=== PATIENT | female | born 1965 | race Asian ===

== ENCOUNTER → 2017-08-17 11:47 | Outpatient (CLI) | payer OTHER, SELFPAY ==
--- NOTE | 2017-08-17 | DI.RAD.S_ITS ---
PROCEDURE: XR SHOULDER RT MIN 2V INDICATIONS: SHOULDER PAIN/HAND PAIN TECHNIQUE: 3 views of the shoulder were acquired. COMPARISON: None. FINDINGS: Bones: No fractures or dislocations. No suspicious bony lesions. Visualized ribs appear intact. Soft tissues: No suspicious soft tissue calcifications. Atelectasis right lung base. IMPRESSION: No apparent abnormality. Dictated by: Fab Clements M.D. on 08/17/2017 at 12:54 Approved by: Fab Clements M.D. on 08/17/2017 at 12:56
--- NOTE | 2017-08-17 | DI.RAD.S_ITS ---
PROCEDURE: XR HAND RT MIN 3V INDICATIONS: SHOULDER PAIN/HAND PAIN TECHNIQUE: 3 views of the hand(s) acquired. COMPARISON: [facility] Siren, CR, FINGERS 2VW (RT), 09/02/2013, 9:06. FINDINGS: Bones: No fractures or dislocations. Carpal bones are normally aligned. No suspicious bony lesions. Soft tissues: No suspicious soft tissue calcifications. IMPRESSION: Normal appearing hand and wrist, source of pain not seen. Dictated by: Fab Clements M.D. on 08/17/2017 at 12:53 Approved by: Fab Clements M.D. on 08/17/2017 at 12:54
== END ==
DX: M25.511 Pain in right shoulder (principal); M79.641 Pain in right hand
CPT/HCPCS: 73030; 73130

== ENCOUNTER → 2017-11-15 07:04 | Outpatient (CLI) | payer OTHER, MEDICAID, SELFPAY ==
--- NOTE | 2017-11-15 | DI.US.S_ITS ---
PROCEDURE: US RENAL COMPLETE INDICATIONS: RENAL INSUFFICIENCY TECHNIQUE: Real-time scanning was performed of the kidneys and bladder, with image documentation. COMPARISON: None. FINDINGS: Kidneys: Kidneys are normal in size. Right kidney measures 9.5 cm long; left kidney measures 10.2 cm long. Right renal cortical thickness is 1.8 cm; left renal cortical thickness is 1.2 cm. Renal cortical echotexture is normal. No hydronephrosis or nephrolithiasis. No suspicious solid mass lesions. Bladder: Pre-void bladder volume is 83 mL. Post-void residual is 0 mL. Pre-void images demonstrate no intraluminal masses or stones. On pre-void images, right ureteral jets are noted with color Doppler interrogation. (Of note, ureteral jets may not be detectable in up to 25% of cases due to insufficient differences in specific gravity between ureteral and bladder urine). Miscellaneous: No free pelvic fluid. IMPRESSION: Normal appearance of the kidneys. Dictated by: Tarun BEARDEN Interpreted: Jerardo Hernandez MD on 11/15/2017 at 8:06 Approved by: Jerardo Hernandez M.D. on 11/15/2017 at 10:47
== END ==
PROVIDERS: Visit Provider Nurse Practitioner
DX: N28.9 Disorder of kidney and ureter, unspecified (principal)
CPT/HCPCS: 76770

== ENCOUNTER → 2017-12-22 07:22 | Outpatient (CLI) | payer OTHER, MEDICAID, SELFPAY ==
[2017-12-22 07:33] LABS: Bacteria Urine None Seen
[2017-12-22 08:19] LABS: Appearance Urine UA CLEAR; Bilirubin Urine UA NEGATIVE (NEGATIVE); Color Urine UA YELLOW; Glucose Urine UA NEGATIVE (Normal); Ketones Urine UA NEGATIVE (NEGATIVE); Leukocyte Esterase Urine UA NEGATIVE (NEGATIVE); Nitrite Urine UA NEGATIVE (Negative); Occult Blood Urine UA NEGATIVE (Negative); Protein Urine UA NEGATIVE (Negative); Specific Gravity Urine UA 1.025 (1.000-1.035); Urobilinogen Urine UA 0.2 E.U./dL (0.2)
[2017-12-22 08:25] LABS: Hemoglobin A1C% w Est Avg Glu 6.9 % (4.0-6.0)
[2017-12-22 08:26] LABS: Culture Indicated Urine Cult Not Indicated; RBC Urine 0-1/HPF (0-5/HPF); Squamous Epithelial Cell Urine 1-5 /HPF; WBC Urine 0-1/HPF (0-5/HPF)
[2017-12-22 08:30] LABS: Albumin 4.7 g/dL (3.5-5.0); Albumin Globulin Ratio 1.6 (1.0-2.8); Alkaline Phosphatase 52 U/L (38-126); Aspartate Aminotransferase 26 IU/L (14-36); BUN Creatinine Ratio 18.3 (6-22); Bilirubin Total 0.4 mg/dL (0.2-1.3); Blood Urea Nitrogen 22 mg/dL (7-17); Calcium 9.7 mg/dL (8.4-10.2); Carbon Dioxide 26 mmol/L (22-32); Chloride 107 mmol/L (98-107); Cholesterol 198 mg/dL (140-199); Estimated Glomerular Filt Rate 46.8 mL/min (>60); Globulin 2.9 g/dL (1.7-4.1); Glucose 127 mg/dL (70-100); HDL Cholesterol 53 mg/dL (40-60); HEMOLYSIS < 15 (0-50); LDL Cholesterol Calculated 119 mg/dL (<100); Potassium 4.2 mmol/L (3.4-5.1); Total Protein 7.6 g/dL (6.3-8.2); Triglycerides 132 mg/dL (35-150)
[2017-12-22 08:32] LABS: Alanine Aminotransferase 23 IU/L (9-52); Sodium 144 mmol/L (137-145)
[2017-12-22 08:56] LABS: Creatinine Urine Random 173.9 mg/dL
[2017-12-22 08:59] LABS: Microalbumin Urine Random 5.4 mg/dL (0-1.6)
== END ==
PROVIDERS: PCP Nurse Practitioner; Visit Provider Nurse Practitioner
DX: N28.9 Disorder of kidney and ureter, unspecified (principal); E11.3293 Type 2 diabetes mellitus with mild nonproliferative diabetic retinopathy without macular edema, bilateral
CPT/HCPCS: 36415; 80053; 80061; 81001; 82043; 82570; 83036

== ENCOUNTER → 2018-09-17 11:47 | Outpatient (CLI) | payer OTHER, MEDICAID, SELFPAY ==
--- NOTE | 2018-09-17 | DI.MG.S_ITS ---
BILATERAL DIGITAL SCREENING MAMMOGRAM 3D/2D WITH CAD: 09/17/2018 CLINICAL: Routine screening. Comparison is made to exams dated: 03/13/2017 mammogram - [facility], 11/30/2015 mammogram, and 05/06/2014 mammogram - [facility]. There are scattered fibroglandular elements in both breasts. Current study was also evaluated with a Computer Aided Detection (CAD) system. No significant masses, calcifications, or other findings are seen in either breast. There has been no significant interval change. IMPRESSION: NEGATIVE There is no mammographic evidence of malignancy. A 1 year screening mammogram is recommended. This exam was interpreted at Station ID: [id number]. NOTE: For mammograms, a report in lay terms will be sent to the patient. Approximately 15% of breast malignancies will not be visualized mammographically. In the management of a palpable breast mass, a negative mammogram must not discourage biopsy of a clinically suspicious lesion. Electronically Signed By: Antwon tyson/[email or web address]:09/17/2018 18:25:12 letter sent: Normal Exam ACR BI-RADS Category 1: Negative [id number]
== END ==
PROVIDERS: PCP Nurse Practitioner; Visit Provider Nurse Practitioner
DX: Z12.31 Encounter for screening mammogram for malignant neoplasm of breast (principal)
CPT/HCPCS: 77063; 77067

== ENCOUNTER → 2018-10-15 09:05 | Outpatient (CLI) | payer OTHER, MEDICAID, SELFPAY ==
[2018-10-15 10:16] LABS: Hemoglobin A1C% w Est Avg Glu 7.3 % (4.0-6.0)
== END ==
PROVIDERS: PCP Nurse Practitioner; Visit Provider Family Medicine
DX: E11.3293 Type 2 diabetes mellitus with mild nonproliferative diabetic retinopathy without macular edema, bilateral (principal)
CPT/HCPCS: 36415; 83036

== ENCOUNTER 2018-12-31 10:46 | Day surgery (SDC) | payer OTHER, MEDICAID, SELFPAY ==
[2018-12-31] VITALS (12 sets, daily range): BP systolic 126–197; BP diastolic 74–103; PULSE 55–74; RESP 13–16; TEMP 36.1–36.6; O2SAT 94–98; BMI 23.4
--- NOTE | 2018-12-31 | PATH_ITS ---
[facility] Accession Number: [id number] . 01 Material submitted: . PART A: artery - SEGMENT RIGHT TEMPORAL ARTERY PART B: artery - SEGMENT LEFT TEMPORAL ARTERY . 02 Diagnosis: A. Segment Right Temporal Artery: Negative for histologic features of temporal arteritis. An elastic stain demonstrates an intact internal elastic lamina. . B. Segment Left Temporal Artery: Negative for histologic features of temporal arteritis. An elastic stain demonstrates an intact internal elastic lamina. MRV 01/01/2019 1426 Local . 02 Electronically signed: . Elin Schwartz MD, Pathologist NPI- [id number] . 01 Gross description: . Received two formalin-filled containers, both labeled with the patient's name: . A. In a container labeled segment right temporal artery, the specimen consists of two pink-hodge, rough, partial cylindrical-shaped portions of tissue which range in size from 0.3 x 0.2 x 0.2 cm to 0.4 x 0.3 x 0.2 cm. The specimen is inked blue and entirely submitted in cassette A to be possibly further sectioned at the time of embedding. B. In a container labeled segment left temporal artery, the specimen consists of a pink-hodge, rough, irregular-shaped, slightly friable portion of tissue which measures 0.5 x 0.3 x 0.2 cm. The specimen is inked and entirely submitted in cassette B to be possibly further sectioned at the time of embedding. ([id number]) /FRVictor Hugo 01/01/2019 0218 Local . 02 Pathologist provided ICD-10: Z00.01 . 02 CPT . 567467, 436875, 489702, 477616 Performed at: [address] [place] [address] [address] [facility], [place], [place] [id number] MD Manny Gaona MD Phone: [phone] Performed at: [facility] [place] [address] [place] [id number] MD Camryn Linton MD Phone: [phone]
[2018-12-31] MEDS: LACTATED RINGERS 1,000 ML 100 ML IV ×2 (11:08→15:28)
--- NOTE | 2018-12-31 12:47 | PM.PREOP ---
Pre-operative Note Interval Note History & Physical reviewed/Exam performed by Physician: Yes Changes to H&P: No
[2018-12-31] MEDS: CEFAZOLIN 2 GM/100 ML FROZ.PIGGY IV (12:51)
--- NOTE | 2018-12-31 13:15 | SUR.OPER ---
Supine on padded OR bed, head on pillow, ARMS PADDED AND SECURED AT SIDES, legs uncrossed, safety belt at thigh, tape over blanket over lower legs .
[2018-12-31] MEDS: LIDOCAINE 1% 30 ML INJ (13:24)
--- NOTE | 2018-12-31 14:06 | PM.OP.1 ---
Operative Date/Time/Diagnoses Date of procedure: 12/31/18 Time of procedure: 14:06 Pre-op diagnosis: Possible temporal arteritis Post-op diagnosis: same Procedure & Clinicians Procedure: Bilateral temporal artery biopsies Same procedure as scheduled: Yes Indications: Patient with an elevated sed rate and abnormal ultrasound of her temporal arteries with symptoms suggesting possible arteritis Surgeon: Fernando Vincent Click Yes if Unassisted: Yes Anesthesia Type: General Operative Notes Findings: Normal appearing temporal arteries Closure Type: primary Specimen(s): other (Right left temporal arteries segments) Prosthetic devices, grafts, tissues, transplants, or devices: None Estimated Blood Loss (mL): 10 Blood products transfused: none Procedure in detail: Patient was placed supine on the operating room table and underwent general LMA anesthesia. Her makeup had been removed preop. She was prepped with chlorhexidine alcohol overlying her temporal artery which was palpable. It the incision was made behind the hairline carried down the level the artery. The segment of the artery was removed and the cut ends were ligated with 4 0 Vicryl suture ligatures. Once the segment was removed there was no significant bleeding. The incision was closed with interrupted 4 0 Vicryl subcuticular sutures. Steri-Strips and Mastisol were applied. Attention was turned to the opposite side. A mirror incision and biopsy was performed with identical closure. Patient tolerated the procedure well. Was awakened extubated taken recovery area in good condition. Complications: none Post-operative Condition: stable Disposition: PACU
[2018-12-31] MEDS: fentaNYL 100 MCG/2 ML INJ IV (14:54)
--- NOTE | 2018-12-31 15:06 | SUR.PHASEI ---
notified anesthesia regarding pt's B/P slowly increasing, received verbal orders to give 5mg Labetalol IV
[2018-12-31] MEDS: LABETALOL 20 MG/4 ML SYRINGE IV (15:10)
--- NOTE | 2018-12-31 15:25 | SUR.PHASEI ---
Pt. requesting to use the bathroom, pt. assisted up to EOB with min. assist and into a w/c. Able to void via toilet without issues and min. assist back into w/c. Pt. now progressed into phase II. Report given to Danyel Torres RN
[2018-12-31] MEDS: ONDANSETRON 4 MG/2 ML INJ (15:35)
[2018-12-31] MEDS: METOCLOPRAMIDE 10 MG/2 ML INJ IV (15:41)
--- NOTE | 2018-12-31 15:43 | SUR.PHASEII ---
Pt transported from PACU to OPD, assisted to BR, voided, back to stretcher pt stated she was nauseated and had some dry heaves Dr Almaraz made aware by SHANE Lara and pt medicated with ondansetron and then reglan. radha wray also at bedside.
--- NOTE | 2018-12-31 16:18 | SUR.PHASEII ---
No further nausea, significant other left to get filled meds. Pt resting comfortably at present.
== END 2018-12-31 16:47 | disposition home or self-care (01) ==
PROVIDERS: PCP Nurse Practitioner; Visit Provider Specialist
PROC: (CPT 37609; principal; 2018-12-31 12:30)
DX: R51 Headache (principal); E11.9 Type 2 diabetes mellitus without complications; F32.9 Major depressive disorder, single episode, unspecified; Z79.84 Long term (current) use of oral hypoglycemic drugs
CPT/HCPCS: 37609; J0690; J1100; J2250; J2405; J2704; J2765; J3010

== ENCOUNTER → 2019-01-21 09:52 | Outpatient (CLI) | payer OTHER, MEDICAID, SELFPAY ==
[2019-01-21 10:43] LABS: Hemoglobin A1C% w Est Avg Glu 9.9 % (4.0-6.0)
[2019-01-21 11:16] LABS: Alanine Aminotransferase 27 IU/L (<35); Albumin 4.1 g/dL (3.5-5.0); Albumin Globulin Ratio 1.7 (1.0-2.8); Alkaline Phosphatase 84 U/L (38-126); Aspartate Aminotransferase 24 IU/L (14-36); Bilirubin Total 0.5 mg/dL (0.2-1.3); Blood Urea Nitrogen 38 mg/dL (7-17); Calcium 10.3 mg/dL (8.4-10.2); Carbon Dioxide 25 mmol/L (22-32); Chloride 101 mmol/L (98-107); Cholesterol 243 mg/dL (140-199); Estimated Glomerular Filt Rate 57.6 mL/min (>60); Globulin 2.4 g/dL (1.7-4.1); Glucose 346 mg/dL (70-100); HDL Cholesterol 75 mg/dL (40-60); HEMOLYSIS < 15 (0-50); LDL Cholesterol Calculated 118 mg/dL (<100); Sodium 139 mmol/L (137-145); Total Protein 6.5 g/dL (6.3-8.2); Triglycerides 248 mg/dL (35-150); VLDL Cholesterol Calculated 50 mg/dL (2-30)
[2019-01-21 11:17] LABS: Creatinine Urine Random 35.9 mg/dL
[2019-01-21 11:20] LABS: Microalbumi Creatinin Ratio Ur 153.2 ug/mg CR (<30); Microalbumin Urine Random 5.5 mg/dL (0-1.6)
== END ==
PROVIDERS: PCP Family Medicine; Visit Provider Family Medicine
DX: E11.3293 Type 2 diabetes mellitus with mild nonproliferative diabetic retinopathy without macular edema, bilateral (principal)
CPT/HCPCS: 36415; 80053; 80061; 82043; 82570; 83036

== ENCOUNTER 2019-01-22 17:38 | Observation (INO) | payer OTHER, MEDICAID, SELFPAY ==
[2019-01-22] VITALS (9 sets, daily range): BP systolic 134–185; BP diastolic 67–100; PULSE 86–110; RESP 15–24; TEMP 36.3; O2SAT 90–100; BMI 23.4
--- NOTE | 2019-01-22 17:52 | DI.RAD.S_ITS ---
PROCEDURE: XR CHEST 1V INDICATIONS: chest pain TECHNIQUE: One view of the chest was acquired. COMPARISON: [facility], , CHEST 1 VIEW, 10/31/2007, 11:06. FINDINGS: Surgical changes and devices: None. Lungs and pleura: Lungs are clear. No pleural effusions or pneumothorax. Mediastinum: Mediastinal contours appear normal. Heart size is normal. Bones and chest wall: No suspicious bony lesions. Overlying soft tissues appear unremarkable. IMPRESSION: No acute cardiopulmonary abnormalities or focal airspace disease. Dictated by: Enoch Vogt M.D. on 01/22/2019 at 18:11 Approved by: Enoch Vogt M.D. on 01/22/2019 at 18:11
--- NOTE | 2019-01-22 17:54 | ED.GENADULT ---
HPI - General Adult <Sissy Jaramillo MD - Last Filed: 01/22/19 18:45> General Chief complaint: Recheck/Abnormal Lab/Rx Stated complaint: heart palpitations, difficulty breathing Time Seen by Provider: 01/22/19 17:54 History of Present Illness HPI narrative: 53-year-old woman who had blood work done yesterday with a potassium of 6.0 noted. She was contacted prior her primary care physician with instructions to come to the emergency room for additional evaluation. Related Data Home Medications Medication Instructions Recorded Confirmed citalopram 20 mg tablet 20 mg PO DAILY 12/25/18 01/22/19 gabapentin 100 mg capsule 100 mg PO QAM 12/25/18 01/22/19 glipizide 5 mg tablet 5 mg PO QAM 12/25/18 01/22/19 loratadine 10 mg tablet 10 mg PO DAILY PRN 12/25/18 01/22/19 multivitamin 1 cap PO QAM 12/25/18 01/22/19 pravastatin 20 mg tablet 20 mg PO QAM 12/25/18 01/22/19 prazosin 1 mg capsule 1 mg PO BEDTIME PRN 12/25/18 01/22/19 Previous Rx's Medication Instructions Recorded metformin [Glucophage] 500 mg PO BID #60 06/14/11 Allergies Allergy/AdvReac Type Severity Reaction Status Date / Time aspirin [ASPIRIN] Allergy Unknown Verified 01/22/19 21:17 iodine [IODINE] Allergy Unknown Verified 01/22/19 21:17 lactose [LACTOSE] Allergy Unknown Verified 01/22/19 21:17 latex [LATEX] Allergy Unknown Verified 01/22/19 21:17 <Cora Rider DO - Last Filed: 01/23/19 01:11> General Source: patient and old records reviewed Mode of arrival: Ambulatory Limitations: no limitations History of Present Illness HPI narrative: Patient is a 53-year-old female with history of diabetes presenting with elevated potassium. She had routine blood work done yesterday which did show potassium of 6.0. She says that over the past week she is having increasing shortness of breath and chest discomfort. She denies any orthopnea but does have worsening chest discomfort and shortness of breath with exertion. No fevers chills or productive cough. She generally feels weak. She was just treated for temporal arteritis with prednisone. She had biopsies done which were negative and she was tapered off the prednisone. Her glucose she says has been elevated due to prednisone. She currently has no chest pain or shortness of breath now. She states she did travel in a car to [place] over [facility] which was 3 weeks ago. She has no calf pain or swelling. <Cora Rider DO - Last Filed: 01/23/19 01:11> Review of Systems ROS Unobtainable: All systems reviewed & are unremarkable except as noted in HPI and below Constitutional Constitutional: Denies chills, Denies fever(s), Denies lethargy and Denies weakness Eyes Eyes: Denies change in vision, Denies eye discharge, Denies irritation and Denies loss of vision ENT Ears, Nose, Mouth, and Throat: Denies change in voice, Denies neck pain and Denies sore throat Cardiovascular Cardiovascular: Reports as per HPI, Reports chest pain, Reports rapid heart rate (Palpitations), Denies lightheadedness, Denies palpitations and Reports dyspnea on exertion Respiratory Respiratory: Reports as per HPI and Reports dyspnea on exertion Gastrointestinal Gastrointestinal: Denies abdominal pain, Denies change in bowel habits, Denies diarrhea, Denies nausea and Denies vomiting Genitourinary Genitourinary: Denies hematuria, Denies flank pain, Denies urinary incontinence and Denies urinary urgency Musculoskeletal Musculoskeletal: Denies neck pain Integumentary/Breasts Skin/Breast: Denies pruritus, Denies erythema, Denies rash and Denies wounds Neurologic Neurologic: Denies loss of vision and Denies weakness Endocrine Endocrine: Denies palpitations Patient History <Sissy Jaramillo MD - Last Filed: 01/22/19 18:45> Medical History (Updated 01/23/19 @ 00:14 by JAVIER Joyner) Depression (Acute) Diabetes (Acute) Hearing loss (Acute) Night terrors (Chronic) Seasonal allergies (Acute) Surgical History Hx of carpal tunnel repair (Acute) Hx of hand surgery (Acute) Hx of shoulder surgery (Acute) Family History Father Depression Hypertension Sister Gout Cancer Mother Diabetes mellitus Social History household members: significant other and friend(s) Smoking Status: Never smoker alcohol intake: never substance use type: does not use Smoking Status: Never smoker Substance Use Type: does not use Exam <Sissy Jaramillo MD - Last Filed: 01/22/19 18:45> Initial Vital Signs Initial Vital Signs: Vital Signs Pulse Rate 96 H 01/22/19 18:00 Respiratory Rate 18 01/22/19 18:00 Blood Pressure 150/85 H 01/22/19 18:00 <Cora Rider DO - Last Filed: 01/23/19 01:11> Initial Vital Signs Initial Vital Signs: Vital Signs Pulse Rate 96 H 01/22/19 18:00 Respiratory Rate 18 01/22/19 18:00 Blood Pressure 150/85 H 01/22/19 18:00 GENERAL: Well-appearing, well-nourished and in no acute distress. HEENT: Head atraumatic,EOMI, pupils reactive, face symmetric CARDIOVASCULAR: Regular rate and rhythm without murmurs, rubs or gallops. RESPIRATORY: Breath sounds equal bilaterally, no wheezes rales or rhonchi. ABDOMEN: Soft, nontender. Normoactive bowel sounds all 4 quadrants. No guarding or rebound. EXTREMITIES: Normal range of motion, no clubbing or edema. Neurovascularly intact NEUROLOGICAL: Alert and oriented x4.Normal gait and speech. Cranial nerves II through XII grossly intact. SKIN: Warm, dry, no laceration, no petechiae, no rashes or lesions. <Cora Rider DO - Last Filed: 01/23/19 01:11> HEART Score Heart Score history: Moderately Suspicious Heart Score EKG: Normal Heart Score Age: 45-64 years old Heart Score risk factors: 1-2 risk factors Heart Score troponin: < or = to normal limit Heart Score Total: 3 PERC Score Age greater than or equal to 50 years: Yes Heart rate greater than or equal to 100 bpm: Yes Room Air O2 Sat less than 95%: No Unilateral leg swelling: No Recent trauma or surgery: No Hemoptysis: No Prior PE or DVT: No Hormone Use: No Total PERC Score: 2 Wells' Criteria for PE Clinical signs and symptoms of DVT: No PE is #1 Dx or equally likely: No Heart rate > 100: Yes Immobilization at least 3 days or surg in previous 4 weeks: No History of PE or DVT: No Hemoptysis: No Malignancy w/Treatment within 6 months or palliative: No Wells' PE Score total: 1.5 Course <Sissy Jaramillo MD - Last Filed: 01/22/19 18:45> Orders Ordered: ED Orders 01/22/19 17:47 EKG-12 Lead Stat 01/22/19 17:52 XR chest 1V Stat 01/22/19 18:00 B Type Natriuretic Peptide Stat Complete Blood Count AUTO DIFF Stat Partial Thromboplastin Time Stat Prothrombin Time INR Stat 01/22/19 18:30 Comprehensive Metabolic Panel Stat D Dimer Stat Lipase Stat Magnesium Stat Troponin & CK Cardiac Panel Stat 01/22/19 20:45 CT angio chest PE protocol Stat Acetaminophen (Tylenol) 650 mg PO Q6HR PRN PRN Reason: Fever/Mild Pain (1-3) Clopidogrel Bisulfate (Plavix) 75 mg PO DAILY KIKA Dextrose (D50w) 25 gm IV PRN PRN; Protocol PRN Reason: Hypoglycemia Heparin Sodium (Porcine) (Heparin) 5,000 unit SUBCUT Q8HR [facility] Last Admin: 01/22/19 22:39 Dose: 5,000 unit Documented by: ULI Sodium Chloride (Normal Saline 0.9%) 1,000 mls @ 150 mls/hr IV BOLUS ONE Stop: 01/23/19 03:39 Last Infusion: 01/22/19 21:46 Dose: 0 mls/hr Documented by: Admin: 01/22/19 21:09 Dose: 150 mls/hr Documented by: JOSE Sodium Chloride (Normal Saline 0.9%) 1,000 mls @ 100 mls/hr IV CONT KIKA Stop: 01/23/19 11:14 Insulin Aspart (Novolog Flexpen) 0 unit SUBCUT ACHS [facility]; Protocol Ondansetron HCl (Zofran) 4 mg IV Q8HR PRN PRN Reason: Nausea And Vomiting Discontinued Medications Clopidogrel Bisulfate (Plavix) 75 mg PO NOW ONE Stop: 01/22/19 20:46 Last Admin: 01/22/19 20:53 Dose: 75 mg Documented by: JOSE Diphenhydramine HCl (Benadryl) 25 mg IV NOW ONE Stop: 01/22/19 20:46 Last Admin: 12/17/19 20:53 Dose: 25 mg Documented by: JOSE Sodium Chloride (Normal Saline 0.9%) 1,000 mls @ 1,000 mls/hr IV BOLUS ONE Stop: 01/22/19 19:03 Last Infusion: 01/22/19 19:20 Dose: 0 mls/hr Documented by: Admin: 01/22/19 18:08 Dose: 1,000 mls/hr Documented by: JOSE Sodium Chloride (Normal Saline 0.9%) 1,000 mls @ 1,000 mls/hr IV BOLUS ONE Stop: 01/22/19 21:10 Last Infusion: 01/22/19 21:00 Dose: 0 mls/hr Documented by: Admin: 01/22/19 20:20 Dose: 1,000 mls/hr Documented by: JOSE Magnesium Sulfate (Magnesium Sulfate) 2 gm in 50 mls @ 25 mls/hr IV NOW ONE Stop: 01/22/19 23:48 Last Admin: 01/22/19 22:49 Dose: 25 mls/hr Documented by: ULI Cosigned by: ANNA Influenza Virus Vaccine (Flu Vaccine) 0.5 ml IM .ONCE ONE Stop: 01/22/19 22:05 Methylprednisolone (Solu-Medrol 125 Mg Vial) 125 mg IV NOW ONE Stop: 01/22/19 20:46 Last Admin: 01/22/19 20:53 Dose: 125 mg Documented by: JOSE Morphine Sulfate (Morphine) 2 mg IV NOW ONE Stop: 01/22/19 20:57 Last Admin: 01/22/19 20:58 Dose: 2 mg Documented by: JOSE Potassium Chloride (Potassium Chloride) 20 meq PO NOW ONE Stop: 01/22/19 21:50 Last Admin: 01/22/19 22:38 Dose: 20 meq Documented by: ULI Vital Signs Vital signs: Vital Signs - 8 hr 01/22/19 18:00 01/22/19 18:10 01/22/19 18:30 Temperature 97.4 F L Pulse Rate 96 H 110 H 89 Respiratory Rate 18 24 21 Blood Pressure 184/81 H Blood Pressure [Right Arm] 150/85 H 152/70 H Pulse Oximetry 99 01/22/19 19:04 01/22/19 19:45 01/22/19 20:15 Temperature Pulse Rate 87 89 90 Respiratory Rate 20 19 20 Blood Pressure Blood Pressure [Right Arm] 134/67 140/74 148/71 H Pulse Oximetry 97 100 98 <Cora Rider, DO - Last Filed: 01/23/19 01:11> Orders Ordered: ED Orders 01/22/19 17:47 EKG-12 Lead Stat 01/22/19 17:52 XR chest 1V Stat 01/22/19 18:00 B Type Natriuretic Peptide Stat Complete Blood Count AUTO DIFF Stat Partial Thromboplastin Time Stat Prothrombin Time INR Stat 01/22/19 18:30 Comprehensive Metabolic Panel Stat D Dimer Stat Lipase Stat Magnesium Stat Troponin & CK Cardiac Panel Stat 01/22/19 20:45 CT angio chest PE protocol Stat Acetaminophen (Tylenol) 650 mg PO Q6HR PRN PRN Reason: Fever/Mild Pain (1-3) Clopidogrel Bisulfate (Plavix) 75 mg PO DAILY KIKA Dextrose (D50w) 25 gm IV PRN PRN; Protocol PRN Reason: Hypoglycemia Heparin Sodium (Porcine) (Heparin) 5,000 unit SUBCUT Q8HR [facility] Last Admin: 01/22/19 22:39 Dose: 5,000 unit Documented by: ULI Sodium Chloride (Normal Saline 0.9%) 1,000 mls @ 150 mls/hr IV BOLUS ONE Stop: 01/23/19 03:39 Last Infusion: 01/22/19 21:46 Dose: 0 mls/hr Documented by: Admin: 01/22/19 21:09 Dose: 150 mls/hr Documented by: JOSE Sodium Chloride (Normal Saline 0.9%) 1,000 mls @ 100 mls/hr IV CONT KIKA Stop: 01/23/19 11:14 Insulin Aspart (Novolog Flexpen) 0 unit SUBCUT ACHS [facility]; Protocol Ondansetron HCl (Zofran) 4 mg IV Q8HR PRN PRN Reason: Nausea And Vomiting Discontinued Medications Clopidogrel Bisulfate (Plavix) 75 mg PO NOW ONE Stop: 01/22/19 20:46 Last Admin: 01/22/19 20:53 Dose: 75 mg Documented by: JOSE Diphenhydramine HCl (Benadryl) 25 mg IV NOW ONE Stop: 01/22/19 20:46 Last Admin: 01/22/19 20:53 Dose: 25 mg Documented by: JOSE Sodium Chloride (Normal Saline 0.9%) 1,000 mls @ 1,000 mls/hr IV BOLUS ONE Stop: 01/22/19 19:03 Last Infusion: 01/22/19 19:20 Dose: 0 mls/hr Documented by: Admin: 01/22/19 18:08 Dose: 1,000 mls/hr Documented by: JOSE Sodium Chloride (Normal Saline 0.9%) 1,000 mls @ 1,000 mls/hr IV BOLUS ONE Stop: 01/22/19 21:10 Last Infusion: 01/22/19 21:00 Dose: 0 mls/hr Documented by: Admin: 01/22/19 20:20 Dose: 1,000 mls/hr Documented by: JOSE Magnesium Sulfate (Magnesium Sulfate) 2 gm in 50 mls @ 25 mls/hr IV NOW ONE Stop: 01/22/19 23:48 Last Admin: 01/22/19 22:49 Dose: 25 mls/hr Documented by: ULI Cosigned by: ANNA Influenza Virus Vaccine (Flu Vaccine) 0.5 ml IM .ONCE ONE Stop: 01/22/19 22:05 Methylprednisolone (Solu-Medrol 125 Mg Vial) 125 mg IV NOW ONE Stop: 01/22/19 20:46 Last Admin: 01/22/19 20:53 Dose: 125 mg Documented by: JOSE Morphine Sulfate (Morphine) 2 mg IV NOW ONE Stop: 01/22/19 20:57 Last Admin: 01/22/19 20:58 Dose: 2 mg Documented by: JOSE Potassium Chloride (Potassium Chloride) 20 meq PO NOW ONE Stop: 01/22/19 21:50 Last Admin: 01/22/19 22:38 Dose: 20 meq Documented by: ULI Vital Signs Vital signs: Vital Signs - 8 hr 01/22/19 18:00 01/22/19 18:10 01/22/19 18:30 Temperature 97.4 F L Pulse Rate 96 H 110 H 89 Respiratory Rate 18 24 21 Blood Pressure 184/81 H Blood Pressure [Right Arm] 150/85 H 152/70 H Pulse Oximetry 99 01/22/19 19:04 01/22/19 19:45 01/22/19 20:15 Temperature Pulse Rate 87 89 90 Respiratory Rate 20 19 20 Blood Pressure Blood Pressure [Right Arm] 134/67 140/74 148/71 H Pulse Oximetry 97 100 98 Medical Decision Making <Sissy Jaramillo MD - Last Filed: 01/22/19 18:45> Lab Data Result diagrams: 01/22/19 18:00 01/22/19 18:30 Labs: Lab Results 01/22/19 01/22/19 01/22/19 Range/Units 18:00 18:00 18:00 WBC 9.3 (4.5-11.0) X10^3/uL RBC 4.61 (4.0-5.2) X10^6/uL Hgb 12.8 (12.0-16.0) g/dL Hct 38.7 (36-46) % MCV 84.1 (80-100) fL MCH 27.7 (26-34) PG MCHC 33.0 (30-36) % RDW 15.1 H (11.6-14.8) % Plt Count 265 (150-400) X10^3/uL Neut % (Auto) 63.5 (50-75) % Lymph % (Auto) 26.6 (25-40) % [place] % (Auto) 7.2 (3-14) % Eos % (Auto) 1.3 L (2-4) % Baso % (Auto) 1.4 (0-2) % Neut # (Auto) 5900 (8411-7888) /uL Lymph # (Auto) 2500 (9987-1296) /uL [place] # (Auto) 700 (0-900) /uL Eos # (Auto) 100 (0-450) /uL Baso # (Auto) 100 (0-100) /uL PT 9.2 L (10.1-12.7) SECONDS INR 0.8 L (0.9-1.3) APTT 28 (26.4-36.2) SECONDS D-Dimer (<230) ng/mL Sodium (137-145) mmol/L Potassium (3.4-5.1) mmol/L Chloride (98-107) mmol/L Carbon Dioxide (22-32) mmol/L BUN (7-17) mg/dL Creatinine (0.52-1.04) mg/dL Estimated GFR (>60) mL/min BUN/Creatinine Ratio (6-22) Glucose (70-100) mg/dL Calcium (8.4-10.2) mg/dL Magnesium (1.6-2.3) mg/dL Total Bilirubin (0.2-1.3) mg/dL AST (14-36) IU/L ALT (<35) IU/L Alkaline Phosphatase (38-126) U/L Total Creatine Kinase (30-135) U/L CK-MB (CK-2) CK-MB (CK-2) Rel Index Troponin I (0.01-0.034) ng/mL B-Natriuretic Peptide < 100 (<100) Total Protein (6.3-8.2) g/dL Albumin (3.5-5.0) g/dL Globulin (1.7-4.1) g/dL Albumin/Globulin Ratio (1.0-2.8) Lipase (23-300) U/L TSH (0.47-4.68) uIU/mL 01/22/19 01/22/19 01/22/19 Range/Units 18:30 18:30 18:30 WBC (4.5-11.0) X10^3/uL RBC (4.0-5.2) X10^6/uL Hgb (12.0-16.0) g/dL Hct (36-46) % MCV (80-100) fL MCH (26-34) PG MCHC (30-36) % RDW (11.6-14.8) % Plt Count (150-400) X10^3/uL Neut % (Auto) (50-75) % Lymph % (Auto) (25-40) % [place] % (Auto) (3-14) % Eos % (Auto) (2-4) % Baso % (Auto) (0-2) % Neut # (Auto) (0742-5616) /uL Lymph # (Auto) (6463-7312) /uL [place] # (Auto) (0-900) /uL Eos # (Auto) (0-450) /uL Baso # (Auto) (0-100) /uL PT (10.1-12.7) SECONDS INR (0.9-1.3) APTT (26.4-36.2) SECONDS D-Dimer < 200 (<230) ng/mL Sodium 137 (137-145) mmol/L Potassium 3.4 D (3.4-5.1) mmol/L Chloride 102 (98-107) mmol/L Carbon Dioxide 26 (22-32) mmol/L BUN 28 H (7-17) mg/dL Creatinine 1.10 H (0.52-1.04) mg/dL Estimated GFR 51.6 L (>60) mL/min BUN/Creatinine Ratio 25.5 H (6-22) Glucose 180 H D (70-100) mg/dL Calcium 9.9 (8.4-10.2) mg/dL Magnesium 1.6 (1.6-2.3) mg/dL Total Bilirubin 0.4 (0.2-1.3) mg/dL AST 21 (14-36) IU/L ALT 23 (<35) IU/L Alkaline Phosphatase 64 (38-126) U/L Total Creatine Kinase 21 L (30-135) U/L CK-MB (CK-2) TNP CK-MB (CK-2) Rel Index TNP Troponin I < 0.012 (0.01-0.034) ng/mL B-Natriuretic Peptide (<100) Total Protein 5.8 L (6.3-8.2) g/dL Albumin 3.6 (3.5-5.0) g/dL Globulin 2.2 (1.7-4.1) g/dL Albumin/Globulin Ratio 1.6 (1.0-2.8) Lipase 285 (23-300) U/L TSH (0.47-4.68) uIU/mL // Range/Units 18:30 WBC (4.5-11.0) X10^3/uL RBC (4.0-5.2) X10^6/uL Hgb (12.0-16.0) g/dL Hct (36-46) % MCV (80-100) fL MCH (26-34) PG MCHC (30-36) % RDW (11.6-14.8) % Plt Count (150-400) X10^3/uL Neut % (Auto) (50-75) % Lymph % (Auto) (25-40) % [place] % (Auto) (3-14) % Eos % (Auto) (2-4) % Baso % (Auto) (0-2) % Neut # (Auto) (0029-1719) /uL Lymph # (Auto) (6603-2816) /uL [place] # (Auto) (0-900) /uL Eos # (Auto) (0-450) /uL Baso # (Auto) (0-100) /uL PT (10.1-12.7) SECONDS INR (0.9-1.3) APTT (26.4-36.2) SECONDS D-Dimer (<230) ng/mL Sodium (137-145) mmol/L Potassium (3.4-5.1) mmol/L Chloride (98-107) mmol/L Carbon Dioxide (22-32) mmol/L BUN (7-17) mg/dL Creatinine (0.52-1.04) mg/dL Estimated GFR (>60) mL/min BUN/Creatinine Ratio (6-22) Glucose (70-100) mg/dL Calcium (8.4-10.2) mg/dL Magnesium (1.6-2.3) mg/dL Total Bilirubin (0.2-1.3) mg/dL AST (14-36) IU/L ALT (<35) IU/L Alkaline Phosphatase (38-126) U/L Total Creatine Kinase (30-135) U/L CK-MB (CK-2) CK-MB (CK-2) Rel Index Troponin I (0.01-0.034) ng/mL B-Natriuretic Peptide (<100) Total Protein (6.3-8.2) g/dL Albumin (3.5-5.0) g/dL Globulin (1.7-4.1) g/dL Albumin/Globulin Ratio (1.0-2.8) Lipase (23-300) U/L TSH 2.34 (0.47-4.68) uIU/mL Point of Care Testing Glucose POC 164 Point of care testing: Point of Care Testing Glucose POC 164 ECG Data Attestation: I personally reviewed and interpreted this ECG as follows: Interpretation: Sinus tachycardia at a rate of 111. Nonspecific ST-T wave abnormalities without peaked T-waves and normal intervals without a widening QRS. No acute ischemia <Cora Rider DO - Last Filed: 01/23/19 01:11> Lab Data Lab results reviewed: Yes I reviewed the patient's lab results. Labs: Lab Results 01/22/19 01/22/19 01/22/19 Range/Units 18:00 18:00 18:00 WBC 9.3 (4.5-11.0) X10^3/uL RBC 4.61 (4.0-5.2) X10^6/uL Hgb 12.8 (12.0-16.0) g/dL Hct 38.7 (36-46) % MCV 84.1 (80-100) fL MCH 27.7 (26-34) PG MCHC 33.0 (30-36) % RDW 15.1 H (11.6-14.8) % Plt Count 265 (150-400) X10^3/uL Neut % (Auto) 63.5 (50-75) % Lymph % (Auto) 26.6 (25-40) % [place] % (Auto) 7.2 (3-14) % Eos % (Auto) 1.3 L (2-4) % Baso % (Auto) 1.4 (0-2) % Neut # (Auto) 5900 (5805-5456) /uL Lymph # (Auto) 2500 (9384-0778) /uL [place] # (Auto) 700 (0-900) /uL Eos # (Auto) 100 (0-450) /uL Baso # (Auto) 100 (0-100) /uL PT 9.2 L (10.1-12.7) SECONDS INR 0.8 L (0.9-1.3) APTT 28 (26.4-36.2) SECONDS D-Dimer (<230) ng/mL Sodium (137-145) mmol/L Potassium (3.4-5.1) mmol/L Chloride (98-107) mmol/L Carbon Dioxide (22-32) mmol/L BUN (7-17) mg/dL Creatinine (0.52-1.04) mg/dL Estimated GFR (>60) mL/min BUN/Creatinine Ratio (6-22) Glucose (70-100) mg/dL Calcium (8.4-10.2) mg/dL Magnesium (1.6-2.3) mg/dL Total Bilirubin (0.2-1.3) mg/dL AST (14-36) IU/L ALT (<35) IU/L Alkaline Phosphatase (38-126) U/L Total Creatine Kinase (30-135) U/L CK-MB (CK-2) CK-MB (CK-2) Rel Index Troponin I (0.01-0.034) ng/mL B-Natriuretic Peptide < 100 (<100) Total Protein (6.3-8.2) g/dL Albumin (3.5-5.0) g/dL Globulin (1.7-4.1) g/dL Albumin/Globulin Ratio (1.0-2.8) Lipase (23-300) U/L TSH (0.47-4.68) uIU/mL 01/22/19 01/22/19 01/22/19 Range/Units 18:30 18:30 18:30 WBC (4.5-11.0) X10^3/uL RBC (4.0-5.2) X10^6/uL Hgb (12.0-16.0) g/dL Hct (36-46) % MCV (80-100) fL MCH (26-34) PG MCHC (30-36) % RDW (11.6-14.8) % Plt Count (150-400) X10^3/uL Neut % (Auto) (50-75) % Lymph % (Auto) (25-40) % [place] % (Auto) (3-14) % Eos % (Auto) (2-4) % Baso % (Auto) (0-2) % Neut # (Auto) (5598-1749) /uL Lymph # (Auto) (0024-7239) /uL [place] # (Auto) (0-900) /uL Eos # (Auto) (0-450) /uL Baso # (Auto) (0-100) /uL PT (10.1-12.7) SECONDS INR (0.9-1.3) APTT (26.4-36.2) SECONDS D-Dimer < 200 (<230) ng/mL Sodium 137 (137-145) mmol/L Potassium 3.4 D (3.4-5.1) mmol/L Chloride 102 (98-107) mmol/L Carbon Dioxide 26 (22-32) mmol/L BUN 28 H (7-17) mg/dL Creatinine 1.10 H (0.52-1.04) mg/dL Estimated GFR 51.6 L (>60) mL/min BUN/Creatinine Ratio 25.5 H (6-22) Glucose 180 H D (70-100) mg/dL Calcium 9.9 (8.4-10.2) mg/dL Magnesium 1.6 (1.6-2.3) mg/dL Total Bilirubin 0.4 (0.2-1.3) mg/dL AST 21 (14-36) IU/L ALT 23 (<35) IU/L Alkaline Phosphatase 64 (38-126) U/L Total Creatine Kinase 21 L (30-135) U/L CK-MB (CK-2) TNP CK-MB (CK-2) Rel Index TNP Troponin I < 0.012 (0.01-0.034) ng/mL B-Natriuretic Peptide (<100) Total Protein 5.8 L (6.3-8.2) g/dL Albumin 3.6 (3.5-5.0) g/dL Globulin 2.2 (1.7-4.1) g/dL Albumin/Globulin Ratio 1.6 (1.0-2.8) Lipase 285 (23-300) U/L TSH (0.47-4.68) uIU/mL // Range/Units 18:30 WBC (4.5-11.0) X10^3/uL RBC (4.0-5.2) X10^6/uL Hgb (12.0-16.0) g/dL Hct (36-46) % MCV (80-100) fL MCH (26-34) PG MCHC (30-36) % RDW (11.6-14.8) % Plt Count (150-400) X10^3/uL Neut % (Auto) (50-75) % Lymph % (Auto) (25-40) % [place] % (Auto) (3-14) % Eos % (Auto) (2-4) % Baso % (Auto) (0-2) % Neut # (Auto) (0270-3476) /uL Lymph # (Auto) (5265-7342) /uL [place] # (Auto) (0-900) /uL Eos # (Auto) (0-450) /uL Baso # (Auto) (0-100) /uL PT (10.1-12.7) SECONDS INR (0.9-1.3) APTT (26.4-36.2) SECONDS D-Dimer (<230) ng/mL Sodium (137-145) mmol/L Potassium (3.4-5.1) mmol/L Chloride (98-107) mmol/L Carbon Dioxide (22-32) mmol/L BUN (7-17) mg/dL Creatinine (0.52-1.04) mg/dL Estimated GFR (>60) mL/min BUN/Creatinine Ratio (6-22) Glucose (70-100) mg/dL Calcium (8.4-10.2) mg/dL Magnesium (1.6-2.3) mg/dL Total Bilirubin (0.2-1.3) mg/dL AST (14-36) IU/L ALT (<35) IU/L Alkaline Phosphatase (38-126) U/L Total Creatine Kinase (30-135) U/L CK-MB (CK-2) CK-MB (CK-2) Rel Index Troponin I (0.01-0.034) ng/mL B-Natriuretic Peptide (<100) Total Protein (6.3-8.2) g/dL Albumin (3.5-5.0) g/dL Globulin (1.7-4.1) g/dL Albumin/Globulin Ratio (1.0-2.8) Lipase (23-300) U/L TSH 2.34 (0.47-4.68) uIU/mL Point of Care Testing Glucose POC 164 Point of care testing: Point of Care Testing Glucose POC 164 Imaging Data Chest x-ray: Radiologist's impression: PROCEDURE: XR CHEST 1V INDICATIONS: chest pain TECHNIQUE: One view of the chest was acquired. COMPARISON: [facility], , CHEST 1 VIEW, 10/31/2007, 11:06. FINDINGS: Surgical changes and devices: None. Lungs and pleura: Lungs are clear. No pleural effusions or pneumothorax. Mediastinum: Mediastinal contours appear normal. Heart size is normal. Bones and chest wall: No suspicious bony lesions. Overlying soft tissues appear unremarkable. IMPRESSION: No acute cardiopulmonary abnormalities or focal airspace disease. Dictated by: Enoch Vogt M.D. on 01/22/2019 at 18:11 Approved by: Enoch Vogt M.D. on 01/22/2019 at 18:11 CT scan - chest: Radiologist's impression: PROCEDURE: CT ANGIO CHEST PE PROTOCOL INDICATIONS: SHORTNESS OF BREATH TECHNIQUE: After the administration of intravenous contrast, 2 mm thick sections acquired from the pulmonary apices to the posterior costophrenic angles. 3-dimensional maximum intensity projection (MIP) coronal and sagittal reformats were then acquired through the thorax. For radiation dose reduction, the following was used: automated exposure control, adjustment of mA and/or kV according to patient size. COMPARISON: [facility], CR, XR CHEST 1V, 01/22/2019, 18:01. FINDINGS: Image quality: Excellent. Pulmonary arteries: Pulmonary arteries are normal in size, and demonstrate no intraluminal filling defects to suggest central pulmonary embolism. Lungs and pleura: Mild patchy dependent groundglass opacities likely representing atelectasis. No focal consolidations. No septal thickening or nodularity. No pleural effusions or pneumothorax. Central and peripheral airways are patent. Mediastinum: Heart size is normal, without pericardial effusion. No mediastinal or hilar adenopathy. Thoracic aorta is normal in caliber and enhancement. Esophagus is normal in caliber, without hiatal hernia. Bones and chest wall: No suspicious bony lesions. Ribs and thoracic spine appear intact throughout. Thyroid gland is unremarkable as visualized. No axillary or supraclavicular adenopathy. Abdomen: Visualized upper abdominal solid organs appear normal in the early arterial phase of enhancement. IMPRESSION: 1. CT angiogram of the chest without evidence for acute pulmonary emboli. 2. Minimal, patchy dependent groundglass opacities likely representing atelectasis. Otherwise, no acute cardiopulmonary abnormalities. Dictated by: Enoch Vogt M.D. on 01/22/2019 at 21:29 MDM Narrative Medical decision making narrative: Due to patient's allergy to aspirin she is given Plavix. She initially is noted to be slightly tachycardic but improved with IV fluids, her potassium actually is normal today yesterday did show 6.0 today is 3.4. Creatinine slightly elevated 1.1 today yesterday was 1.0. Possibly patient is dehydrated. She has a +PERC + for age and tachycardia only and tachycardia did improve with IV fluids, negative D-dimer. The patient's signs and symptoms are concerning for cardiac equivalent with worsening chest discomfort she certainly does have risk factors of hyperlipidemia and diabetes. Carolina HERRERA, request CT angio prior to admission. CT angio negative. Discharge Plan Departure Patient Disposition: Admitted as Observation Clinical Impression: Chest pain Qualifiers: Chest pain type: unspecified Qualified Code(s): R07.9 - Chest pain, unspecified Discharge Date/Time: 01/22/19 21:47 Admit Date/Time: 01/22/19 20:55 Admit Provider: Mk Figueroa
[2019-01-22] MEDS: SODIUM CHLORIDE 0.9% 1,000 ML 1000 ML IV ×2 (18:08→20:20)
[2019-01-22 18:12] LABS: Add Manual Diff / Slide Review NO; Basophils Absolute Auto 100 /uL (0-100); Basophils Percent Auto 1.4 % (0-2); Eosinophils Absolute Auto 100 /uL (0-450); Eosinophils Percent Auto 1.3 % (2-4); Hematocrit 38.7 % (36-46); Hemoglobin 12.8 g/dL (12.0-16.0); Lymphocytes Absolute Auto 2500 /uL (1100-4500); Lymphocytes Percent Auto 26.6 % (25-40); Mean Corpuscular Hemoglobin 27.7 PG (26-34); Mean Corpuscular Volume 84.1 fL (80-100); Monocytes Absolute Auto 700 /uL (0-900); Monocytes Percent Auto 7.2 % (3-14); Neutrophils Absolute Auto 5900 /uL (1500-7000); Neutrophils Percent Auto 63.5 % (50-75); Platelet Count 265 X10^3/uL (150-400); Red Blood Cell Count 4.61 X10^6/uL (4.0-5.2); Red Cell Distribution Width 15.1 % (11.6-14.8); White Blood Cell Count 9.3 X10^3/uL (4.5-11.0)
[2019-01-22 18:21] LABS: INR 0.8 (0.9-1.3); Prothrombin Time 9.2 SECONDS (10.1-12.7)
[2019-01-22 18:23] LABS: PTT Partial Thromboplastin Tim 28 SECONDS (26.4-36.2)
[2019-01-22 18:50] LABS: Alanine Aminotransferase 23 IU/L (<35); Albumin 3.6 g/dL (3.5-5.0); Albumin Globulin Ratio 1.6 (1.0-2.8); Alkaline Phosphatase 64 U/L (38-126); Aspartate Aminotransferase 21 IU/L (14-36); BUN Creatinine Ratio 25.5 (6-22); Bilirubin Total 0.4 mg/dL (0.2-1.3); Blood Urea Nitrogen 28 mg/dL (7-17); Calcium 9.9 mg/dL (8.4-10.2); Carbon Dioxide 26 mmol/L (22-32); Chloride 102 mmol/L (98-107); Creatine Kinase 21 U/L (30-135); Estimated Glomerular Filt Rate 51.6 mL/min (>60); Globulin 2.2 g/dL (1.7-4.1); Glucose 180 mg/dL (70-100); HEMOLYSIS < 15 (0-50); Lipase 285 U/L (23-300); Potassium 3.4 mmol/L (3.4-5.1); Sodium 137 mmol/L (137-145); Total Protein 5.8 g/dL (6.3-8.2)
[2019-01-22 18:55] LABS: Magnesium 1.6 mg/dL (1.6-2.3)
[2019-01-22 19:00] LABS: B Type Natriuretic Peptide < 100 (<100)
[2019-01-22 19:02] LABS: Troponin I < 0.012 ng/mL (0.01-0.034)
[2019-01-22 20:05] LABS: D Dimer < 200 ng/mL (<230)
--- NOTE | 2019-01-22 20:45 | DI.CT.S_ITS ---
PROCEDURE: CT ANGIO CHEST PE PROTOCOL INDICATIONS: SHORTNESS OF BREATH TECHNIQUE: After the administration of intravenous contrast, 2 mm thick sections acquired from the pulmonary apices to the posterior costophrenic angles. 3-dimensional maximum intensity projection (MIP) coronal and sagittal reformats were then acquired through the thorax. For radiation dose reduction, the following was used: automated exposure control, adjustment of mA and/or kV according to patient size. COMPARISON: [facility], CR, XR CHEST 1V, 01/22/2019, 18:01. FINDINGS: Image quality: Excellent. Pulmonary arteries: Pulmonary arteries are normal in size, and demonstrate no intraluminal filling defects to suggest central pulmonary embolism. Lungs and pleura: Mild patchy dependent groundglass opacities likely representing atelectasis. No focal consolidations. No septal thickening or nodularity. No pleural effusions or pneumothorax. Central and peripheral airways are patent. Mediastinum: Heart size is normal, without pericardial effusion. No mediastinal or hilar adenopathy. Thoracic aorta is normal in caliber and enhancement. Esophagus is normal in caliber, without hiatal hernia. Bones and chest wall: No suspicious bony lesions. Ribs and thoracic spine appear intact throughout. Thyroid gland is unremarkable as visualized. No axillary or supraclavicular adenopathy. Abdomen: Visualized upper abdominal solid organs appear normal in the early arterial phase of enhancement. IMPRESSION: 1. CT angiogram of the chest without evidence for acute pulmonary emboli. 2. Minimal, patchy dependent groundglass opacities likely representing atelectasis. Otherwise, no acute cardiopulmonary abnormalities. Dictated by: Enoch Vogt M.D. on 01/22/2019 at 21:29 Approved by: Enoch Vogt M.D. on 01/22/2019 at 21:37
[2019-01-22] MEDS: methylPREDNISolone 125 MG/2 ML VIAL IV (20:53)
[2019-01-22] MEDS: diphenhydrAMINE 50 MG/ML VIAL 25 MG IV (20:53)
[2019-01-22] MEDS: CLOPIDOGREL 75 MG TABLET PO (20:53)
[2019-01-22] MEDS: MORPHINE 2 MG/ML INJ IV (20:58)
[2019-01-22] MEDS: SODIUM CHLORIDE 0.9% 1,000 ML 150 ML IV (21:09)
[2019-01-22 22:23] LABS: Bacteria Urine None Seen
[2019-01-22 22:32] LABS: Thyroid Stimulating Hormone 2.34 uIU/mL (0.47-4.68)
[2019-01-22] MEDS: POTASSIUM CHLORIDE 20 MEQ/15 ML UDC PO (22:38)
[2019-01-22] MEDS: HEPARIN 5,000 UNIT/ML VIAL 5000 UNIT SUBCUT (22:39)
[2019-01-22 22:41] LABS: Culture Indicated Urine Cult Not Indicated; RBC Urine 5-10/HPF (0-5/HPF); Squamous Epithelial Cell Urine 0-1 /HPF (0-5/HPF); WBC Urine 0-1/HPF (0-5/HPF)
[2019-01-22 22:47] LABS: Bacteria Urine None Seen; WBC Urine None Seen (0-5/HPF)
[2019-01-22 22:48] LABS: Appearance Urine UA CLEAR; Bilirubin Urine UA NEGATIVE (NEGATIVE); Glucose Urine UA TRACE g/dL (Negative); Ketones Urine UA NEGATIVE (NEGATIVE); Leukocyte Esterase Urine UA NEGATIVE (NEGATIVE); Nitrite Urine UA NEGATIVE (Negative); Occult Blood Urine UA 3+ (Negative); Protein Urine UA NEGATIVE (Negative); Specific Gravity Urine UA <=1.005 (1.000-1.035); Urobilinogen Urine UA 0.2 E.U./dL (0.2)
--- NOTE | 2019-01-22 22:48 | P.HP_ITS ---
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 Patient originally presented to the ED on 01/22/2019 upon recommendation of her PCP out of concern for hyperkalemia (K 6.0). Initial ED lab work-up revealed a potassium of 3.4. Upon further assessment patient reported a 1 week history of exertional dyspnea. Associated symptoms include palpitations followed by generalized pressure-like chest discomfort, frequently with radiation to both shoulders and posterior torso. Patient reports developing palpitations and chest discomfort after ambulating approximately 10 ft. Reports needing 10 minutes to recover to baseline. Reports orthopnea and need to sleep with 2 large and 1 small pillow. Denies peripheral edema. Reports experiencing dizziness in the form of spinning of the room and unsteady gait. Typically occurs with position change. She has not suffered a syncopal event or hemoptysis. Reports feeling more fatigued. Denies abdominal pain, vomiting, and diarrhea. She notes suffering from constipation over the past 2 weeks requiring use of laxative. Patient reports constipation to use of steroids. In the past 2 weeks reports experiencing 3 isolated episodes of bright rectal bleeding, patient is unable to defer rate if it was hematuria or per rectum. Denies prior history of hypertension, ACS/[place], CVA, thrombosis, or thyroid disease. Recently treated with a 2 week course of tapering prednisone for temporal arteritis. Reports surgical biopsy that was negative. Patient states that she has had a stress test 4 years ago, but unable to recall the reason. On 01/21/2019 has finished a 2 week course of prednisone. In the of December dick merlos developed flu-like symptoms, cough, fever, and left-sided headache with stiff neck. Records note her to have persistently elevated inflammatory markers. She has had an abnormal temporal artery scan with suspicion for arteritis. Patient underwent a bilateral temporal artery biopsy on 12/31/2018. Results of the biopsy were negative. Patient History Medical History (Updated 01/23/19 @ 00:14 by JAVIER Joyner) Depression (Acute) Diabetes (Acute) Hearing loss (Acute) Night terrors (Chronic) Seasonal allergies (Acute) Surgical History Hx of carpal tunnel repair (Acute) Hx of hand surgery (Acute) Hx of shoulder surgery (Acute) Family & Social History Family History Father Depression Hypertension Sister Gout Cancer Mother Diabetes mellitus Social History: household members Significant other,friend(s) Prior Living Arrangements House Safety & Behavioral: Feels Safe in Current Yes Environment Been Physically Hurt or No Threatened By a Person Suicidal Ideation Description None Suicide Plan Description No Plan Tobacco & Substance use: Smoking Status Never smoker alcohol intake Never Substance Use Type does not use Meds Home Medications and Allergies Home Medications Medication Instructions Recorded Confirmed Type metformin [Glucophage] 500 mg PO BID #60 06/14/11 01/22/19 Rx citalopram 20 mg tablet 20 mg PO DAILY 12/25/18 01/22/19 History gabapentin 100 mg capsule 100 mg PO QAM 12/25/18 01/22/19 History glipizide 5 mg tablet 5 mg PO QAM 12/25/18 01/22/19 History loratadine 10 mg tablet 10 mg PO DAILY PRN 12/25/18 01/22/19 History multivitamin 1 cap PO QAM 12/25/18 01/22/19 History pravastatin 20 mg tablet 20 mg PO QAM 12/25/18 01/22/19 History prazosin 1 mg capsule 1 mg PO BEDTIME PRN 12/25/18 01/22/19 History Allergies Allergy/AdvReac Type Severity Reaction Status Date / Time aspirin [ASPIRIN] Allergy Severe Gastrointestinal Verified 01/23/19 04:55 Upset iodine [IODINE] Allergy Unknown Verified 01/22/19 21:17 lactose [LACTOSE] Allergy Unknown Verified 01/22/19 21:17 latex [LATEX] Allergy Unknown Verified 01/22/19 21:17 Review of Systems Review of Systems ROS Unobtainable: All systems reviewed & are unremarkable except as noted in HPI and below Exam Vital Signs (past 8 hours): - 01/22/19 18:00 01/22/19 18:10 01/22/19 18:30 Temperature 97.4 F L Pulse Rate 96 H 110 H 89 Pulse Rate [Orthostatic Lying] Pulse Rate [Orthostatic Sitting] Pulse Rate [Orthostatic Standing] Respiratory Rate 18 24 21 Blood Pressure 184/81 H Blood Pressure [Orthostatic Lying] Blood Pressure [Orthostatic Sitting] Blood Pressure [Orthostatic Standing] Blood Pressure [Right Arm] 150/85 H 152/70 H Pulse Oximetry 99 01/22/19 19:04 01/22/19 19:45 01/22/19 20:15 Temperature Pulse Rate 87 89 90 Pulse Rate [Orthostatic Lying] Pulse Rate [Orthostatic Sitting] Pulse Rate [Orthostatic Standing] Respiratory Rate 20 19 20 Blood Pressure Blood Pressure [Orthostatic Lying] Blood Pressure [Orthostatic Sitting] Blood Pressure [Orthostatic Standing] Blood Pressure [Right Arm] 134/67 140/74 148/71 H Pulse Oximetry 97 100 98 01/22/19 21:41 01/22/19 21:55 01/22/19 22:39 Temperature 97.4 F L Pulse Rate 86 90 Pulse Rate [Orthostatic Lying] 89 Pulse Rate [Orthostatic Sitting] 97 H Pulse Rate [Orthostatic Standing] 96 H Respiratory Rate 15 18 Blood Pressure 185/100 H Blood Pressure [Orthostatic Lying] 158/92 H Blood Pressure [Orthostatic Sitting] 165/99 H Blood Pressure [Orthostatic Standing] 154/93 H Blood Pressure [Right Arm] 168/86 H Pulse Oximetry 95 90 L Oxygen Delivery Method Room Air Oxygen Flow Rate 0 Narrative Exam Narrative: Constitutional: NAD Neurologic: AOx3, forgetful, no focal neurological deficits Head: NC, AT Eyes: PERRL, EOMI, no scleral icterus Ears: external ears normal, no otorrhea Nose: external nose normal, no rhinorrhea or epistaxis Throat: MMM, oropharynx w/o exudate Neck: no masses, lymphadenopathy, or JVD Chest / Respiratory: equal chest rise, unlabored respiratory effort, no tachypnea, diminished bases Heart / CV: S1S2, not tachycardic at rest, no murmur Abdomen / GI: round, NT, ND, hypoactive BS, no organomegaly : no suprapubic tenderness, no CVA Peripheral / Vascular: warm to touch, DP and PT pulses palpable, no edema Musc: full ROM of upper and lower extremities, adequate muscle tone and bulk Skin: no ecchymosis or suspicious lesions / ulcers Objective Labs Result Diagrams: 01/23/19 01:15 01/23/19 04:55 Labs: Laboratory Results - last 24 hr 01/22/19 01/22/19 01/22/19 18:00 18:00 18:00 WBC 9.3 RBC 4.61 Hgb 12.8 Hct 38.7 MCV 84.1 MCH 27.7 MCHC 33.0 RDW 15.1 H Plt Count 265 Neut % (Auto) 63.5 Lymph % (Auto) 26.6 [place] % (Auto) 7.2 Eos % (Auto) 1.3 L Baso % (Auto) 1.4 Neut # (Auto) 5900 Lymph # (Auto) 2500 [place] # (Auto) 700 Eos # (Auto) 100 Baso # (Auto) 100 PT 9.2 L INR 0.8 L APTT 28 D-Dimer Sodium Potassium Chloride Carbon Dioxide BUN Creatinine Estimated GFR BUN/Creatinine Ratio Glucose Calcium Magnesium Total Bilirubin AST ALT Alkaline Phosphatase Total Creatine Kinase CK-MB (CK-2) CK-MB (CK-2) Rel Index Troponin I B-Natriuretic Peptide < 100 Total Protein Albumin Globulin Albumin/Globulin Ratio Lipase TSH Urine RBC Urine WBC Ur Squamous Epith Cells Urine Bacteria Ur Culture Indicated? 01/22/19 01/22/19 01/22/19 18:30 18:30 18:30 WBC RBC Hgb Hct MCV MCH MCHC RDW Plt Count Neut % (Auto) Lymph % (Auto) [place] % (Auto) Eos % (Auto) Baso % (Auto) Neut # (Auto) Lymph # (Auto) [place] # (Auto) Eos # (Auto) Baso # (Auto) PT INR APTT D-Dimer < 200 Sodium 137 Potassium 3.4 D Chloride 102 Carbon Dioxide 26 BUN 28 H Creatinine 1.10 H Estimated GFR 51.6 L BUN/Creatinine Ratio 25.5 H Glucose 180 H D Calcium 9.9 Magnesium 1.6 Total Bilirubin 0.4 AST 21 ALT 23 Alkaline Phosphatase 64 Total Creatine Kinase 21 L CK-MB (CK-2) TNP CK-MB (CK-2) Rel Index TNP Troponin I < 0.012 B-Natriuretic Peptide Total Protein 5.8 L Albumin 3.6 Globulin 2.2 Albumin/Globulin Ratio 1.6 Lipase 285 TSH Urine RBC Urine WBC Ur Squamous Epith Cells Urine Bacteria Ur Culture Indicated? 01/22/19 01/22/19 18:30 21:07 WBC RBC Hgb Hct MCV MCH MCHC RDW Plt Count Neut % (Auto) Lymph % (Auto) [place] % (Auto) Eos % (Auto) Baso % (Auto) Neut # (Auto) Lymph # (Auto) [place] # (Auto) Eos # (Auto) Baso # (Auto) PT INR APTT D-Dimer Sodium Potassium Chloride Carbon Dioxide BUN Creatinine Estimated GFR BUN/Creatinine Ratio Glucose Calcium Magnesium Total Bilirubin AST ALT Alkaline Phosphatase Total Creatine Kinase CK-MB (CK-2) CK-MB (CK-2) Rel Index Troponin I B-Natriuretic Peptide Total Protein Albumin Globulin Albumin/Globulin Ratio Lipase TSH 2.34 Urine RBC 5-10/hpf H Urine WBC 0-1/hpf Ur Squamous Epith Cells 0-1 /hpf Urine Bacteria None seen Ur Culture Indicated? Cult not indicated Assessment & Plan Assessment & Plan narrative: Patient is being admitted under observation status for exertional dyspnea. Exertional dyspnea, acute, present on admission, active - CXR negative for acute cardiopulmonary findings - CTA Chest negative for PEM; minimal patchy dependent groundglass opacities likely representing atelectasis. - Trop, BNP, D-Dimer negative - check echo and stress test in am Palpitations, acute, present on admission, active - Telemetry monitoring - Check orthostatic BP - Tachycardic w/ exertion, HR from 80 into 120s - Check TSH (2.34) - Remarkable for electrolyte abnormalities, K 3.4 and Mg 1.6 / Cr - Finished 2 week tapering prednisone course on 01/21/2019 Atypical Chest Pain, acute, present on admission, active - Trop < 0.012, continue trending Q6H - EKG. Sinus tachycardia (v-rate 111), QTc 424. Non-ischemic. - Risk stratify, had lipid panel (chol 243, ldl 118, hdl 75, trig 248) and a1c 9.9% done on 01/21 - Stress Test in am - Allergic to ASA (reports GI associated side effects). Received x1 dose of Plavix in ED, will continue. Elevated BP without prior history of hypertension, present on admission, active - VS Q4H, continue trending - Hydralazine 10 mg IV prn for SBP > 160 and DBP > 100 mmHg - Consider starting on beta-roosevelt, holding tonight due to stress test in a.m. DM 2T (non-insulin dependent), uncontrolled, chronic, present on admission, active - A1C (01/21/19) - 9.9% - Hold REGISTERED HEALTH NURSE metformin and glipizide - POC glucose AC & HS (if diet present) or Q6H (if NPO) - Started on SSI moderate level Chronic kidney disease, present on admission, active - Cr 1.1 (baseline unknown, Cr 1.2 in December of 2018). RAPHAEL vs. CKD ?? RF: DM 2T - Trend renal function - Received 1L IVF bolus in ED Dyslipidemia, chronic condition, present on admission, active - Cholesterol 243 LDL 118 HDL 75 Triglycerides 248 (01/24/2019) - Change pravastatin 20 mg daily to atorvastatin 40 mg daily - add fish oil 1000 mg daily Code status discussed, wishes to be a full code. Designates her dannie Oneill as surrogate decision maker. VTE prophylaxis w/ Heparin Quality VTE Deep Vein Thrombosis/Pulmonary Embolism Present on Admission: No
[2019-01-22] MEDS: MAGNESIUM SULFATE 2 GM/50 ML PIGGYBACK IV (22:49)
[2019-01-22 22:55] LABS: Color Urine UA Straw
[2019-01-22 22:57] LABS: Culture Indicated Urine Cult Not Indicated; RBC Urine 5-10/HPF (0-5/HPF); Squamous Epithelial Cell Urine 0-1 /HPF (0-5/HPF)
[2019-01-23] VITALS (11 sets, daily range): BP systolic 116–158; BP diastolic 74–95; PULSE 75–102; RESP 16–18; TEMP 36.4–36.6; O2SAT 94–97
[2019-01-23 01:08] LABS: Troponin I < 0.012 ng/mL (0.01-0.034)
[2019-01-23 01:26] LABS: C-Reactive Protein Quant 0.7 mg/dL (<1.0)
[2019-01-23 01:32] LABS: Add Manual Diff / Slide Review NO; Basophils Absolute Auto 0 /uL (0-100); Basophils Percent Auto 0.2 % (0-2); Eosinophils Absolute Auto 0 /uL (0-450); Eosinophils Percent Auto 0.4 % (2-4); Hematocrit 36.3 % (36-46); Hemoglobin 12.1 g/dL (12.0-16.0); Lymphocytes Absolute Auto 1000 /uL (1100-4500); Mean Corpuscular HGB Conc 33.3 % (30-36); Mean Corpuscular Hemoglobin 28.1 PG (26-34); Mean Corpuscular Volume 84.3 fL (80-100); Monocytes Absolute Auto 100 /uL (0-900); Monocytes Percent Auto 1.8 % (3-14); Neutrophils Absolute Auto 6400 /uL (1500-7000); Neutrophils Percent Auto 84.6 % (50-75); Platelet Count 228 X10^3/uL (150-400); Red Blood Cell Count 4.31 X10^6/uL (4.0-5.2); Red Cell Distribution Width 15.2 % (11.6-14.8); White Blood Cell Count 7.5 X10^3/uL (4.5-11.0)
[2019-01-23] MEDS: SODIUM CHLORIDE 0.9% 1,000 ML 100 ML IV (01:48)
[2019-01-23 01:49] LABS: Erythrocyte Sedimentation Rate 9 MM/HR (0-20)
[2019-01-23 02:01] LABS: Adenovirus Not Detected (Not Detect); Bordetella pertussis Not Detected (Not Detect); Chlamydophila pneumoniae Not Detected (Not Detect); Coronavirus 229E Not Detected (Not Detect); Coronavirus HKU1 Not Detected (Not Detect); Coronavirus NL 63 Not Detected (Not Detect); Coronavirus OC43 Not Detected (Not Detect); Human Metapneumovirus Not Detected (Not Detect); Human Rhinovirus/Enterovirus Not Detected (Not Detect); Influenza A Not Detected (Not Detect); Influenza B Not Detected (Not Detect); Mycoplasma pneumoniae Not Detected (Not Detect); Parainfluenza Virus 1 Not Detected (Not Detect); Parainfluenza Virus 2 Not Detected (Not Detect); Parainfluenza Virus 3 Not Detected (Not Detect); Parainfluenza Virus 4 Not Detected (Not Detect); Respiratory Syncytial Virus Not Detected (Not Detect)
--- NOTE | 2019-01-23 02:01 | PC.ADMIT ---
[id number] Admission Note: The patient,Carolina Paulson,53 y/o, was given written information regarding hospital policies, unit procedures and contact persons. Patient's smoking status: Never smoker. Vital Signs - 8 hr 01/22/19 18:10 01/22/19 18:30 01/22/19 19:04 Temperature 97.4 F L Pulse Rate 110 H 89 87 Pulse Rate [Orthostatic Lying] Pulse Rate [Orthostatic Sitting] Pulse Rate [Orthostatic Standing] Respiratory Rate 24 21 20 Blood Pressure 184/81 H Blood Pressure [Orthostatic Lying] Blood Pressure [Orthostatic Sitting] Blood Pressure [Orthostatic Standing] Blood Pressure [Right Arm] 152/70 H 134/67 Pulse Oximetry 99 97 01/22/19 19:45 01/22/19 20:15 01/22/19 21:41 Temperature Pulse Rate 89 90 86 Pulse Rate [Orthostatic Lying] Pulse Rate [Orthostatic Sitting] Pulse Rate [Orthostatic Standing] Respiratory Rate 19 20 15 Blood Pressure Blood Pressure [Orthostatic Lying] Blood Pressure [Orthostatic Sitting] Blood Pressure [Orthostatic Standing] Blood Pressure [Right Arm] 140/74 148/71 H 168/86 H Pulse Oximetry 100 98 95 01/22/19 21:55 01/22/19 22:39 01/23/19 00:00 Temperature 97.4 F L 97.6 F Pulse Rate 90 88 Pulse Rate [Orthostatic Lying] 89 Pulse Rate [Orthostatic Sitting] 97 H Pulse Rate [Orthostatic Standing] 96 H Respiratory Rate 18 16 Blood Pressure 185/100 H 158/81 H Blood Pressure [Orthostatic Lying] 158/92 H Blood Pressure [Orthostatic Sitting] 165/99 H Blood Pressure [Orthostatic Standing] 154/93 H Blood Pressure [Right Arm] Pulse Oximetry 90 L 94 01/23/19 01:00 Temperature Pulse Rate 98 H Pulse Rate [Orthostatic Lying] Pulse Rate [Orthostatic Sitting] Pulse Rate [Orthostatic Standing] Respiratory Rate 18 Blood Pressure 157/76 H Blood Pressure [Orthostatic Lying] Blood Pressure [Orthostatic Sitting] Blood Pressure [Orthostatic Standing] Blood Pressure [Right Arm] Pulse Oximetry 96 Patient arrived on evening shift, this RN received from evening shift. Patient is AxOx4, can make needs known. C/o chest pain and associated SOB with exertion, reports nausea but not urge to vomit, states that when she's experiencing the chest pain and SOB feels weak and dizzy. During ambulation with TRAIN ATTENDANT to toilet, became near syncopal per TRAIN ATTENDANT's report to this RN, vital signs showed elevated BP. Notified DIRECTOR DRUG of patients hematuria and syncopal episode, new orders given. Educated patient on use of BSC to prevent falls and NPO status for AM stress test. Patient scores a moderate fall risk, bed alarm on and functioning, call light use demonstrated.
[2019-01-23] MEDS: HEPARIN 5,000 UNIT/ML VIAL 5000 UNIT SUBCUT ×2 (05:20→15:32)
[2019-01-23 05:31] LABS: Alanine Aminotransferase 25 IU/L (<35); Albumin 3.5 g/dL (3.5-5.0); Albumin Globulin Ratio 1.6 (1.0-2.8); Alkaline Phosphatase 75 U/L (38-126); Aspartate Aminotransferase 22 IU/L (14-36); BUN Creatinine Ratio 28.9 (6-22); Bilirubin Total 0.5 mg/dL (0.2-1.3); Blood Urea Nitrogen 26 mg/dL (7-17); Calcium 8.6 mg/dL (8.4-10.2); Carbon Dioxide 23 mmol/L (22-32); Chloride 102 mmol/L (98-107); Estimated Glomerular Filt Rate > 60.0 mL/min (>60); Globulin 2.2 g/dL (1.7-4.1); Glucose 387 mg/dL (70-100); HEMOLYSIS < 15 (0-50); Magnesium 2.3 mg/dL (1.6-2.3); Potassium 4.2 mmol/L (3.4-5.1); Sodium 135 mmol/L (137-145); Total Protein 5.7 g/dL (6.3-8.2)
--- NOTE | 2019-01-23 06:00 | DI.NM.S_ITS ---
PROCEDURE: NM DESTINI PERF SPECT SINGLE STUDY Exercise myocardial perfusion SPECT with gated imaging and ejection fraction RADIOPHARMACEUTICAL: 23.0 mCi Tc-99m sestamibi IV at peak exercise. INDICATIONS: chest pain, exertional dyspnea, palpitations TECHNIQUE: Radiopharmaceutical was injected at peak stress test. SPECT images were obtained, with perfusion images in short axis, horizontal long axis, and vertical long axis views. Gated images were reviewed using [employer] software. COMPARISON: None. CARDIAC STRESS: A pharmaceutical nuclear stress test done with lexiscan 0.4mg IV X1. Aminophylline used to reverse dyspnea and GI upset due to lexiscan. Symptoms: Patient denied anginal chest pain during exercise. EKG: No diagnostic changes of ischemia; occasional PVCs. FINDINGS: Raw data: There is good labeling of myocardium by radiotracer. No significant motion artifacts. Fpba-pv-fnylk ratio is 0.25 (normal is less than 0.38 for sestamibi tracer, and less than 0.50 for thallium tracer). Left ventricular function: Gated images demonstrate normal left ventricle wall thickening. No segmental wall motion abnormalities. Left ventricle end diastolic volume is 57 mL. Left ventricle stress ejection fraction is 79%; normal values are above 45%. Myocardial perfusion: There is normal distribution of activity in the left and right ventricular myocardium, without focal perfusion defects. IMPRESSION: Low risk, normal pharmaceutical nuclear stress test. 1) No perfusion evidence of ischemia or infarction. 2) Normal left ventricular size, wall motion, and systolic function (EF post stress 79%). 3) No ECG evidence of ischemia. 4) No angina during the study. 5) No prior nuclear stress test available for comparison. Dictated by: Juan Sterling MD on 01/23/2019 at 16:16 Approved by: Juan Sterling MD on 01/23/2019 at 16:18
[2019-01-23 06:59] LABS: Troponin I < 0.012 ng/mL (0.01-0.034)
[2019-01-23] MEDS: INSULIN ASPART 100 UNIT/ML INSULN PEN SUBCUT ×3 (09:08→17:04)
[2019-01-23] MEDS: GABAPENTIN 100 MG CAPSULE PO (09:10)
[2019-01-23] MEDS: INFLUENZA VACCINE 0.5 ML SYRINGE IM (09:55)
[2019-01-23] MEDS: CITALOPRAM 20 MG TABLET PO (10:03)
[2019-01-23] MEDS: ACETAMINOPHEN 325 MG TABLET 650 MG PO (10:03)
[2019-01-23] MEDS: INSULIN GLARGINE 100 UNIT/ML 3ML PEN SUBCUT (11:11)
[2019-01-23 12:36] LABS: Glucose 520 mg/dL (70-100)
[2019-01-23] MEDS: INSULIN REGULAR 100 UNIT/ML 3 ML VIAL 10 UNIT IV (12:55)
--- NOTE | 2019-01-23 13:59 | CM.DANOTE ---
DCP Assessment: EMR reviewed: Patient is a 53 yr old female who was admitted to OBs for Hypokalemia. PCP is Dr. Anderson. CM/RN met with patient at the bedside and explained role. Patient was alert and oriented x3 at time of CM/RN meeting. Patient currently lives in a two story house with her fimalvin Oneill and is I at baseline with all ADL's. Prior to admission patient drives independently. I:1st: [place] 2nd: Medicaid Plan: D/C home with dannie Oneill when medically stable. No Identified D/C planning needs noted at this time. CM department will continue to follow patient to handle any new D/C planning needs that may arise. Charisma Glaser RN Discharge Planning/Care Management CM Discharge Assessment Start: 01/23/19 13:57 Freq: Status: Active Protocol: Document 01/23/19 13:58 HS (Rec: 01/23/19 13:59 HS [id number]) Discharge Planning Assessment Assigned Account Resolution Analyst Charisma Glaser RN DPOA/Assigned Designee Name Leodan Oneill Contact Information [phone] Advance Directives? No Advance Directives on File No History Provided By Patient Has Patient been admitted in last 30 No days? Prior Living Arrangements House Household Members significant other Type of transporation used prior to Drives own vehicle admit Independent with ADL's Yes Is patient alert and oriented? Yes Caregiver for Another No Discharge Plan Home Whiteboard Updated in Patient Room with Yes name and ext. # of Account Resolution Analyst Review Status In Process Next Review Type Continued Stay Review
[2019-01-23] MEDS: NITROGLYCERIN 0.4 MG SL TAB SL ×3 (15:28→15:56)
--- NOTE | 2019-01-23 15:49 | PC.NURSE ---
Cardiac: No c/p this shift reported, pt had been instructed this am to call staff if she had c/p. During bedside shift report pt reports she is having c/p to the rt of the mid sternum, doesn't radiated. Pain had started down in nuc med and she said nothing during her test to the staff in diagnostic imaging. She did not say anything when she came back at 1410. It has been slowly getting worse until she said something at report. She rates the c/p at 5/10, BP 155/83, p 80, rr 14, O2 sat ra is 99%. RT called and they came and performed a stat ecg per protocol. MD Huffman made aware and reviewed ecg. She is currently receiving ntg sl by SHANE Weathers. Pt's next issue was blood sugar control. Pt has not been regularly checking her blood sugars at home and is a naive about her diabetes and how the disease progresses. SI can tell when my blood sugar goes to high, I don't have to worry about it and I don't need insulin at home. Blood sugar was checked and it was 486, pt at that time didn't realize it was to high and expressed shock at the reading. SI can't believe that, are you sure? Glucose was checked twice and lab was called for a stat blood draw per protocol. Blood glucose result was 520. Anne Marie RN/CO went to [facility] and administered medication. Pt returned to the floor at 1410 and blood glucose was rechecked and it was 218. MD Huffman made aware to see if she still wanted to give 8units of novolog which she did and was given. Pt ate most of her meal then as well. Pt also refused her plavix and MD Huffman was made aware. Cont w/poc.
[2019-01-23 16:30] LABS: Creatine Kinase < 20 U/L (30-135)
[2019-01-23 16:44] LABS: Troponin I < 0.012 ng/mL (0.01-0.034)
--- NOTE | 2019-01-23 17:12 | P.DS_ITS ---
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 Patient originally presented to the ED on 01/22/2019 upon recommendation of her PCP out of concern for hyperkalemia (K 6.0). Initial ED lab work-up revealed a potassium of 3.4. Upon further assessment patient rep orted a 1 week history of exertional dyspnea. Associated symptoms include palpitations followed by generalized pressure-like chest discomfort, frequently with radiation to both shoulders and posterior torso. Patient reports developing palpitations and chest discomfort after ambulating approximately 10 ft. Reports needing 10 minutes to recover to baseline. Reports orthopnea and need to sleep with 2 large and 1 small pillow. Denies peripheral edema. Reports experiencing dizziness in the form of spinning of the room and unsteady gait. Typically occurs with position change. She has not suffered a syncopal event or hemoptysis. Reports feeling more fatigued. Denies abdominal pain, vomiting, and diarrhea. She notes suffering from constipation over the past 2 weeks requiring use of laxative. Patient reports constipation to use of steroids. In the past 2 weeks reports experiencing 3 isolated episodes of bright rectal bleeding, patient is unable to defer rate if it was hematuria or per rectum. Denies prior history of hypertension, ACS/VA, CVA, thrombosis, or thyroid disease. Recently treated with a 2 week course of tapering prednisone for temporal arteritis. Reports surgical biopsy that was negative. Patient states that she has had a stress test 4 years ago, but unable to recall the reason. On 01/21/2019 has finished a 2 week course of prednisone. In the of December keri saleh developed flu-like symptoms, cough, fever, and left-sided headache with stiff neck. Records note her to have persistently elevated inflammatory markers. She has had an abnormal temporal artery scan with suspicion for arteritis. Patient underwent a bilateral temporal artery biopsy on 12/31/2018. Results of the biopsy were negative. Discharge Providers Provider Date of admission: 01/22/19 20:55 Discharge Date: 01/23/19 Primary care physician: Kacy Anderson MD Consults: 01/22/19 21:49 Consult to Discharge Planning Routine Comment: Discharge provider: Maria C Huffman DO Summary Hospital Course Discharge Diagnosis: 1. Atypical chest pain, present on admission. Active. 2. Elevated blood pressure without prior history of hypertension, present on admission. Active. 3. Diabetes mellitus type 2, non-insulin using, uncontrolled, chronic, present on admission. Active. 4. Possible chronic kidney disease. 5. Dyslipidemia, chronic present on admission. Active. Hospital Course: Carolina Paulson is a 53-year-old [place]ian female with a past medical history significant for diabetes mellitus type 2, non-insulin using, with complication of proteinuria and neuropathy, hyperlipidemia, depression, and nightmares who initially presented to the ED at guidance of her PCP due to concern for hyperkalemia with potassium level 6.0. The patient's potassium level was found to be normal and the patient was admitted for ACS rule out due to chest pressure with associated palpitations, dyspnea on exertion, orthopnea, and fatigue. 1. Atypical chest pain, present on admission. Active. -Patient presented with chest pressure and associated palpitations, dyspnea on exertion requiring 10 minutes to resolve, orthopnea requiring 1-2 pillows at night while sleeping, and generalized fatigue. -cardiac risk factors include: Family history of heart disease in primary relatives, likely untreated hypertension, uncontrolled hyperlipidemia, unco ntrolled diabetes mellitus type 2, and former smoker (recently quit 1 month ago and smokes approximately 1-2 cigarettes a day for 5 years). -Serial troponin x3 < 0.012. -D-dimer negative. CTA chest negative for PE or aortic aneurysm. -Continued to monitor closely on telemetry. Patient has been in normal sinus rhythm and at times mildly tachycardic without significant ectopy. -EKG demonstrated sinus tachycardia (v-rate 111), QTc 424 without pathological Q-waves or acute ischemic changes. -Electrolytes low normal with potassium 3.4 magnesium 1.6. Received potassium chloride 20 mEq PO x 1 and magnesium sulfate 2 g IV x1. Current potassium 4.2 and magnesium 2.3. 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 Continue to monitor electrolytes closely -Risk stratified with hemoglobin A1c 9.9% indicative of very poor glycemic control and may falsely be elevated due to recent glucocorticoid administration for temporal arteritis (status post temporal artery biopsy which was negative and glucocorticoids have been discontinued); fasting lipid panel which demonstrated poor lipid control: Total cholesterol 243, triglyceride 248, LDL 118, and HDL 75. TSH normal at 2.34. -Patient refused aspirin due to GI upset. Received Plavix 75 mg x1 in ED. Continued Plavix 75 mg daily. Discussed use of dual anti-platelet therapy especially patient received stenting for which the patient is agreeable to taking. -Nuclear medicine stress test demonstrated low risk, normal pharmaceutical nuclear stress test with no perfusion evidence of ischemia or infarction, normal left ventricular size, wall motion, and systolic function EF post stress 79%, no ECG evidence of ischemia and no angina during the study. -Patient developed episode of abrupt onset right-sided substernal chest pressure which was rated a +5/10 and radiated to shoulders bilaterally with associated nausea, shortness of breath, and feeling nauseous. Received sublingual nitroglycerin 0.4 mg x3 with resolution. Initial dose of nitroglycerin decreased chest pressure to a +4/5 then increased again to +5/10. The second dose administered decreased chest pressure to +3/5. The third dose administered resolved chest pressure and associated symptoms. Patient remains chest pain/pressure free. Discussed case with on-call [employer] at [facility], Dr. Sterling and ice cream freezer Dr. Del Castillo and due to patient being high risk of cardiovascular disease recommend transfer for left heart catheterization. Patient reports she has had these symptoms in the past but it feels different this time. 2. Elevated blood pressure without prior history of hypertension, present on admission. Active. -Continue to monitor blood pressure closely. Patient's SBP ranged from 140 to 150s. -Ordered labetalol 10 mg IV prn for SBP > 180 and DBP > 100 mmHg. -Consider starting on beta-roosevelt but did not initiate due to stress test. 3. Diabetes mellitus type 2, non-insulin using, uncontrolled, chronic, present on admission. Active. -Hemoglobin A1c 9.9% on 01/21/19 and likely falsely elevated due to recent glucocorticoid administration for presumed temporal arteritis which was biopsy negative and discontinued. -Held home metformin and glipizide. -Continued every 6 hours blood glucose checks and high-dose correctional scale insulin. -Patient's blood glucose was highly uncontrolled during hospitalization due to glucocorticoid administered in ED for unclear reason. Received Lantus 5 units this morning and later regular insulin 10 units IV x1 for BG 387 then increased to 500. Blood glucose decreased to mid 200s. Planned to start Lantus 12 units daily at bedtime. 4. Possible chronic kidney disease. -Initial creatinine 1.1. Unclear baseline creatinine. Most recent previous creatinine 1.2 on 12/2018. Creatinine now 0.9. RAPHAEL vs. CKD ?? Risk factor diabetes mellitus type 2 and untreated hypertension. -Avoided nephrotoxic agents. -Continue to monitor renal function closely. Trend renal function -Received 1LNS bolus in ED. 5. Dyslipidemia, chronic present on admission. Active. -Fasting lipid panel which demonstrated poor lipid control: Total cholesterol 243, triglyceride 248, LDL 118, and HDL 75.Cholesterol 243 LDL 118 HDL 75 Tr iglycerides 248 (01/24/2019) -Changed home pravastatin 20 mg daily to atorvastatin 40 mg daily at bedtime. Exam Vital Signs (past 8 hours): - 01/23/19 13:00 01/23/19 15:00 01/23/19 15:28 Temperature 97.9 F Pulse Rate 75 88 Pulse Rate [Orthostatic Lying] 75 Pulse Rate [Orthostatic Sitting] 102 H Pulse Rate [Orthostatic Standing] 87 Respiratory Rate 16 Blood Pressure 154/76 H 155/83 H Blood Pressure [Orthostatic Lying] 154/76 H Blood Pressure [Orthostatic Sitting] 141/85 H Blood Pressure [Orthostatic Standing] 142/81 H Pulse Oximetry 97 01/23/19 15:46 01/23/19 15:56 01/23/19 16:09 Temperature 97.9 F Pulse Rate 77 78 88 Pulse Rate [Orthostatic Lying] Pulse Rate [Orthostatic Sitting] Pulse Rate [Orthostatic Standing] Respiratory Rate 18 Blood Pressure 140/79 120/74 135/95 H Blood Pressure [Orthostatic Lying] Blood Pressure [Orthostatic Sitting] Blood Pressure [Orthostatic Standing] Pulse Oximetry 95 01/23/19 16:38 Temperature Pulse Rate Pulse Rate [Orthostatic Lying] 79 Pulse Rate [Orthostatic Sitting] 80 Pulse Rate [Orthostatic Standing] 89 Respiratory Rate Blood Pressure Blood Pressure [Orthostatic Lying] 141/80 H Blood Pressure [Orthostatic Sitting] 133/77 Blood Pressure [Orthostatic Standing] 140/85 Pulse Oximetry Oxygen Delivery Method Room Air Oxygen Flow Rate 0 Narrative Exam Narrative: General: Middle-aged female lying in bed and in no acute distress, well- developed, well-nourished, mildly anxious but appropriately interactive. HEENT: Normocephalic, atraumatic. External ears without defect. Pupils equal, round, and reactive to light and accommodation. Anicteric sclerae, moist conjunctivae, and no lid lag. Neck: Supple with full range of motion. No jugular venous distension. No bruits. No lymphadenopathy or thyromegaly. Cardiovascular: Regular rhythm, rate varies between normal and mildly tachycardic without murmurs, rubs, or gallops appreciated. No reproducible chest pain upon palpation. Pulmonary: Clear to auscultation bilaterally without crackles, wheezes, or rhonchi. Normal respiratory effort without use of accessory muscles. Abdomen: Soft, non-tender, non-distended. No hepatosplenomegaly or masses appreciated. Extremities: No clubbing, cyanosis, or edema. Skin: Normal temperature, turgor, and texture; no rash, ulcers, or subcutaneous nodules appreciated. Neurological: Cranial nerves grossly intact. Normal muscle strength, tone, and bulk. Reflexes, coordination, and sensory function within normal limits. No known gait impairment. Psychiatric: Mildly anxious mood and normal affect. Alert and oriented to person, place, and time. Objective Labs Result Diagrams: 01/23/19 01:15 01/23/19 12:05 Labs: Laboratory Results - last 24 hr 01/22/19 01/22/19 01/22/19 18:00 18:00 18:00 WBC 9.3 RBC 4.61 Hgb 12.8 Hct 38.7 MCV 84.1 MCH 27.7 MCHC 33.0 RDW 15.1 H Plt Count 265 Neut % (Auto) 63.5 Lymph % (Auto) 26.6 [place] % (Auto) 7.2 Eos % (Auto) 1.3 L Baso % (Auto) 1.4 Neut # (Auto) 5900 Lymph # (Auto) 2500 [place] # (Auto) 700 Eos # (Auto) 100 Baso # (Auto) 100 ESR PT 9.2 L INR 0.8 L APTT 28 D-Dimer Sodium Potassium Chloride Carbon Dioxide BUN Creatinine Estimated GFR BUN/Creatinine Ratio Glucose Calcium Magnesium Total Bilirubin AST ALT Alkaline Phosphatase Total Creatine Kinase CK-MB (CK-2) CK-MB (CK-2) Rel Index Troponin I C-Reactive Protein B-Natriuretic Peptide < 100 Total Protein Albumin Globulin Albumin/Globulin Ratio Triglycerides Cholesterol LDL Cholesterol, Calc HDL Cholesterol Lipase TSH Urine Color Urine Appearance Urine pH Ur Specific [place] Urine Protein Urine Glucose (UA) Urine Ketones Urine Occult Blood Urine Nitrate Urine Bilirubin Urine Urobilinogen Ur Leukocyte Esterase Urine RBC Urine WBC Ur Squamous Epith Cells Urine Bacteria Ur Culture Indicated? Chlamy pneumoniae PCR Adenovirus (PCR) B.parapertussis DNA PCR Coronavirus OC43 (PCR) Coronavirus HKU1 (PCR) Coronavirus 229E (PCR) Coronavirus NL63 (PCR) Human Metapneumovir PCR Influenza Type A (PCR) Influenza Type B (PCR) M. pneumoniae (PCR) Parainfluenza 1 (PCR) Parainfluenza 2 (PCR) Parainfluenza 3 (PCR) Parainfluenza 4 (PCR) RSV (PCR) Entero/Rhino (PCR) 01/22/19 01/22/19 01/22/19 18:30 18:30 18:30 WBC RBC Hgb Hct MCV MCH MCHC RDW Plt Count Neut % (Auto) Lymph % (Auto) [place] % (Auto) Eos % (Auto) Baso % (Auto) Neut # (Auto) Lymph # (Auto) [place] # (Auto) Eos # (Auto) Baso # (Auto) ESR PT INR APTT D-Dimer < 200 Sodium 137 Potassium 3.4 D Chloride 102 Carbon Dioxide 26 BUN 28 H Creatinine 1.10 H Estimated GFR 51.6 L BUN/Creatinine Ratio 25.5 H Glucose 180 H D Calcium 9.9 Magnesium 1.6 Total Bilirubin 0.4 AST 21 ALT 23 Alkaline Phosphatase 64 Total Creatine Kinase 21 L CK-MB (CK-2) TNP CK-MB (CK-2) Rel Index TNP Troponin I < 0.012 C-Reactive Protein B-Natriuretic Peptide Total Protein 5.8 L Albumin 3.6 Globulin 2.2 Albumin/Globulin Ratio 1.6 Triglycerides Cholesterol LDL Cholesterol, Calc HDL Cholesterol Lipase 285 TSH Urine Color Urine Appearance Urine pH Ur Specific [place] Urine Protein Urine Glucose (UA) Urine Ketones Urine Occult Blood Urine Nitrate Urine Bilirubin Urine Urobilinogen Ur Leukocyte Esterase Urine RBC Urine WBC Ur Squamous Epith Cells Urine Bacteria Ur Culture Indicated? Chlamy pneumoniae PCR Adenovirus (PCR) B.parapertussis DNA PCR Coronavirus OC43 (PCR) Coronavirus HKU1 (PCR) Coronavirus 229E (PCR) Coronavirus NL63 (PCR) Human Metapneumovir PCR Influenza Type A (PCR) Influenza Type B (PCR) M. pneumoniae (PCR) Parainfluenza 1 (PCR) Parainfluenza 2 (PCR) Parainfluenza 3 (PCR) Parainfluenza 4 (PCR) RSV (PCR) Entero/Rhino (PCR) 01/22/19 01/22/19 01/22/19 18:30 21:07 22:32 WBC RBC Hgb Hct MCV MCH MCHC RDW Plt Count Neut % (Auto) Lymph % (Auto) [place] % (Auto) Eos % (Auto) Baso % (Auto) Neut # (Auto) Lymph # (Auto) [place] # (Auto) Eos # (Auto) Baso # (Auto) ESR PT INR APTT D-Dimer Sodium Potassium Chloride Carbon Dioxide BUN Creatinine Estimated GFR BUN/Creatinine Ratio Glucose Calcium Magnesium Total Bilirubin AST ALT Alkaline Phosphatase Total Creatine Kinase CK-MB (CK-2) CK-MB (CK-2) Rel Index Troponin I C-Reactive Protein B-Natriuretic Peptide Total Protein Albumin Globulin Albumin/Globulin Ratio Triglycerides Cholesterol LDL Cholesterol, Calc HDL Cholesterol Lipase TSH 2.34 Urine Color Straw Urine Appearance Clear Urine pH 7.0 Ur Specific [place] <=1.005 Urine Protein Negative Urine Glucose (UA) Trace H Urine Ketones Negative Urine Occult Blood 3+ H Urine Nitrate Negative Urine Bilirubin Negative Urine Urobilinogen 0.2 Ur Leukocyte Esterase Negative Urine RBC 5-10/hpf H 5-10/hpf H Urine WBC 0-1/hpf None seen Ur Squamous Epith Cells 0-1 /hpf 0-1 /hpf Urine Bacteria None seen None seen Ur Culture Indicated? Cult not indicated Cult not indicated Chlamy pneumoniae PCR Adenovirus (PCR) B.parapertussis DNA PCR Coronavirus OC43 (PCR) Coronavirus HKU1 (PCR) Coronavirus 229E (PCR) Coronavirus NL63 (PCR) Human Metapneumovir PCR Influenza Type A (PCR) Influenza Type B (PCR) M. pneumoniae (PCR) Parainfluenza 1 (PCR) Parainfluenza 2 (PCR) Parainfluenza 3 (PCR) Parainfluenza 4 (PCR) RSV (PCR) Entero/Rhino (PCR) 01/23/19 01/23/19 01/23/19 00:35 00:35 00:35 WBC RBC Hgb Hct MCV MCH MCHC RDW Plt Count Neut % (Auto) Lymph % (Auto) [place] % (Auto) Eos % (Auto) Baso % (Auto) Neut # (Auto) Lymph # (Auto) [place] # (Auto) Eos # (Auto) Baso # (Auto) ESR PT INR APTT D-Dimer Sodium Potassium Chloride Carbon Dioxide BUN Creatinine Estimated GFR BUN/Creatinine Ratio Glucose Calcium Magnesium Total Bilirubin AST ALT Alkaline Phosphatase Total Creatine Kinase CK-MB (CK-2) CK-MB (CK-2) Rel Index Troponin I < 0.012 C-Reactive Protein 0.7 B-Natriuretic Peptide Total Protein Albumin Globulin Albumin/Globulin Ratio Triglycerides Cholesterol LDL Cholesterol, Calc HDL Cholesterol Lipase TSH Urine Color Urine Appearance Urine pH Ur Specific [place] Urine Protein Urine Glucose (UA) Urine Ketones Urine Occult Blood Urine Nitrate Urine Bilirubin Urine Urobilinogen Ur Leukocyte Esterase Urine RBC Urine WBC Ur Squamous Epith Cells Urine Bacteria Ur Culture Indicated? Chlamy pneumoniae PCR Not detected Adenovirus (PCR) Not detected B.parapertussis DNA PCR Not detected Coronavirus OC43 (PCR) Not detected Coronavirus HKU1 (PCR) Not detected Coronavirus 229E (PCR) Not detected Coronavirus NL63 (PCR) Not detected Human Metapneumovir PCR Not detected Influenza Type A (PCR) Not detected Influenza Type B (PCR) Not detected M. pneumoniae (PCR) Not detected Parainfluenza 1 (PCR) Not detected Parainfluenza 2 (PCR) Not detected Parainfluenza 3 (PCR) Not detected Parainfluenza 4 (PCR) Not detected RSV (PCR) Not detected Entero/Rhino (PCR) Not detected 01/23/19 01/23/19 01/23/19 01:15 01:15 04:55 WBC 7.5 RBC 4.31 Hgb 12.1 Hct 36.3 MCV 84.3 MCH 28.1 MCHC 33.3 RDW 15.2 H Plt Count 228 Neut % (Auto) 84.6 H D Lymph % (Auto) 13.0 L [place] % (Auto) 1.8 L Eos % (Auto) 0.4 L Baso % (Auto) 0.2 Neut # (Auto) 6400 Lymph # (Auto) 1000 L [place] # (Auto) 100 Eos # (Auto) 0 Baso # (Auto) 0 ESR 9 PT INR APTT D-Dimer Sodium 135 L Potassium 4.2 Chloride 102 Carbon Dioxide 23 BUN 26 H Creatinine 0.90 Estimated GFR > 60.0 BUN/Creatinine Ratio 28.9 H Glucose 387 H D Calcium 8.6 Magnesium 2.3 Total Bilirubin 0.5 AST 22 ALT 25 Alkaline Phosphatase 75 Total Creatine Kinase CK-MB (CK-2) CK-MB (CK-2) Rel Index Troponin I C-Reactive Protein B-Natriuretic Peptide Total Protein 5.7 L Albumin 3.5 Globulin 2.2 Albumin/Globulin Ratio 1.6 Triglycerides Cancelled Cholesterol Cancelled LDL Cholesterol, Calc Cancelled HDL Cholesterol Cancelled Lipase TSH Urine Color Urine Appearance Urine pH Ur Specific [place] Urine Protein Urine Glucose (UA) Urine Ketones Urine Occult Blood Urine Nitrate Urine Bilirubin Urine Urobilinogen Ur Leukocyte Esterase Urine RBC Urine WBC Ur Squamous Epith Cells Urine Bacteria Ur Culture Indicated? Chlamy pneumoniae PCR Adenovirus (PCR) B.parapertussis DNA PCR Coronavirus OC43 (PCR) Coronavirus HKU1 (PCR) Coronavirus 229E (PCR) Coronavirus NL63 (PCR) Human Metapneumovir PCR Influenza Type A (PCR) Influenza Type B (PCR) M. pneumoniae (PCR) Parainfluenza 1 (PCR) Parainfluenza 2 (PCR) Parainfluenza 3 (PCR) Parainfluenza 4 (PCR) RSV (PCR) Entero/Rhino (PCR) 01/23/19 01/23/19 01/23/19 04:55 12:05 16:04 WBC RBC Hgb Hct MCV MCH MCHC RDW Plt Count Neut % (Auto) Lymph % (Auto) [place] % (Auto) Eos % (Auto) Baso % (Auto) Neut # (Auto) Lymph # (Auto) [place] # (Auto) Eos # (Auto) Baso # (Auto) ESR PT INR APTT D-Dimer Sodium Potassium Chloride Carbon Dioxide BUN Creatinine Estimated GFR BUN/Creatinine Ratio Glucose 520 H* Calcium Magnesium Total Bilirubin AST ALT Alkaline Phosphatase Total Creatine Kinase CK-MB (CK-2) CK-MB (CK-2) Rel Index Troponin I < 0.012 Cancelled C-Reactive Protein B-Natriuretic Peptide Total Protein Albumin Globulin Albumin/Globulin Ratio Triglycerides Cholesterol LDL Cholesterol, Calc HDL Cholesterol Lipase TSH Urine Color Urine Appearance Urine pH Ur Specific [place] Urine Protein Urine Glucose (UA) Urine Ketones Urine Occult Blood Urine Nitrate Urine Bilirubin Urine Urobilinogen Ur Leukocyte Esterase Urine RBC Urine WBC Ur Squamous Epith Cells Urine Bacteria Ur Culture Indicated? Chlamy pneumoniae PCR Adenovirus (PCR) B.parapertussis DNA PCR Coronavirus OC43 (PCR) Coronavirus HKU1 (PCR) Coronavirus 229E (PCR) Coronavirus NL63 (PCR) Human Metapneumovir PCR Influenza Type A (PCR) Influenza Type B (PCR) M. pneumoniae (PCR) Parainfluenza 1 (PCR) Parainfluenza 2 (PCR) Parainfluenza 3 (PCR) Parainfluenza 4 (PCR) RSV (PCR) Entero/Rhino (PCR) 01/23/19 16:04 WBC RBC Hgb Hct MCV MCH MCHC RDW Plt Count Neut % (Auto) Lymph % (Auto) [place] % (Auto) Eos % (Auto) Baso % (Auto) Neut # (Auto) Lymph # (Auto) [place] # (Auto) Eos # (Auto) Baso # (Auto) ESR PT INR APTT D-Dimer Sodium Potassium Chloride Carbon Dioxide BUN Creatinine Estimated GFR BUN/Creatinine Ratio Glucose Calcium Magnesium Total Bilirubin AST ALT Alkaline Phosphatase Total Creatine Kinase < 20 L CK-MB (CK-2) TNP CK-MB (CK-2) Rel Index TNP Troponin I < 0.012 C-Reactive Protein B-Natriuretic Peptide Total Protein Albumin Globulin Albumin/Globulin Ratio Triglycerides Cholesterol LDL Cholesterol, Calc HDL Cholesterol Lipase TSH Urine Color Urine Appearance Urine pH Ur Specific [place] Urine Protein Urine Glucose (UA) Urine Ketones Urine Occult Blood Urine Nitrate Urine Bilirubin Urine Urobilinogen Ur Leukocyte Esterase Urine RBC Urine WBC Ur Squamous Epith Cells Urine Bacteria Ur Culture Indicated? Chlamy pneumoniae PCR Adenovirus (PCR) B.parapertussis DNA PCR Coronavirus OC43 (PCR) Coronavirus HKU1 (PCR) Coronavirus 229E (PCR) Coronavirus NL63 (PCR) Human Metapneumovir PCR Influenza Type A (PCR) Influenza Type B (PCR) M. pneumoniae (PCR) Parainfluenza 1 (PCR) Parainfluenza 2 (PCR) Parainfluenza 3 (PCR) Parainfluenza 4 (PCR) RSV (PCR) Entero/Rhino (PCR) Discharge Plan Discharge Plan Patient Disposition: [facility] Other facility: Under care of provider: Dr. Zendejas, hospitalist and Dr. Del Castillo, cardiology Diet/Activity/Treatments Diet: Nothing by Mouth Discharge Data Primary Care Provider: Kacy Anderson Attending Provider: Mk Figueroa Admit Date/Time: 01/22/19 20:55 Quality VTE Deep Vein Thrombosis/Pulmonary Embolism Present on Admission: No
[2019-01-23] MEDS: CLOPIDOGREL 75 MG TABLET PO (17:15)
--- NOTE | 2019-01-23 18:21 | PC.NURSE ---
Assumed care of pt at 1500. During bedside hand-off at approx 1515 pt report 5/10 chest pain. MD notified by Day shift RN. Stat EKG, Nitro ordered. Nitro x3 given. Chest pain trended down and resolved. Pt declined further chest pain. Trans to [facility] order. Report given to Aj LYNN. Metformin retrieved from pharmacy and bottle returned to pt to give to staff at [facility] or sent home with family. Pt left via ALS transport team at with all personal belongings in stable condition.
== END 2019-01-23 18:30 | disposition short-term general hospital (02) ==
LOC: ED 18:06 → AC 20:56
PROVIDERS: Internal Medicine; Admitting Provider Nurse Practitioner Gerontology; Emergency Provider Emergency Medicine; PCP Family Medicine; Visit Provider Nurse Practitioner Gerontology
DX: R00.2 Palpitations (principal); R06.02 Shortness of breath; E11.42 Type 2 diabetes mellitus with diabetic polyneuropathy; E78.5 Hyperlipidemia, unspecified; F32.9 Major depressive disorder, single episode, unspecified; F51.5 Nightmare disorder; R03.0 Elevated blood-pressure reading, without diagnosis of hypertension; Z79.84 Long term (current) use of oral hypoglycemic drugs; Z23 Encounter for immunization
CPT/HCPCS: 36415; 71045; 71275; 78451; 80053; 81001; 81003; 81015; 82550; 82947; 82962; 83690; 83735; 83880; 84443; 84484; 85025; 85379; 85610; 85651; 85730; 86140; 87633; 90471; 90656; 93005; 93010; 93016; 93017; 93018; 96361; 96372; 96374; 96375; 99285; G0378; A9502; J1200; J1644; J2270; J2785; J2930; Q2038

== ENCOUNTER 2020-03-23 09:45 | Outpatient (RCR) | payer OTHER, MEDICAID, SELFPAY ==
[2019-01-22 21:55] VITALS: BMI 23.4
--- NOTE | 2020-02-27 15:35 | PT.OIE ---
Current Diagnoses Pain in left shoulder (02/27/20) Past Medical History (Last Updated 01/23/19 @ 00:14 by JAVIER Joyner) Depression Diabetes Hearing loss Night terrors Seasonal allergies Past Surgical History (Last Reviewed 01/23/19 @ 00:16 by JAVIER Joyner) Hx of carpal tunnel repair Hx of hand surgery Hx of shoulder surgery Visit Care Team Role Provider Type Kacy Anderson MD Attending Provider Non-Staff Primary Care Provider Referring Provider Specialty: [facility] Address: [address] [place] [address], [id number] Email: Physical Therapy Initial Evaluation PT-OP-A Visit Information Start: 02/26/20 15:06 Freq: Status: Active Protocol: Document 02/27/20 10:32 MB (Rec: 02/27/20 10:48 MB [id number]) Out-Patient Physical Therapy Visit Information Visit Information Visit Type Initial Evaluation Visit Note Browne Visit Start Time 10:32 Visit Stop Time 11:10 Total Visit Minutes 38 Visit Number 03/01 Number of COMFORT ADVISOR Visits 0 Evaluation Information Evaluation Date 02/27/20 Precautions Precautions DMII, proteinuria, neuropathy, dyslipidemia, depression, nightmares, possible migraines on the right temporal area and negative temporal arteritis biopsy, history of right arm surgeries and vertigo PT-OP-B Current Condition Start: 02/26/20 15:06 Freq: Status: Active Protocol: Document 02/27/20 10:32 MB (Rec: 02/27/20 10:48 MB [id number]) Current Condition History of Current Condition Onset Date January 2020 Current Complaints Left shoulder pain and inability to use the arm well History of Current Condition Pt reports that she did not have an injury and she woke up with left shoulder pain. Pt has a history of right shoulder, elbow and wrist surgery years ago. Doctor impression is frozen shoulder in setting of pt's age, gender and DM. Pt has trouble dressing, sleeping and taking a shower. She lives alone. 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 She is having trouble driving. Her friend drove her today. Pt is right handed. Pt denies tingling and numbness. She describes throbbing. She has trouble sleeping. She is trying ice and hot pack. Pt rates pain as 7-8/10 in her whole left shoulder. Pt is on diability d/t her right arm. Prior Treatments and Tests No diagnostics, PT for her right arm a long time ago. Treatment Goals Patient/Caregiver Goals To decrease pain and move her arm better. PT-OP-C Subjective Start: 02/26/20 15:06 Freq: Status: Active Protocol: Document 02/27/20 10:32 MB (Rec: 02/27/20 10:48 MB [id number]) OP-PT Subjective Patient Comments Patient Comments See history of current condition. Patient Questionnaires Quick Dash- Upper Extremity Quick Dash UE Score 45 Quick Dash UE Impairment 40 to 59% Impaired (Score 40- 59) PT-OP-J Posture/Palpation/Skin Start: 02/26/20 15:06 Freq: Status: Active Protocol: Document 02/27/20 10:32 MB (Rec: 02/27/20 15:34 MB [id number]) Posture Evaluation Comments Posture Comments Standing posture: forward head , rounded shoulders, tragus 1 in front of AC joint (left0, increased thoracic kyphosis and increased lumbar lordosis. PT-OP-K Range of Motion Start: 02/26/20 15:06 Freq: Status: Active Protocol: Document 02/27/20 10:32 MB (Rec: 02/27/20 15:34 MB [id number]) Cervical Spine Range of Motion Cervical Spine Active Testing Position Standing Flexion 25 Extension 15 Rotation Left 40 Rotation Right 50 Lateral Flexion Left 25 Lateral Flexion Right 17 Shoulder Goniometric Range of Motion Shoulder Left Active Shoulder ROM WFL No Testing Position Standing Flexion 40 Abduction 24 Internal Rotation Behind Back (text) Unable Comments PROM left shoulder ER and IR in supine with shoulder in 45 deg abduction: no tolerance of PROM ER and IR Right Active Shoulder ROM WFL No Testing Position Standing Flexion 140 Abduction 150 Internal Rotation Behind Back (text) To T10 and no pain Comments PROM right shoulder ER and IR in supine with shoulder in 90/ 90: normal PT-OP-M Strength Start: 02/26/20 15:06 Freq: Status: Active Protocol: Document 02/27/20 10:32 MB (Rec: 02/27/20 15:34 MB [id number]) Shoulder Strength Shoulder Manual Muscle Testing Left Comments Deferred all MMT d/t pain Right Flexion 5 Normal Abduction (C5) 3- Fair- External Rotation 5 Normal Internal Rotation 5 Normal Comments Pt reports left shoulder pain with right shoulder abduction MMT Elbow/Forearm Strength Elbow and Forearm Manual Muscle Testing Left Comments Deferred left elbow MMT d/t left shoulder pain Right Flexion (C6) 5 Normal Extension (C7) 5 Normal Pronation 4 Good Supination 5 Normal Wrist Strength Wrist Manual Muscle Testing Left Flexion (C7) 5 Normal Extension (C6) 5 Normal Right Flexion (C7) 3 Fair Extension (C6) 5 Normal Comments Pt reports pain with MMT wrist flexion after old injury and surgery PT-OP-Q Treatments Start: 02/26/20 15:06 Freq: Status: Active Protocol: Document 02/27/20 10:32 MB (Rec: 02/27/20 13:14 MB [id number]) Self-Care/Home Management Treatment Education Other Education Ed pt on proper sleeping position with towel roll support at neck for supine and side lying sleeping and proper use of pillow support for left arm with supine and side lying sleeping. Ed pt in proper sitting position with left UE supported and relaxing neck, keeping it loose with cervical flexion/extension and rotation right and left, ed pt on benefits of frozen peas for shoulder PT-OP-T Assessment and Plan Start: 02/26/20 15:06 Freq: Status: Active Protocol: Document 02/27/20 10:32 MB (Rec: 02/27/20 13:25 MB [id number]) Physical Therapy Assessment Rehab Potential Rehabilitation Potential Fair Evaluation Complexity Number of Personal Factors/Comorbidities 1-2 Number of Body Systems Impaired 1-2 Clinical Presentation at Evaluation Evolving Impairments Impairments Activity Tolerance,Functional Activities,Functional Mobility ,Pain,Posture,ROM,Soft Tissue Mobility,Strength Other Impairments Pt reports history of vertigo and so will add this to POC to check and assess if needed as this will inhibit positioning for shoulder rehab Goals 5 Retirement Goal (LTG) Pt will be able to don bra behind her back using both arms to allow return to previous PLOF by 05/06/20. LTG Duration 8 weeks 4 Retirement Goal (LTG) Pt will report an overall 75% improvement in sleeping to promote faster recovery by . LTG Duration 8 weeks 3 Retirement Goal (LTG) Pt will present with improved left shoulder flexion and abduction AROM to at least 140 deg to improve functional use of arm by 05/06/20. LTG Duration 8 weeks 2 Retirement Goal (LTG) Pt will perform progressive HEP with I including cervical and thoracic flexibility, postural exercises, shoulder ROM, strengthening and core exercises to improve pain and left arm functional use by . LTG Duration 8 weeks 1 Cork Floor Installer Goal (LTG) Pt will present with improved QuickDASH score to reflect no more than 15% impairment to allow functional use of her left arm by 05/06/20. LTG Duration 8 weeks Assessment Summary Assessment Pt is a 54 y/o female, post- menopausal and with history of DM, presenting with severe left shoulder pain and limited ROM, strength and arm use. Referring provider's clinical opinion is adhesive capsulitis given pt's PMH and insidious onset of symptoms and PT is in agreement. Pt has pain at rest, with gentle passive and attempted minimal active movement of her left arm and shoulder. She has postural changes and history of right arm surgery. PT has trouble finding a comfortable position for pt and pt is reasonably comfortable with head, neck and left arm supported in supine and with back and left arm supported in sitting. Will initiate pendulums and work on cervical and thoracic spine in next few treatments to help reduce pain and encourage gentle left arm movement. Pt reports a history of vertigo with lying down and this might be a limiting factor for positioning for left shoulder rehabilitation. Will assess and treat BPPV if needed in future treatments. Barriers to PT include high pain, pt lives alone and is having trouble driving d/t her left shoulder pain. Physical Therapy Plan Frequency and Duration Frequency of Treatment 2x/Week Duration of Treatment 8 weeks Plan of Care Start Date 02/27/20 Plan of Care End Date 04/27/20 Therapeutic Interventions Therapeutic Interventions Canalithic Repositioning,Home Exercise Program,Joint Mobilizations,Manual Therapy, Neuromuscular Re-education, Patient/Caregiver Education, Self-Care/Home Management,Soft Tissue Mobilization,Taping, Therapeutic Activities, Therapeutic Exercises Modalities Cold Pack/Ice Massage,Electric Stimulation,Hot Packs, Ultrasound Next Visit Focus/Plan Next Note Type Treatment Note Next Visit Plan Ed pt on racquet ball massage, pendulums. Progress thoracic, scapular and cervical manual PT to assist with left shoulder pain, progress gentle shoulder exercises
--- NOTE | 2020-02-27 15:35 | PT.OPPOC ---
Physical, Occupational & Speech Therapy At [facility] Current Diagnoses Pain in left shoulder (02/27/20) Visit Care Team Role Provider Type Kacy Anderson MD Attending Provider Non-Staff Primary Care Provider Referring Provider Specialty: Family Practice Address: [address] [place] [address], [id number] Email: Plan Of Care PT-OP-T Assessment and Plan Start: 02/26/20 15:06 Freq: Status: Active Protocol: Document 02/27/20 10:32 MB (Rec: 02/27/20 13:25 MB [id number]) Physical Therapy Assessment Rehab Potential Rehabilitation Potential Fair Evaluation Complexity Number of Personal Factors/Comorbidities 1-2 Number of Body Systems Impaired 1-2 Clinical Presentation at Evaluation Evolving Impairments Impairments Activity Tolerance,Functional Activities,Functional Mobility ,Pain,Posture,ROM,Soft Tissue Mobility,Strength Other Impairments Pt reports history of vertigo and so will add this to POC to check and assess if needed as this will inhibit positioning for shoulder rehab Goals 5 Director Of Maternity Services Goal (LTG) Pt will be able to don bra behind her back using both arms to allow return to previous PLOF by 05/06/20. LTG Duration 8 weeks 4 Director Of Maternity Services Goal (LTG) Pt will report an overall 75% improvement in sleeping to promote faster recovery by . LTG Duration 8 weeks 3 Director Of Maternity Services Goal (LTG) Pt will present with improved left shoulder flexion and abduction AROM to at least 140 deg to improve functional use of arm by 05/06/20. LTG Duration 8 weeks 2 Director Of Maternity Services Goal (LTG) Pt will perform progressive HEP with I including cervical and thoracic flexibility, postural exercises, shoulder ROM, strengthening and core exercises to improve pain and left arm functional use by . LTG Duration 8 weeks 1 Assisted Goal (LTG) Pt will present with improved QuickDASH score to reflect no more than 15% impairment to allow functional use of her left arm by 05/06/20. LTG Duration 8 weeks Assessment Summary Assessment Pt is a 54 y/o female, post- menopausal and with history of DM, presenting with severe left shoulder pain and limited ROM, strength and arm use. Referring provider's clinical opinion is adhesive capsulitis given pt's PMH and insidious onset of symptoms and PT is in agreement. Pt has pain at rest, with gentle passive and attempted minimal active movement of her left arm and shoulder. She has postural changes and history of right arm surgery. PT has trouble finding a comfortable position for pt and pt is reasonably comfortable with head, neck and left arm supported in supine and with back and left arm supported in sitting. Will initiate pendulums and work on cervical and thoracic spine in next few treatments to help reduce pain and encourage gentle left arm movement. Pt reports a history of vertigo with lying down and this might be a limiting factor for positioning for left shoulder rehabilitation. Will assess and treat BPPV if needed in future treatments. Barriers to PT include high pain, pt lives alone and is having trouble driving d/t her left shoulder pain. Physical Therapy Plan Frequency and Duration Frequency of Treatment 2x/Week Duration of Treatment 8 weeks Plan of Care Start Date 02/27/20 Plan of Care End Date 04/27/20 Therapeutic Interventions Therapeutic Interventions Canalithic Repositioning,Home Exercise Program,Joint Mobilizations,Manual Therapy, Neuromuscular Re-education, Patient/Caregiver Education, Self-Care/Home Management,Soft Tissue Mobilization,Taping, Therapeutic Activities, Therapeutic Exercises Modalities Cold Pack/Ice Massage,Electric Stimulation,Hot Packs, Ultrasound Next Visit Focus/Plan Next Note Type Treatment Note Next Visit Plan Ed pt on racquet ball massage, pendulums. Progress thoracic, scapular and cervical manual PT to assist with left shoulder pain, progress gentle shoulder exercises Plan of Care Dates Plan of Care Start Date 02/27/20 Plan of Care End Date 04/27/20 Electronically Signed by: Yvrose Marquez PT 02/27/20 [id number] Please Sign and Return: I have reviewed this Plan of Care and certify that the skilled therapy services above are required to meet the patient?s needs. Physician Signature Date Printed Name and Credentials Clinical Instructor Signature Printed Name and Credentials
--- NOTE | 2020-02-28 10:30 | PT.OTN ---
Current Diagnoses Pain in left shoulder (02/28/20) Physical Therapy Treatment Note PT-OP-A Visit Information Start: 02/26/20 15:06 Freq: Status: Active Protocol: Document 02/28/20 09:47 MB (Rec: 02/28/20 10:25 MB [id number]) Out-Patient Physical Therapy Visit Information Visit Information Visit Type Treatment Note Visit Start Time 09:47 Visit Stop Time 10:26 Total Visit Minutes 39 Visit Number 04/01 Precautions Precautions DMII, proteinuria, neuropathy, dyslipidemia, depression, nightmares, possible migraines on the right temporal area and negative temporal arteritis biopsy, history of right arm surgeries and vertigo PT-OP-B Current Condition Start: 02/26/20 15:06 Freq: Status: Active Protocol: Document 02/27/20 10:32 MB (Rec: 02/27/20 10:48 MB [id number]) Current Condition History of Current Condition Onset Date January 2020 Current Complaints Left shoulder pain and inability to use the arm well History of Current Condition Pt reports that she did not have an injury and she woke up with left shoulder pain. Pt has a history of right shoulder, elbow and wrist surgery years ago. Doctor impression is frozen shoulder in setting of pt's age, gender and DM. Pt has trouble dressing, sleeping and taking a shower. She lives alone. 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 She is having trouble driving. Her friend drove her today. Pt is right handed. Pt denies tingling and numbness. She describes throbbing. She has trouble sleeping. She is trying ice and hot pack. Pt rates pain as 7-8/10 in her whole left shoulder. Pt is on diability d/t her right arm. Prior Treatments and Tests No diagnostics, PT for her right arm a long time ago. Treatment Goals Patient/Caregiver Goals To decrease pain and move her arm better. PT-OP-C Subjective Start: 02/26/20 15:06 Freq: Status: Active Protocol: Document 02/28/20 09:47 MB (Rec: 02/28/20 10:25 MB [id number]) OP-PT Subjective Patient Comments Patient Comments Pt reports that her left shoulder feels numb. She tried sleeping with the towel roll for her neck. Her left shoulder throbbed and then she rolled on her left side. She cannot sleep on her right side . PT-OP-J Posture/Palpation/Skin Start: 02/26/20 15:06 Freq: Status: Active Protocol: Document 02/27/20 10:32 MB (Rec: 02/27/20 15:34 MB [id number]) Posture Evaluation Comments Posture Comments Standing posture: forward head , rounded shoulders, tragus 1 in front of AC joint (left0, increased thoracic kyphosis and increased lumbar lordosis. PT-OP-K Range of Motion Start: 02/26/20 15:06 Freq: Status: Active Protocol: Document 02/27/20 10:32 MB (Rec: 02/27/20 15:34 MB [id number]) Cervical Spine Range of Motion Cervical Spine Active Testing Position Standing Flexion 25 Extension 15 Rotation Left 40 Rotation Right 50 Lateral Flexion Left 25 Lateral Flexion Right 17 Shoulder Goniometric Range of Motion Shoulder Left Active Shoulder ROM WFL No Testing Position Standing Flexion 40 Abduction 24 Internal Rotation Behind Back (text) Unable Comments PROM left shoulder ER and IR in supine with shoulder in 45 deg abduction: no tolerance of PROM ER and IR Right Active Shoulder ROM WFL No Testing Position Standing Flexion 140 Abduction 150 Internal Rotation Behind Back (text) To T10 and no pain Comments PROM right shoulder ER and IR in supine with shoulder in 90/ 90: normal PT-OP-M Strength Start: 02/26/20 15:06 Freq: Status: Active Protocol: Document 02/27/20 10:32 MB (Rec: 02/27/20 15:34 MB [id number]) Shoulder Strength Shoulder Manual Muscle Testing Left Comments Deferred all MMT d/t pain Right Flexion 5 Normal Abduction (C5) 3- Fair- External Rotation 5 Normal Internal Rotation 5 Normal Comments Pt reports left shoulder pain with right shoulder abduction MMT Elbow/Forearm Strength Elbow and Forearm Manual Muscle Testing Left Comments Deferred left elbow MMT d/t left shoulder pain Right Flexion (C6) 5 Normal Extension (C7) 5 Normal Pronation 4 Good Supination 5 Normal Wrist Strength Wrist Manual Muscle Testing Left Flexion (C7) 5 Normal Extension (C6) 5 Normal Right Flexion (C7) 3 Fair Extension (C6) 5 Normal Comments Pt reports pain with MMT wrist flexion after old injury and surgery PT-OP-Q Treatments Start: 02/26/20 15:06 Freq: Status: Active Protocol: Document 02/28/20 09:47 MB (Rec: 02/28/20 10:25 MB [id number]) Therapeutic Exercises Standing Exercises Pendulums left arm Comments 10 reps clockwise and counterclockwise, assist with hips Deltoid STM with racquet ball Comments Ball at TrP and massage over it Shoulder rotator STM with racquet ball Comments Ball at TrP at infraspinatus and massage over Intrascapular STM with racquet ball Comments Use of racquet ball at TrP for pressure, massage, rotate head and pulsate Manual Therapy Treatment Other Other Manual Treatments Pt prone, arms straight by sides, small towell wedge under left shoulder for support: very gentle thoracic mobs grade II-IV, very gentle B scapular mobs and STM intrascapular muscles, left infraspinatus and B levator and upper traps, grade II PA mobs at the capsule PT-OP-T Assessment and Plan Start: 02/26/20 15:06 Freq: Status: Active Protocol: Document 02/28/20 09:47 MB (Rec: 02/28/20 10:25 MB [id number]) Physical Therapy Assessment Rehab Potential Rehabilitation Potential Fair Evaluation Complexity Number of Personal Factors/Comorbidities 1-2 Number of Body Systems Impaired 1-2 Clinical Presentation at Evaluation Evolving Impairments Impairments Activity Tolerance,Functional Activities,Functional Mobility ,Pain,Posture,ROM,Soft Tissue Mobility,Strength Other Impairments Pt reports history of vertigo and so will add this to POC to check and assess if needed as this will inhibit positioning for shoulder rehab Goals 5 Steam Shovel Operating Engineer Goal (LTG) Pt will be able to don bra behind her back using both arms to allow return to previous PLOF by 05/06/20. LTG Duration 8 weeks 4 Steam Shovel Operating Engineer Goal (LTG) Pt will report an overall 75% improvement in sleeping to promote faster recovery by . LTG Duration 8 weeks 3 Penitentiary Goal (LTG) Pt will present with improved left shoulder flexion and abduction AROM to at least 140 deg to improve functional use of arm by 05/06/20. LTG Duration 8 weeks 2 Steam Shovel Operating Engineer Goal (LTG) Pt will perform progressive HEP with I including cervical and thoracic flexibility, postural exercises, shoulder ROM, strengthening and core exercises to improve pain and left arm functional use by . LTG Duration 8 weeks 1 Steam Shovel Operating Engineer Goal (LTG) Pt will present with improved QuickDASH score to reflect no more than 15% impairment to allow functional use of her left arm by 05/06/20. LTG Duration 8 weeks Assessment Summary Assessment Initiated self-myofascial work with [employer] ball today. She presents with tension and pain in many intrascapular and shoulder muscles. Initiated pendulums today as well. Con't gentle progression of ther-ex , education and manual work. Physical Therapy Plan Frequency and Duration Frequency of Treatment 2x/Week Duration of Treatment 8 weeks Plan of Care Start Date 02/27/20 Plan of Care End Date 04/27/20 Therapeutic Interventions Therapeutic Interventions Canalithic Repositioning,Home Exercise Program,Joint Mobilizations,Manual Therapy, Neuromuscular Re-education, Patient/Caregiver Education, Self-Care/Home Management,Soft Tissue Mobilization,Taping, Therapeutic Activities, Therapeutic Exercises Modalities Cold Pack/Ice Massage,Electric Stimulation,Hot Packs, Ultrasound Next Visit Focus/Plan Next Note Type Treatment Note Next Visit Plan Progress thoracic, scapular and cervical manual PT to assist with left shoulder pain , progress gentle shoulder exercises--may start with AAROM over the table for flexion and abduction or cane in supine, scapular retraction and thoracic extension in supine.
--- NOTE | 2020-03-03 11:25 | PT.OTN ---
Current Diagnoses Pain in left shoulder (03/03/20) Physical Therapy Treatment Note PT-OP-A Visit Information Start: 02/26/20 15:06 Freq: Status: Active Protocol: Document 03/03/20 10:33 MB (Rec: 03/03/20 11:17 MB [id number]) Out-Patient Physical Therapy Visit Information Visit Information Visit Type Treatment Note Visit Note Pavan, 24 visits after eval Visit Start Time 10:33 Visit Stop Time 11:15 Total Visit Minutes 42 Visit Number 04/30 Precautions Precautions DMII, proteinuria, neuropathy, dyslipidemia, depression, nightmares, possible migraines on the right temporal area and negative temporal arteritis biopsy, history of right arm surgeries and vertigo PT-OP-B Current Condition Start: 02/26/20 15:06 Freq: Status: Active Protocol: Document 02/27/20 10:32 MB (Rec: 02/27/20 10:48 MB [id number]) Current Condition History of Current Condition Onset Date January 2020 Current Complaints Left shoulder pain and inability to use the arm well History of Current Condition Pt reports that she did not have an injury and she woke up with left shoulder pain. Pt has a history of right shoulder, elbow and wrist surgery years ago. Doctor impression is frozen shoulder in setting of pt's age, gender and DM. Pt has trouble dressing, sleeping and taking a shower. She lives alone. 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 She is having trouble driving. Her friend drove her today. Pt is right handed. Pt denies tingling and numbness. She describes throbbing. She has trouble sleeping. She is trying ice and hot pack. Pt rates pain as 7-8/10 in her whole left shoulder. Pt is on diability d/t her right arm. Prior Treatments and Tests No diagnostics, PT for her right arm a long time ago. Treatment Goals Patient/Caregiver Goals To decrease pain and move her arm better. PT-OP-C Subjective Start: 02/26/20 15:06 Freq: Status: Active Protocol: Document 03/03/20 10:33 MB (Rec: 03/03/20 11:17 MB [id number]) OP-PT Subjective Patient Comments Patient Comments It's hurting. Pt reports that she likes the racquet ball massage. She reports that her left shoulder is moving a little more behind (IR) PT-OP-J Posture/Palpation/Skin Start: 02/26/20 15:06 Freq: Status: Active Protocol: Document 02/27/20 10:32 MB (Rec: 02/27/20 15:34 MB [id number]) Posture Evaluation Comments Posture Comments Standing posture: forward head , rounded shoulders, tragus 1 in front of AC joint (left0, increased thoracic kyphosis and increased lumbar lordosis. PT-OP-K Range of Motion Start: 02/26/20 15:06 Freq: Status: Active Protocol: Document 02/27/20 10:32 MB (Rec: 02/27/20 15:34 MB [id number]) Cervical Spine Range of Motion Cervical Spine Active Testing Position Standing Flexion 25 Extension 15 Rotation Left 40 Rotation Right 50 Lateral Flexion Left 25 Lateral Flexion Right 17 Shoulder Goniometric Range of Motion Shoulder Left Active Shoulder ROM WFL No Testing Position Standing Flexion 40 Abduction 24 Internal Rotation Behind Back (text) Unable Comments PROM left shoulder ER and IR in supine with shoulder in 45 deg abduction: no tolerance of PROM ER and IR Right Active Shoulder ROM WFL No Testing Position Standing Flexion 140 Abduction 150 Internal Rotation Behind Back (text) To T10 and no pain Comments PROM right shoulder ER and IR in supine with shoulder in 90/ 90: normal PT-OP-M Strength Start: 02/26/20 15:06 Freq: Status: Active Protocol: Document 02/27/20 10:32 MB (Rec: 02/27/20 15:34 MB [id number]) Shoulder Strength Shoulder Manual Muscle Testing Left Comments Deferred all MMT d/t pain Right Flexion 5 Normal Abduction (C5) 3- Fair- External Rotation 5 Normal Internal Rotation 5 Normal Comments Pt reports left shoulder pain with right shoulder abduction MMT Elbow/Forearm Strength Elbow and Forearm Manual Muscle Testing Left Comments Deferred left elbow MMT d/t left shoulder pain Right Flexion (C6) 5 Normal Extension (C7) 5 Normal Pronation 4 Good Supination 5 Normal Wrist Strength Wrist Manual Muscle Testing Left Flexion (C7) 5 Normal Extension (C6) 5 Normal Right Flexion (C7) 3 Fair Extension (C6) 5 Normal Comments Pt reports pain with MMT wrist flexion after old injury and surgery PT-OP-Q Treatments Start: 02/26/20 15:06 Freq: Status: Active Protocol: Document 03/03/20 10:33 MB (Rec: 03/03/20 11:21 MB [id number]) Therapeutic Exercises Standing Exercises Scapular retraction Side bilateral Comments 5 reps in sitting and standing Upper traps MWM in corner Side left Comments Racquet ball at TrP and pt performing active cervical rotation away Manual Therapy Treatment Other Other Manual Treatments After [place] Protocol: I strip black KT to inhibit left upper trap Gentle [place] Protocol left shoulder today: pt with reports of 7-9/10 pain with some mobilizations and range does improve with treatment ( see flexion and abduction notes below). PT takes time and lots of supported left arm in scaption plane with mobs. Most trouble with ER and IR positioning and mobilization at the capsule PT-OP-T Assessment and Plan Start: 02/26/20 15:06 Freq: Status: Active Protocol: Document 03/03/20 10:33 MB (Rec: 03/03/20 11:17 MB [id number]) Physical Therapy Assessment Rehab Potential Rehabilitation Potential Fair Evaluation Complexity Number of Personal Factors/Comorbidities 1-2 Number of Body Systems Impaired 1-2 Clinical Presentation at Evaluation Evolving Impairments Impairments Activity Tolerance,Functional Activities,Functional Mobility ,Pain,Posture,ROM,Soft Tissue Mobility,Strength Other Impairments Pt reports history of vertigo and so will add this to POC to check and assess if needed as this will inhibit positioning for shoulder rehab Goals 5 Television Installer Helper Goal (LTG) Pt will be able to don bra behind her back using both arms to allow return to previous PLOF by 05/06/20. LTG Duration 8 weeks 4 Television Installer Helper Goal (LTG) Pt will report an overall 75% improvement in sleeping to promote faster recovery by . LTG Duration 8 weeks 3 Television Installer Helper Goal (LTG) Pt will present with improved left shoulder flexion and abduction AROM to at least 140 deg to improve functional use of arm by 05/06/20. LTG Duration 8 weeks 2 Television Installer Helper Goal (LTG) Pt will perform progressive HEP with I including cervical and thoracic flexibility, postural exercises, shoulder ROM, strengthening and core exercises to improve pain and left arm functional use by . LTG Duration 8 weeks 1 Halfway Goal (LTG) Pt will present with improved QuickDASH score to reflect no more than 15% impairment to allow functional use of her left arm by 05/06/20. LTG Duration 8 weeks Assessment Summary Assessment Ed pt to hold off on pendulums for right now given c/o back discomfort. AROM left shoulder standing before [place] protocol is 50 deg flexion and 45 deg abduction. After treatment: 80 deg flexion and 50 deg abduction. Ed pt in MWM for left upper traps after treatment. Pt states that she likes the treatment. She is sensitive with all gentle passive ROM and mobilization and range is improving. Anticipate that [place] Protocol is going to be the most beneficial thing at the start of therapy course as she has little tolerance to exercise. Physical Therapy Plan Frequency and Duration Frequency of Treatment 2x/Week Duration of Treatment 8 weeks Plan of Care Start Date 02/27/20 Plan of Care End Date 04/27/20 Therapeutic Interventions Therapeutic Interventions Canalithic Repositioning,Home Exercise Program,Joint Mobilizations,Manual Therapy, Neuromuscular Re-education, Patient/Caregiver Education, Self-Care/Home Management,Soft Tissue Mobilization,Taping, Therapeutic Activities, Therapeutic Exercises Modalities Cold Pack/Ice Massage,Electric Stimulation,Hot Packs, Ultrasound Next Visit Focus/Plan Next Note Type Treatment Note Next Visit Plan Assess skin from left upper traps KT. Ongoing gentle progression of [place] Protocol for left shoulder
--- NOTE | 2020-03-05 11:20 | PT.OTN ---
Addendum entered and electronically signed by Analia Farooq PTA 03/05/20 11:44: JOSE LUIS Hammond attended tx and provided equipment needed during tx, assisted with Ktaping for GH inferior support on L. Original Note: Current Diagnoses Pain in left shoulder (03/05/20) Physical Therapy Treatment Note PT-OP-A Visit Information Start: 02/26/20 15:06 Freq: Status: Active Protocol: Document 03/05/20 10:33 SP (Rec: 03/05/20 11:34 SP [id number]) Out-Patient Physical Therapy Visit Information Visit Information Visit Type Treatment Note Visit Note Pavan, 23 visits after eval Visit Start Time 10:33 Visit Stop Time 11:20 Total Visit Minutes 47 Visit Number 05/31 Number of WAFER SLICER Visits 1 PT-OP-B Current Condition Start: 02/26/20 15:06 Freq: Status: Active Protocol: Document 02/27/20 10:32 MB (Rec: 02/27/20 10:48 MB [id number]) Current Condition History of Current Condition Onset Date January 2020 Current Complaints Left shoulder pain and inability to use the arm well History of Current Condition Pt reports that she did not have an injury and she woke up with left shoulder pain. Pt has a history of right shoulder, elbow and wrist surgery years ago. Doctor impression is frozen shoulder in setting of pt's age, gender and DM. Pt has trouble dressing, sleeping and taking a shower. She lives alone. 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 Her friend drove her today. Pt is right handed. Pt denies tingling and numbness. She describes throbbing. She has trouble sleeping. She is trying ice and hot pack. Pt rates pain as 7-8/10 in her whole left shoulder. Pt is on diability d/t her right arm. Prior Treatments and Tests No diagnostics, PT for her right arm a long time ago. Treatment Goals Patient/Caregiver Goals To decrease pain and move her arm better. PT-OP-C Subjective Start: 02/26/20 15:06 Freq: Status: Active Protocol: Document 03/05/20 10:33 SP (Rec: 03/05/20 11:34 SP [id number]) OP-PT Subjective Patient Comments Patient Comments Pt reported was painful after last tx, 7-8/10 and coming in today 07/16, but not as much as before, every time come is painful but can tolerate the pain. Patient Reported Progress Same PT-OP-J Posture/Palpation/Skin Start: 02/26/20 15:06 Freq: Status: Active Protocol: Document 02/27/20 10:32 MB (Rec: 02/27/20 15:34 MB [id number]) Posture Evaluation Comments Posture Comments Standing posture: forward head , rounded shoulders, tragus 1 in front of AC joint (left0, increased thoracic kyphosis and increased lumbar lordosis. PT-OP-K Range of Motion Start: 02/26/20 15:06 Freq: Status: Active Protocol: Document 02/27/20 10:32 MB (Rec: 02/27/20 15:34 MB [id number]) Cervical Spine Range of Motion Cervical Spine Active Testing Position Standing Flexion 25 Extension 15 Rotation Left 40 Rotation Right 50 Lateral Flexion Left 25 Lateral Flexion Right 17 Shoulder Goniometric Range of Motion Shoulder Left Active Shoulder ROM WFL No Testing Position Standing Flexion 40 Abduction 24 Internal Rotation Behind Back (text) Unable Comments PROM left shoulder ER and IR in supine with shoulder in 45 deg abduction: no tolerance of PROM ER and IR Right Active Shoulder ROM WFL No Testing Position Standing Flexion 140 Abduction 150 Internal Rotation Behind Back (text) To T10 and no pain Comments PROM right shoulder ER and IR in supine with shoulder in 90/ 90: normal PT-OP-M Strength Start: 02/26/20 15:06 Freq: Status: Active Protocol: Document 02/27/20 10:32 MB (Rec: 02/27/20 15:34 MB [id number]) Shoulder Strength Shoulder Manual Muscle Testing Left Comments Deferred all MMT d/t pain Right Flexion 5 Normal Abduction (C5) 3- Fair- External Rotation 5 Normal Internal Rotation 5 Normal Comments Pt reports left shoulder pain with right shoulder abduction MMT Elbow/Forearm Strength Elbow and Forearm Manual Muscle Testing Left Comments Deferred left elbow MMT d/t left shoulder pain Right Flexion (C6) 5 Normal Extension (C7) 5 Normal Pronation 4 Good Supination 5 Normal Wrist Strength Wrist Manual Muscle Testing Left Flexion (C7) 5 Normal Extension (C6) 5 Normal Right Flexion (C7) 3 Fair Extension (C6) 5 Normal Comments Pt reports pain with MMT wrist flexion after old injury and surgery PT-OP-Q Treatments Start: 02/26/20 15:06 Freq: Status: Active Protocol: Document 03/05/20 10:33 SP (Rec: 03/05/20 11:34 SP [id number]) Therapeutic Exercises Standing Exercises AAROM wall walk Standing Exercise Name supported but RUE Side left Resistance AAROM tolerant range FF only today Reps/Minutes x2 Comments cued pause at bry range, breath and allow GH & scap relax into depression Scapular retraction Side bilateral Comments 5 reps in sitting and standing Deltoid STM with racquet ball Standing Exercise Name discussed but not performed Comments Ball at TrP and massage over it Shoulder rotator STM with racquet ball Standing Exercise Name discussed but not performed Comments Ball at TrP at infraspinatus and massage over Intrascapular STM with racquet ball Standing Exercise Name discussed but not performed Comments Use of racquet ball at TrP for pressure, massage, rotate head and pulsate Manual Therapy Treatment Soft Tissue Mobilization infrasp, UT, Teres, lev scap at TPs Body Location L Mobilization Type Rolling,Strumming Intensity/Depth Moderate Body Position Hooklying Comments mod pressure to pt tolerance, good feedback Taping L UT Treatment Focus L Type of Tape Kinesio Tape Skin Inspection intact, normal Comments Protocol: I strip black KT to inhibit left upper trap Other Other Manual Treatments After [place] Protocol: Gentle [place] Protocol left shoulder today: pt with reports of 7-9/10 pain with some mobilizations and range improved with treatment (see flexion and abduction notes below). Most trouble with ER and IR positioning and mobilization at the capsule. Pt was able to assist clasp the velcro on hat at end of tx , gained L shld flexion. PT-OP-R Modalities Start: 02/26/20 15:06 Freq: Status: Active Protocol: Document 03/05/20 10:33 SP (Rec: 03/05/20 11:34 SP [id number]) Hot Pack/Cold Pack Treatment MHP Location L shld Patient Position Hooklying Treatment Duration (minutes) 10 Patient Tolerance Good Comments feels better PT-OP-T Assessment and Plan Start: 02/26/20 15:06 Freq: Status: Active Protocol: Document 03/05/20 10:33 SP (Rec: 03/05/20 11:34 SP [id number]) Physical Therapy Assessment Goals 5 Senior Tax Analyst Goal (LTG) Pt will be able to don bra behind her back using both arms to allow return to previous PLOF by 05/06/20. LTG Duration 8 weeks 4 Jail Goal (LTG) Pt will report an overall 75% improvement in sleeping to promote faster recovery by . LTG Duration 8 weeks 3 Senior Tax Analyst Goal (LTG) Pt will present with improved left shoulder flexion and abduction AROM to at least 140 deg to improve functional use of arm by 05/06/20. 03/05/20: L Shld FF:63 post 87 L shld ABD: 46, post 51 R shld FF: 146 R shld ABD: 141 LTG Duration 8 weeks 2 Senior Tax Analyst Goal (LTG) Pt will perform progressive HEP with I including cervical and thoracic flexibility, postural exercises, shoulder ROM, strengthening and core exercises to improve pain and left arm functional use by . LTG Duration 8 weeks 1 Jail Goal (LTG) Pt will present with improved QuickDASH score to reflect no more than 15% impairment to allow functional use of her left arm by 05/06/20. LTG Duration 8 weeks Assessment Summary Assessment See measurements in goal section taken today. Tx focused on decreased pain, improved ROM within tolerance. Provided tactile and verbal cuing for GH depression and scap retraction awareness during PROM and AAROM with pause at tolerated range/end feel with breathing to decrease guarding with improvement in overall AROM, see measurements taken pre/ post. Pt reported is painful but notices is helpful and is getting more motion each visit. Pt compliant with HEP: self ball STMs and Physical Therapy Plan Frequency and Duration Frequency of Treatment 2x/Week Duration of Treatment 8 weeks Plan of Care Start Date 02/27/20 Plan of Care End Date 04/27/20 Therapeutic Interventions Therapeutic Interventions Canalithic Repositioning,Home Exercise Program,Joint Mobilizations,Manual Therapy, Neuromuscular Re-education, Patient/Caregiver Education, Self-Care/Home Management,Soft Tissue Mobilization,Taping, Therapeutic Activities, Therapeutic Exercises Modalities Cold Pack/Ice Massage,Electric Stimulation,Hot Packs, Ultrasound Next Visit Focus/Plan Next Note Type Treatment Note Next Visit Plan Assess skin from left upper traps KT. Ongoing gentle progression of [place] Protocol for left shoulder
--- NOTE | 2020-03-09 10:41 | PT.OTN ---
Current Diagnoses Pain in left shoulder (03/09/20) Physical Therapy Treatment Note PT-OP-A Visit Information Start: 02/26/20 15:06 Freq: Status: Active Protocol: Document 03/09/20 09:52 SP (Rec: 03/09/20 12:13 SP [id number]) Out-Patient Physical Therapy Visit Information Visit Information Visit Type Treatment Note Visit Note Pavan, 22 visits after eval Visit Start Time 09:52 Visit Stop Time 10:41 Total Visit Minutes 49 Visit Number 06/30 Number of QA SOFTWARE TEST ENGINEER Visits 2 PT-OP-B Current Condition Start: 02/26/20 15:06 Freq: Status: Active Protocol: Document 02/27/20 10:32 MB (Rec: 02/27/20 10:48 MB [id number]) Current Condition History of Current Condition Onset Date January 2020 Current Complaints Left shoulder pain and inability to use the arm well History of Current Condition Pt reports that she did not have an injury and she woke up with left shoulder pain. Pt has a history of right shoulder, elbow and wrist surgery years ago. Doctor impression is frozen shoulder in setting of pt's age, gender and DM. Pt has trouble dressing, sleeping and taking a shower. She lives alone. 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 Her friend drove her today. Pt is right handed. Pt denies tingling and numbness. She describes throbbing. She has trouble sleeping. She is trying ice and hot pack. Pt rates pain as 7-8/10 in her whole left shoulder. Pt is on diability d/t her right arm. Prior Treatments and Tests No diagnostics, PT for her right arm a long time ago. Treatment Goals Patient/Caregiver Goals To decrease pain and move her arm better. PT-OP-C Subjective Start: 02/26/20 15:06 Freq: Status: Active Protocol: Document 03/09/20 09:52 SP (Rec: 03/09/20 12:13 SP [id number]) OP-PT Subjective Patient Comments Patient Comments Pt reported felt sore after last tx and still continues to be painful but feels gaining ROM. Patient Reported Progress Same PT-OP-J Posture/Palpation/Skin Start: 02/26/20 15:06 Freq: Status: Active Protocol: Document 02/27/20 10:32 MB (Rec: 02/27/20 15:34 MB [id number]) Posture Evaluation Comments Posture Comments Standing posture: forward head , rounded shoulders, tragus 1 in front of AC joint (left0, increased thoracic kyphosis and increased lumbar lordosis. PT-OP-K Range of Motion Start: 02/26/20 15:06 Freq: Status: Active Protocol: Document 02/27/20 10:32 MB (Rec: 02/27/20 15:34 MB [id number]) Cervical Spine Range of Motion Cervical Spine Active Testing Position Standing Flexion 25 Extension 15 Rotation Left 40 Rotation Right 50 Lateral Flexion Left 25 Lateral Flexion Right 17 Shoulder Goniometric Range of Motion Shoulder Left Active Shoulder ROM WFL No Testing Position Standing Flexion 40 Abduction 24 Internal Rotation Behind Back (text) Unable Comments PROM left shoulder ER and IR in supine with shoulder in 45 deg abduction: no tolerance of PROM ER and IR Right Active Shoulder ROM WFL No Testing Position Standing Flexion 140 Abduction 150 Internal Rotation Behind Back (text) To T10 and no pain Comments PROM right shoulder ER and IR in supine with shoulder in 90/ 90: normal PT-OP-M Strength Start: 02/26/20 15:06 Freq: Status: Active Protocol: Document 02/27/20 10:32 MB (Rec: 02/27/20 15:34 MB [id number]) Shoulder Strength Shoulder Manual Muscle Testing Left Comments Deferred all MMT d/t pain Right Flexion 5 Normal Abduction (C5) 3- Fair- External Rotation 5 Normal Internal Rotation 5 Normal Comments Pt reports left shoulder pain with right shoulder abduction MMT Elbow/Forearm Strength Elbow and Forearm Manual Muscle Testing Left Comments Deferred left elbow MMT d/t left shoulder pain Right Flexion (C6) 5 Normal Extension (C7) 5 Normal Pronation 4 Good Supination 5 Normal Wrist Strength Wrist Manual Muscle Testing Left Flexion (C7) 5 Normal Extension (C6) 5 Normal Right Flexion (C7) 3 Fair Extension (C6) 5 Normal Comments Pt reports pain with MMT wrist flexion after old injury and surgery PT-OP-Q Treatments Start: 02/26/20 15:06 Freq: Status: Active Protocol: Document 03/09/20 09:52 SP (Rec: 03/09/20 12:13 SP [id number]) Manual Therapy Treatment Soft Tissue Mobilization infrasp, UT, Teres, lev scap at TPs Body Location L Mobilization Type Rolling,Strumming Intensity/Depth Moderate Body Position Hooklying Comments min-mod pressure to pt tolerance, good feedback UT, lev scap, pec, bicep today .. Other Other Manual Treatments After [place] Protocol: Gentle [place] Protocol left shoulder today: pt with reports of 8/10 pre PT to 6/10 pain end of tx, 4/10 pain with some mobilizations and range improved with treatment (see flexion and abduction notes below). Most trouble with ER and IR positioning and mobilization at the capsule. PT-OP-R Modalities Start: 02/26/20 15:06 Freq: Status: Active Protocol: Document 03/09/20 09:52 SP (Rec: 03/09/20 12:15 SP [id number]) Hot Pack/Cold Pack Treatment MHP Location L shld Patient Position Hooklying Treatment Duration (minutes) 10 Patient Tolerance Good Comments feels better PT-OP-T Assessment and Plan Start: 02/26/20 15:06 Freq: Status: Active Protocol: Document 03/09/20 09:52 SP (Rec: 03/09/20 12:13 SP [id number]) Physical Therapy Assessment Goals 5 Watch Inspector Final Movement Goal (LTG) Pt will be able to don bra behind her back using both arms to allow return to previous PLOF by 05/06/20. LTG Duration 8 weeks 4 Longterm Goal (LTG) Pt will report an overall 75% improvement in sleeping to promote faster recovery by . LTG Duration 8 weeks 3 Watch Inspector Final Movement Goal (LTG) Pt will present with improved left shoulder flexion and abduction AROM to at least 140 deg to improve functional use of arm by 05/06/20. 03/09/20 AROM L shld standing: L FF:72 deg pre, post 85 L ABD: 38 deg pre, post 60 LTG Duration 8 weeks 2 Longterm Goal (LTG) Pt will perform progressive HEP with I including cervical and thoracic flexibility, postural exercises, shoulder ROM, strengthening and core exercises to improve pain and left arm functional use by . : AAROM wall walking FF , scap retraction. LTG Duration 8 weeks 1 Watch Inspector Final Movement Goal (LTG) Pt will present with improved QuickDASH score to reflect no more than 15% impairment to allow functional use of her left arm by 05/06/20. LTG Duration 8 weeks Assessment Summary Assessment Pt improved in decreased pain during manual and pre to post tx today, see manual for scale given. Tx focused on manual today due to tighness when arrived and extra times spent education on giving therapist feedback on pressure and allowable ROM with less guarding with good results. Pt stated is making gains in ROM reaching LUE to her head. Didn't K tape today, forgot, assess next tx. Physical Therapy Plan Frequency and Duration Frequency of Treatment 2x/Week Duration of Treatment 8 weeks Plan of Care Start Date 02/27/20 Plan of Care End Date 04/27/20 Therapeutic Interventions Therapeutic Interventions Canalithic Repositioning,Home Exercise Program,Joint Mobilizations,Manual Therapy, Neuromuscular Re-education, Patient/Caregiver Education, Self-Care/Home Management,Soft Tissue Mobilization,Taping, Therapeutic Activities, Therapeutic Exercises Modalities Cold Pack/Ice Massage,Electric Stimulation,Hot Packs, Ultrasound Next Visit Focus/Plan Next Note Type Treatment Note Next Visit Plan Assess response to manual last tx, check k taping and review HEP next tx. Continue per PT POC: Ongoing gentle progression of [place] Protocol for left shoulder
--- NOTE | 2020-03-13 11:45 | PT.OTN ---
Current Diagnoses Pain in left shoulder (03/13/20) Physical Therapy Treatment Note PT-OP-A Visit Information Start: 02/26/20 15:06 Freq: Status: Active Protocol: Document 03/13/20 10:33 SP (Rec: 03/13/20 15:32 SP [id number]) Out-Patient Physical Therapy Visit Information Visit Information Visit Type Treatment Note Visit Note [place], 21 visits after eval SPTA assisted with STMs on R shld/ L lateral neck during tx . Visit Start Time 10:33 Visit Stop Time 11:45 Total Visit Minutes 72 Visit Number 07/31 Number of BILINGUAL INSTRUCTOR Visits 3 PT-OP-B Current Condition Start: 02/26/20 15:06 Freq: Status: Active Protocol: Document 02/27/20 10:32 MB (Rec: 02/27/20 10:48 MB [id number]) Current Condition History of Current Condition Onset Date January 2020 Current Complaints Left shoulder pain and inability to use the arm well History of Current Condition Pt reports that she did not have an injury and she woke up with left shoulder pain. Pt has a history of right shoulder, elbow and wrist surgery years ago. Doctor impression is frozen shoulder in setting of pt's age, gender and DM. Pt has trouble dressing, sleeping and taking a shower. She lives alone. 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 She is having trouble driving. Her friend drove her today. Pt is right handed. Pt denies tingling and numbness. She describes throbbing. She has trouble sleeping. She is trying ice and hot pack. Pt rates pain as 7-8/10 in her whole left shoulder. Pt is on diability d/t her right arm. Prior Treatments and Tests No diagnostics, PT for her right arm a long time ago. Treatment Goals Patient/Caregiver Goals To decrease pain and move her arm better. PT-OP-C Subjective Start: 02/26/20 15:06 Freq: Status: Active Protocol: Document 03/13/20 10:33 SP (Rec: 03/13/20 15:32 SP [id number]) OP-PT Subjective Patient Comments Patient Comments Pt reported L shld in alot of pain today, 6-7/10 over anterior, lateral, posterior L shld and lateral neck upon arrival today, guarding L UE with RUE at times. She states although is having continued pain and still having to take 1/2 of a vicadin after PT take the other 1/2 before go to bed to help to rest and sleep. She only has to take ibuprofen 400 mg on days with no PT take 1 tab in am and 1 pm. Doesn't want to take the med unless has to. Pt states is pleased with her ROM is getting but wished the pain would go away too. Pt stated K taping helps alot and forgot to have applied last tx, does get little irritated after 24 hours so takes off and pinkish color goes away pretty quickly, pt states no allergies to taping in her past. Patient Reported Progress Same PT-OP-J Posture/Palpation/Skin Start: 02/26/20 15:06 Freq: Status: Active Protocol: Document 02/27/20 10:32 MB (Rec: 02/27/20 15:34 MB [id number]) Posture Evaluation Comments Posture Comments Standing posture: forward head , rounded shoulders, tragus 1 in front of AC joint (left0, increased thoracic kyphosis and increased lumbar lordosis. PT-OP-K Range of Motion Start: 02/26/20 15:06 Freq: Status: Active Protocol: Document 03/13/20 10:33 SP (Rec: 03/13/20 15:32 SP [id number]) Shoulder Goniometric Range of Motion Shoulder Left Active Shoulder ROM WFL No Testing Position Standing Flexion 77 Abduction 40 External Rotation at 0 degrees Abduction 30 Internal Rotation Behind Back (text) behind L buttocks Comments AAROM ER w/ dowel assist, IR AROM behind butocks be post tx. PT-OP-M Strength Start: 02/26/20 15:06 Freq: Status: Active Protocol: Document 02/27/20 10:32 MB (Rec: 02/27/20 15:34 MB [id number]) Shoulder Strength Shoulder Manual Muscle Testing Left Comments Deferred all MMT d/t pain Right Flexion 5 Normal Abduction (C5) 3- Fair- External Rotation 5 Normal Internal Rotation 5 Normal Comments Pt reports left shoulder pain with right shoulder abduction MMT Elbow/Forearm Strength Elbow and Forearm Manual Muscle Testing Left Comments Deferred left elbow MMT d/t left shoulder pain Right Flexion (C6) 5 Normal Extension (C7) 5 Normal Pronation 4 Good Supination 5 Normal Wrist Strength Wrist Manual Muscle Testing Left Flexion (C7) 5 Normal Extension (C6) 5 Normal Right Flexion (C7) 3 Fair Extension (C6) 5 Normal Comments Pt reports pain with MMT wrist flexion after old injury and surgery PT-OP-Q Treatments Start: 02/26/20 15:06 Freq: Status: Active Protocol: Document 03/13/20 10:33 SP (Rec: 03/13/20 15:32 SP [id number]) Therapeutic Exercises Supine Exercises shld flexion Supine Exercise Name Add HEP Side bilateral Resistance AAROM Equipment Used dowel Reps/Minutes x3 reps tolerated Comments pain free range approx 53*, cued scap depression awareness , slow pace Standing Exercises ER w/ dowel Standing Exercise Name Add HEP (supine better than standing) Side left Resistance AAROM Equipment Used dowel Reps/Minutes x3 reps Comments cued pain free range IR behind buttock Standing Exercise Name add HEP (is doing on own already) Side left Resistance AROM Equipment Used (better AROM than use towel) Reps/Minutes x2 Comments cued painfree range- improved- noted pain if goes to far anterior shld Scapular retraction Side bilateral Reps/Minutes 5 sec x5 Comments 5 reps in sitting and standing Manual Therapy Treatment Soft Tissue Mobilization infrasp, UT, Teres, lev scap at TPs Body Location L Mobilization Type Rolling,Strumming Intensity/Depth Moderate Body Position Hooklying Comments min-mod pressure to pt tolerance, good feedback UT, lev scap, supraspinatus, infraspinatus, Teres minor, mid-distal pec, bicep today. ( 10 min) Taping L AC jt Treatment Focus L Type of Tape Kinesio Tape Skin Inspection intact, normal color L UT Treatment Focus L Type of Tape Kinesio Tape Skin Inspection intact, normal Comments Protocol: I strip black KT to inhibit left upper trap Other Other Manual Treatments After [place] Protocol: Gentle [place] Protocol left shoulder today: pt with reports of 6-7/10 pre PT to 5/ 10 pain end of tx, 4/10 pain with some AAROM & mobilizations ABD, IR>ER. Range improved with treatment . PT-OP-R Modalities Start: 02/26/20 15:06 Freq: Status: Active Protocol: Document 03/13/20 10:33 SP (Rec: 03/13/20 15:32 SP [id number]) Hot Pack/Cold Pack Treatment MHP Location L shld Patient Position Hooklying Treatment Duration (minutes) 10 Patient Tolerance Good Comments feels better 6-7/10 pre tx>5/ 10 pain post tx scale rating. PT-OP-T Assessment and Plan Start: 02/26/20 15:06 Freq: Status: Active Protocol: Document 03/13/20 10:33 SP (Rec: 03/13/20 15:32 SP [id number]) Physical Therapy Assessment Goals 5 Digital Asset Manager Goal (LTG) Pt will be able to don bra behind her back using both arms to allow return to previous PLOF by 05/06/20. 03/13/20: progressing- able to reach L hands behind L buttocks. LTG Duration 8 weeks 4 Digital Asset Manager Goal (LTG) Pt will report an overall 75% improvement in sleeping to promote faster recovery by . LTG Duration 8 weeks 3 Care Home Goal (LTG) Pt will present with improved left shoulder flexion and abduction AROM to at least 140 deg to improve functional use of arm by 05/06/20. 03/13/20 AROM L shld standing: L FF:77 deg pre, post 95 L ABD: 40 deg pre, post 53 LTG Duration 8 weeks 2 Digital Asset Manager Goal (LTG) Pt will perform progressive HEP with I including cervical and thoracic flexibility, postural exercises, shoulder ROM, strengthening and core exercises to improve pain and left arm functional use by . 03/13/20: AAROM wall walking FF, scap retraction, supine FF & ER using dowel better than standing back wall, IR reach behind buttocks (pain free range) LTG Duration 8 weeks 1 Care Home Goal (LTG) Pt will present with improved QuickDASH score to reflect no more than 15% impairment to allow functional use of her left arm by 05/06/20. LTG Duration 8 weeks Assessment Summary Assessment Tx focused on decreased R shld pain w/ manual decreased during tx and HEP review. Pt requested MHP end of tx to also help with pain control. Pt is making gains in AROM of L shld each treatment, although reports still is experiencing pain more after PT even though pain pre to post tx scale level decreases. She takes medication to assist only what needed for the moment. Initiated FF and ER dowel supine better than standing cued painfree range- tolerated when in painfree to low discomfort range, reach behind L buttocks pt states is getting better and can reach behind head but not hold long enough to tie rubberband in hair. Physical Therapy Plan Frequency and Duration Frequency of Treatment 2x/Week Duration of Treatment 8 weeks Plan of Care Start Date 02/27/20 Plan of Care End Date 04/27/20 Therapeutic Interventions Therapeutic Interventions Canalithic Repositioning,Home Exercise Program,Joint Mobilizations,Manual Therapy, Neuromuscular Re-education, Patient/Caregiver Education, Self-Care/Home Management,Soft Tissue Mobilization,Taping, Therapeutic Activities, Therapeutic Exercises Modalities Cold Pack/Ice Massage,Electric Stimulation,Hot Packs, Ultrasound Next Visit Focus/Plan Next Note Type Treatment Note Next Visit Plan Assess response to last tx: manual, reveiw HEP and added IR, FF, ER. Recheck k taping and review HEP next tx. Continue per PT POC: Ongoing gentle progression of [place] Protocol for left shoulder
--- NOTE | 2020-03-18 13:46 | PT.OTN ---
Current Diagnoses Pain in left shoulder (03/18/20) Physical Therapy Treatment Note PT-OP-A Visit Information Start: 02/26/20 15:06 Freq: Status: Active Protocol: Document 03/18/20 13:04 MB (Rec: 03/18/20 13:45 MB [id number]) Out-Patient Physical Therapy Visit Information Visit Information Visit Type Treatment Note Visit Note [place] Visit Start Time 13:04 Visit Stop Time 13:45 Total Visit Minutes 41 Visit Number 08/30 Number of VIBRATION ENGINEER Visits 0 PT-OP-B Current Condition Start: 02/26/20 15:06 Freq: Status: Active Protocol: Document 02/27/20 10:32 MB (Rec: 02/27/20 10:48 MB [id number]) Current Condition History of Current Condition Onset Date January 2020 Current Complaints Left shoulder pain and inability to use the arm well History of Current Condition Pt reports that she did not have an injury and she woke up with left shoulder pain. Pt has a history of right shoulder, elbow and wrist surgery years ago. Doctor impression is frozen shoulder in setting of pt's age, gender and DM. Pt has trouble dressing, sleeping and taking a shower. She lives alone. 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 She is having trouble driving. Her friend drove her today. Pt is right handed. Pt denies tingling and numbness. She describes throbbing. She has trouble sleeping. She is trying ice and hot pack. Pt rates pain as 7-8/10 in her whole left shoulder. Pt is on diability d/t her right arm. Prior Treatments and Tests No diagnostics, PT for her right arm a long time ago. Treatment Goals Patient/Caregiver Goals To decrease pain and move her arm better. PT-OP-C Subjective Start: 02/26/20 15:06 Freq: Status: Active Protocol: Document 03/18/20 13:04 MB (Rec: 03/18/20 13:45 MB [id number]) OP-PT Subjective Patient Comments Patient Comments My range of motion is getting better. Pt reports ongoing pain and that cane exercise is helpful. PT-OP-J Posture/Palpation/Skin Start: 02/26/20 15:06 Freq: Status: Active Protocol: Document 02/27/20 10:32 MB (Rec: 02/27/20 15:34 MB [id number]) Posture Evaluation Comments Posture Comments Standing posture: forward head , rounded shoulders, tragus 1 in front of AC joint (left0, increased thoracic kyphosis and increased lumbar lordosis. PT-OP-K Range of Motion Start: 02/26/20 15:06 Freq: Status: Active Protocol: Document 03/13/20 10:33 SP (Rec: 03/13/20 15:32 SP [id number]) Shoulder Goniometric Range of Motion Shoulder Left Active Shoulder ROM WFL No Testing Position Standing Flexion 77 Abduction 40 External Rotation at 0 degrees Abduction 30 Internal Rotation Behind Back (text) behind L buttocks Comments AAROM ER w/ dowel assist, IR AROM behind butocks be post tx. PT-OP-M Strength Start: 02/26/20 15:06 Freq: Status: Active Protocol: Document 02/27/20 10:32 MB (Rec: 02/27/20 15:34 MB [id number]) Shoulder Strength Shoulder Manual Muscle Testing Left Comments Deferred all MMT d/t pain Right Flexion 5 Normal Abduction (C5) 3- Fair- External Rotation 5 Normal Internal Rotation 5 Normal Comments Pt reports left shoulder pain with right shoulder abduction MMT Elbow/Forearm Strength Elbow and Forearm Manual Muscle Testing Left Comments Deferred left elbow MMT d/t left shoulder pain Right Flexion (C6) 5 Normal Extension (C7) 5 Normal Pronation 4 Good Supination 5 Normal Wrist Strength Wrist Manual Muscle Testing Left Flexion (C7) 5 Normal Extension (C6) 5 Normal Right Flexion (C7) 3 Fair Extension (C6) 5 Normal Comments Pt reports pain with MMT wrist flexion after old injury and surgery PT-OP-Q Treatments Start: 02/26/20 15:06 Freq: Status: Active Protocol: Document 03/18/20 13:04 MB (Rec: 03/18/20 13:45 MB [id number]) Manual Therapy Treatment Other Other Manual Treatments Left shoulder [place] Protocol. See range and pain reports before and after treatment under assessment. Positional release and STM left upper traps and levator. PT-OP-R Modalities Start: 02/26/20 15:06 Freq: Status: Active Protocol: Document 03/13/20 10:33 SP (Rec: 03/13/20 15:32 SP [id number]) Hot Pack/Cold Pack Treatment MHP Location L shld Patient Position Hooklying Treatment Duration (minutes) 10 Patient Tolerance Good Comments feels better 6-7/10 pre tx>5/ 10 pain post tx scale rating. PT-OP-T Assessment and Plan Start: 02/26/20 15:06 Freq: Status: Active Protocol: Document 03/18/20 13:04 MB (Rec: 03/18/20 13:45 MB [id number]) Physical Therapy Assessment Goals 5 Senior Living Goal (LTG) Pt will be able to don bra behind her back using both arms to allow return to previous PLOF by 05/06/20. 03/13/20: progressing- able to reach L hands behind L buttocks. LTG Duration 8 weeks 4 Senior Living Goal (LTG) Pt will report an overall 75% improvement in sleeping to promote faster recovery by . LTG Duration 8 weeks 3 Senior Living Goal (LTG) Pt will present with improved left shoulder flexion and abduction AROM to at least 140 deg to improve functional use of arm by 05/06/20. 03/13/20 AROM L shld standing: L FF:77 deg pre, post 95 L ABD: 40 deg pre, post 53 LTG Duration 8 weeks 2 Senior Living Goal (LTG) Pt will perform progressive HEP with I including cervical and thoracic flexibility, postural exercises, shoulder ROM, strengthening and core exercises to improve pain and left arm functional use by . 03/13/20: AAROM wall walking FF, scap retraction, supine FF & ER using dowel better than standing back wall, IR reach behind buttocks (pain free range) LTG Duration 8 weeks 1 Senior Living Goal (LTG) Pt will present with improved QuickDASH score to reflect no more than 15% impairment to allow functional use of her left arm by 05/06/20. LTG Duration 8 weeks Assessment Summary Assessment AROM left shoulder in standing before treatment: flexion 89 deg and pain 4/10; 41 deg and pain 6/10; IR behind back 1/2 below pant waist line. After treatment: left shoulder flexion 90 deg and abduction 55 deg. Pt reports 6/10 pain with shoulder flexion and 8/10 pain with abduction. Her range is better after protocol but her pain con't to be high and she has decreased tolerance to [place] Protocol today. PT recommends follow back up with Dr. Anderson and possible diagnostic. PT will send this note over to doctor. Physical Therapy Plan Frequency and Duration Frequency of Treatment 2x/Week Duration of Treatment 8 weeks Plan of Care Start Date 02/27/20 Plan of Care End Date 04/27/20 Therapeutic Interventions Therapeutic Interventions Canalithic Repositioning,Home Exercise Program,Joint Mobilizations,Manual Therapy, Neuromuscular Re-education, Patient/Caregiver Education, Self-Care/Home Management,Soft Tissue Mobilization,Taping, Therapeutic Activities, Therapeutic Exercises Modalities Cold Pack/Ice Massage,Electric Stimulation,Hot Packs, Ultrasound Other Referrals/Consults Referrals/Consults Recommended Follow-up with Dr. Anderson and possible left shoulder diagnostic Next Visit Focus/Plan Next Note Type Treatment Note Next Visit Plan Review HEP as pt tolerates. No more KT at this time d/t pt has skin changes today. Con't manual and review HEP, progress as pt tolerates
--- NOTE | 2020-03-23 13:44 | PT.OTN ---
Current Diagnoses Pain in left shoulder (03/23/20) Physical Therapy Treatment Note PT-OP-A Visit Information Start: 02/26/20 15:06 Freq: Status: Active Protocol: Document 03/23/20 09:46 MB (Rec: 03/23/20 10:31 MB [id number]) Out-Patient Physical Therapy Visit Information Visit Information Visit Type Progress Note Visit Note Browne Visit Start Time 09:46 Visit Stop Time 10:30 Total Visit Minutes 44 Visit Number 09/30 PT-OP-B Current Condition Start: 02/26/20 15:06 Freq: Status: Active Protocol: Document 02/27/20 10:32 MB (Rec: 02/27/20 10:48 MB [id number]) Current Condition History of Current Condition Onset Date January 2020 Current Complaints Left shoulder pain and inability to use the arm well History of Current Condition Pt reports that she did not have an injury and she woke up with left shoulder pain. Pt has a history of right shoulder, elbow and wrist surgery years ago. Doctor impression is frozen shoulder in setting of pt's age, gender and DM. Pt has trouble dressing, sleeping and taking a shower. She lives alone. 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 She is having trouble driving. Her friend drove her today. Pt is right handed. Pt denies tingling and numbness. She describes throbbing. She has trouble sleeping. She is trying ice and hot pack. Pt rates pain as 7-8/10 in her whole left shoulder. Pt is on diability d/t her right arm. Prior Treatments and Tests No diagnostics, PT for her right arm a long time ago. Treatment Goals Patient/Caregiver Goals To decrease pain and move her arm better. PT-OP-C Subjective Start: 02/26/20 15:06 Freq: Status: Active Protocol: Document 03/23/20 09:46 MB (Rec: 03/23/20 10:31 MB [id number]) OP-PT Subjective Patient Comments Patient Comments Pt states that she got a x-ray on Monday and is waiting to hear back from the doctor. She still has similar pain and range deficits. PT-OP-J Posture/Palpation/Skin Start: 02/26/20 15:06 Freq: Status: Active Protocol: Document 02/27/20 10:32 MB (Rec: 02/27/20 15:34 MB [id number]) Posture Evaluation Comments Posture Comments Standing posture: forward head , rounded shoulders, tragus 1 in front of AC joint (left0, increased thoracic kyphosis and increased lumbar lordosis. PT-OP-K Range of Motion Start: 02/26/20 15:06 Freq: Status: Active Protocol: Document 03/13/20 10:33 SP (Rec: 03/13/20 15:32 SP [id number]) Shoulder Goniometric Range of Motion Shoulder Left Active Shoulder ROM WFL No Testing Position Standing Flexion 77 Abduction 40 External Rotation at 0 degrees Abduction 30 Internal Rotation Behind Back (text) behind L buttocks Comments AAROM ER w/ dowel assist, IR AROM behind butocks be post tx. PT-OP-M Strength Start: 02/26/20 15:06 Freq: Status: Active Protocol: Document 02/27/20 10:32 MB (Rec: 02/27/20 15:34 MB [id number]) Shoulder Strength Shoulder Manual Muscle Testing Left Comments Deferred all MMT d/t pain Right Flexion 5 Normal Abduction (C5) 3- Fair- External Rotation 5 Normal Internal Rotation 5 Normal Comments Pt reports left shoulder pain with right shoulder abduction MMT Elbow/Forearm Strength Elbow and Forearm Manual Muscle Testing Left Comments Deferred left elbow MMT d/t left shoulder pain Right Flexion (C6) 5 Normal Extension (C7) 5 Normal Pronation 4 Good Supination 5 Normal Wrist Strength Wrist Manual Muscle Testing Left Flexion (C7) 5 Normal Extension (C6) 5 Normal Right Flexion (C7) 3 Fair Extension (C6) 5 Normal Comments Pt reports pain with MMT wrist flexion after old injury and surgery PT-OP-Q Treatments Start: 02/26/20 15:06 Freq: Status: Active Protocol: Document 03/23/20 09:46 MB (Rec: 03/23/20 13:44 MB [id number]) Therapeutic Exercises Standing Exercises Pendulums left arm Comments Verbally reviewed today Deltoid STM with racquet ball Comments Pt performs today with I Shoulder rotator STM with racquet ball Comments Pt performs today with I Intrascapular STM with racquet ball Comments Pt performs today with cues Manual Therapy Treatment Other Other Manual Treatments Left shoulder STM and positional release left middle deltoid, middle scalene and upper traps with pt performing active cervical rotation away , left levator STM Self-Care/Home Management Treatment Education Other Education D/c ROM exercises with dowel and PT updates handouts that pt has and PT has for pt's chart to reflect this. Ed pt in benefits of podiatrist orthopedic consult and plan for PT to reduce frequency in case she does have positive diagnostics and need intervention from specialist, pt in agreement. Ed in benefits of heating after gentle manual work and pt in agreement to receive after treatment and responds well. PT-OP-R Modalities Start: 02/26/20 15:06 Freq: Status: Active Protocol: Document 03/13/20 10:33 SP (Rec: 03/13/20 15:32 SP [id number]) Hot Pack/Cold Pack Treatment MHP Location L shld Patient Position Hooklying Treatment Duration (minutes) 10 Patient Tolerance Good Comments feels better 6-7/10 pre tx>5/ 10 pain post tx scale rating. PT-OP-T Assessment and Plan Start: 02/26/20 15:06 Freq: Status: Active Protocol: Document 03/23/20 09:46 MB (Rec: 03/23/20 10:31 MB [id number]) Physical Therapy Assessment Goals 5 Snf Goal (LTG) Pt will be able to don bra behind her back using both arms to allow return to previous PLOF by 05/21/20. 03/23/20: Pt is unable to don bra behind her back LTG Duration 8 weeks 4 Snf Goal (LTG) Pt will report an overall 75% improvement in sleeping to promote faster recovery by . 03/23/20: Pt has not had an improvement in sleeping since starting PT LTG Duration 8 weeks 3 Heavy Duty Diesel Mechanic Goal (LTG) Pt will present with improved left shoulder flexion and abduction AROM to at least 140 deg to improve functional use of arm by 05/21/20. 03/23/20: AROM left shoulder in standing: flexion 90 deg, pain 4/10; abduction 45 deg, pain 6/10; IR behind back to sacral base, pain 6/10. LTG Duration 8 weeks 2 Snf Goal (LTG) Pt will perform progressive HEP with I including cervical and thoracic flexibility, postural exercises, shoulder ROM, strengthening and core exercises to improve pain and left arm functional use by . 03/23/20: Pt has low tolerance to gentle HEP exercises. She is performing pendulum, racquet ball massage LTG Duration 8 weeks 1 Snf Goal (LTG) Pt will present with improved QuickDASH score to reflect no more than 15% impairment to allow functional use of her left arm by 05/21/20. 03/23/20: QuickDASH score is 40 and reflects 65.9% impairment LTG Duration 8 weeks Assessment Summary Assessment Pt will see Dr. Anderson on Monday (in two days). She will ask about her left shoulder x-ray results. Pt has made minimal progress with PT and PT has been unable to advance simple ROM exercises d /t ongoing severe pain. Her active left shoulder flexion has improved 50 deg and abduction has improved almost 20 deg but she has a lot of pain with it and her functional use of her left arm is not much better. Initially , she responded well to [place] Protocol mobilization but she had more pain with it last treatment date. She has not improved in pain and sleeping since starting PT. Recommend orthopedist consult and decrease PT frequency to 1x/wk and monitor progress and will further reduce frequency and consider d/c if not further improved in order not to use up PT appointments for the year in case she needs more. Physical Therapy Plan Frequency and Duration Frequency of Treatment 1x/Week Duration of Treatment 8 weeks Plan of Care Start Date 03/23/20 Plan of Care End Date 05/21/20 Therapeutic Interventions Therapeutic Interventions Canalithic Repositioning,Home Exercise Program,Joint Mobilizations,Manual Therapy, Neuromuscular Re-education, Patient/Caregiver Education, Self-Care/Home Management,Soft Tissue Mobilization,Taping, Therapeutic Activities, Therapeutic Exercises Modalities Cold Pack/Ice Massage,Electric Stimulation,Hot Packs, Ultrasound Other Referrals/Consults Referrals/Consults Recommended Orthopedist consult and work- up Next Visit Focus/Plan Next Note Type Treatment Note Next Visit Plan No more KT at this time d/t pt has skin changes today. Con't manual and progress HEP as pt tolerates
--- NOTE | 2020-03-23 13:44 | PT.OPPOC ---
Physical, Occupational & Speech Therapy At [facility] Current Diagnoses Pain in left shoulder (03/23/20) Visit Care Team Role Provider Type Kacy Anderson MD Attending Provider Non-Staff Primary Care Provider Referring Provider Specialty: Family Practice Address: [address] [place] [address], [id number] Email: Plan Of Care PT-OP-T Assessment and Plan Start: 02/26/20 15:06 Freq: Status: Active Protocol: Document 03/23/20 09:46 MB (Rec: 03/23/20 10:31 MB [id number]) Physical Therapy Assessment Goals 5 Mcfp Goal (LTG) Pt will be able to don bra behind her back using both arms to allow return to previous PLOF by 05/21/20. 03/23/20: Pt is unable to don bra behind her back LTG Duration 8 weeks 4 Files Supervisor Goal (LTG) Pt will report an overall 75% improvement in sleeping to promote faster recovery by . 03/23/20: Pt has not had an improvement in sleeping since starting PT LTG Duration 8 weeks 3 Mcfp Goal (LTG) Pt will present with improved left shoulder flexion and abduction AROM to at least 140 deg to improve functional use of arm by 05/21/20. 03/23/20: AROM left shoulder in standing: flexion 90 deg, pain 4/10; abduction 45 deg, pain 6/10; IR behind back to sacral base, pain 6/10. LTG Duration 8 weeks 2 Files Supervisor Goal (LTG) Pt will perform progressive HEP with I including cervical and thoracic flexibility, postural exercises, shoulder ROM, strengthening and core exercises to improve pain and left arm functional use by . 03/23/20: Pt has low tolerance to gentle HEP exercises. She is performing pendulum, racquet ball massage LTG Duration 8 weeks 1 Mcfp Goal (LTG) Pt will present with improved QuickDASH score to reflect no more than 15% impairment to allow functional use of her left arm by 05/21/20. 03/23/20: QuickDASH score is 40 and reflects 65.9% impairment LTG Duration 8 weeks Assessment Summary Assessment Pt will see Dr. Anderson on Monday (in two days). She will ask about her left shoulder x-ray results. Pt has made minimal progress with PT and PT has been unable to advance simple ROM exercises d /t ongoing severe pain. Her active left shoulder flexion has improved 50 deg and abduction has improved almost 20 deg but she has a lot of pain with it and her functional use of her left arm is not much better. Initially , she responded well to [place] Protocol mobilization but she had more pain with it last treatment date. She has not improved in pain and sleeping since starting PT. Recommend orthopedist consult and decrease PT frequency to 1x/wk and monitor progress and will further reduce frequency and consider d/c if not further improved in order not to use up PT appointments for the year in case she needs more. Physical Therapy Plan Frequency and Duration Frequency of Treatment 1x/Week Duration of Treatment 8 weeks Plan of Care Start Date 03/23/20 Plan of Care End Date 05/21/20 Therapeutic Interventions Therapeutic Interventions Canalithic Repositioning,Home Exercise Program,Joint Mobilizations,Manual Therapy, Neuromuscular Re-education, Patient/Caregiver Education, Self-Care/Home Management,Soft Tissue Mobilization,Taping, Therapeutic Activities, Therapeutic Exercises Modalities Cold Pack/Ice Massage,Electric Stimulation,Hot Packs, Ultrasound Other Referrals/Consults Referrals/Consults Recommended Orthopedist consult and work- up Next Visit Focus/Plan Next Note Type Treatment Note Next Visit Plan No more KT at this time d/t pt has skin changes today. Con't manual and progress HEP as pt tolerates Plan of Care Dates Plan of Care Start Date 03/23/20 Plan of Care End Date 05/21/20 Electronically Signed by: Yvrose Marquez, PT 03/23/20 [id number] Please Sign and Return: I have reviewed this Plan of Care and certify that the skilled therapy services above are required to meet the patient?s needs. Physician Signature Date Printed Name and Credentials Clinical Instructor Signature Printed Name and Credentials
--- NOTE | 2020-03-26 07:16 | PT.OPDS ---
Current Diagnoses Pain in left shoulder (03/23/20) Visit Care Team Role Provider Type Kacy Anderson MD Attending Provider Non-Staff Primary Care Provider Referring Provider Specialty: Family Practice Address: [address] [place] [address], [phone] Email: Visit Number Visit Number 09/30 Discharge Summary PT-OP-B Current Condition Start: 02/26/20 15:06 Freq: Status: Active Protocol: Document 02/27/20 10:32 MB (Rec: 02/27/20 10:48 MB [id number]) Current Condition History of Current Condition Onset Date January 2020 Current Complaints Left shoulder pain and inability to use the arm well History of Current Condition Pt reports that she did not have an injury and she woke up with left shoulder pain. Pt has a history of right shoulder, elbow and wrist surgery years ago. Doctor impression is frozen shoulder in setting of pt's age, gender and DM. Pt has trouble dressing, sleeping and taking a shower. She lives alone. 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 She is having trouble driving. Her friend drove her today. Pt is right handed. Pt denies tingling and numbness. She describes throbbing. She has trouble sleeping. She is trying ice and hot pack. Pt rates pain as 7-8/10 in her whole left shoulder. Pt is on diability d/t her right arm. Prior Treatments and Tests No diagnostics, PT for her right arm a long time ago. Treatment Goals Patient/Caregiver Goals To decrease pain and move her arm better. PT-OP-C Subjective Start: 02/26/20 15:06 Freq: Status: Active Protocol: Document 03/23/20 09:46 MB (Rec: 03/23/20 10:31 MB [id number]) OP-PT Subjective Patient Comments Patient Comments Pt states that she got a x-ray on Monday and is waiting to hear back from the doctor. She still has similar pain and range deficits. PT-OP-J Posture/Palpation/Skin Start: 02/26/20 15:06 Freq: Status: Active Protocol: Document 02/27/20 10:32 MB (Rec: 02/27/20 15:34 MB [id number]) Posture Evaluation Comments Posture Comments Standing posture: forward head , rounded shoulders, tragus 1 in front of AC joint (left0, increased thoracic kyphosis and increased lumbar lordosis. PT-OP-K Range of Motion Start: 02/26/20 15:06 Freq: Status: Active Protocol: Document 03/13/20 10:33 SP (Rec: 03/13/20 15:32 SP [id number]) Shoulder Goniometric Range of Motion Shoulder Left Active Shoulder ROM WFL No Testing Position Standing Flexion 77 Abduction 40 External Rotation at 0 degrees Abduction 30 Internal Rotation Behind Back (text) behind L buttocks Comments AAROM ER w/ dowel assist, IR AROM behind butocks be post tx. PT-OP-M Strength Start: 02/26/20 15:06 Freq: Status: Active Protocol: Document 02/27/20 10:32 MB (Rec: 02/27/20 15:34 MB [id number]) Shoulder Strength Shoulder Manual Muscle Testing Left Comments Deferred all MMT d/t pain Right Flexion 5 Normal Abduction (C5) 3- Fair- External Rotation 5 Normal Internal Rotation 5 Normal Comments Pt reports left shoulder pain with right shoulder abduction MMT Elbow/Forearm Strength Elbow and Forearm Manual Muscle Testing Left Comments Deferred left elbow MMT d/t left shoulder pain Right Flexion (C6) 5 Normal Extension (C7) 5 Normal Pronation 4 Good Supination 5 Normal Wrist Strength Wrist Manual Muscle Testing Left Flexion (C7) 5 Normal Extension (C6) 5 Normal Right Flexion (C7) 3 Fair Extension (C6) 5 Normal Comments Pt reports pain with MMT wrist flexion after old injury and surgery PT-OP-T Assessment and Plan Start: 02/26/20 15:06 Freq: Status: Active Protocol: Document 03/26/20 07:16 MB (Rec: 03/26/20 07:16 MB [id number]) Physical Therapy Plan Discharge Physical Therapy Discharge Reasons Change in Medical Status Discharge Comments Pt to have shoulder surgery and pt calls to state that doctor would like for her to d /c PT. Will d/c PT.
== END 2020-03-26 08:42 ==
LOC: PHYS 09:45
PROVIDERS: PCP Family Medicine; Referring Provider Family Medicine; Visit Provider Family Medicine
DX: M25.512 Pain in left shoulder (principal)
CPT/HCPCS: 97010; 97110; 97140; 97161; 97535

== ENCOUNTER 2020-10-14 10:30 | Outpatient (RCR) | payer OTHER, MEDICAID, SELFPAY ==
[2019-01-22 21:55] VITALS: BMI 23.4
--- NOTE | 2020-07-17 15:48 | PT.OTN ---
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) Adhesive capsulitis of left shoulder (07/17/20) Physical Therapy Treatment Note PT-OP-A Visit Information Start: 07/13/20 09:23 Freq: Status: Active Protocol: Document 07/17/20 10:27 MB (Rec: 07/17/20 11:07 MB [id number]) Out-Patient Physical Therapy Visit Information Visit Information Visit Type Initial Evaluation Visit Note Browne Visit Start Time 10:27 Visit Stop Time 11:07 Total Visit Minutes 34 Visit Number 10/30 Evaluation Information Evaluation Date 07/17/20 Precautions Precautions Diabetes PT-OP-B Current Condition Start: 07/13/20 09:23 Freq: Status: Active Protocol: Document 07/17/20 10:27 MB (Rec: 07/17/20 11:07 MB [id number]) Current Condition History of Current Condition Onset Date >6 months Current Complaints Left shoulder pain and decreased ROM History of Current Condition Pt returns to PT after seeing Dr. Nils DO, at [facility]. She is also receiving care at [facility] in [facility]. She is getting dry needling by Dr. Fry and was given some exercises. She had a MRI of left shoulder that revealed supraspinatus, infraspinatus, and supraspinatus tendinopathy with superimposed low-grade partial-thickness tears and no full thickness rotator cuff tear, AC joint OA, subacromial bursitis. Pt con't to have very high pain 8-9/10 in her left shoulder, even with OMT, dry needling and exercise interventions with the DO. She states that the doctor told her that the plan is to see if these interventions help and if they don't, revisit surgical option. Pt reports her A1C is 6 and she has high BP readings during DO visits. She can't lift her arm up and is doing some exercises at home. She is maybe 5% better since starting the multiple therapies. From evaluation earlier this spring by this PT: Pt reports that she did not have an injury and she woke up with left shoulder pain. Pt has a history of right shoulder, elbow and wrist surgery years ago. Doctor impression is frozen shoulder in setting of pt's age, gender and DM. Pt has trouble dressing, sleeping and taking a shower. She lives alone. 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 She is having trouble driving. Her friend drove her today. Pt is right handed. Pt denies tingling and numbness. She describes throbbing. She has trouble sleeping. She is trying ice and hot pack. Pt rates pain as 7-8/10 in her whole left shoulder. Pt is on diability d/t her right arm. Treatment Goals Patient/Caregiver Goals To decrease pain and improve ROM PT-OP-C Subjective Start: 07/13/20 09:23 Freq: Status: Active Protocol: Document 07/17/20 10:27 MB (Rec: 07/17/20 11:07 MB [id number]) OP-PT Subjective Patient Comments Patient Comments See history of current condition Patient Reported Progress A little PT-OP-K Range of Motion Start: 07/13/20 09:23 Freq: Status: Active Protocol: Document 07/17/20 10:27 MB (Rec: 07/17/20 11:19 MB [id number]) Shoulder Goniometric Range of Motion Shoulder Left Active Shoulder ROM WFL No Testing Position Standing Flexion 70 Abduction 60 Internal Rotation Behind Back (text) Below left PSIS Comments Pt is able to reach across and touch her right shoulder with her left hand Right Active Shoulder ROM WFL Yes Testing Position Standing PT-OP-Q Treatments Start: 07/13/20 09:23 Freq: Status: Active Protocol: Document 07/17/20 10:27 MB (Rec: 07/17/20 15:48 MB [id number]) Self-Care/Home Management Treatment Education Other Education See extensive education provided to patient in assessment portion. Will hold PT. PT-OP-T Assessment and Plan Start: 07/13/20 09:23 Freq: Status: Active Protocol: Document 07/17/20 10:27 MB (Rec: 07/17/20 11:19 MB [id number]) Physical Therapy Assessment Rehab Potential Rehabilitation Potential Poor Evaluation Complexity Number of Personal Factors/Comorbidities 1-2 Number of Body Systems Impaired 3 Clinical Presentation at Evaluation Unstable Impairments Impairments Activity Tolerance,Functional Activities,Functional Mobility ,Integument,Pain,Posture,ROM, Soft Tissue Mobility,Strength Other Impairments Personal factors include uncontrolled DM. Body systems affected include musculoskeletal, neuromuscular and metabolic. Her clinical presentation is unstable: reports of A1C 6, minimal improvements in pain, range and strength after more than 6 months of interventions Assessment Summary Assessment Pt is a 54 y/o female presenting with left shoulder pain and limited ROM and functional strength for over 6 months. She is known to this PT as PT attempted several PT treatments and pt only got minimally better with PT and so PT was stopped for orthopedic surgical consult. Since stopping PT, pt reports that she has been getting treatments with DO and per notes, pt has been receiving OMT, dry needling and exercises from DO. PT calls [facility] and front office confirms this as pt is unsure if she was getting PT there or not. Pt states that her A1C continues to be 6. She reports she is 5% better since starting all the interventions and her movement and pain are pretty similar to d/c from PT many weeks ago. PT and pt discuss that pt only has a limited amount of PT visits allowed per year and if she ends up having surgery , she will need PT afterwards. Given that PT did not get her much better, do not feel that restarting PT will assist her current minimal improvement with other manual therapies. She con't to report low tolerance to progressing exercises. Of note, this PT is a dry needling specialist ( though cannot current practice this in [place] state) and a Counterstrain therapist and PT feels that dry needling for tendinopathy may be somewhat helpful but pt appears pretty similar to the way she did when PT referred her back to doctor for surgical consult. She also has other positive findings on the left shoulder MRI report. Counterstrain would be a good option to try for another type of gentle manual intervention that treats all fascial systems but given she is getting many other interventions by other providers, it is not best practice to start another one right now. Also, PT continues to be concerned about her DM and high A1C and PT favors metabolic contribution to her left shoulder presentation. If her metabolic condition does not improve, adhesive capsulitis may con't to be an issue. Recommend a nutrition consult. Recommend pt finish out her DO course, return to orthopedic surgeon, determine if surgery or no surgery and then con't with PT at that time. Will keep her case open in case she returns to PT in a few months. Ed pt to follow up with her providers. PT left a message for Dr. Wray and is sending over this note today. Physical Therapy Plan Frequency and Duration Frequency of Treatment Hold until Nov 2020 Other Referrals/Consults Referrals/Consults Recommended Complete therapeutic interventions with DO, return to solar sales specialist, make a determination about surgery . If no surgery, return to PT for Counterstrain and therapeutic exercise. If surgery, return to PT post-op. Next Visit Focus/Plan Next Note Type Re-Evaluation
--- NOTE | 2020-07-17 15:48 | PT.OPPOC ---
Physical, Occupational & Speech Therapy At [facility] 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) Adhesive capsulitis of left shoulder (07/17/20) Visit Care Team Role Provider Type Kacy Anderson MD Family Provider Non-Staff Primary Care Provider Specialty: Family Practice Address: [address] [place], [address] Email: Josemanuel Wray DO Attending Provider Non-Staff Referring Provider Specialty: Orthopedic Surgery Address: [address] [facility], [place], [address] Email: Plan Of Care PT-OP-T Assessment and Plan Start: 07/13/20 09:23 Freq: Status: Active Protocol: Document 07/17/20 10:27 MB (Rec: 07/17/20 11:19 MB [id number]) Physical Therapy Assessment Rehab Potential Rehabilitation Potential Poor Evaluation Complexity Number of Personal Factors/Comorbidities 1-2 Number of Body Systems Impaired 3 Clinical Presentation at Evaluation Unstable Impairments Impairments Activity Tolerance,Functional Activities,Functional Mobility ,Integument,Pain,Posture,ROM, Soft Tissue Mobility,Strength Other Impairments Personal factors include uncontrolled DM. Body systems affected include musculoskeletal, neuromuscular and metabolic. Her clinical presentation is unstable: reports of A1C 6, minimal improvements in pain, range and strength after more than 6 months of interventions Assessment Summary Assessment Pt is a 54 y/o female presenting with left shoulder pain and limited ROM and functional strength for over 6 months. She is known to this PT as PT attempted several PT treatments and pt only got minimally better with PT and so PT was stopped for orthopedic surgical consult. Since stopping PT, pt reports that she has been getting treatments with DO and per notes, pt has been receiving OMT, dry needling and exercises from DO. PT calls [facility] and front office confirms this as pt is unsure if she was getting PT there or not. Pt states that her A1C continues to be 6. She reports she is 5% better since starting all the interventions and her movement and pain are pretty similar to d/c from PT many weeks ago. PT and pt discuss that pt only has a limited amount of PT visits allowed per year and if she ends up having surgery , she will need PT afterwards. Given that PT did not get her much better, do not feel that restarting PT will assist her current minimal improvement with other manual therapies. She con't to report low tolerance to progressing exercises. Of note, this PT is a dry needling specialist ( though cannot current practice this in [place] state) and a Counterstrain therapist and PT feels that dry needling for tendinopathy may be somewhat helpful but pt appears pretty similar to the way she did when PT referred her back to doctor for surgical consult. She also has other positive findings on the left shoulder MRI report. Counterstrain would be a good option to try for another type of gentle manual intervention that treats all fascial systems but given she is getting many other interventions by other providers, it is not best practice to start another one right now. Also, PT continues to be concerned about her DM and high A1C and PT favors metabolic contribution to her left shoulder presentation. If her metabolic condition does not improve, adhesive capsulitis may con't to be an issue. Recommend a nutrition consult. Recommend pt finish out her DO course, return to orthopedic surgeon, determine if surgery or no surgery and then con't with PT at that time. Will keep her case open in case she returns to PT in a few months. Ed pt to follow up with her providers. PT left a message for Dr. Wray and is sending over this note today. Physical Therapy Plan Frequency and Duration Frequency of Treatment Hold until Nov 2020 Other Referrals/Consults Referrals/Consults Recommended Complete therapeutic interventions with DO, return to video conference specialist, make a determination about surgery . If no surgery, return to PT for Counterstrain and therapeutic exercise. If surgery, return to PT post-op. Next Visit Focus/Plan Next Note Type Re-Evaluation Electronically Signed by: Yvrose Marquez, PT 07/17/20 8512 Please Sign and Return: I have reviewed this Plan of Care and certify that the skilled therapy services above are required to meet the patient?s needs. Physician Signature Date Printed Name and Credentials Clinical Instructor Signature Printed Name and Credentials
--- NOTE | 2020-08-24 10:15 | PT-OP ANOTE ---
PT calls pt to check in. PT has received two VMs from orthopedic surgeon who communicated that he might be doing a manipulation. Pt states that she has had chiropractic-like treatment from doctor at [facility] today. She may have a closed manipulation if one more month of treatment at [facility] is not helpful. PT and pt agree to con't to hold PT because she will need her visits if she has a manipulation. Pt states she will call back if manipulation gets scheduled.
--- NOTE | 2020-08-28 14:25 | PT-OP ANOTE ---
Pt calls and tells PT that she is going to have a closed manipulation by on September 08 and she got an order from him to con't PT 3x/wk afterwards. PT ed pt that she has about 11 or so visits left for the year. She will bring by the order when she can. Her BP and A1C con't to be very hard.
--- NOTE | 2020-09-03 12:12 | PT-OP ANOTE ---
Pt stops by clinic. She is very upset. Her mother yesterday. She will cancel September appointments, her closed manipulation and keep appointments in Oct. PT encourages pt not to worry and this clinic will support her to con't PT when she is ready.
--- NOTE | 2020-09-30 16:02 | PT.OTN ---
Current Diagnoses Type 2 diabetes mellitus with other diabetic arthropathy (09/30/20) Adhesive capsulitis of left shoulder (09/30/20) Physical Therapy Treatment Note PT-OP-A Visit Information Start: 07/13/20 09:23 Freq: Status: Active Protocol: Document 09/30/20 13:02 MB (Rec: 09/30/20 13:49 MB [id number]) Out-Patient Physical Therapy Visit Information Visit Information Visit Type Progress Note Visit Note Browne Visit Start Time 13:02 Visit Stop Time 13:45 Total Visit Minutes 43 Visit Number 11/29 Precautions Precautions DM, CKD, per Dr. Wray note from closed manipulation left shoulder 09/29/20: pendulum, stretching exercises, 3x/wk two weeks and then 2x/wk, WBAT PT-OP-B Current Condition Start: 07/13/20 09:23 Freq: Status: Active Protocol: Document 07/17/20 10:27 MB (Rec: 07/17/20 11:07 MB [id number]) Current Condition History of Current Condition Onset Date >6 months Current Complaints Left shoulder pain and decreased ROM History of Current Condition Pt returns to PT after seeing Dr. Nils DO, at [facility]. She is also receiving care at [facility] in [facility]. She is getting dry needling by Dr. Fry and was given some exercises. She had a MRI of left shoulder that revealed supraspinatus, infraspinatus, and supraspinatus tendinopathy with superimposed low-grade partial-thickness tears and no full thickness rotator cuff tear, AC joint OA, subacromial bursitis. Pt con't to have very high pain 8-9/10 in her left shoulder, even with OMT, dry needling and exercise interventions with the DO. She states that the doctor told her that the plan is to see if these interventions help and if they don't, revisit surgical option. Pt reports her A1C is 6 and she has high BP readings during DO visits. She can't lift her arm up and is doing some exercises at home. She is maybe 5% better since starting the multiple therapies. From evaluation earlier this spring by this PT: Pt reports that she did not have an injury and she woke up with left shoulder pain. Pt has a history of right shoulder, elbow and wrist surgery years ago. Doctor impression is frozen shoulder in setting of pt's age, gender and DM. Pt has trouble dressing, sleeping and taking a shower. She lives alone. 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 She is having trouble driving. Her friend drove her today. Pt is right handed. Pt denies tingling and numbness. She describes throbbing. She has trouble sleeping. She is trying ice and hot pack. Pt rates pain as 7-8/10 in her whole left shoulder. Pt is on diability d/t her right arm. Treatment Goals Patient/Caregiver Goals To decrease pain and improve ROM PT-OP-C Subjective Start: 07/13/20 09:23 Freq: Status: Active Protocol: Document 09/30/20 13:02 MB (Rec: 09/30/20 13:49 MB [id number]) OP-PT Subjective Patient Comments Patient Comments Pt reports left shoulder pain. She has had a lot going on since last seen by PT 07/17/20. She has received dry needling from DO, stretching and then closed manipulation with Dr. Wray last date. Her mom and she had to travel to the [place] for that . She lives by herself and has a dog. Patient Questionnaires Quick Dash- Upper Extremity Quick Dash UE Score 48 Quick Dash UE Impairment 80 to 99% Impaired (Score 80- 99) PT-OP-K Range of Motion Start: 07/13/20 09:23 Freq: Status: Active Protocol: Document 07/17/20 10:27 MB (Rec: 07/17/20 11:19 MB [id number]) Shoulder Goniometric Range of Motion Shoulder Left Active Shoulder ROM WFL No Testing Position Standing Flexion 70 Abduction 60 Internal Rotation Behind Back (text) Below left PSIS Comments Pt is able to reach across and touch her right shoulder with her left hand Right Active Shoulder ROM WFL Yes Testing Position Standing PT-OP-Q Treatments Start: 07/13/20 09:23 Freq: Status: Active Protocol: Document 09/30/20 13:02 MB (Rec: 09/30/20 15:59 MB [id number]) Therapeutic Exercises Supine Exercises Cane shoulder flexion Side bilateral Comments 15 reps using cane and right hand assisting with left arm Standing Exercises Pendulums left arm Comments PT demo and re-ed pt in this today Manual Therapy Treatment Other Other Manual Treatments Manual palpation of left shoulder and pt with tenderness over anterior proximal arm over biceps, AC joint, lateral shoulder and deltoid and over the top and back of shoulder and scapula. Pt has redness and edema left cubital fossa and states that the cuff bothered her arm Self-Care/Home Management Treatment Education Patient Education Home Exercise Program,Joint Protection,Pain Management, Safety Other Education Ongoing ed about positioning with head and neck support with towel roll, icing, PT progression and exercises, discussed pt's concerns PT-OP-T Assessment and Plan Start: 07/13/20 09:23 Freq: Status: Active Protocol: Document 09/30/20 13:02 MB (Rec: 09/30/20 13:49 MB [id number]) Physical Therapy Assessment Rehab Potential Rehabilitation Potential Fair Evaluation Complexity Number of Personal Factors/Comorbidities 1-2 Number of Body Systems Impaired 3 Clinical Presentation at Evaluation Evolving Impairments Impairments Activity Tolerance,Functional Activities,Functional Mobility ,Integument,Pain,Posture,ROM, Soft Tissue Mobility,Strength Other Impairments Personal factors include uncontrolled DM. Body systems affected include musculoskeletal, neuromuscular and metabolic. Her clinical presentation is unstable: reports of A1C 6, minimal improvements in pain, range and strength after many months of interventions Goals 3 Medical I D Sales Goal (LTG) Pt will perform progressive HEP with I including ROM, flexibility, postural and strengthening exercises to improve left shoulder function by 11/05/20. LTG Duration 7 weeks 2 Shelter Goal (LTG) Pt will present with active left shoulder flexion and abduction to 150 deg to improve functional use of arm by 11/05/20 LTG Duration 7 weeks 1 Medical I D Sales Goal (LTG) Pt will present with QuickDASH score reflecting no more than 20% impairment to reflect better functional use of left arm by 11/05/20 LTG Duration 7 weeks Progress Towards Goals Progress Towards Goals Slow Progress due to Medical Issues Assessment Summary Assessment Closed manipulation for left shoulder was yesterday. Pt is right handed. QuickDASH score today reflects 84.09% impairment and pt tends to walk with left arm dangling and limp. She has little left arm movement. AROM right shoulder flexion 150 deg and abduction 165 deg. MMT right shoulder flexion, abduction, ER and IR is normal. Right elbow and wrist MMT are normal . AROM left shoulder in standing: flexion 75 deg, extension 27 deg, abduction 62 deg. PROM right shoulder in supine with shoulder in 90/90: normal. PROM left shoulder in supine with shoulder in 45 deg abduction: 30 deg ER and 30 deg IR. Extensive education and added to exercises today. Will progress exercises next treatment date. Overall, pt's clinical presentation is complicated given post- menopausal female presenting with frozen shoulder in setting of DM and s/p many interventions. Physical Therapy Plan Frequency and Duration Frequency of Treatment 2x/Week Duration of Treatment 7 weeks Plan of Care Start Date 09/30/20 Plan of Care End Date 11/05/20 Therapeutic Interventions Therapeutic Interventions Aquatic Therapy,Canalithic Repositioning,Home Exercise Program,Joint Mobilizations, Manual Therapy,Neuromuscular Re-education,Patient/Caregiver Education,Self-Care/Home Management,Soft Tissue Mobilization,Taping, Therapeutic Activities, Therapeutic Exercises Modalities Cold Pack/Ice Massage,Electric Stimulation,Hot Packs, Ultrasound Next Visit Focus/Plan Next Note Type Treatment Note Next Visit Plan Progress exercises for shoulder
--- NOTE | 2020-09-30 16:02 | PT.OPPOC ---
Physical, Occupational & Speech Therapy At [facility] Current Diagnoses Type 2 diabetes mellitus with other diabetic arthropathy (09/30/20) Adhesive capsulitis of left shoulder (09/30/20) Visit Care Team Role Provider Type Kacy Anderson MD Family Provider Non-Staff Primary Care Provider Specialty: Family Practice Address: [address] [place], [address] Email: Mauro Wray DO Attending Provider Non-Staff Referring Provider Specialty: Orthopedic Surgery Address: [address] [facility], [place], [address] Email: Plan Of Care PT-OP-T Assessment and Plan Start: 07/13/20 09:23 Freq: Status: Active Protocol: Document 09/30/20 13:02 MB (Rec: 09/30/20 13:49 MB [id number]) Physical Therapy Assessment Rehab Potential Rehabilitation Potential Fair Evaluation Complexity Number of Personal Factors/Comorbidities 1-2 Number of Body Systems Impaired 3 Clinical Presentation at Evaluation Evolving Impairments Impairments Activity Tolerance,Functional Activities,Functional Mobility ,Integument,Pain,Posture,ROM, Soft Tissue Mobility,Strength Other Impairments Personal factors include uncontrolled DM. Body systems affected include musculoskeletal, neuromuscular and metabolic. Her clinical presentation is unstable: reports of A1C 6, minimal improvements in pain, range and strength after many months of interventions Goals 3 Cellular Equipment Installer Goal (LTG) Pt will perform progressive HEP with I including ROM, flexibility, postural and strengthening exercises to improve left shoulder function by 11/05/20. LTG Duration 7 weeks 2 Cellular Equipment Installer Goal (LTG) Pt will present with active left shoulder flexion and abduction to 150 deg to improve functional use of arm by 11/05/20 LTG Duration 7 weeks 1 [facility] Goal (LTG) Pt will present with QuickDASH score reflecting no more than 20% impairment to reflect better functional use of left arm by 11/05/20 LTG Duration 7 weeks Progress Towards Goals Progress Towards Goals Slow Progress due to Medical Issues Assessment Summary Assessment Closed manipulation for left shoulder was yesterday. Pt is right handed. QuickDASH score today reflects 84.09% impairment and pt tends to walk with left arm dangling and limp. She has little left arm movement. AROM right shoulder flexion 150 deg and abduction 165 deg. MMT right shoulder flexion, abduction, ER and IR is normal. Right elbow and wrist MMT are normal . AROM left shoulder in standing: flexion 75 deg, extension 27 deg, abduction 62 deg. PROM right shoulder in supine with shoulder in 90/90: normal. PROM left shoulder in supine with shoulder in 45 deg abduction: 30 deg ER and 30 deg IR. Extensive education and added to exercises today. Will progress exercises next treatment date. Overall, pt's clinical presentation is complicated given post- menopausal female presenting with frozen shoulder in setting of DM and s/p many interventions. Physical Therapy Plan Frequency and Duration Frequency of Treatment 2x/Week Duration of Treatment 7 weeks Plan of Care Start Date 09/30/20 Plan of Care End Date 11/05/20 Therapeutic Interventions Therapeutic Interventions Aquatic Therapy,Canalithic Repositioning,Home Exercise Program,Joint Mobilizations, Manual Therapy,Neuromuscular Re-education,Patient/Caregiver Education,Self-Care/Home Management,Soft Tissue Mobilization,Taping, Therapeutic Activities, Therapeutic Exercises Modalities Cold Pack/Ice Massage,Electric Stimulation,Hot Packs, Ultrasound Next Visit Focus/Plan Next Note Type Treatment Note Next Visit Plan Progress exercises for shoulder Plan of Care Dates Plan of Care Start Date 09/30/20 Plan of Care End Date 11/05/20 Electronically Signed by: Yvrose Marquez PT 09/30/20 [id number] Please Sign and Return: I have reviewed this Plan of Care and certify that the skilled therapy services above are required to meet the patient?s needs. Physician Signature Date Printed Name and Credentials Clinical Instructor Signature Printed Name and Credentials
--- NOTE | 2020-10-01 08:18 | PT.OTN ---
Current Diagnoses Type 2 diabetes mellitus with other diabetic arthropathy (10/01/20) Adhesive capsulitis of left shoulder (10/01/20) Physical Therapy Treatment Note PT-OP-A Visit Information Start: 07/13/20 09:23 Freq: Status: Active Protocol: Document 10/01/20 07:31 SP (Rec: 10/01/20 08:24 SP [id number]) Out-Patient Physical Therapy Visit Information Visit Information Visit Type Treatment Note Visit Note Browne Visit Start Time 07:31 Visit Stop Time 08:18 Total Visit Minutes 47 Visit Number 12/30 Number of CLOTH WASHER OPERATOR Visits 1 Evaluation Information Evaluation Date 07/17/20 Precautions Precautions DM, CKD, per Dr. Wray note from closed manipulation left shoulder 09/29/20: pendulum, stretching exercises, 3x/wk two weeks and then 2x/wk, WBAT PT-OP-B Current Condition Start: 07/13/20 09:23 Freq: Status: Active Protocol: Document 07/17/20 10:27 MB (Rec: 07/17/20 11:07 MB [id number]) Current Condition History of Current Condition Onset Date >6 months Current Complaints Left shoulder pain and decreased ROM History of Current Condition Pt returns to PT after seeing Dr. Nils DO, at [facility]. She is also receiving care at [facility] in [facility]. She is getting dry needling by Dr. Fry and was given some exercises. She had a MRI of left shoulder that revealed supraspinatus, infraspinatus, and supraspinatus tendinopathy with superimposed low-grade partial-thickness tears and no full thickness rotator cuff tear, AC joint OA, subacromial bursitis. Pt con't to have very high pain 8-9/10 in her left shoulder, even with OMT, dry needling and exercise interventions with the DO. She states that the doctor told her that the plan is to see if these interventions help and if they don't, revisit surgical option. Pt reports her A1C is 6 and she has high BP readings during DO visits. She can't lift her arm up and is doing some exercises at home. She is maybe 5% better since starting the multiple therapies. From evaluation earlier this spring by this PT: Pt reports that she did not have an injury and she woke up with left shoulder pain. Pt has a history of right shoulder, elbow and wrist surgery years ago. Doctor impression is frozen shoulder in setting of pt's age, gender and DM. Pt has trouble dressing, sleeping and taking a shower. She lives alone. 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 She is having trouble driving. Her friend drove her today. Pt is right handed. Pt denies tingling and numbness. She describes throbbing. She has trouble sleeping. She is trying ice and hot pack. Pt rates pain as 7-8/10 in her whole left shoulder. Pt is on diability d/t her right arm. Treatment Goals Patient/Caregiver Goals To decrease pain and improve ROM PT-OP-C Subjective Start: 07/13/20 09:23 Freq: Status: Active Protocol: Document 10/01/20 07:31 SP (Rec: 10/01/20 08:24 SP [id number]) OP-PT Subjective Patient Comments Patient Comments Pt states L shld still hurst almost feels worse but know will after the manipulation. Pain scale rating 6/10 and didn't take any meds to assist with pain this am. PT-OP-K Range of Motion Start: 07/13/20 09:23 Freq: Status: Active Protocol: Document 07/17/20 10:27 MB (Rec: 07/17/20 11:19 MB [id number]) Shoulder Goniometric Range of Motion Shoulder Left Active Shoulder ROM WFL No Testing Position Standing Flexion 70 Abduction 60 Internal Rotation Behind Back (text) Below left PSIS Comments Pt is able to reach across and touch her right shoulder with her left hand Right Active Shoulder ROM WFL Yes Testing Position Standing PT-OP-Q Treatments Start: 07/13/20 09:23 Freq: Status: Active Protocol: Document 10/01/20 07:31 SP (Rec: 10/01/20 08:24 SP [id number]) Therapeutic Exercises Supine Exercises Cane shoulder flexion Supine Exercise Name FF 115deg, ABD 88 deg, ER 35- 48 deg Side left Comments 2x5-8 reps using cane and right hand assisting with left arm Sitting Exercises table slides Sitting Exercise Name FF, ABD, ER Side left Resistance AAROM (FF, ABD), AROM (ER) Reps/Minutes x8 reps each direction Comments tolerant range, reports 7/10 Manual Therapy Treatment Joint Mobilizations GH Jt Joint L shld Direction inf, post Grade I Body Position Supine Comments good tolerance that feels good Manual Techniques PROM L shld Type L shld FF, ABD, ER Comments tolerant range PT-OP-R Modalities Start: 10/01/20 11:27 Freq: Status: Active Protocol: Document 10/01/20 07:31 SP (Rec: 10/01/20 11:29 SP [id number]) Hot Pack/Cold Pack Treatment MHP Location L shld Patient Position Supine Treatment Duration (minutes) 15 Patient Tolerance Good Comments Pt responded well, it feels little better, I like heat and do at home when I need. PT-OP-T Assessment and Plan Start: 07/13/20 09:23 Freq: Status: Active Protocol: Document 10/01/20 07:31 SP (Rec: 10/01/20 08:24 SP [id number]) Physical Therapy Assessment Goals 3 Spray Foam Installer Goal (LTG) Pt will perform progressive HEP with I including ROM, flexibility, postural and strengthening exercises to improve left shoulder function by 11/05/20. LTG Duration 7 weeks 2 Spray Foam Installer Goal (LTG) Pt will present with active left shoulder flexion and abduction to 150 deg to improve functional use of arm by 11/05/20 LTG Duration 7 weeks 1 Usp Goal (LTG) Pt will present with QuickDASH score reflecting no more than 20% impairment to reflect better functional use of left arm by 11/05/20 LTG Duration 7 weeks Assessment Summary Assessment Tx focused on gentle manual shld GH Jt glides grade I-II, PROM and Initiating HEP AAROM using dowel and table slides to progress range post L shld manipulation. Pt reports increased pain 08/15 to 10/16 but ok because want to get my ROM back, I know it's important. She states doesn't eat in the am so can't take her pain meds until almost 10 -11am. She responded well to MHP modality end tx and does at home. No swelling noted pre / post tx. Suggested use of modalities and med mgt for assist with pain control if needed. Physical Therapy Plan Frequency and Duration Frequency of Treatment 2x/Week Duration of Treatment 7 weeks Plan of Care Start Date 09/30/20 Plan of Care End Date 11/05/20 Therapeutic Interventions Therapeutic Interventions Aquatic Therapy,Canalithic Repositioning,Home Exercise Program,Joint Mobilizations, Manual Therapy,Neuromuscular Re-education,Patient/Caregiver Education,Self-Care/Home Management,Soft Tissue Mobilization,Taping, Therapeutic Activities, Therapeutic Exercises Modalities Cold Pack/Ice Massage,Electric Stimulation,Hot Packs, Ultrasound Next Visit Focus/Plan Next Note Type Treatment Note Next Visit Plan Assess response to manual, initiated HEP last tx. POC: Progress exercises for shoulder
--- NOTE | 2020-10-05 10:30 | PT-OP ANOTE ---
Pt called same day, has a family emergency and unable to make today's appt.
--- NOTE | 2020-10-07 10:46 | PT.OTN ---
Current Diagnoses Type 2 diabetes mellitus with other diabetic arthropathy (10/07/20) Adhesive capsulitis of left shoulder (10/07/20) Physical Therapy Treatment Note PT-OP-A Visit Information Start: 07/13/20 09:23 Freq: Status: Active Protocol: Document 10/07/20 09:45 MB (Rec: 10/07/20 10:31 MB [id number]) Out-Patient Physical Therapy Visit Information Visit Information Visit Type Treatment Note Visit Note Browne Visit Start Time 09:45 Visit Stop Time 10:30 Total Visit Minutes 45 Visit Number 01/29 Number of CHUCK WAGON COOK Visits 2 Precautions Precautions DM, CKD, per Dr. Wray note from closed manipulation left shoulder 09/29/20: pendulum, stretching exercises, 3x/wk two weeks and then 2x/wk, WBAT PT-OP-B Current Condition Start: 07/13/20 09:23 Freq: Status: Active Protocol: Document 07/17/20 10:27 MB (Rec: 07/17/20 11:07 MB [id number]) Current Condition History of Current Condition Onset Date >6 months Current Complaints Left shoulder pain and decreased ROM History of Current Condition Pt returns to PT after seeing Dr. Nils DO, at [facility]. She is also receiving care at [facility] in [facility]. She is getting dry needling by Dr. Fry and was given some exercises. She had a MRI of left shoulder that revealed supraspinatus, infraspinatus, and supraspinatus tendinopathy with superimposed low-grade partial-thickness tears and no full thickness rotator cuff tear, AC joint OA, subacromial bursitis. Pt con't to have very high pain 8-9/10 in her left shoulder, even with OMT, dry needling and exercise interventions with the DO. She states that the doctor told her that the plan is to see if these interventions help and if they don't, revisit surgical option. Pt reports her A1C is 6 and she has high BP readings during DO visits. She can't lift her arm up and is doing some exercises at home. She is maybe 5% better since starting the multiple therapies. From evaluation earlier this spring by this PT: Pt reports that she did not have an injury and she woke up with left shoulder pain. Pt has a history of right shoulder, elbow and wrist surgery years ago. Doctor impression is frozen shoulder in setting of pt's age, gender and DM. Pt has trouble dressing, sleeping and taking a shower. She lives alone. 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 She is having trouble driving. Her friend drove her today. Pt is right handed. Pt denies tingling and numbness. She describes throbbing. She has trouble sleeping. She is trying ice and hot pack. Pt rates pain as 7-8/10 in her whole left shoulder. Pt is on diability d/t her right arm. Treatment Goals Patient/Caregiver Goals To decrease pain and improve ROM PT-OP-C Subjective Start: 07/13/20 09:23 Freq: Status: Active Protocol: Document 10/07/20 09:45 MB (Rec: 10/07/20 10:31 MB [id number]) OP-PT Subjective Patient Comments Patient Comments Pt reports that dizziness started on at midnight. She woke up to go to the bathroom and got dizzy and fell back down. This inhibited her from coming to PT. Pt denies vision changes, numbness and tingling and weakness. She denies hearing change. She has had a headache . She last vomited on Monday. She has this dizziness every year. PT-OP-K Range of Motion Start: 07/13/20 09:23 Freq: Status: Active Protocol: Document 07/17/20 10:27 MB (Rec: 07/17/20 11:19 MB [id number]) Shoulder Goniometric Range of Motion Shoulder Left Active Shoulder ROM WFL No Testing Position Standing Flexion 70 Abduction 60 Internal Rotation Behind Back (text) Below left PSIS Comments Pt is able to reach across and touch her right shoulder with her left hand Right Active Shoulder ROM WFL Yes Testing Position Standing PT-OP-Q Treatments Start: 07/13/20 09:23 Freq: Status: Active Protocol: Document 10/07/20 09:45 MB (Rec: 10/07/20 10:46 MB [id number]) Therapeutic Exercises Supine Exercises Self SCM and scalene MWM Side left Comments Head and neck supported, legs supported, pt in supine Manual Therapy Treatment Other Other Manual Treatments Pt supine with head and neck supported: MWM left scalenes, SCM and upper traps with pt performing active cervical rotation to the right and PT performing TrP pressure, suboccipital release, B first rib isometric, manually assisted ER and IR left shoulder with PT supporting at elbow and providing manual cues with hand on pt's hand for ER and IR, grade II AP mobs with left shoulder in 80 deg abduction and minimal ER Black KT I strip to inhibit left traps Self-Care/Home Management Treatment Education Patient Education Fall Risk,Pain Management, Posture,Safety Other Education Difference between positional vertigo from the ear, neck dizziness and stroke. Postural education for log roll, head and neck support with towel roll, keeping neck loose and shoulders loose, scapular retraction, signs and symptoms of stroke and risk factors for it including DM and HTN and when to go to ED. Also ed pt in benefits of following up with PCP about dizziness. She already has an appointment on 10/26/20. Ed on benefits of using KT and when to remove. PT-OP-R Modalities Start: 10/01/20 11:27 Freq: Status: Active Protocol: Document 10/01/20 07:31 SP (Rec: 10/01/20 11:29 SP [id number]) Hot Pack/Cold Pack Treatment MHP Location L shld Patient Position Supine Treatment Duration (minutes) 15 Patient Tolerance Good Comments Pt responded well, it feels little better, I like heat and do at home when I need. PT-OP-T Assessment and Plan Start: 07/13/20 09:23 Freq: Status: Active Protocol: Document 10/07/20 09:45 MB (Rec: 10/07/20 10:31 MB [id number]) Physical Therapy Assessment Rehab Potential Rehabilitation Potential Fair Evaluation Complexity Number of Personal Factors/Comorbidities 1-2 Number of Body Systems Impaired 3 Clinical Presentation at Evaluation Evolving Impairments Impairments Activity Tolerance,Functional Activities,Functional Mobility ,Integument,Pain,Posture,ROM, Soft Tissue Mobility,Strength Other Impairments Personal factors include uncontrolled DM. Body systems affected include musculoskeletal, neuromuscular and metabolic. Her clinical presentation is unstable: reports of A1C 6, minimal improvements in pain, range and strength after many months of interventions Goals 3 Chcf Goal (LTG) Pt will perform progressive HEP with I including ROM, flexibility, postural and strengthening exercises to improve left shoulder function by 11/05/20. LTG Duration 7 weeks 2 Chcf Goal (LTG) Pt will present with active left shoulder flexion and abduction to 150 deg to improve functional use of arm by 11/05/20 LTG Duration 7 weeks 1 Chcf Goal (LTG) Pt will present with QuickDASH score reflecting no more than 20% impairment to reflect better functional use of left arm by 11/05/20 LTG Duration 7 weeks Assessment Summary Assessment PT screens pt's dizziness to r /o red flags given history of uncontrolled DM and high BP. Dizziness also prevented PT for left shoulder last Monday and could limit supine for exercises. BP in right UE in supine: 138/82, 80. B [place]- Hallpike and Roll Test negative for nystagmus. Pt does report dizziness and headache and neck discomfort when maintained left Ema- Hallpike. Palpation reveals very tight left SCM, scalenes and suboccipitals and so treated this today and pt's dizziness and pain is better. PT feels that left shoulder changes, recent manip and posturing contributed to left neck tension and dizziness. PT does feel that current symptoms were cervicogenic dizziness in nature. Ed pt in proper resting and sleeping position, neck care and keeping neck and posture loose . PT does ed pt to go to ED if she has signs and symptoms of stroke, worsening symptoms and to consider checking BP at home more often. Will con't PT efforts next treatment date . Physical Therapy Plan Frequency and Duration Frequency of Treatment 2x/Week Duration of Treatment 7 weeks Plan of Care Start Date 09/30/20 Plan of Care End Date 11/05/20 Therapeutic Interventions Therapeutic Interventions Aquatic Therapy,Canalithic Repositioning,Home Exercise Program,Joint Mobilizations, Manual Therapy,Neuromuscular Re-education,Patient/Caregiver Education,Self-Care/Home Management,Soft Tissue Mobilization,Taping, Therapeutic Activities, Therapeutic Exercises Modalities Cold Pack/Ice Massage,Electric Stimulation,Hot Packs, Ultrasound Next Visit Focus/Plan Next Note Type Treatment Note Next Visit Plan [place] Protocol, try arm bike, progress exercises
--- NOTE | 2020-10-08 08:13 | PT.OTN ---
Current Diagnoses Type 2 diabetes mellitus with other diabetic arthropathy (10/08/20) Adhesive capsulitis of left shoulder (10/08/20) Physical Therapy Treatment Note PT-OP-A Visit Information Start: 07/13/20 09:23 Freq: Status: Active Protocol: Document 10/08/20 07:29 MB (Rec: 10/08/20 08:08 MB [id number]) Out-Patient Physical Therapy Visit Information Visit Information Visit Type Treatment Note Visit Note Browne Visit Start Time 07:29 Visit Stop Time 08:09 Total Visit Minutes 40 Visit Number Number of MANAGER OF FINANCIAL Visits 0 Precautions Precautions DM, CKD, per Dr. Wray note from closed manipulation left shoulder 09/29/20: pendulum, stretching exercises, 3x/wk two weeks and then 2x/wk, WBAT PT-OP-B Current Condition Start: 07/13/20 09:23 Freq: Status: Active Protocol: Document 07/17/20 10:27 MB (Rec: 07/17/20 11:07 MB [id number]) Current Condition History of Current Condition Onset Date >6 months Current Complaints Left shoulder pain and decreased ROM History of Current Condition Pt returns to PT after seeing Dr. Nils DO, at [facility]. She is also receiving care at [facility] in [facility]. She is getting dry needling by Dr. Fry and was given some exercises. She had a MRI of left shoulder that revealed supraspinatus, infraspinatus, and supraspinatus tendinopathy with superimposed low-grade partial-thickness tears and no full thickness rotator cuff tear, AC joint OA, subacromial bursitis. Pt con't to have very high pain 8-9/10 in her left shoulder, even with OMT, dry needling and exercise interventions with the DO. She states that the doctor told her that the plan is to see if these interventions help and if they don't, revisit surgical option. Pt reports her A1C is 6 and she has high BP readings during DO visits. She can't lift her arm up and is doing some exercises at home. She is maybe 5% better since starting the multiple therapies. From evaluation earlier this spring by this PT: Pt reports that she did not have an injury and she woke up with left shoulder pain. Pt has a history of right shoulder, elbow and wrist surgery years ago. Doctor impression is frozen shoulder in setting of pt's age, gender and DM. Pt has trouble dressing, sleeping and taking a shower. She lives alone. 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 She is having trouble driving. Her friend drove her today. Pt is right handed. Pt denies tingling and numbness. She describes throbbing. She has trouble sleeping. She is trying ice and hot pack. Pt rates pain as 7-8/10 in her whole left shoulder. Pt is on diability d/t her right arm. Treatment Goals Patient/Caregiver Goals To decrease pain and improve ROM PT-OP-C Subjective Start: 07/13/20 09:23 Freq: Status: Active Protocol: Document 10/08/20 07:29 MB (Rec: 10/08/20 08:08 MB [id number]) OP-PT Subjective Patient Comments Patient Comments Pt states that the dizziness is a little bit better. PT-OP-K Range of Motion Start: 07/13/20 09:23 Freq: Status: Active Protocol: Document 07/17/20 10:27 MB (Rec: 07/17/20 11:19 MB [id number]) Shoulder Goniometric Range of Motion Shoulder Left Active Shoulder ROM WFL No Testing Position Standing Flexion 70 Abduction 60 Internal Rotation Behind Back (text) Below left PSIS Comments Pt is able to reach across and touch her right shoulder with her left hand Right Active Shoulder ROM WFL Yes Testing Position Standing PT-OP-Q Treatments Start: 07/13/20 09:23 Freq: Status: Active Protocol: Document 10/08/20 07:29 MB (Rec: 10/08/20 08:08 MB [id number]) Cardio Equipment Upper Body Ergometer (UBE) Duration (Minutes) 11 Other 1' forward and 1' backward Therapeutic Exercises Sitting Exercises table slides Sitting Exercise Name Abd and flexion with thumb up Side left Comments 10 reps slowly; both arms up for flexion Standing Exercises Scapular retraction Comments 10 reps slowly Upper traps MWM in corner Comments On left side makes pt dizzy today and so stopped Pendulums left arm Comments Pt performs well Shoulder rotator STM with racquet ball Side left Comments MWM with racquet ball on infraspinatus and pt performing active ER/IR Intrascapular STM with racquet ball Comments Left side today and pt performs well Manual Therapy Treatment Other Other Manual Treatments Pt sitting: MWM left greater than right upper traps and scalenes PT-OP-R Modalities Start: 10/01/20 11:27 Freq: Status: Active Protocol: Document 10/01/20 07:31 SP (Rec: 10/01/20 11:29 SP [id number]) Hot Pack/Cold Pack Treatment MHP Location L shld Patient Position Supine Treatment Duration (minutes) 15 Patient Tolerance Good Comments Pt responded well, it feels little better, I like heat and do at home when I need. PT-OP-T Assessment and Plan Start: 07/13/20 09:23 Freq: Status: Active Protocol: Document 10/08/20 07:29 MB (Rec: 10/08/20 08:08 MB [id number]) Physical Therapy Assessment Rehab Potential Rehabilitation Potential Fair Evaluation Complexity Number of Personal Factors/Comorbidities 1-2 Number of Body Systems Impaired 3 Clinical Presentation at Evaluation Evolving Impairments Impairments Activity Tolerance,Functional Activities,Functional Mobility ,Integument,Pain,Posture,ROM, Soft Tissue Mobility,Strength Other Impairments Personal factors include uncontrolled DM. Body systems affected include musculoskeletal, neuromuscular and metabolic. Her clinical presentation is unstable: reports of A1C 6, minimal improvements in pain, range and strength after many months of interventions Goals 3 Buyer Planner Goal (LTG) Pt will perform progressive HEP with I including ROM, flexibility, postural and strengthening exercises to improve left shoulder function by 11/05/20. LTG Duration 7 weeks 2 Usp Goal (LTG) Pt will present with active left shoulder flexion and abduction to 150 deg to improve functional use of arm by 11/05/20 LTG Duration 7 weeks 1 Buyer Planner Goal (LTG) Pt will present with QuickDASH score reflecting no more than 20% impairment to reflect better functional use of left arm by 11/05/20 LTG Duration 7 weeks Assessment Summary Assessment Pt con't with dizziness and PT ed pt to call doctor's office to make an apppointment as this is a barrier to PT. Reviewed all exercises today and pt performs well. Con't progression. Physical Therapy Plan Frequency and Duration Frequency of Treatment 2x/Week Duration of Treatment 7 weeks Plan of Care Start Date 09/30/20 Plan of Care End Date 11/05/20 Therapeutic Interventions Therapeutic Interventions Aquatic Therapy,Canalithic Repositioning,Home Exercise Program,Joint Mobilizations, Manual Therapy,Neuromuscular Re-education,Patient/Caregiver Education,Self-Care/Home Management,Soft Tissue Mobilization,Taping, Therapeutic Activities, Therapeutic Exercises Modalities Cold Pack/Ice Massage,Electric Stimulation,Hot Packs, Ultrasound Other Referrals/Consults Referrals/Consults Recommended Follow-up with doctor about dizziness Next Visit Focus/Plan Next Note Type Treatment Note Next Visit Plan Arm bike, [place] Protocol, progress exercises--consider doorway pect stretch, other exercises in supine if pt can tolerate with dizziness
--- NOTE | 2020-10-13 08:58 | PT.OTN ---
Current Diagnoses Type 2 diabetes mellitus with other diabetic arthropathy (10/13/20) Adhesive capsulitis of left shoulder (10/13/20) Physical Therapy Treatment Note PT-OP-A Visit Information Start: 07/13/20 09:23 Freq: Status: Active Protocol: Document 10/13/20 08:15 MB (Rec: 10/13/20 08:55 MB [id number]) Out-Patient Physical Therapy Visit Information Visit Information Visit Type Treatment Note Visit Note Browne Visit Start Time 08:15 Visit Stop Time 08:58 Total Visit Minutes 43 Visit Number Number of MOVIE EXTRA Visits 0 Precautions Precautions DM, CKD, per Dr. Wray note from closed manipulation left shoulder 09/29/20: pendulum, stretching exercises, 3x/wk two weeks and then 2x/wk, WBAT PT-OP-B Current Condition Start: 07/13/20 09:23 Freq: Status: Active Protocol: Document 07/17/20 10:27 MB (Rec: 07/17/20 11:07 MB [id number]) Current Condition History of Current Condition Onset Date >6 months Current Complaints Left shoulder pain and decreased ROM History of Current Condition Pt returns to PT after seeing Dr. Nils DO, at [facility]. She is also receiving care at [facility] in [facility]. She is getting dry needling by Dr. Fry and was given some exercises. She had a MRI of left shoulder that revealed supraspinatus, infraspinatus, and supraspinatus tendinopathy with superimposed low-grade partial-thickness tears and no full thickness rotator cuff tear, AC joint OA, subacromial bursitis. Pt con't to have very high pain 8-9/10 in her left shoulder, even with OMT, dry needling and exercise interventions with the DO. She states that the doctor told her that the plan is to see if these interventions help and if they don't, revisit surgical option. Pt reports her A1C is 6 and she has high BP readings during DO visits. She can't lift her arm up and is doing some exercises at home. She is maybe 5% better since starting the multiple therapies. From evaluation earlier this spring by this PT: Pt reports that she did not have an injury and she woke up with left shoulder pain. Pt has a history of right shoulder, elbow and wrist surgery years ago. Doctor impression is frozen shoulder in setting of pt's age, gender and DM. Pt has trouble dressing, sleeping and taking a shower. She lives alone. 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 She is having trouble driving. Her friend drove her today. Pt is right handed. Pt denies tingling and numbness. She describes throbbing. She has trouble sleeping. She is trying ice and hot pack. Pt rates pain as 7-8/10 in her whole left shoulder. Pt is on diability d/t her right arm. Treatment Goals Patient/Caregiver Goals To decrease pain and improve ROM PT-OP-C Subjective Start: 07/13/20 09:23 Freq: Status: Active Protocol: Document 10/13/20 08:15 MB (Rec: 10/13/20 08:55 MB [id number]) OP-PT Subjective Patient Comments Patient Comments Pt states that the dizziness is still there a little bit. She agrees to go to the doctor if it gets worse. PT-OP-K Range of Motion Start: 07/13/20 09:23 Freq: Status: Active Protocol: Document 07/17/20 10:27 MB (Rec: 07/17/20 11:19 MB [id number]) Shoulder Goniometric Range of Motion Shoulder Left Active Shoulder ROM WFL No Testing Position Standing Flexion 70 Abduction 60 Internal Rotation Behind Back (text) Below left PSIS Comments Pt is able to reach across and touch her right shoulder with her left hand Right Active Shoulder ROM WFL Yes Testing Position Standing PT-OP-Q Treatments Start: 07/13/20 09:23 Freq: Status: Active Protocol: Document 10/13/20 08:15 MB (Rec: 10/13/20 08:55 MB [id number]) Cardio Equipment Upper Body Ergometer (UBE) Duration (Minutes) 10 Other 1' forward and 1' backward Manual Therapy Treatment Other Other Manual Treatments Left shoulder [place] Protocol and pt presents with limitations and pain with passive ER in supine and prone and with PA and AP mobs with shoulder in this position, passive abduction and active abduction also limited and painful and pt tolerates treatment and states she feels better with range afterwards and active left flexion is 100 deg after and abduction to 90 deg, rib and paraspinal mobilization as well by PT PT-OP-R Modalities Start: 10/01/20 11:27 Freq: Status: Active Protocol: Document 10/01/20 07:31 SP (Rec: 10/01/20 11:29 SP [id number]) Hot Pack/Cold Pack Treatment MHP Location L shld Patient Position Supine Treatment Duration (minutes) 15 Patient Tolerance Good Comments Pt responded well, it feels little better, I like heat and do at home when I need. PT-OP-T Assessment and Plan Start: 07/13/20 09:23 Freq: Status: Active Protocol: Document 10/13/20 08:15 MB (Rec: 10/13/20 08:55 MB [id number]) Physical Therapy Assessment Rehab Potential Rehabilitation Potential Fair Evaluation Complexity Number of Personal Factors/Comorbidities 1-2 Number of Body Systems Impaired 3 Clinical Presentation at Evaluation Evolving Impairments Impairments Activity Tolerance,Functional Activities,Functional Mobility ,Integument,Pain,Posture,ROM, Soft Tissue Mobility,Strength Other Impairments Personal factors include uncontrolled DM. Body systems affected include musculoskeletal, neuromuscular and metabolic. Her clinical presentation is unstable: reports of A1C 6, minimal improvements in pain, range and strength after many months of interventions Goals 3 Nursing Home Goal (LTG) Pt will perform progressive HEP with I including ROM, flexibility, postural and strengthening exercises to improve left shoulder function by 11/05/20. LTG Duration 7 weeks 2 Nursing Home Goal (LTG) Pt will present with active left shoulder flexion and abduction to 150 deg to improve functional use of arm by 11/05/20 LTG Duration 7 weeks 1 Clinical Data Management Director Goal (LTG) Pt will present with QuickDASH score reflecting no more than 20% impairment to reflect better functional use of left arm by 11/05/20 LTG Duration 7 weeks Assessment Summary Assessment Initiated gentle [place] Protocol mobilizations after UBE today. Mobilization is painful and pt tolerates well. She has most limitations in ER and abduction. Heat to left shoulder afterwards. Physical Therapy Plan Frequency and Duration Frequency of Treatment 2x/Week Duration of Treatment 7 weeks Plan of Care Start Date 09/30/20 Plan of Care End Date 11/05/20 Therapeutic Interventions Therapeutic Interventions Aquatic Therapy,Canalithic Repositioning,Home Exercise Program,Joint Mobilizations, Manual Therapy,Neuromuscular Re-education,Patient/Caregiver Education,Self-Care/Home Management,Soft Tissue Mobilization,Taping, Therapeutic Activities, Therapeutic Exercises Modalities Cold Pack/Ice Massage,Electric Stimulation,Hot Packs, Ultrasound Other Referrals/Consults Referrals/Consults Recommended Follow-up with doctor about dizziness Next Visit Focus/Plan Next Note Type Treatment Note Next Visit Plan Similar: Arm bike, [place] Protocol, progress exercises-- consider doorway pect stretch, other exercises in supine if pt can tolerate with dizziness
--- NOTE | 2020-10-14 11:21 | PT.OTN ---
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 Wray note from closed manipulation left shoulder 09/29/20: pendulum, stretching exercises, 3x/wk two weeks and then 2x/wk, WBAT PT-OP-B Current Condition Start: 07/13/20 09:23 Freq: Status: Active Protocol: Document 07/17/20 10:27 MB (Rec: 07/17/20 11:07 MB [id number]) Current Condition History of Current Condition Onset Date >6 months Current Complaints Left shoulder pain and decreased ROM History of Current Condition Pt returns to PT after seeing Dr. Nils DO, at [facility]. She is also receiving care at [facility] in [facility]. She is getting dry needling by Dr. Fry and was given some exercises. She had a MRI of left shoulder that revealed supraspinatus, infraspinatus, and supraspinatus tendinopathy with superimposed low-grade partial-thickness tears and no full thickness rotator cuff tear, AC joint OA, subacromial bursitis. Pt con't to have very high pain 8-9/10 in her left shoulder, even with OMT, dry needling and exercise interventions with the DO. She states that the doctor told her that the plan is to see if these interventions help and if they don't, revisit surgical option. Pt reports her A1C is 6 and she has high BP readings during DO visits. She can't lift her arm up and is doing some exercises at home. She is maybe 5% better since starting the multiple therapies. From evaluation earlier this spring by this PT: Pt reports that she did not have an injury and she woke up with left shoulder pain. Pt has a history of right shoulder, elbow and wrist surgery years ago. Doctor impression is frozen shoulder in setting of pt's age, gender and DM. Pt has trouble dressing, sleeping and taking a shower. She lives alone. 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 She is having trouble driving. Her friend drove her today. Pt is right handed. Pt denies tingling and numbness. She describes throbbing. She has trouble sleeping. She is trying ice and hot pack. Pt rates pain as 7-8/10 in her whole left shoulder. Pt is on diability d/t her right arm. Treatment Goals Patient/Caregiver Goals To decrease pain and improve ROM PT-OP-C Subjective Start: 07/13/20 09:23 Freq: Status: Active Protocol: Document 10/14/20 10:31 MB (Rec: 10/14/20 11:21 MB [id number]) OP-PT Subjective Patient Comments Patient Comments Pt went to the doctor and brought in script for vestibular PT. She got a script for Meclizine and she took it at night. The dizziness is still there. PT-OP-K Range of Motion Start: 07/13/20 09:23 Freq: Status: Active Protocol: Document 07/17/20 10:27 MB (Rec: 07/17/20 11:19 MB [id number]) Shoulder Goniometric Range of Motion Shoulder Left Active Shoulder ROM WFL No Testing Position Standing Flexion 70 Abduction 60 Internal Rotation Behind Back (text) Below left PSIS Comments Pt is able to reach across and touch her right shoulder with her left hand Right Active Shoulder ROM WFL Yes Testing Position Standing PT-OP-Q Treatments Start: 07/13/20 09:23 Freq: Status: Active Protocol: Document 10/14/20 10:31 MB (Rec: 10/14/20 11:21 MB [id number]) Cardio Equipment Upper Body Ergometer (UBE) Duration (Minutes) 10 Other 1' forward and 1' backward Manual Therapy Treatment Other Other Manual Treatments Left shoulder [place] Protocol today and pt tolerates better and has better abduction and flexion after treatment Neuro Re-Education Treatment Vestibular Rehabilitation PT demo VOR exercises today Comments PT demos the following exercises with letter a: eyes still with letter moving up and down and side to side, letter still and letter up and down and side to side, both head and letter opposite up and down and side and side, convergence. Pt is feeling off today and so she does not perform PT-OP-R Modalities Start: 10/01/20 11:27 Freq: Status: Active Protocol: Document 10/01/20 07:31 SP (Rec: 10/01/20 11:29 SP [id number]) Hot Pack/Cold Pack Treatment MHP Location L shld Patient Position Supine Treatment Duration (minutes) 15 Patient Tolerance Good Comments Pt responded well, it feels little better, I like heat and do at home when I need. PT-OP-T Assessment and Plan Start: 07/13/20 09:23 Freq: Status: Active Protocol: Document 10/14/20 10:31 MB (Rec: 10/14/20 11:21 MB [id number]) Physical Therapy Assessment Rehab Potential Rehabilitation Potential Fair Evaluation Complexity Number of Personal Factors/Comorbidities 1-2 Number of Body Systems Impaired 3 Clinical Presentation at Evaluation Evolving Impairments Impairments Activity Tolerance,Functional Activities,Functional Mobility ,Integument,Pain,Posture,ROM, Soft Tissue Mobility,Strength Other Impairments Personal factors include uncontrolled DM. Body systems affected include musculoskeletal, neuromuscular and metabolic. Her clinical presentation is unstable: reports of A1C 6, minimal improvements in pain, range and strength after many months of interventions Goals 3 Senior Living Goal (LTG) Pt will perform progressive HEP with I including ROM, flexibility, postural and strengthening exercises to improve left shoulder function by 11/05/20. LTG Duration 7 weeks 2 Senior Living Goal (LTG) Pt will present with active left shoulder flexion and abduction to 150 deg to improve functional use of arm by 11/05/20 LTG Duration 7 weeks 1 Airline Captain Goal (LTG) Pt will present with QuickDASH score reflecting no more than 20% impairment to reflect better functional use of left arm by 11/05/20 LTG Duration 7 weeks Assessment Summary Assessment Initiated vestibular exercises today by jordyn d/t pt is very symptomatic after being checked by provider before PT. Ongiong arm bike and manual work today on left shoulder. Progress exercises next treatment date. Physical Therapy Plan Frequency and Duration Frequency of Treatment 2x/Week Duration of Treatment 7 weeks Plan of Care Start Date 09/30/20 Plan of Care End Date 11/05/20 Therapeutic Interventions Therapeutic Interventions Aquatic Therapy,Canalithic Repositioning,Home Exercise Program,Joint Mobilizations, Manual Therapy,Neuromuscular Re-education,Patient/Caregiver Education,Self-Care/Home Management,Soft Tissue Mobilization,Taping, Therapeutic Activities, Therapeutic Exercises Modalities Cold Pack/Ice Massage,Electric Stimulation,Hot Packs, Ultrasound Next Visit Focus/Plan Next Note Type Treatment Note Next Visit Plan Band exercises, Arm bike, [place] Protocol, progress exercises--consider doorway pect stretch, other exercises in supine if pt can tolerate with dizziness
--- NOTE | 2020-10-23 12:17 | PT-OP ANOTE ---
Pt with same day cancel. Per front office, she called in and did not report covid but a cold and had a x-ray to r/o PNA. Will con't PT next week as pt well.
--- NOTE | 2020-11-04 10:09 | PT-OP ANOTE ---
Pt no showed appointment. PT did call pt yesterday to ask about her cold symptoms and how she is feeling and left a message about appointment time today.
--- NOTE | 2020-11-09 09:54 | PT.OPDS ---
Current Diagnoses Type 2 diabetes mellitus with other diabetic arthropathy (10/14/20) Adhesive capsulitis of left shoulder (10/14/20) Dizziness and giddiness (10/14/20) Visit Care Team Role Provider Type Kacy Anderson MD Family Provider Non-Staff Primary Care Provider Specialty: Family Practice Address: [address] [place], [address] Email: Mauro Wray DO Attending Provider Non-Staff Referring Provider Specialty: Orthopedic Surgery Address: [address] [place], [address] Email: Visit Number Visit Number Discharge Summary PT-OP-B Current Condition Start: 07/13/20 09:23 Freq: Status: Active Protocol: Document 07/17/20 10:27 MB (Rec: 07/17/20 11:07 MB [id number]) Current Condition History of Current Condition Onset Date >6 months Current Complaints Left shoulder pain and decreased ROM History of Current Condition Pt returns to PT after seeing Dr. Nils DO, at [facility]. She is also receiving care at [facility] in [facility]. She is getting dry needling by Dr. Fry and was given some exercises. She had a MRI of left shoulder that revealed supraspinatus, infraspinatus, and supraspinatus tendinopathy with superimposed low-grade partial-thickness tears and no full thickness rotator cuff tear, AC joint OA, subacromial bursitis. Pt con't to have very high pain 8-9/10 in her left shoulder, even with OMT, dry needling and exercise interventions with the DO. She states that the doctor told her that the plan is to see if these interventions help and if they don't, revisit surgical option. Pt reports her A1C is 6 and she has high BP readings during DO visits. She can't lift her arm up and is doing some exercises at home. She is maybe 5% better since starting the multiple therapies. From evaluation earlier this spring by this PT: Pt reports that she did not have an injury and she woke up with left shoulder pain. Pt has a history of right shoulder, elbow and wrist surgery years ago. Doctor impression is frozen shoulder in setting of pt's age, gender and DM. Pt has trouble dressing, sleeping and taking a shower. She lives alone. 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 She is having trouble driving. Her friend drove her today. Pt is right handed. Pt denies tingling and numbness. She describes throbbing. She has trouble sleeping. She is trying ice and hot pack. Pt rates pain as 7-8/10 in her whole left shoulder. Pt is on diability d/t her right arm. Treatment Goals Patient/Caregiver Goals To decrease pain and improve ROM PT-OP-C Subjective Start: 07/13/20 09:23 Freq: Status: Active Protocol: Document 10/14/20 10:31 MB (Rec: 10/14/20 11:21 MB [id number]) OP-PT Subjective Patient Comments Patient Comments Pt went to the doctor and brought in script for vestibular PT. She got a script for Meclizine and she took it at night. The dizziness is still there. PT-OP-K Range of Motion Start: 07/13/20 09:23 Freq: Status: Active Protocol: Document 07/17/20 10:27 MB (Rec: 07/17/20 11:19 MB [id number]) Shoulder Goniometric Range of Motion Shoulder Left Active Shoulder ROM WFL No Testing Position Standing Flexion 70 Abduction 60 Internal Rotation Behind Back (text) Below left PSIS Comments Pt is able to reach across and touch her right shoulder with her left hand Right Active Shoulder ROM WFL Yes Testing Position Standing PT-OP-T Assessment and Plan Start: 07/13/20 09:23 Freq: Status: Active Protocol: Document 11/09/20 09:54 MB (Rec: 11/09/20 09:54 MB [id number]) Physical Therapy Plan Discharge Physical Therapy Discharge Comments Pt no shows a second visit. Will d/c PT. PT calls. Dr. Wray's and PCP's office d/t PT concern d/t pt called in sick a couple of weeks ago and has not returned PT calls after two no shows.
--- NOTE | 2020-11-09 10:01 | PT-OP ANOTE ---
PT gets through to patient. She was hospitalized d/t COVID. Her kidneys failed and she was recently released and told not to leave her house for 20 days. Will d/c PT.
== END 2020-11-24 09:03 ==
LOC: PHYS 10:30
PROVIDERS: Family Provider Family Medicine; PCP Family Medicine; Referring Provider Orthopaedic Surgery; Visit Provider Orthopaedic Surgery
DX: M75.02 Adhesive capsulitis of left shoulder (principal); E11.618 Type 2 diabetes mellitus with other diabetic arthropathy; R42 Dizziness and giddiness
CPT/HCPCS: 97010; 97110; 97112; 97140; 97161; 97535

== ENCOUNTER → 2020-12-28 07:33 | Outpatient (CLI) | payer OTHER, MEDICAID, SELFPAY ==
[2019-01-22 21:55] VITALS: BMI 23.4
--- NOTE | 2020-12-28 | DI.MG.S_ITS ---
BILATERAL DIGITAL SCREENING MAMMOGRAM 3D/2D WITH CAD: 12/28/2020 CLINICAL: Routine screening. Comparison is made to exams dated: 09/17/2018 mammogram, 03/13/2017 mammogram - [facility], and 11/30/2015 mammogram - [facility]. There are scattered fibroglandular elements in both breasts. Current study was also evaluated with a Computer Aided Detection (CAD) system. No significant masses, calcifications, or other findings are seen in either breast. There has been no significant interval change. IMPRESSION: NEGATIVE There is no mammographic evidence of malignancy. A 1 year screening mammogram is recommended. This exam was interpreted at Station ID: [id number]. NOTE: For mammograms, a report in lay terms will be sent to the patient. Approximately 15% of breast malignancies will not be visualized mammographically. In the management of a palpable breast mass, a negative mammogram must not discourage biopsy of a clinically suspicious lesion. Electronically Signed By: Jj Ramirez M.D., jr/ezekiel:12/28/2020 11:48:16 letter sent: Normal Exam ACR BI-RADS Category 1: Negative [id number]
== END ==
PROVIDERS: Family Provider Family Medicine; PCP Family Medicine; Referring Provider Family Medicine; Visit Provider Family Medicine
DX: Z12.31 Encounter for screening mammogram for malignant neoplasm of breast (principal)
CPT/HCPCS: 77063; 77067

== ENCOUNTER 2021-03-29 18:30 | Inpatient (IN) | payer OTHER, MEDICAID, SELFPAY ==
[2019-01-22 21:55] VITALS: BMI 23.4
[2021-03-29] VITALS (13 sets, daily range): BP systolic 134–184; BP diastolic 64–94; PULSE 97–137; RESP 18–27; TEMP 36.5–38.5; O2SAT 92–100; BMI 25.9; BMI 23.8
--- NOTE | 2021-03-29 18:37 | DI.RAD.S_ITS ---
PROCEDURE: XR CHEST 1V INDICATIONS: sepsis TECHNIQUE: One view of the chest was acquired. COMPARISON: [facility], CR, XR CHEST 1V, 01/22/2019, 18:01. FINDINGS: Surgical changes and devices: None. Lungs and pleura: Lungs are clear. No pleural effusions or pneumothorax. Mediastinum: Mediastinal contours appear normal. Heart size is normal. Bones and chest wall: No suspicious bony lesions. Overlying soft tissues appear unremarkable. IMPRESSION: No acute cardiopulmonary abnormality. Dictated by: Roman Amaro M.D. on 03/29/2021 at 19:08 Approved by: Roman Amaro M.D. on 03/29/2021 at 19:08
[2021-03-29 18:48] LABS: Add Manual Diff / Slide Review NO; Basophils Absolute Auto 0 /uL (0-100); Basophils Percent Auto 0.2 % (0-2); Eosinophils Absolute Auto 300 /uL (0-450); Eosinophils Percent Auto 3.7 % (2-4); Hematocrit 40.4 % (36-46); Hemoglobin 13.3 g/dL (12.0-16.0); Lymphocytes Absolute Auto 900 /uL (1100-4500); Lymphocytes Percent Auto 9.9 % (25-40); Mean Corpuscular Hemoglobin 26.5 PG (26-34); Mean Corpuscular Volume 80.2 fL (80-100); Monocytes Absolute Auto 100 /uL (0-900); Monocytes Percent Auto 0.9 % (3-14); Neutrophils Absolute Auto 8000 /uL (1500-7000); Neutrophils Percent Auto 85.3 % (50-75); Platelet Count 283 X10^3/uL (150-400); Red Blood Cell Count 5.03 X10^6/uL (4.0-5.2); Red Cell Distribution Width 14.1 % (11.6-14.8); White Blood Cell Count 9.3 X10^3/uL (4.5-11.0)
[2021-03-29] MEDS: LACTATED RINGERS 602.82 ML IV (18:55)
--- NOTE | 2021-03-29 18:57 | ED.SEPSIS ---
HPI - Sepsis General Chief Complaint: Fever Mode of arrival: Ambulatory Evaluation Sepsis Screen: No Definite Risk Narrative: 55-year-old female nonsmoker with a history of diabetes presents by EMS for urinary complaints including dysuria, frequency urgency, fevers high as 100.9 and chills over the course of the day. She feels poorly and has had rising blood sugars. EMS reports an elevated heart rate in the 130s. She denies chest pain or shortness of breath. She is nauseous but denies any vomiting. Patient History Medical History (Updated 03/30/21 @ 00:54 by IMELDA Sood) Depression Depression with anxiety Diabetes Hearing loss Hyperlipidemia associated with type 2 diabetes mellitus Insomnia Night terrors Non-insulin dependent type 2 diabetes mellitus Seasonal allergies Surgical History Hx of carpal tunnel repair Hx of hand surgery Hx of shoulder surgery Family History Father Depression Hypertension Sister Gout Cancer Mother Diabetes mellitus Social History household members: significant other Smoking Status: Never smoker alcohol intake: never substance use type: does not use Smoking Status: Never smoker Substance Use Type: does not use Exam Narrative Exam Narrative: GENERAL: [55] year old patient appears stated age. Well-developed patient, in moderate distress, ill-appearing HEAD: Atraumatic. Normocephalic. EYES: Pupils equal round and reactive. Extraocular motions intact. No scleral icterus. No injection or drainage. ENT: Nose without bleeding, purulent drainage. Throat without erythema, tonsillar hypertrophy or exudate. Airway patent. NECK: Trachea midline. Non tender CARDIOVASCULAR: Tachycardic but regular rhythm without murmurs, gallops, or rubs. RESPIRATORY: Clear to auscultation. Breath sounds equal bilaterally. No wheezes, rales, or rhonchi. Though she does demonstrate some increased work of breathing GASTROINTESTINAL: Abdomen soft, non-tender, nondistended. EXTREMITIES: No edema or joint tenderness. BACK: Nontender without deformity or crepitance. No flank tenderness. NEURO: AOx3. SKIN: No rash or erythema of visible areas Initial Vital Signs Initial Vital Signs: Vital Signs Temperature 100.4 F H 03/29/21 18:47 Pulse Rate 135 H 03/29/21 18:47 Blood Pressure 182/94 H 03/29/21 18:47 Pulse Oximetry 96 03/29/21 18:47 Course Orders Ordered: ED Orders 03/29/21 19:29 Blood Culture Stat Lactate (Lactic Acid) Stat 03/29/21 20:18 Urinalysis and Microscopic Stat Urine Culture Stat 03/29/21 20:58 COVID19 -Nasal swab/Pre-Proc Stat Acetaminophen (Acetaminophen 325 Mg Tablet) 650 mg PO Q6HR PRN PRN Reason: Fever/Mild Pain (1-3) Al Hydrox/Mg Hydrox/Simethicone (Mag Hydrox/Alum/Simeth 30 Ml Udc) 30 ml PO Q6HR PRN PRN Reason: Dyspepsia Albuterol (Albuterol 2.5 Mg/3 Ml Neb (Adult)) 2.5 mg INH Q4H PRN PRN Reason: Shortness Of Breath Alprazolam (Alprazolam 0.25 Mg Tablet) 0.25 mg PO Q8H PRN PRN Reason: Anxiety Atorvastatin Calcium (Atorvastatin 20 Mg Tablet) 40 mg PO BEDTIME KIKA Dextrose (Dextrose 50 % In Water 25 Gm/50 Ml Syringe) 25 gm IV PRN PRN PRN Reason: Hypoglycemia Enoxaparin Sodium (Enoxaparin 30 Mg/0.3 Ml Syringe) 30 mg SUBCUT DAILY KIKA Fluoxetine HCl (Fluoxetine 20 Mg Capsule) 40 mg PO DAILY KIKA Fluoxetine HCl (Fluoxetine 20 Mg Capsule) 20 mg PO DAILY KIKA Gabapentin (Gabapentin 100 Mg Capsule) 300 mg PO BEDTIME KIKA Lactated Ringer's (Lactated Ringers) 1,000 mls @ 100 mls/hr IV CONT KIKA Last Admin: 03/30/21 00:20 Dose: 100 mls/hr Documented by: CHEY Ceftriaxone Sodium 1,000 mg/ (Sodium Chloride) 100 mls @ 200 mls/hr IV Q24H [facility] Insulin Human Lispro (Insulin Lispro 100 Unit/Ml 3ml Vial) 0 unit SUBCUT ACHS KIKA; Protocol Ketorolac Tromethamine (Ketorolac 30 Mg/Ml Vial) 30 mg IV Q6HR PRN PRN Reason: Pain, Severe (7-10) Stop: 04/03/21 21:05 Losartan Potassium (Losartan 25 Mg Tablet) 25 mg PO DAILY KIKA Naloxone HCl (Naloxone 0.4 Mg/Ml Vial) 0.2 mg IV Q2MIN PRN PRN Reason: Opiate Reversal Ondansetron HCl (Ondansetron 4 Mg/2 Ml Inj) 4 mg IV Q8HR PRN PRN Reason: Nausea And Vomiting Pravastatin Sodium (Pravastatin 20 Mg Tablet) 20 mg PO BEDTIME KIKA Trazodone HCl (Trazodone 50 Mg Tablet) 50 mg PO BEDTIME PRN PRN Reason: Sleep Discontinued Medications Lactated Ringer's (Lactated Ringers) 1,808.46 mls @ 602.82 mls/hr 30 ml/kg infuse over 3 hr (1808.46 ml) IV NOW ONE Stop: 03/29/21 21:36 Last Infusion: 03/29/21 22:11 Dose: 602.82 mls/hr Documented by: Admin: 03/29/21 18:55 Dose: 602.82 mls/hr Documented by: JOSE Ceftriaxone Sodium 2,000 mg/ (Sodium Chloride) 100 mls @ 200 mls/hr IV NOW ONE Stop: 03/29/21 19:44 Last Infusion: 03/29/21 20:38 Dose: 0 mls/hr Documented by: Admin: 03/29/21 20:03 Dose: 200 mls/hr Documented by: ALPHONSO Ketorolac Tromethamine (Ketorolac 30 Mg/Ml Vial) 15 mg IV NOW ONE Stop: 03/29/21 19:44 Last Admin: 03/29/21 20:04 Dose: 15 mg Documented by: ALPHONSO Vital Signs Vital signs: Vital Signs - 8 hr 03/29/21 20:30 Pulse Rate 122 H Respiratory Rate 26 H Blood Pressure 142/65 H Pulse Oximetry 93 Sepsis Guideline Criteria Level 2 - SIRS Sepsis SIRS Criteria Present: Respiratory Rate > 20 bpm or PaCO2 < 32 mmHg and Pulse > 90 bpm Level 3 - Organ Dysfunction Sepsis Organ Dysfunction Criteria Present: Lactic Acid > 2 mmol/L Possible Source Possible source sepsis: genitourinary Treatment Initiated Fluids: 30mL/kg of IV crystalloid fluid within 1st hour.: ABW used Antibiotics:: IV antimicrobials will be initiated as soon as possible after recognition of sepsis state and within one hour for both sepsis and septic shock. MDM - Sepsis Differential Diagnosis Possible source sepsis: genitourinary Lab Data Result diagrams: 03/29/21 18:25 03/29/21 18:25 Labs: Lab Results 03/29/21 03/29/21 03/29/21 Range/Units 18:25 18:25 18:25 WBC 9.3 (4.5-11.0) X10^3/uL RBC 5.03 (4.0-5.2) X10^6/uL Hgb 13.3 (12.0-16.0) g/dL Hct 40.4 (36-46) % MCV 80.2 (80-100) fL MCH 26.5 (26-34) PG MCHC 33.0 (30-36) % RDW 14.1 (11.6-14.8) % Plt Count 283 (150-400) X10^3/uL Neut % (Auto) 85.3 H (50-75) % Lymph % (Auto) 9.9 L (25-40) % [place] % (Auto) 0.9 L (3-14) % Eos % (Auto) 3.7 (2-4) % Baso % (Auto) 0.2 (0-2) % Neut # (Auto) 8000 H (4791-9634) /uL Lymph # (Auto) 900 L (6361-4944) /uL [place] # (Auto) 100 (0-900) /uL Eos # (Auto) 300 (0-450) /uL Baso # (Auto) 0 (0-100) /uL D-Dimer 269 H (<230) ng/mL Sodium 136 L (137-145) mmol/L Potassium 4.1 (3.4-5.1) mmol/L Chloride 102 (98-107) mmol/L Carbon Dioxide 24 (22-32) mmol/L BUN 30 H (7-17) mg/dL Creatinine 1.46 H (0.52-1.04) mg/dL Estimated GFR 36.9 L (>60) mL/min BUN/Creatinine Ratio 20.5 (6-22) Glucose 357 H (70-100) mg/dL Hemoglobin A1c (4.0-6.0) % Lactate (0.7-2.1) mmol/L Calcium 10.2 (8.4-10.2) mg/dL Magnesium (1.6-2.3) mg/dL Total Bilirubin 0.6 (0.2-1.3) mg/dL AST 25 (14-36) IU/L ALT 18 (<35) IU/L Alkaline Phosphatase 96 (38-126) U/L Total Creatine Kinase 65 (30-135) U/L CK-MB (CK-2) TNP CK-MB (CK-2) Rel Index TNP Troponin I < 0.012 (0.01-0.034) ng/mL Total Protein 9.2 H (6.3-8.2) g/dL Albumin 4.9 (3.5-5.0) g/dL Globulin 4.3 H (1.7-4.1) g/dL Albumin/Globulin Ratio 1.1 (1.0-2.8) Procalcitonin 0.15 (<0.5) ng/mL Urine Color Urine Appearance Urine pH (4.5-8.0) Ur Specific [place] (1.000-1.035) Urine Protein (Negative) Urine Glucose (UA) (Negative) g/dL Urine Ketones (NEGATIVE) Urine Occult Blood (Negative) Urine Nitrate (Negative) Urine Bilirubin (NEGATIVE) Urine Urobilinogen (0.2) E.U./dL Ur Leukocyte Esterase (NEGATIVE) Urine RBC (0-5/HPF) Urine WBC (0-5/HPF) Urine Bacteria (None) Ur Culture Indicated? SARS-CoV-2 (PCR) (Negative) 03/29/21 03/29/21 03/29/21 Range/Units 19:14 19:14 19:29 WBC (4.5-11.0) X10^3/uL RBC (4.0-5.2) X10^6/uL Hgb (12.0-16.0) g/dL Hct (36-46) % MCV (80-100) fL MCH (26-34) PG MCHC (30-36) % RDW (11.6-14.8) % Plt Count (150-400) X10^3/uL Neut % (Auto) (50-75) % Lymph % (Auto) (25-40) % [place] % (Auto) (3-14) % Eos % (Auto) (2-4) % Baso % (Auto) (0-2) % Neut # (Auto) (8860-8164) /uL Lymph # (Auto) (9026-6524) /uL [place] # (Auto) (0-900) /uL Eos # (Auto) (0-450) /uL Baso # (Auto) (0-100) /uL D-Dimer (<230) ng/mL Sodium (137-145) mmol/L Potassium (3.4-5.1) mmol/L Chloride (98-107) mmol/L Carbon Dioxide (22-32) mmol/L BUN (7-17) mg/dL Creatinine (0.52-1.04) mg/dL Estimated GFR (>60) mL/min BUN/Creatinine Ratio (6-22) Glucose (70-100) mg/dL Hemoglobin A1c 10.0 H (4.0-6.0) % Lactate 3.4 H (0.7-2.1) mmol/L Calcium (8.4-10.2) mg/dL Magnesium 1.8 (1.6-2.3) mg/dL Total Bilirubin (0.2-1.3) mg/dL AST (14-36) IU/L ALT (<35) IU/L Alkaline Phosphatase (38-126) U/L Total Creatine Kinase (30-135) U/L CK-MB (CK-2) CK-MB (CK-2) Rel Index Troponin I (0.01-0.034) ng/mL Total Protein (6.3-8.2) g/dL Albumin (3.5-5.0) g/dL Globulin (1.7-4.1) g/dL Albumin/Globulin Ratio (1.0-2.8) Procalcitonin (<0.5) ng/mL Urine Color Urine Appearance Urine pH (4.5-8.0) Ur Specific [place] (1.000-1.035) Urine Protein (Negative) Urine Glucose (UA) (Negative) g/dL Urine Ketones (NEGATIVE) Urine Occult Blood (Negative) Urine Nitrate (Negative) Urine Bilirubin (NEGATIVE) Urine Urobilinogen (0.2) E.U./dL Ur Leukocyte Esterase (NEGATIVE) Urine RBC (0-5/HPF) Urine WBC (0-5/HPF) Urine Bacteria (None) Ur Culture Indicated? SARS-CoV-2 (PCR) (Negative) 02/21/22 02/21/22 Range/Units 20:18 20:58 WBC (4.5-11.0) X10^3/uL RBC (4.0-5.2) X10^6/uL Hgb (12.0-16.0) g/dL Hct (36-46) % MCV (80-100) fL MCH (26-34) PG MCHC (30-36) % RDW (11.6-14.8) % Plt Count (150-400) X10^3/uL Neut % (Auto) (50-75) % Lymph % (Auto) (25-40) % [place] % (Auto) (3-14) % Eos % (Auto) (2-4) % Baso % (Auto) (0-2) % Neut # (Auto) (8235-6456) /uL Lymph # (Auto) (2592-5327) /uL [place] # (Auto) (0-900) /uL Eos # (Auto) (0-450) /uL Baso # (Auto) (0-100) /uL D-Dimer (<230) ng/mL Sodium (137-145) mmol/L Potassium (3.4-5.1) mmol/L Chloride (98-107) mmol/L Carbon Dioxide (22-32) mmol/L BUN (7-17) mg/dL Creatinine (0.52-1.04) mg/dL Estimated GFR (>60) mL/min BUN/Creatinine Ratio (6-22) Glucose (70-100) mg/dL Hemoglobin A1c (4.0-6.0) % Lactate (0.7-2.1) mmol/L Calcium (8.4-10.2) mg/dL Magnesium (1.6-2.3) mg/dL Total Bilirubin (0.2-1.3) mg/dL AST (14-36) IU/L ALT (<35) IU/L Alkaline Phosphatase (38-126) U/L Total Creatine Kinase (30-135) U/L CK-MB (CK-2) CK-MB (CK-2) Rel Index Troponin I (0.01-0.034) ng/mL Total Protein (6.3-8.2) g/dL Albumin (3.5-5.0) g/dL Globulin (1.7-4.1) g/dL Albumin/Globulin Ratio (1.0-2.8) Procalcitonin (<0.5) ng/mL Urine Color Yellow Urine Appearance Cloudy Urine pH 5.5 (4.5-8.0) Ur Specific [place] 1.015 (1.000-1.035) Urine Protein 2+ H (Negative) Urine Glucose (UA) 2+ H (Negative) g/dL Urine Ketones Negative (NEGATIVE) Urine Occult Blood 3+ H (Negative) Urine Nitrate Positive H (Negative) Urine Bilirubin Negative (NEGATIVE) Urine Urobilinogen 0.2 (0.2) E.U./dL Ur Leukocyte Esterase 1+ H (NEGATIVE) Urine RBC None seen (0-5/HPF) Urine WBC >100/hpf H (0-5/HPF) Urine Bacteria Many (>30) H (None) Ur Culture Indicated? Specimen cultured SARS-CoV-2 (PCR) Negative (Negative) Discharge Plan Departure Patient Disposition: Admitted As Inpatient Clinical Impression: Sepsis, UTI (urinary tract infection) Admit Date/Time: 03/29/21 20:59 Admit Provider: Susana Reyna
[2021-03-29 19:15] LABS: Alanine Aminotransferase 18 IU/L (<35); Albumin 4.9 g/dL (3.5-5.0); Albumin Globulin Ratio 1.1 (1.0-2.8); Alkaline Phosphatase 96 U/L (38-126); Aspartate Aminotransferase 25 IU/L (14-36); BUN Creatinine Ratio 20.5 (6-22); Bilirubin Total 0.6 mg/dL (0.2-1.3); Blood Urea Nitrogen 30 mg/dL (7-17); Calcium 10.2 mg/dL (8.4-10.2); Carbon Dioxide 24 mmol/L (22-32); Chloride 102 mmol/L (98-107); Creatine Kinase 65 U/L (30-135); Estimated Glomerular Filt Rate 36.9 mL/min (>60); Globulin 4.3 g/dL (1.7-4.1); Glucose 357 mg/dL (70-100); HEMOLYSIS < 15 (0-50); Potassium 4.1 mmol/L (3.4-5.1); Sodium 136 mmol/L (137-145); Total Protein 9.2 g/dL (6.3-8.2)
[2021-03-29 19:26] LABS: Troponin I < 0.012 ng/mL (0.01-0.034)
[2021-03-29 19:31] LABS: Procalcitonin 0.15 ng/mL (<0.5)
[2021-03-29 19:50] LABS: Lactate (Lactic Acid) 3.4 mmol/L (0.7-2.1)
[2021-03-29] MEDS: cefTRIAXone 2,000 MG in SODIUM CHLORIDE 0.9% 100 ML 200 ML IV (20:03)
[2021-03-29] MEDS: KETOROLAC 30 MG/ML VIAL 15 MG IV (20:04)
[2021-03-29 20:32] LABS: Bilirubin Urine UA NEGATIVE (NEGATIVE); Color Urine UA YELLOW; Glucose Urine UA 2+ g/dL (Negative); Ketones Urine UA NEGATIVE (NEGATIVE); Leukocyte Esterase Urine UA 1+ (NEGATIVE); Nitrite Urine UA POSITIVE (Negative); Occult Blood Urine UA 3+ (Negative); Protein Urine UA 2+ (Negative); Specific Gravity Urine UA 1.015 (1.000-1.035); Urobilinogen Urine UA 0.2 E.U./dL (0.2)
[2021-03-29 20:34] LABS: Appearance Urine UA Cloudy; pH Urine UA 5.5 (4.5-8.0)
[2021-03-29 20:36] LABS: Bacteria Urine Many (>30); Culture Indicated Urine Specimen Cultured; RBC Urine None Seen (0-5/HPF); WBC Urine >100/HPF (0-5/HPF)
[2021-03-29 20:48] LABS: D Dimer 269 ng/mL (<230)
[2021-03-29 21:18] LABS: COVID19 -Nasal RAPID Negative (Negative)
[2021-03-29 21:24] LABS: Magnesium 1.8 mg/dL (1.6-2.3)
[2021-03-29 21:34] LABS: Reflexed Lactate in 2 Hours Y
[2021-03-29 22:25] LABS: Lactate 2HR (Lactic Acid Rflx) 1.8 mmol/L (0.7-2.1)
[2021-03-30] VITALS (15 sets, daily range): BP systolic 119–197; BP diastolic 60–103; PULSE 69–84; RESP 14–16; TEMP 36.1–37.1; O2SAT 95–100; BMI 23.8
[2021-03-30] MEDS: LACTATED RINGERS 1,000 ML 100 ML IV ×2 (00:20→09:53)
--- NOTE | 2021-03-30 00:40 | PM.HP.1 ---
History of Present Illness History of Present Illness Date Patient Seen: 03/29/21 Time Patient Seen: 21:11 Chief complaint: UTI Narrative: Carolina Paulson is a 55-year-old female nonsmoker with a history of an IDDM 2 with neuropathy, essential hypertension, depression with anxiety, asthma,insomnia, COVID-19 infection October 2020, previous RAPHAEL, and hyperlipidemia who presented to the ED with complaints of dysuria, frequency urgency, fevers high as 100.9, chills over the course of the day, body aches, shortness of breath, dizziness upon standing, nausea, and increasing blood sugars, and feels quite poorly. Patient was found to be tachycardic with heart rates in the 130s.? Upon admit patient is resting comfortably in bed she states she continues to be short of breath but states is improved, denies chest pain, abdominal pain, nausea, vomiting, back pain, fever, chills, body aches, headache, changes in vision, numbness, tingling, weakness, no recent illness injury or trauma. Patient is unvaccinated and had COVID-25 October 2020 and was hospitalized at [facility] with additional RAPHAEL, and continues to be resistant to vaccination. Upon admit patient met SIRS criteria, SOFA:2. Patient is febrile, tachycardic, and tachypneic. vitals upon admit temp 101.3?, BP 144/67, HR 125, O2 saturation 95% on room air. Patient has no elevated WBC but does have a left shift neutrophils 8000. Patient's last documented renal panel 01/23/2019 BUN 26, creatinine 0.90, GFR> 60, today patient's BUN is 30, creatinine 1.46, glucose 357, GFR 36.9. Patient does not demonstrate DKA, gap 10. Patient's D-dimer 269, H adjusted cut off 570-recommended DVT/PE is unlikely. Lactate is 3.4, total protein 9.2, procalcitonin is WNL, globin is 4.3. Patient's urine demonstrates positive protein, glucose, blood, nitrates, WBC, and bacteria-culture pending. Patient's chest x-ray demonstrates no acute cardiopulmonary processes. Patient is admitted for urosepsis with RAPHAEL. Patient History Medical History (Updated 03/30/21 @ 00:54 by VITALIY Sood-HODAN) Depression Depression with anxiety Diabetes Hearing loss Hyperlipidemia associated with type 2 diabetes mellitus Insomnia Night terrors Non-insulin dependent type 2 diabetes mellitus Seasonal allergies Surgical History Hx of carpal tunnel repair Hx of hand surgery Hx of shoulder surgery Family & Social History Family History Father Depression Hypertension Sister Gout Cancer Mother Diabetes mellitus Social History: household members significant other Prior Living Arrangements House Safety & Behavioral: Feels Safe in Current Yes Environment Been Physically Hurt or No Threatened By a Person Suicidal Ideation Description None Suicide Plan Description No Plan Tobacco & Substance use: Smoking Status Never smoker alcohol intake never Substance Use Type does not use Meds Home Medications and Allergies Home Medications Medication Instructions Recorded Confirmed Type gabapentin 100 mg capsule 300 mg PO BEDTIME 12/25/18 03/30/21 History glipizide 5 mg tablet 5 mg PO QAM 12/25/18 03/30/21 History loratadine 10 mg tablet (Allergy 10 mg PO DAILY PRN 12/25/18 03/30/21 History Relief (loratadine)) multivitamin 1 cap PO QAM 12/25/18 03/30/21 History pravastatin 20 mg tablet 20 mg PO BEDTIME 12/25/18 03/30/21 History fluoxetine 20 mg capsule 20 mg PO DAILY 03/29/21 03/29/21 History fluoxetine 40 mg capsule 40 mg PO DAILY 03/29/21 03/29/21 History losartan 25 mg tablet 25 mg PO DAILY 03/29/21 03/29/21 History metformin 500 mg tablet 1,000 mg PO BID 03/29/21 03/29/21 History naproxen 500 mg tablet 500 mg PO PRN 03/29/21 History albuterol sulfate 90 mcg/actuation 2 puff INHALATION Q4-6H PRN 03/30/21 03/30/21 History aerosol inhaler alprazolam 0.25 mg tablet 0.25 mg PO Q8H PRN 03/30/21 03/30/21 History atorvastatin 40 mg tablet 40 mg PO BEDTIME 03/30/21 03/30/21 History trazodone 50 mg tablet 50 mg PO BEDTIME PRN 03/30/21 03/30/21 History Allergies Allergy/AdvReac Type Severity Reaction Status Date / Time aspirin [ASPIRIN] Allergy Severe Gastrointestinal Verified 01/23/19 04:55 Upset iodine [IODINE] Allergy Unknown Verified 01/22/19 21:17 lactose [LACTOSE] Allergy Unknown Verified 01/22/19 21:17 latex [LATEX] Allergy Unknown Verified 01/22/19 21:17 Review of Systems Review of Systems Narrative: All 12 point systems reviewed with the patient and are negative except otherwise documented. Exam Vital Signs (past 8 hours): - 03/29/21 18:47 03/29/21 18:52 03/29/21 19:00 Temperature 100.4 F H Pulse Rate 135 H 129 H 137 H Respiratory Rate Blood Pressure 182/94 H 184/88 H 174/87 H Pulse Oximetry 96 97 95 03/29/21 19:30 03/29/21 19:36 03/29/21 20:00 Temperature 101.3 F H Pulse Rate 127 H 125 H Respiratory Rate 25 H Blood Pressure 139/65 144/67 H Pulse Oximetry 95 95 03/29/21 20:30 03/29/21 21:00 03/29/21 21:30 Temperature Pulse Rate 122 H 115 H 111 H Respiratory Rate 26 H 25 H 27 H Blood Pressure 142/65 H 146/64 H 144/72 H Pulse Oximetry 93 94 92 03/29/21 22:00 03/29/21 22:15 03/29/21 23:24 Temperature 99.7 F H 97.7 F Pulse Rate 97 H 104 H Respiratory Rate 18 Blood Pressure 134/71 Pulse Oximetry 100 100 Oxygen Delivery Method Room Air Oxygen Flow Rate 0 Narrative Exam Narrative: General: Patient is a moderatly ill-appearing female, in no distress at this time. HEENT: Normocephalic, atraumatic, extraocular muscles intact, oral pharynx is clear and mucous membranes are dry. Neck is supple and symmetric, trachea is midline, no adenopathy, no thyroid enlargement, nontender, no masses palpated. Negative for JVD Chest: Normal AP diameter and contour without kyphoscoliosis, no nasal flaring, retractions, or tachypneic labored breathing. Lungs: Auscultation of all lung glover are clear without adventitious sounds, wheezes, rhonchi, or rales. Cardio: S1 & S2 with regular rate and rhythm without murmur, rubs, or gallops, no carotid bruit, no cardiac pulsations present. Abdomen: Soft nontender, negative for organomegaly, or masses. Bowel sounds are present in all 4 quadrants without guarding or rebound, positive right CVA tenderness. Musculoskeletal: Muscle strength and tone are equal within normal limits, no deformity, crepitus, effusions, cyanosis, clubbing or edema present. Full range of motion intact radial and pedal pulses are normal. Skin: Pale, Warm to touch,dry and intact without rashes, ulcerations or petechiae. Neuro: Alert and orientated x3, sensation to touch intact, no gross deficits noted of cranial nerves. Psych: Patient has a well-kept appearance, appropriate affect, mental status attitude thought context and judgment are appropriate for age. Objective Labs Result Diagrams: 03/29/21 18:25 03/29/21 18:25 Labs: Laboratory Results - last 24 hr 03/29/21 03/29/21 03/29/21 18:25 18:25 18:25 WBC 9.3 RBC 5.03 Hgb 13.3 Hct 40.4 MCV 80.2 MCH 26.5 MCHC 33.0 RDW 14.1 Plt Count 283 Neut % (Auto) 85.3 H Lymph % (Auto) 9.9 L [place] % (Auto) 0.9 L Eos % (Auto) 3.7 Baso % (Auto) 0.2 Neut # (Auto) 8000 H Lymph # (Auto) 900 L [place] # (Auto) 100 Eos # (Auto) 300 Baso # (Auto) 0 D-Dimer 269 H Sodium 136 L Potassium 4.1 Chloride 102 Carbon Dioxide 24 BUN 30 H Creatinine 1.46 H Estimated GFR 36.9 L BUN/Creatinine Ratio 20.5 Glucose 357 H Hemoglobin A1c Lactate Calcium 10.2 Magnesium Total Bilirubin 0.6 AST 25 ALT 18 Alkaline Phosphatase 96 Total Creatine Kinase 65 CK-MB (CK-2) TNP CK-MB (CK-2) Rel Index TNP Troponin I < 0.012 Total Protein 9.2 H Albumin 4.9 Globulin 4.3 H Albumin/Globulin Ratio 1.1 Procalcitonin 0.15 Urine Color Urine Appearance Urine pH Ur Specific [place] Urine Protein Urine Glucose (UA) Urine Ketones Urine Occult Blood Urine Nitrate Urine Bilirubin Urine Urobilinogen Ur Leukocyte Esterase Urine RBC Urine WBC Urine Bacteria Ur Culture Indicated? SARS-CoV-2 (PCR) 03/29/21 03/29/21 03/29/21 19:14 19:14 19:29 WBC RBC Hgb Hct MCV MCH MCHC RDW Plt Count Neut % (Auto) Lymph % (Auto) [place] % (Auto) Eos % (Auto) Baso % (Auto) Neut # (Auto) Lymph # (Auto) [place] # (Auto) Eos # (Auto) Baso # (Auto) D-Dimer Sodium Potassium Chloride Carbon Dioxide BUN Creatinine Estimated GFR BUN/Creatinine Ratio Glucose Hemoglobin A1c 10.0 H Lactate 3.4 H Calcium Magnesium 1.8 Total Bilirubin AST ALT Alkaline Phosphatase Total Creatine Kinase CK-MB (CK-2) CK-MB (CK-2) Rel Index Troponin I Total Protein Albumin Globulin Albumin/Globulin Ratio Procalcitonin Urine Color Urine Appearance Urine pH Ur Specific [place] Urine Protein Urine Glucose (UA) Urine Ketones Urine Occult Blood Urine Nitrate Urine Bilirubin Urine Urobilinogen Ur Leukocyte Esterase Urine RBC Urine WBC Urine Bacteria Ur Culture Indicated? SARS-CoV-2 (PCR) 03/29/21 03/29/21 03/29/21 20:18 20:58 21:56 WBC RBC Hgb Hct MCV MCH MCHC RDW Plt Count Neut % (Auto) Lymph % (Auto) [place] % (Auto) Eos % (Auto) Baso % (Auto) Neut # (Auto) Lymph # (Auto) [place] # (Auto) Eos # (Auto) Baso # (Auto) D-Dimer Sodium Potassium Chloride Carbon Dioxide BUN Creatinine Estimated GFR BUN/Creatinine Ratio Glucose Hemoglobin A1c Lactate 1.8 Calcium Magnesium Total Bilirubin AST ALT Alkaline Phosphatase Total Creatine Kinase CK-MB (CK-2) CK-MB (CK-2) Rel Index Troponin I Total Protein Albumin Globulin Albumin/Globulin Ratio Procalcitonin Urine Color Yellow Urine Appearance Cloudy Urine pH 5.5 Ur Specific [place] 1.015 Urine Protein 2+ H Urine Glucose (UA) 2+ H Urine Ketones Negative Urine Occult Blood 3+ H Urine Nitrate Positive H Urine Bilirubin Negative Urine Urobilinogen 0.2 Ur Leukocyte Esterase 1+ H Urine RBC None seen Urine WBC >100/hpf H Urine Bacteria Many (>30) H Ur Culture Indicated? Specimen cultured SARS-CoV-2 (PCR) Negative Assessment & Plan Assessment & Plan narrative: Carolina Paulson is a 55-year-old female nonsmoker with a history of an IDDM 2 with neuropathy, essential hypertension, depression with anxiety, asthma,insomnia, COVID-19 infection October 2020, previous RAPHAEL, and hyperlipidemia who presented to the ED with complaints of dysuria, frequency urgency, fevers high as 100.9, chills, body aches, shortness of breath, dizziness upon standing, nausea, increasing blood sugars, feels quite poorly, found to be afebrile, tachycardic, and tachypneic. Patient is admitted for urosepsis with RAPHAEL for IV hydration and antibiotics, closely monitoring for septic shock and or DKA. 1. Urosepsis due to UTI, resulting in RAPHAEL, acute, present on admission -patient met SIRS criteria in ED, sofa score of 2, upon admit-as evidence by temp of 101.3?, HR 125, R 25, BUN 30, creatinine 1.46, GFR 36.9, lactate 3.4, and positive urine. -01/23/2019 BUN 26, creatinine 0.90, GFR> 60. -patient was hydrated in ED according to sepsis protocol 30 cc/kilogram of LR -continue LR 100 cc/HR -patient received 2 g Rocephin in ED, will continue Rocephin 1 g Q 24 hours IV -monitor for septic shock -blood and urine cultures pending 2. Hyperlipidemia, related to [id number] type 2 diabetes with neuropathy, acute on chronic, presenting with hyperglycemia, acute, present on admission -admitting glucose 357, A1c ordered -patient admitted under diabetic protocol, monitor for DKA, hypo hyperglycemia -holding patient's glipizide and metformin due to RAPHAEL -glucose chest a.c. and HS will cover with low-dose sliding scale -continue pravastatin, gabapentin -discussion and patient education regarding COVID-19 vaccinations as patients medical conditions put her in a high-risk category for significant poor health out-comes. -please provide patient education handout on COVID-19 vaccination. 3. Depression with anxiety, chronic, present on admission -continue Xanax, citalopram 4. Insomnia with night terrors, chronic, present on admission -continue patient's trazodone 5. Essential hypertension, chronic, present on admission -admitting BP 144/67 -continue prazosin Code status: Full Surrogate decision maker: Fiancee Yoandy Oneill COVID PCR: Negative-(positive infection October 2019) COVID vaccination: Unvaccinated DVT/VTE prophylaxis: Lovenox and SCDs Disposition: Patient was admitted for observation expected length of stay less than 2 midnights. I have utilized all available immediate resources to obtain, update, or review the patient's current medications. I confirmed that the patient's advanced care plan is present, Code status is documented and/or surrogate decision maker is listed in the patient's medical record. Time Spent With Patient Critical Care time: I spent a total of [] minutes of critical care time on this patient's care today; this time is exclusive of procedural time. Scores SOFA PaO2/FIO2: >=400 mmHg Platelets: >= 150 Bilirubin: < 1.2 mg/dL Hypotension: MAP >= 70 mmHg [place] Coma Scale: 15 Renal: Creatinine 1.2-1.9 mg/dL SOFA Score: 1
--- NOTE | 2021-03-30 03:00 | PC.NURSE ---
Admit/NOC Shift Note- Patient arrived to room via stretcher from er at 2213. SBA require to ambulate from stretcher to bed.. unsteady gait noted. Admit questions done, physical assessment done, home medications reviewed, and skin check competed. Patient oriented to bed and bed controls, room, lights, phone, menu,bathroom, and call paul/tvm remote. Safety measures in place. Patient agrees to call for assistance. Bed alarm activated. Call paul and phone within reach. Will continue to monitor.
[2021-03-30 05:33] LABS: Alanine Aminotransferase 15 IU/L (<35); Albumin 3.3 g/dL (3.5-5.0); Albumin Globulin Ratio 1.1 (1.0-2.8); Alkaline Phosphatase 77 U/L (38-126); Aspartate Aminotransferase 28 IU/L (14-36); BUN Creatinine Ratio 19.9 (6-22); Bilirubin Total 0.5 mg/dL (0.2-1.3); Blood Urea Nitrogen 29 mg/dL (7-17); Calcium 8.7 mg/dL (8.4-10.2); Carbon Dioxide 24 mmol/L (22-32); Chloride 108 mmol/L (98-107); Estimated Glomerular Filt Rate 36.9 mL/min (>60); Globulin 3.1 g/dL (1.7-4.1); Glucose 226 mg/dL (70-100); HEMOLYSIS < 15 (0-50); Sodium 137 mmol/L (137-145); Total Protein 6.4 g/dL (6.3-8.2)
--- NOTE | 2021-03-30 08:06 | DI.US.S_ITS ---
PROCEDURE: US RENAL COMPLETE INDICATIONS: RAPHAEL, UTI TECHNIQUE: Real-time scanning was performed of the kidneys and bladder, with image documentation. COMPARISON: [facility], , RENAL COMPLETE, 11/15/2017, 7:18. FINDINGS: Kidneys: Kidneys are normal in size. Right kidney measures 10.3 cm long; left kidney measures 10.1 cm long. Right renal cortical thickness is 1.5 cm; left renal cortical thickness is 2 cm. Renal cortical echotexture is normal. No hydronephrosis or nephrolithiasis. No suspicious solid mass lesions. Bladder: At the time of this study, the bladder is not distended and poorly evaluated. Miscellaneous: No free pelvic fluid. IMPRESSION: Normal appearing kidneys, without hydronephrosis. Bladder not distended and not well evaluated. Dictated by: Golden Rodriguez M.D. on 03/30/2021 at 9:04 Approved by: Golden Rodriguez M.D. on 03/30/2021 at 9:05
[2021-03-30] MEDS: FLUoxetine 20 MG CAPSULE 60 MG PO (09:53)
[2021-03-30] MEDS: LOSARTAN 25 MG TABLET PO (09:54)
[2021-03-30] MEDS: ENOXAPARIN 30 MG/0.3 ML SYRINGE SUBCUT (09:54)
[2021-03-30] MEDS: cefTRIAXone 1,000 MG in SODIUM CHLORIDE 0.9% 100 ML 200 ML IV (09:54)
[2021-03-30] MEDS: INSULIN LISPRO 100 UNIT/ML 3ML VIAL SUBCUT ×4 (09:55→21:01)
--- NOTE | 2021-03-30 10:52 | P.PN_ITS ---
Subjective Subjective Date Patient Seen: 03/30/21 Time Patient Seen: 10:52 Interval history: Overall feels better, still with dysuria but denies abdominal pain. Febrile yesterday at 7pm. Denies nausea but did not eat breakfast. Creatinine stable at 1.46. Renal ultrasound this AM without obstruction. Exam Vital Signs (past 8 hours): - 03/30/21 05:00 03/30/21 05:04 03/30/21 08:00 Temperature 97.0 F L 97 F L Pulse Rate 69 75 Respiratory Rate 14 16 Blood Pressure 119/60 143/78 H Pulse Oximetry 98 98 96 03/30/21 08:14 03/30/21 09:54 Temperature Pulse Rate Respiratory Rate Blood Pressure 143/78 H Pulse Oximetry 96 Oxygen Delivery Method Room Air Oxygen Flow Rate 0 Narrative Exam Narrative: General:? Patient is a mildly ill-appearing female, in no distress at this time. HEENT:? Normocephalic, atraumatic, extraocular muscles intact, oral pharynx is clear and mucous membranes are moist. Neck: supple and symmetric, trachea is midline, no adenopathy. Negative for JVD Chest:? Normal AP diameter and contour without kyphoscoliosis, no tachypnea, equal chest rise bilaterally. Lungs:? CTA b/l no wheezing rhonchi or rales. Cardio:?RRR no m/r/g. Abdomen: S NT ND. No CVA tenderness. Musculoskeletal:? Muscle strength and tone are equal within normal limits, no deformity. Extremities: No edema or joint effusions. No cyanosis or clubbing. Skin:? Pale,? Warm to touch,dry and intact without rashes, ulcerations or petechiae.? Neuro:? Alert and orientated x3,? sensation to touch intact in all extremities, no gross deficits noted of cranial nerves. Psych:? Patient has a well-kept appearance, appropriate affect, mental status attitude thought context and judgment are appropriate for age. Objective Labs Result Diagrams: 03/29/21 18:25 03/30/21 04:40 Labs: Laboratory Results - last 24 hr 03/29/21 03/29/21 03/29/21 18:25 18:25 18:25 WBC 9.3 RBC 5.03 Hgb 13.3 Hct 40.4 MCV 80.2 MCH 26.5 MCHC 33.0 RDW 14.1 Plt Count 283 Neut % (Auto) 85.3 H Lymph % (Auto) 9.9 L [place] % (Auto) 0.9 L Eos % (Auto) 3.7 Baso % (Auto) 0.2 Neut # (Auto) 8000 H Lymph # (Auto) 900 L [place] # (Auto) 100 Eos # (Auto) 300 Baso # (Auto) 0 D-Dimer 269 H Sodium 136 L Potassium 4.1 Chloride 102 Carbon Dioxide 24 BUN 30 H Creatinine 1.46 H Estimated GFR 36.9 L BUN/Creatinine Ratio 20.5 Glucose 357 H Hemoglobin A1c Lactate Calcium 10.2 Magnesium Total Bilirubin 0.6 AST 25 ALT 18 Alkaline Phosphatase 96 Total Creatine Kinase 65 CK-MB (CK-2) TNP CK-MB (CK-2) Rel Index TNP Troponin I < 0.012 Total Protein 9.2 H Albumin 4.9 Globulin 4.3 H Albumin/Globulin Ratio 1.1 Procalcitonin 0.15 Urine Color Urine Appearance Urine pH Ur Specific [place] Urine Protein Urine Glucose (UA) Urine Ketones Urine Occult Blood Urine Nitrate Urine Bilirubin Urine Urobilinogen Ur Leukocyte Esterase Urine RBC Urine WBC Urine Bacteria Ur Culture Indicated? SARS-CoV-2 (PCR) 03/29/21 03/29/21 03/29/21 19:14 19:14 19:29 WBC RBC Hgb Hct MCV MCH MCHC RDW Plt Count Neut % (Auto) Lymph % (Auto) [place] % (Auto) Eos % (Auto) Baso % (Auto) Neut # (Auto) Lymph # (Auto) [place] # (Auto) Eos # (Auto) Baso # (Auto) D-Dimer Sodium Potassium Chloride Carbon Dioxide BUN Creatinine Estimated GFR BUN/Creatinine Ratio Glucose Hemoglobin A1c 10.0 H Lactate 3.4 H Calcium Magnesium 1.8 Total Bilirubin AST ALT Alkaline Phosphatase Total Creatine Kinase CK-MB (CK-2) CK-MB (CK-2) Rel Index Troponin I Total Protein Albumin Globulin Albumin/Globulin Ratio Procalcitonin Urine Color Urine Appearance Urine pH Ur Specific [place] Urine Protein Urine Glucose (UA) Urine Ketones Urine Occult Blood Urine Nitrate Urine Bilirubin Urine Urobilinogen Ur Leukocyte Esterase Urine RBC Urine WBC Urine Bacteria Ur Culture Indicated? SARS-CoV-2 (PCR) 03/29/21 03/29/21 03/29/21 20:18 20:58 21:56 WBC RBC Hgb Hct MCV MCH MCHC RDW Plt Count Neut % (Auto) Lymph % (Auto) [place] % (Auto) Eos % (Auto) Baso % (Auto) Neut # (Auto) Lymph # (Auto) [place] # (Auto) Eos # (Auto) Baso # (Auto) D-Dimer Sodium Potassium Chloride Carbon Dioxide BUN Creatinine Estimated GFR BUN/Creatinine Ratio Glucose Hemoglobin A1c Lactate 1.8 Calcium Magnesium Total Bilirubin AST ALT Alkaline Phosphatase Total Creatine Kinase CK-MB (CK-2) CK-MB (CK-2) Rel Index Troponin I Total Protein Albumin Globulin Albumin/Globulin Ratio Procalcitonin Urine Color Yellow Urine Appearance Cloudy Urine pH 5.5 Ur Specific [place] 1.015 Urine Protein 2+ H Urine Glucose (UA) 2+ H Urine Ketones Negative Urine Occult Blood 3+ H Urine Nitrate Positive H Urine Bilirubin Negative Urine Urobilinogen 0.2 Ur Leukocyte Esterase 1+ H Urine RBC None seen Urine WBC >100/hpf H Urine Bacteria Many (>30) H Ur Culture Indicated? Specimen cultured SARS-CoV-2 (PCR) Negative 03/30/21 04:40 WBC RBC Hgb Hct MCV MCH MCHC RDW Plt Count Neut % (Auto) Lymph % (Auto) [place] % (Auto) Eos % (Auto) Baso % (Auto) Neut # (Auto) Lymph # (Auto) [place] # (Auto) Eos # (Auto) Baso # (Auto) D-Dimer Sodium 137 Potassium 4.0 Chloride 108 H Carbon Dioxide 24 BUN 29 H Creatinine 1.46 H Estimated GFR 36.9 L BUN/Creatinine Ratio 19.9 Glucose 226 H D Hemoglobin A1c Lactate Calcium 8.7 Magnesium Total Bilirubin 0.5 AST 28 ALT 15 Alkaline Phosphatase 77 Total Creatine Kinase CK-MB (CK-2) CK-MB (CK-2) Rel Index Troponin I Total Protein 6.4 Albumin 3.3 L Globulin 3.1 Albumin/Globulin Ratio 1.1 Procalcitonin Urine Color Urine Appearance Urine pH Ur Specific [place] Urine Protein Urine Glucose (UA) Urine Ketones Urine Occult Blood Urine Nitrate Urine Bilirubin Urine Urobilinogen Ur Leukocyte Esterase Urine RBC Urine WBC Urine Bacteria Ur Culture Indicated? SARS-CoV-2 (PCR) [facility] Medical History (Updated 03/30/21 @ 00:54 by IMELDA Sood) Depression Depression with anxiety Diabetes Hearing loss Hyperlipidemia associated with type 2 diabetes mellitus Insomnia Night terrors Non-insulin dependent type 2 diabetes mellitus Seasonal allergies Surgical History Hx of carpal tunnel repair Hx of hand surgery Hx of shoulder surgery Family History Father Depression Hypertension Sister Gout Cancer Mother Diabetes mellitus Social History household members: significant other Smoking Status: Never smoker alcohol intake: never substance use type: does not use Assessment & Plan Assessment & Plan narrative: Carolina Paulson is a 55-year-old female nonsmoker with a history of an IDDM 2 with neuropathy, essential hypertension, depression with anxiety, asthma,insomnia, COVID-19 infection October 2020, previous RAPHAEL, and hyperlipidemia admitted with acute cystitis, now with positive blood cultures / bacteremia slightly improving on antibiotic therapy. 1. acute cystitis with corresponding E. Coli baceteremia, with RAPHAEL, acute, present on admission -patient met SIRS criteria in ED, sofa score of 1 upon admit due to creatinine elevation. -01/23/2019 BUN 26, creatinine 0.90, GFR> 60. -patient was hydrated in ED according to sepsis protocol 30 cc/kilogram of LR -continue LR 100 cc/HR given only stable creatinine today. -patient received 2 g Rocephin in ED, will continue Rocephin 1 g Q 24 hours IV -blood and urine cultures pending, currently blood cultures positive for E. Coli. -renal ultrasound without hydronephrosis. -will need 7 days of antibiotic therapy total upon discharge. 2. Hyperlipidemia, related to [id number] type 2 diabetes with neuropathy, acute on chronic, presenting with hyperglycemia, acute, present on admission -admitting glucose 357, A1c 10% -patient admitted under diabetic protocol, monitor for DKA, hypo hyperglycemia -holding patient's glipizide and metformin due to RAPHAEL -glucose chest a.c. and HS will cover with low-dose sliding scale -continue pravastatin, gabapentin -Will add dose of Lantus tonight. 3. Depression with anxiety, chronic, present on admission -continue Xanax, citalopram 4. Insomnia with night terrors, chronic, present on admission -continue patient's trazodone 5. Essential hypertension, chronic, present on admission - continue home medications Code: Full Dispo: probable discharge home in the next 1-2 days once creatinine improves and patient is symptomatically improved. Can likely discharge home on oral antibiotics pending cultures. Time Spent With Patient Critical Care time: I spent a total of [] minutes of critical care time on this patient's care today; this time is exclusive of procedural time. Scores SOFA PaO2/FIO2: >=400 mmHg Platelets: >= 150 Bilirubin: < 1.2 mg/dL Hypotension: MAP >= 70 mmHg [place] Coma Scale: 15 Renal: Creatinine 1.2-1.9 mg/dL SOFA Score: 1
--- NOTE | 2021-03-30 10:52 | CM.DANOTE ---
Discharge Assessment Note: Patient is 55yo Female admitted to hospitalist with RAPHAEL, Urosepsis due to UTI, and hyperglycemia. Hospitalist ordered renal ultrasound; depending on results patient may be ready for discharge 03/31. Patient resides at home with caleb Pitt who is DPOA. Patient is fully independent at home with minor mobility limitations in left shoulder for which she is pending outpatient PT. Patient reported no SNF, HH history, no dialysis or IV therapies, and no home O2 use. Patient does not have assistive devices available for personal use and reported no need for them at this time. INS: [place] [employer]/Medicaid PCP: Kacy Anderson Plan: patient is anticipated to discharge home on 03/31. No identified discharge needs at this time. Patient will be transported home via POV with caleb. Care management will follow for discharge planning needs. Daniel HANDSW Discharge Planning/Care Management Advanced directive, confirm from FAMILY Start: 03/29/21 23:51 Freq: Q24H Status: Active Protocol: Document 03/29/21 23:51 AGW (Rec: 03/30/21 01:46 AGW [id number]) Advance Directive, confirm on record Time 23:00 Person contacted spouse Copy received No CM Discharge Assessment Start: 03/30/21 10:49 Freq: Status: Active Protocol: Document 03/30/21 10:49 JENNIFER (Rec: 03/30/21 10:52 JENNIFER [id number]) Discharge Planning Assessment Assigned Director Of Enrollment Daniel HANDSW DPOA/Assigned Designee Name Caleb Oneill Contact Information [phone] Advance Directives? No Advance Directives on File No History Provided By Patient,Significant Other, Medical Record Has Patient been admitted in last 30 No days? Prior Living Arrangements House Household Members significant other Type of transporation used prior to Drives own vehicle admit Independent with ADL's Yes Is patient alert and oriented? Yes Comment has a frozen left shoulder pending PT, limits some housekeeping abilities temporarily Caregiver for Another No Community Services used prior to Physical Therapy admission: Barriers to Discharge No Discharge Plan Home Transportation Arrangement caleb POV Referrals Initiated None needed Whiteboard Updated in Patient Room with Yes name and ext. # of Director Of Enrollment Review Status In Process Next Review Type Continued Stay Review
[2021-03-30 10:55] LABS: Acinetobacter baumannii Not Detected (Not Detect); Enterococcus species Not Detected (Not Detect); Listeria monocytogenes Not Detected (Not Detect); Staphylococcus species Not Detected (Not Detect); Streptococcus agalactiae (Gr B Not Detected (Not Detect); Streptococcus pneumonia Not Detected (Not Detect); Streptococcus pyogenes (Gr A) Not Detected (Not Detect); Streptococcus species Not Detected (Not Detect)
[2021-03-30 10:56] LABS: KPC (carbapenem-resist gene) Not Detected (Not Detect)
[2021-03-30 10:57] LABS: Candida albicans Not Detected (Not Detect); Candida glabrata Not Detected (Not Detect); Candida krusei Not Detected (Not Detect); Candida parapsilosis Not Detected (Not Detect); Candida tropicalis Not Detected (Not Detect); Enterobacter cloacae complex Not Detected (Not Detect); Haemophilus influenzae Not Detected (Not Detect); Neisseria meningitidis Not Detected (Not Detect); Proteus species Not Detected (Not Detect); Pseudomonas aeruginosa Not Detected (Not Detect); Serratia marcescens Not Detected (Not Detect)
[2021-03-30 10:59] LABS: E. coli Detected (Not Detect); Enterobacteriaceae species Detected (Not Detect)
[2021-03-30] MEDS: MAG HYDROX/ALUM/SIMETH 30 ML UDC PO (18:13)
[2021-03-30] MEDS: ATORVASTATIN 20 MG TABLET 40 MG PO (20:54)
[2021-03-30] MEDS: GABAPENTIN 100 MG CAPSULE 300 MG PO (20:54)
[2021-03-30] MEDS: INSULIN GLARGINE 100 UNIT/ML 3ML PEN 10 UNIT SUBCUT (21:00)
[2021-03-31] VITALS (9 sets, daily range): BP systolic 137–145; BP diastolic 63–75; PULSE 80–90; RESP 18; TEMP 36.3–37.1; O2SAT 92–97
[2021-03-31] MEDS: ENOXAPARIN 30 MG/0.3 ML SYRINGE SUBCUT (09:18)
[2021-03-31] MEDS: LOSARTAN 25 MG TABLET PO (09:18)
[2021-03-31] MEDS: FLUoxetine 20 MG CAPSULE 60 MG PO (09:19)
[2021-03-31] MEDS: cefTRIAXone 1,000 MG in SODIUM CHLORIDE 0.9% 100 ML 200 ML IV (09:19)
[2021-03-31] MEDS: INSULIN LISPRO 100 UNIT/ML 3ML VIAL SUBCUT (09:20)
--- NOTE | 2021-03-31 10:28 | P.DS_ITS ---
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 hyperlipidemia who presented to the ED with complaints of? dysuria, frequency urgency, fevers high as 100.9,? chills over the course of the day, body aches, shortness of breath, dizziness upon standing, nausea, and increasing blood sugars, and feels quite poorly. Patient was found to be tachycardic with heart rates in the 130s.? Upon admit patient is resting comfortably in bed she states she continues to be short of breath but states is improved, denies chest pain, abdominal pain, nausea, vomiting, back pain, fever, chills, body aches, headache , changes in vision, numbness, tingling, weakness, no recent illness injury or trauma.? Patient is unvaccinated and had COVID-25 October 2020 and was hospitalized at [facility] with additional RAPHAEL, and continues to be resistant to vaccination. Upon admit patient met SIRS criteria, SOFA:2.? Patient is febrile, tachycardic, and tachypneic.? vitals upon admit temp 101.3?, BP 144/67, HR 125, O2 saturation 95% on room air.? Patient has no elevated WBC but does have a left shift neutrop hils 8000.? Patient's last documented renal panel 01/23/2019 BUN 26, creatinine 0.90, GFR> 60, today patient's BUN is 30, creatinine 1.46, glucose 357, GFR 36.9.? Patient does not demonstrate DKA, gap 10.? Patient's D-dimer 269, H adjusted cut off 570-recommended DVT/PE is unlikely.? Lactate is 3.4, total protein 9.2, procalcitonin is WNL, globin is 4.3.? Patient's urine demonstrates positive protein, glucose, blood, nitrates, WBC, and bacteria-culture pending.? Patient's chest x-ray demonstrates no acute cardiopulmonary processes.? Patient is admitted for urosepsis with RAPHAEL. Discharge Providers Provider Date of admission: 03/29/21 20:59 Discharge Date: 03/31/21 Primary care physician: Kacy Anderson MD Discharge provider: Oniel Carey DO Summary Hospital Course Discharge Diagnosis: 1. acute cystitis with corresponding E. Coli baceteremia, with likely RAPHAEL, ac pilot station, present on admission. Sepsis ruled out. 2. Hyperlipidemia, related to [id number]-[id number] type 2 diabetes with neuropathy, acute on chronic, presenting with hyperglycemia, acute, present on admission 3. Depression with anxiety, chronic, present on admission 4. Insomnia with night terrors, chronic, present on admission 5. Essential hypertension, chronic, present on admission Hospital Course: Carolina Paulson is a 55-year-old female nonsmoker with a history of an IDDM 2 with neuropathy, essential hypertension, depression with anxiety, asthma,insomnia, COVID-19 infection October 2020, previous RAPHAEL, and hyperlipidemia admitted with acute cystitis found to have E. coli bacteremia. Her sofa score was 1 upon admission due to a slight elevation in her creatinine to 1.46. This value stayed stable during the course of her admission. Her A1c was noted to be elevated as well, which the patient relates to dietary changes recently. I suggested that she follow-up with her primary care for further diabetes management and the patient was agreeable to dietary restrictions at this time. On the day of discharge, the patient was tolerating a diet and felt much improved. For management of her bacteremia she was discharged on an oral antibiotic to complete a total 7 day course. No other medication changes are recommended at this time. Time Spent with Patient Time spent: Greater than 30 minutes Exam Vital Signs (past 8 hours): - 03/31/21 04:00 03/31/21 05:30 03/31/21 07:22 Temperature 97.6 F Pulse Rate 80 Respiratory Rate 18 Blood Pressure 138/69 Pulse Oximetry 96 96 92 03/31/21 07:45 03/31/21 09:00 03/31/21 09:18 Temperature 97.4 F L Pulse Rate 81 Respiratory Rate 18 Blood Pressure 137/75 137/75 Pulse Oximetry 95 95 Oxygen Delivery Method Room Air Oxygen Flow Rate 0 Narrative Exam Narrative: General:? Patient is a mildly ill-appearing female, in no distress at this time. HEENT:? Normocephalic, atraumatic, extraocular muscles intact, oral pharynx is clear and mucous membranes are moist. Neck: supple and symmetric, trachea is midline, no adenopathy. Negative for JVD Chest:? Normal AP diameter and contour without kyphoscoliosis, no tachypnea, equal chest rise bilaterally. Lungs:? CTA b/l no wheezing rhonchi or rales. Cardio:?RRR no m/r/g. Abdomen: S NT ND. No CVA tenderness. Musculoskeletal:? Muscle strength and tone are equal within normal limits, no deformity. Extremities: No edema or joint effusions. No cyanosis or clubbing. Skin:? Pale,? Warm to touch,dry and intact without rashes, ulcerations or petechiae.? Neuro:? Alert and orientated x3,? sensation to touch intact in all extremities, no gross deficits noted of cranial nerves. Psych:? Patient has a well-kept appearance, appropriate affect, mental status attitude thought context and judgment are appropriate for age. Objective Labs Result Diagrams: 03/29/21 18:25 03/30/21 04:40 Labs: Laboratory Results - last 24 hr 03/29/21 19:14 A. baumannii (PCR) Not detected Megan albicans (PCR) Not detected C. glabrata (PCR) Not detected C. krusei (PCR) Not detected C. parapsilosis (PCR) Not detected C. tropicalis (PCR) Not detected Enterobacteriac sp PCR Detected H E. cloacae complex PCR Not detected Enterococcus sp PCR Not detected E. coli (PCR) Detected H H. influenzae (PCR) Not detected Klebsiella oxytoca PCR Not detected Klebsiella pneumoniae Not detected List. monocytogenes PCR Not detected N. meningitidis (PCR) Not detected Proteus species (PCR) Not detected Serratia marcescens PCR Not detected Staphylococcus sp PCR Not detected Staph aureus (PCR) Not detected mecA-Methicil Res Gene Not Reportable Streptococcus sp PCR Not detected Group A Strep (PCR) Not detected Strep agalactiae (PCR) Not detected Strep pneumoniae (PCR) Not detected P. aeruginosa (PCR) Not detected Radha/B-Vanco Res Genes Not Reportable KPC-Carbap Res Gene PCR Not detected PFSH Medical History (Updated 03/30/21 @ 00:54 by VITALIY Sood-) Depression Depression with anxiety Diabetes Hearing loss Hyperlipidemia associated with type 2 diabetes mellitus Insomnia Night terrors Non-insulin dependent type 2 diabetes mellitus Seasonal allergies Surgical History Hx of carpal tunnel repair Hx of hand surgery Hx of shoulder surgery Family History Father Depression Hypertension Sister Gout Cancer Mother Diabetes mellitus Social History household members: significant other Smoking Status: Never smoker alcohol intake: never substance use type: does not use Discharge Plan Discharge Plan Patient Disposition: Home Provider Discharge Comment: You were admitted to the hospital with a blood stream infection. This is easily treated with antibiotics. Please complete antibiotic therapy at home. Please follow up with your PCP for further work on your diabetes as well. Nursing Discharge Comment: Print out via [employer] for Cefdinir antibiotic provided and added into d/c packet, please see handout. Discharge orders & Medications Prescriptions: New cefdinir 300 mg capsule 300 mg PO BID 5 Days Qty: 10 0RF Continued pravastatin 20 mg tablet 20 mg PO BEDTIME 0RF Label Comments: Patient states it tastes bad so I dont take it every night. glipizide 5 mg tablet 5 mg PO QAM 0RF gabapentin 100 mg capsule 300 mg PO BEDTIME 0RF loratadine [Allergy Relief (loratadine)] 10 mg tablet 10 mg PO DAILY PRN (Reason: Allergic Symptoms) 0RF multivitamin Capsule 1 cap PO QAM 0RF fluoxetine 20 mg capsule 20 mg PO DAILY 0RF Rx Instructions: new RX, was to start tomorrow fluoxetine 40 mg capsule 40 mg PO DAILY 0RF losartan 25 mg tablet 25 mg PO DAILY 0RF Label Comments: take 1 tablet by mouth once daily metformin 500 mg tablet 1,000 mg PO BID 0RF Label Comments: take 2 tablets by mouth twice a day naproxen 500 mg tablet 500 mg PO PRN PRN (Reason: Pain (Scale Score 1-3)) 0RF Label Comments: take 1 tablet by mouth twice a day with meals alprazolam 0.25 mg Tablet 0.25 mg PO Q8H PRN (Reason: Anxiety) 0RF albuterol sulfate 90 mcg/actuation Hfa Aerosol Inhaler 2 puff INHALATION Q4-6H PRN (Reason: Shortness Of Breath) 0RF trazodone 50 mg Tablet 50 mg PO BEDTIME PRN (Reason: Sleep) 0RF atorvastatin 40 mg Tablet 40 mg PO BEDTIME 0RF Follow up/Referrals: Kacy Anderson MD [Primary Care Provider] - 2 Weeks Diet/Activity/Treatments Diet: Diet as Tolerated and Carb-consistent/Diabetic Activity: As tolerated Visit Report/Discharge Packet Instructions: DI for Urinary Tract Infection (UTI), The Importance of Counting Carbs If You Have Diabetes, What to Eat if You Have Diabetes Discharge Data Primary Care Provider: Kacy Anderson
--- NOTE | 2021-03-31 11:58 | PC.NURSE ---
Pt is dressed and ready for discharge home with Spouse. Went over d/c instructions with both-discussed discharge meds, reminded Pt to take her antibiotics as ordered and to not stop taking them early. Encouraged Pt to drink plenty of fluids to prevent constipation or dehydration and to consider a probiotic if she starts having loose stools. IV has been removed. Pt and Spouse deny further questions and Pt will be taken out via w/c to pov with Spouse and all belongings.
== END 2021-03-31 12:34 | disposition home or self-care (01) | DRG 690 ==
LOC: ED 19:06 → AC 20:59
PROVIDERS: Admitting Provider Nurse Practitioner Family; Emergency Provider Emergency Medicine; Family Provider Family Medicine; PCP Family Medicine; Referring Provider Emergency Medicine; Visit Provider Nurse Practitioner Family
DX: N30.01 Acute cystitis with hematuria (principal); N17.9 Acute kidney failure, unspecified; R78.81 Bacteremia; E11.65 Type 2 diabetes mellitus with hyperglycemia; E11.40 Type 2 diabetes mellitus with diabetic neuropathy, unspecified; B96.20 Unspecified Escherichia coli [E. coli] as the cause of diseases classified elsewhere; E78.5 Hyperlipidemia, unspecified; F32.A Depression, unspecified; F41.9 Anxiety disorder, unspecified; G47.00 Insomnia, unspecified; I10 Essential (primary) hypertension; J45.909 Unspecified asthma, uncomplicated; F51.4 Sleep terrors [night terrors]; Z20.822 Contact with and (suspected) exposure to COVID-19; Z79.84 Long term (current) use of oral hypoglycemic drugs
CPT/HCPCS: 36415; 71045; 76770; 80053; 81001; 82550; 82962; 83036; 83605; 83735; 84145; 84484; 85025; 85379; 87040; 87077; 87086; 87150; 87186; 87205; 87635; 93005; 94760; 96361; 96365; 96375; 99284; 99285; C9803; J0696; J1650; J1815; J1885

== ENCOUNTER 2021-04-19 18:49 | Emergency (ER) | payer OTHER, MEDICAID, SELFPAY ==
[2021-03-30 01:51] VITALS: BMI 23.8
[2021-04-19] VITALS (11 sets, daily range): BP systolic 153–212; BP diastolic 71–96; PULSE 77–92; RESP 17–38; TEMP 36.6; O2SAT 92–98; BMI 23.4
[2021-04-19 19:51] LABS: Add Manual Diff / Slide Review NO; Basophils Absolute Auto 100 /uL (0-100); Basophils Percent Auto 0.7 % (0-2); Eosinophils Absolute Auto 800 /uL (0-450); Eosinophils Percent Auto 10.7 % (2-4); Hematocrit 36.8 % (36-46); Hemoglobin 12.1 g/dL (12.0-16.0); Lymphocytes Absolute Auto 2000 /uL (1100-4500); Mean Corpuscular HGB Conc 32.9 % (30-36); Mean Corpuscular Hemoglobin 26.3 PG (26-34); Mean Corpuscular Volume 79.8 fL (80-100); Monocytes Absolute Auto 400 /uL (0-900); Monocytes Percent Auto 5.6 % (3-14); Neutrophils Absolute Auto 4600 /uL (1500-7000); Platelet Count 318 X10^3/uL (150-400); Red Cell Distribution Width 14.4 % (11.6-14.8)
[2021-04-19 19:58] LABS: Alanine Aminotransferase 15 IU/L (<35); Albumin 4.2 g/dL (3.5-5.0); Albumin Globulin Ratio 1.1 (1.0-2.8); Alkaline Phosphatase 60 U/L (38-126); Aspartate Aminotransferase 22 IU/L (14-36); BUN Creatinine Ratio 16.3 (6-22); Bilirubin Total 0.5 mg/dL (0.2-1.3); Blood Urea Nitrogen 22 mg/dL (7-17); Carbon Dioxide 24 mmol/L (22-32); Chloride 107 mmol/L (98-107); Creatine Kinase 75 U/L (30-135); Estimated Glomerular Filt Rate 40.4 mL/min (>60); Globulin 3.7 g/dL (1.7-4.1); Glucose 136 mg/dL (70-100); HEMOLYSIS < 15 (0-50); Lipase 161 U/L (23-300); Magnesium 1.7 mg/dL (1.6-2.3); Sodium 140 mmol/L (137-145); Total Protein 7.9 g/dL (6.3-8.2)
[2021-04-19 20:03] LABS: D Dimer 460 ng/mL (<230)
[2021-04-19 20:10] LABS: NT-proBNP (BNP-Adult 18+) 178 pg/mL (<125); Troponin I < 0.012 ng/mL (0.01-0.034)
--- NOTE | 2021-04-19 23:13 | ED_ITS ---
HPI - SOB/Dyspnea General Chief Complaint: Shortness of Breath/Dyspnea Stated Complaint: Needs CT Scan, D Dimer High Time Seen by Provider: 04/19/21 23:13 Source: patient Mode of arrival: Ambulatory History of Present Illness HPI Narrative: This is a pleasant 55-year-old female comes emergency department with complaint of 2 weeks of chest that is been intermittent substernal radiates her shoulder back and neck. She occasionally gets sweaty she will try drinking water. She sometimes feels a little bit short miss of breath but states this is been persistent. She denies any fevers or chills, no cold cough or congestion. She does not appreciate clear worsening with exertion. She does take medication for diabetes including metformin, gabapentin, losartan medication for dyslipidemia. She denies any aspirin or blood thinners. She states she has been completed antibiotics for a blood infection. No prior surgeries. No cardiac stents. No tobacco, alcohol or illicit. Patient states she is allergic to IV contrast and states that she had a delayed reaction after receiving contrast what is described as premedication likely with Benadryl and Solu-Medrol about 6 hours afterward she developed dizziness, vomiting and itchiness all over. She denies any swelling of the lips, airway or oropharynx. Related Data Home Medications Medication Instructions Recorded Confirmed gabapentin 100 mg capsule 300 mg PO BEDTIME 12/25/18 03/30/21 glipizide 5 mg tablet 5 mg PO QAM 12/25/18 03/30/21 loratadine 10 mg tablet (Allergy 10 mg PO DAILY PRN 12/25/18 03/30/21 Relief (loratadine)) multivitamin 1 cap PO QAM 12/25/18 03/30/21 pravastatin 20 mg tablet 20 mg PO BEDTIME 12/25/18 03/30/21 fluoxetine 20 mg capsule 20 mg PO DAILY 03/29/21 03/29/21 fluoxetine 40 mg capsule 40 mg PO DAILY 03/29/21 03/29/21 losartan 25 mg tablet 25 mg PO DAILY 03/29/21 03/29/21 metformin 500 mg tablet 1,000 mg PO BID 03/29/21 03/29/21 naproxen 500 mg tablet 500 mg PO PRN PRN 03/29/21 03/30/21 albuterol sulfate 90 mcg/actuation 2 puff INHALATION Q4-6H PRN 03/30/21 03/30/21 aerosol inhaler alprazolam 0.25 mg tablet 0.25 mg PO Q8H PRN 03/30/21 03/30/21 atorvastatin 40 mg tablet 40 mg PO BEDTIME 03/30/21 03/30/21 trazodone 50 mg tablet 50 mg PO BEDTIME PRN 03/30/21 03/30/21 Previous Rx's Medication Instructions Recorded prednisone 20 mg tablet 40 mg PO DAILY #6 tab 04/20/21 Allergies Allergy/AdvReac Type Severity Reaction Status Date / Time aspirin [ASPIRIN] Allergy Severe Gastrointestinal Verified 04/19/21 19:04 Upset iodine [IODINE] Allergy Unknown Verified 04/19/21 19:04 lactose [LACTOSE] Allergy Unknown Verified 04/19/21 19:04 latex [LATEX] Allergy Unknown Verified 04/19/21 19:04 Review of Systems Review of Systems ROS Unobtainable: All systems reviewed & are unremarkable except as noted in HPI and below Patient History Medical History Depression Depression with anxiety Diabetes Hearing loss Hyperlipidemia associated with type 2 diabetes mellitus Insomnia Night terrors Non-insulin dependent type 2 diabetes mellitus Seasonal allergies Surgical History Hx of carpal tunnel repair Hx of hand surgery Hx of shoulder surgery Family History Father Depression Hypertension Sister Gout Cancer Mother Diabetes mellitus Social History household members: significant other Smoking Status: Never smoker alcohol intake: never substance use type: does not use Smoking Status: Never smoker alcohol intake frequency: other Substance Use Type: does not use Exam Narrative Exam Narrative: GENERAL: Alert and oriented x three, female in mild distress. HEENT: Head normocephalic, atraumatic, EOMI, pupils reactive, face symmetric, moist mucous membranes NECK: Supple, full range of motion CARDIOVASCULAR: Regular rate and rhythm without murmurs, rubs or gallops. No JVD. No swelling bilateral lower extremities. Able to reproduce chest pain with palpation. RESPIRATORY: Breath sounds equal bilaterally, no wheezes rales or rhonchi. No tachypnea accessory muscle use. ABDOMEN: Soft, nontender. Normoactive bowel sounds all 4 quadrants. No guarding or rebound, rigidity, no mass : No CVA tenderness EXTREMITIES: Normal range of motion, no clubbing or edema. Neurovascularly intact NEUROLOGICAL: Cranial nerves II through XII grossly intact. Moving all extremities SKIN: Warm, dry, no petechiae, no rashes or lesions. Initial Vital Signs Initial Vital Signs: Vital Signs Temperature 98 F 04/19/21 18:58 Pulse Rate 77 04/19/21 18:58 Respiratory Rate 17 04/19/21 18:58 Blood Pressure 212/96 H 04/19/21 18:58 Pulse Oximetry 98 04/19/21 18:58 Course Orders Ordered: ED Orders 04/19/21 23:14 CT angio chest PE protocol Stat Discontinued Medications Diphenhydramine HCl (Diphenhydramine 50 Mg/Ml Vial) 50 mg IV NOW ONE Stop: 04/19/21 23:28 Last Admin: 04/19/21 23:40 Dose: 50 mg Documented by: ALLEN Methylprednisolone (Methylprednisolone 125 Mg/2 Ml Vial) 125 mg IV NOW ONE Stop: 04/19/21 23:28 Last Admin: 04/19/21 23:40 Dose: 125 mg Documented by: ALLEN Reevaluation(s) Reevaluation #1: Patient has not developed any symptoms consistent with allergic reaction. We did review her CT imaging which is negative. Discussed patient has risk factors and I am concerned about cardiac causes. She does not wish to stay for observa tion and stress testing although it is offered. She has seen Cardiology before and there has even been discussion about possible cardiac catheterization in the past but patient has not pursued this. We discussed at length my concerns. Patient understands and states that she will return if worsening symptoms. Time: 01:10 Vital Signs Vital signs: Vital Signs - 8 hr 04/19/21 22:00 04/19/21 22:30 04/19/21 23:00 Pulse Rate 84 81 80 Respiratory Rate 26 H 26 H 28 H Blood Pressure 154/71 H 153/78 H 154/72 H Pulse Oximetry 95 92 93 04/19/21 23:30 04/19/21 23:31 04/19/21 23:38 Pulse Rate 84 81 92 H Respiratory Rate 38 H 29 H 22 Blood Pressure 206/92 H 208/95 H Pulse Oximetry 92 93 96 04/20/21 00:04 04/20/21 00:05 04/20/21 00:30 Pulse Rate 92 H 89 83 Respiratory Rate 29 H 26 H 26 H Blood Pressure 207/90 H 168/79 H Pulse Oximetry 97 97 92 04/20/21 01:00 04/20/21 01:33 04/20/21 01:34 Pulse Rate 81 94 H 82 Respiratory Rate 25 H 16 20 Blood Pressure 169/85 H 190/80 H Pulse Oximetry 91 92 95 04/20/21 02:00 Pulse Rate 82 Respiratory Rate 20 Blood Pressure 167/78 H Pulse Oximetry 91 MDM - SOB/Dyspnea Lab Data Result diagrams: 04/19/21 19:30 04/19/21 19:30 Labs: Lab Results 04/19/21 04/19/21 04/19/21 Range/Units 19:30 19:30 19:30 WBC 8.0 (4.5-11.0) X10^3/uL RBC 4.60 (4.0-5.2) X10^6/uL Hgb 12.1 (12.0-16.0) g/dL Hct 36.8 (36-46) % MCV 79.8 L (80-100) fL MCH 26.3 (26-34) PG MCHC 32.9 (30-36) % RDW 14.4 (11.6-14.8) % Plt Count 318 (150-400) X10^3/uL Neut % (Auto) 58.0 (50-75) % Lymph % (Auto) 25.0 (25-40) % Crawford % (Auto) 5.6 (3-14) % Eos % (Auto) 10.7 H (2-4) % Baso % (Auto) 0.7 (0-2) % Neut # (Auto) 4600 (7303-2601) /uL Lymph # (Auto) 2000 (1341-0605) /uL Crawford # (Auto) 400 (0-900) /uL Eos # (Auto) 800 H (0-450) /uL Baso # (Auto) 100 (0-100) /uL D-Dimer 460 H (<230) ng/mL Sodium 140 (137-145) mmol/L Potassium 4.0 (3.4-5.1) mmol/L Chloride 107 (98-107) mmol/L Carbon Dioxide 24 (22-32) mmol/L BUN 22 H (7-17) mg/dL Creatinine 1.35 H (0.52-1.04) mg/dL Estimated GFR 40.4 L (>60) mL/min BUN/Creatinine Ratio 16.3 (6-22) Glucose 136 H (70-100) mg/dL Calcium 10.0 (8.4-10.2) mg/dL Magnesium 1.7 (1.6-2.3) mg/dL Total Bilirubin 0.5 (0.2-1.3) mg/dL AST 22 (14-36) IU/L ALT 15 (<35) IU/L Alkaline Phosphatase 60 (38-126) U/L Total Creatine Kinase 75 (30-135) U/L CK-MB (CK-2) TNP CK-MB (CK-2) Rel Index TNP Troponin I < 0.012 (0.01-0.034) ng/mL NT-Pro-B Natriuret Pep 178 H (<125) pg/mL Total Protein 7.9 (6.3-8.2) g/dL Albumin 4.2 (3.5-5.0) g/dL Globulin 3.7 (1.7-4.1) g/dL Albumin/Globulin Ratio 1.1 (1.0-2.8) Lipase 161 (23-300) U/L Imaging Data CT scan - chest: Radiologist's Impression: Carolina Paulson?(Zonia)??55??F??1965 ? Allergy/Adv: aspirin, iodine, lactose, latex (More??) Close Chest CTA (Signed) Che Burdick - 04/19/21 Renal Ultrasound (Signed) Golden Rodriguez - 03/30/21 Chest X-Ray (Signed) Roman Amaro - 03/29/21 Mammogram Screening (Signed) Jj Ramirez - 12/28/20 Myocardial Perfusion Scan Nuc Med (Signed) Juan Sterling - 01/23/19 Myocardial Perfusion Scan Nuc Med (Cancelled) 01/23/19 Telemetry Strips 01/22/19 Chest CTA (Signed) Enoch Vogt - 01/22/19 Chest X-Ray (Signed) Enoch Vogt - 01/22/19 Mammogram Screening (Signed) Antwon Kaiser - 09/17/18 Renal Ultrasound (Signed) Jerardo Hernandez - 11/15/17 Shoulder X-Ray (Signed) Fab Clements - 08/17/17 Hand X-Ray (Signed) Fab Clements - 08/17/17 Launch?Image [address] [address] [address] Scan Report Signed Patient: Carolina Paulson MR#: [id number] : 1965 Acct:[id number] Age/Sex: 55 / F Date of Service: 04/19/21 Loc: ED Accession Number: [id number] ?? Procedure: CT angio chest PE protocol Ordering Provider: Kathleen Frost D.O. PROCEDURE:? CT ANGIO CHEST PE PROTOCOL ? INDICATIONS:? sob, chest pain ? TECHNIQUE:? After the administration of intravenous contrast, 2 mm thick sections acquired from the pulmonary apices to the posterior costophrenic angles.? 3-dimensional maximum intensity projection (MIP) coronal and sagittal reformats were then acquired through the thorax.? For radiation dose reduction, the following was used:? automated exposure control, adjustment of mA and/or kV according to patient size.? ? COMPARISON:? [facility], CR, XR CHEST 1V, 03/29/2021, 18:43. ? FINDINGS:? Image quality:? Excellent.? ? Pulmonary arteries:? Pulmonary arteries are normal in size, and demonstrate no intraluminal filling defects to suggest central pulmonary embolism.? ? Lungs and pleura:? Atelectasis noted in the dependent portion of the lungs.? No pleural effusions or pneumothorax.? Central and peripheral airways are patent.? ? Mediastinum:? Heart size is normal, without pericardial effusion.? No mediastinal or hilar adenopathy.? Thoracic aorta is normal in caliber and enhancement.? Esophagus is normal in caliber, without hiatal hernia.? ? Bones and chest wall:? No suspicious bony lesions.? Ribs and thoracic spine appear intact throughout.? No axillary or supraclavicular adenopathy.? ? Abdomen:? Visualized upper abdominal solid organs appear normal in the early arterial phase of enhancement.? ? ? IMPRESSION:? ? 1. No pulmonary embolus.? ? 2. No lung consolidation or pleural effusions.? Dictated by: Che Burdick MD, PhD on 04/20/2021 at 0:22 ? ? Approved by: Che Burdick MD, PhD on 04/20/2021 at 0:26 ECG Data Attestation: I personally reviewed and interpreted this ECG as follows: Prior ECG tracings: available for review Interpretation: Sinus rhythm rate 89 SD 132 QRS is 70 QTC [address] no acute ST changes appreciated. Patient has prior EKGs from 03/29/2021 and before which appears similar. MDM Narrative Medical decision making narrative: This is a 55-year-old female with history of diabetes, dyslipidemia and hypertension who comes in with complaint of chest pain with radiation. Patient's EKG and troponin show no acute changes. She had outpatient D-dimer which was elevated in is elevated here as well. CT angiography was obtained which is negative. Patient's creatinine appears to be at baseline in comparison to last month with no acute electrolyte changes and glucose is 136. Patient is currently asymptomatic. She does not relate any factors to causing or worsening her discomfort and we discussed that I would like to keep her for chest pain meds. Patient is reluctant to stay we discussed at length and she elects to return home. She has actually been offered cardiac catheterization in the past and refused. We discussed the risks and benefits of not pursuing cardiac workup in a 55-year-old female with multiple comorbidities. She was given a short-term oral steroid prescription is she has had what is described as a delayed reaction IV contrast in the past and if she is symptomatic discussed she can start and continue with Benadryl. Discharge Plan Departure Patient Disposition: Home Clinical Impression: Chest pain Instructions: DI for Chest Pain Activity Restrictions/Additional Instructions: I do recommend that you have stress testing and further evaluation of your heart I suspect this may be the cause of your chest pain. It is recommended that you stay for observation and stress testing here at [facility]. Your CT scan did not show any signs of blood clots or other major changes. Because you have had prior delayed allergic reactions to IV contrast you can take steroids daily times 2 days. You may also take Benadryl 1-2 tablets every 6 hours for any symptoms. Prescription sent to [facility] in [place]. Please return for new or worsening chest pain, shortness of breath, lightheadedness or passing out, worsening swelling of your extremities, persistent vomiting, swelling of her lips mouth or neck, hives or other new or concerning symptoms. Prescriptions: New prednisone 20 mg tablet 40 mg PO DAILY Qty: 6 0RF No Action pravastatin 20 mg tablet 20 mg PO BEDTIME 0RF Label Comments: Patient states it tastes bad so I dont take it every night. glipizide 5 mg tablet 5 mg PO QAM 0RF gabapentin 100 mg capsule 300 mg PO BEDTIME 0RF loratadine [Allergy Relief (loratadine)] 10 mg tablet 10 mg PO DAILY PRN (Reason: Allergic Symptoms) 0RF multivitamin Capsule 1 cap PO QAM 0RF fluoxetine 20 mg capsule 20 mg PO DAILY 0RF Rx Instructions: new RX, was to start tomorrow fluoxetine 40 mg capsule 40 mg PO DAILY 0RF losartan 25 mg tablet 25 mg PO DAILY 0RF Label Comments: take 1 tablet by mouth once daily metformin 500 mg tablet 1,000 mg PO BID 0RF Label Comments: take 2 tablets by mouth twice a day naproxen 500 mg tablet 500 mg PO PRN PRN (Reason: Pain (Scale Score 1-3)) 0RF Label Comments: take 1 tablet by mouth twice a day with meals alprazolam 0.25 mg Tablet 0.25 mg PO Q8H PRN (Reason: Anxiety) 0RF albuterol sulfate 90 mcg/actuation Hfa Aerosol Inhaler 2 puff INHALATION Q4-6H PRN (Reason: Shortness Of Breath) 0RF trazodone 50 mg Tablet 50 mg PO BEDTIME PRN (Reason: Sleep) 0RF atorvastatin 40 mg Tablet 40 mg PO BEDTIME 0RF Referrals: Kacy Anderson MD [Primary Care Provider] -
--- NOTE | 2021-04-19 23:14 | DI.CT.S_ITS ---
PROCEDURE: CT ANGIO CHEST PE PROTOCOL INDICATIONS: sob, chest pain TECHNIQUE: After the administration of intravenous contrast, 2 mm thick sections acquired from the pulmonary apices to the posterior costophrenic angles. 3-dimensional maximum intensity projection (MIP) coronal and sagittal reformats were then acquired through the thorax. For radiation dose reduction, the following was used: automated exposure control, adjustment of mA and/or kV according to patient size. COMPARISON: [facility], CR, XR CHEST 1V, 03/29/2021, 18:43. FINDINGS: Image quality: Excellent. Pulmonary arteries: Pulmonary arteries are normal in size, and demonstrate no intraluminal filling defects to suggest central pulmonary embolism. Lungs and pleura: Atelectasis noted in the dependent portion of the lungs. No pleural effusions or pneumothorax. Central and peripheral airways are patent. Mediastinum: Heart size is normal, without pericardial effusion. No mediastinal or hilar adenopathy. Thoracic aorta is normal in caliber and enhancement. Esophagus is normal in caliber, without hiatal hernia. Bones and chest wall: No suspicious bony lesions. Ribs and thoracic spine appear intact throughout. No axillary or supraclavicular adenopathy. Abdomen: Visualized upper abdominal solid organs appear normal in the early arterial phase of enhancement. IMPRESSION: 1. No pulmonary embolus. 2. No lung consolidation or pleural effusions. Dictated by: Che Burdick MD, PhD on 04/20/2021 at 0:22 Approved by: Che Burdick MD, PhD on 04/20/2021 at 0:26
[2021-04-19] MEDS: methylPREDNISolone 125 MG/2 ML VIAL IV (23:40)
[2021-04-19] MEDS: diphenhydrAMINE 50 MG/ML VIAL IV (23:40)
[2021-04-20] VITALS (7 sets, daily range): BP systolic 167–207; BP diastolic 78–90; PULSE 81–94; RESP 16–29; O2SAT 91–97
== END 2021-04-20 02:45 | disposition home or self-care (01) ==
PROVIDERS: Emergency Medicine; Emergency Provider Emergency Medicine; Family Provider Family Medicine; PCP Family Medicine
DX: R07.9 Chest pain, unspecified (principal)
CPT/HCPCS: 36415; 71275; 80053; 82550; 83690; 83735; 83880; 84484; 85025; 85379; 93005; 93010; 96374; 96375; 99284; J1200; J2930; Q9967

== ENCOUNTER → 2021-05-25 10:36 | Outpatient (CLI) | payer OTHER, MEDICAID, SELFPAY ==
[2021-03-30 01:51] VITALS: BMI 23.8
[2021-05-25 12:14] LABS: Cholesterol 247 mg/dL (140-199); HDL Cholesterol 58 mg/dL (40-60); LDL Cholesterol Calculated 152 mg/dL (<100); Triglycerides 185 mg/dL (35-150)
[2021-05-25 12:31] LABS: Free T4, Direct Thyroxine 1.49 ng/dL (0.78-2.19)
== END ==
PROVIDERS: Family Provider Family Medicine; PCP Family Medicine; Referring Provider Internal Medicine Cardiovascular Disease; Visit Provider Internal Medicine Cardiovascular Disease
DX: R00.2 Palpitations (principal); E78.5 Hyperlipidemia, unspecified
CPT/HCPCS: 36415; 80061; 84439; 84443

== ENCOUNTER 2021-08-23 08:54 | Inpatient (IN) | payer OTHER, MEDICAID, SELFPAY ==
[2021-03-30 01:51] VITALS: BMI 23.8
[2021-08-23] VITALS (13 sets, daily range): BP systolic 139–205; BP diastolic 72–104; PULSE 75–91; RESP 15–23; TEMP 36.2–37.1; O2SAT 95–98; BMI 21.4
--- NOTE | 2021-08-23 09:15 | ED.NEUROSD ---
HPI - Neuro Symptoms/Deficit General Chief Complaint: Neuro Symptoms/Deficit Stated Complaint: Poss stroke last night- PCP referred Time Seen by Provider: 08/23/21 09:07 History of Present Illness HPI Narrative: Patient is a 48-year-old female history of diabetes hypertension hyperlipidemia presenting today with left-sided weakness. She said she was normal last night between 9 and 10:00 p.m.. She was up at around midnight trying to eat she had difficulty holding a fork with her left hand although she is right-hand dominant. She says she felt ?left side of her body ?numb and weak. Is a first-time lasted for about 5-10 minutes it then went away and then happened again it lasted a little bit longer and then it happened a 3rd time. She called her doctor this morning her encouraged her to come to the emergency department for evaluation for stroke. She is noted to be quite hypertensive. She continues to feel weak on the left side but feels little bit better. She is slightly dizzy. No nausea vomiting. She has no chest pain or palpitations. She has no prior history of stroke or coronary artery disease Related Data Home Medications Medication Instructions Recorded Confirmed glipizide 5 mg tablet 2.5 mg PO BEDTIME 12/25/18 08/23/21 loratadine 10 mg tablet (Allergy 10 mg PO DAILY PRN Allergic 12/25/18 08/23/21 Relief (loratadine)) Symptoms multivitamin 1 cap PO QAM 12/25/18 08/23/21 fluoxetine 20 mg capsule 60 mg PO DAILY depression 03/29/21 08/23/21 losartan 25 mg tablet 50 mg PO DAILY hypertension 03/29/21 08/23/21 metformin 500 mg tablet 1,000 mg PO BID 03/29/21 08/23/21 naproxen 500 mg tablet 500 mg PO PRN PRN Pain (Scale 03/29/21 08/23/21 Score 1-3) atorvastatin 40 mg tablet 40 mg PO BEDTIME 03/30/21 08/23/21 Allergies Allergy/AdvReac Type Severity Reaction Status Date / Time aspirin [ASPIRIN] Allergy Severe Gastrointestinal Verified 04/19/21 19:04 Upset iodine [IODINE] Allergy Unknown Verified 04/19/21 19:04 lactose [LACTOSE] Allergy Unknown Verified 04/19/21 19:04 latex [LATEX] Allergy Unknown Verified 04/19/21 19:04 Review of Systems Review of Systems Narrative: GENERAL: Denies chills, fatigue, malaise, fever, sweats, travel HEENT: Denies sinus pain, ear pain, sore throat, difficulty swallowing, neck pain RESPIRATORY: Denies dyspnea, cough, wheezing, hemoptysis, sputum. CARDIOVASCULAR: Denies chest pain, palpitations, orthopnea, edema GASTROINTESTINAL: Denies nausea, vomiting, abdominal pain, diarrhea, constipation, melena. : Denies dysuria, frequency, incontinence, hematuria, urinary retention, flank pain. MUSCULOSKELETAL: Denies weakness, joint pain, or bony pain SKIN: No rash, no erythema, no pruritus NEUROLOGIC: See HPI PSYCHIATRIC: No concerning psychosocial issues. 12 point review of systems is negative except for those stated above and HPI Patient History Medical History Depression Depression with anxiety Diabetes Hearing loss Hyperlipidemia associated with type 2 diabetes mellitus Insomnia Night terrors Non-insulin dependent type 2 diabetes mellitus Seasonal allergies Surgical History Hx of carpal tunnel repair Hx of hand surgery Hx of shoulder surgery Family History Father Depression Hypertension Sister Gout Cancer Mother Diabetes mellitus Social History household members: significant other Smoking Status: Former smoker alcohol intake: never substance use type: does not use Smoking Status: Never smoker alcohol intake frequency: other Substance Use Type: does not use Exam Initial Vital Signs Initial Vital Signs: Vital Signs Pulse Oximetry 98 08/23/21 09:02 GENERAL: Alert 56-year-old female and in [no acute] distress. HEENT: Head atraumatic,EOMI, pupils reactive, left-sided facial droop CARDIOVASCULAR: Regular rate and rhythm without murmurs, rubs or gallops. RESPIRATORY: Breath sounds equal bilaterally, no wheezes rales or rhonchi. ABDOMEN: Soft, nontender. Normoactive bowel sounds all 4 quadrants. No guarding or rebound. EXTREMITIES: Normal range of motion, no clubbing or edema. Neurovascularly intact NEUROLOGICAL: Alert and oriented x4.Normal gait and speech. Cranial nerves II through XII grossly intact. Both left arm and left leg drift but do not hit the gurney. Mild ataxia with left hand. Mild facial droop no aphasia or dysarthria. SKIN: Warm, dry, no laceration, no petechiae, no rashes or lesions. Scores NIH Stroke Scale Level of Conciousness: Alert, keenly responsive Ask month/age: Answers both questions correctly. Open/close eyes, close hand: Performs both tasks correctly Best gaze horizontal: Normal Visual glover: No visual loss Facial palsy: Minor paralysis, flattened nasolabial fold, asymmetry on smiling Left arm drift: Drifts down, not to bed Right arm drift: No drift for full 10 sec Left leg drift: Drifts down, not to bed Right leg drift: No drift for full 5 sec Limb ataxia: Present in one limb Sensory on face/arms/legs: Mild to moderate sensory loss, can tell touch Best language: No aphasia, normal Dysarthria: Normal Extinction or inattention: No abnormality Total NIH Stroke scale score: 5 Course Orders Ordered: Acetaminophen (Acetaminophen 325 Mg Tablet) 650 mg PO Q6HR PRN PRN Reason: Fever/Mild Pain (1-3) Atorvastatin Calcium (Atorvastatin 20 Mg Tablet) 80 mg PO BEDTIME KIKA Clopidogrel Bisulfate (Clopidogrel 75 Mg Tablet) 75 mg PO DAILY KIKA Dextrose (D10w) 250 mls @ 999 mls/hr IV PRN PRN PRN Reason: Hypoglycemia Insulin Human Lispro (Insulin Lispro 100 Unit/Ml 3ml Vial) 0 unit SUBCUT ACHS KIKA; Protocol Last Admin: 08/23/21 17:29 Dose: Not Given Documented By: TLS Labetalol HCl (Labetalol 20 Mg/4 Ml Syringe) 5 mg IV Q4HR PRN PRN Reason: SBP>220 or DBO>120 Discontinued Medications Clopidogrel Bisulfate (Clopidogrel 75 Mg Tablet) 300 mg PO NOW ONE Stop: 08/23/21 10:34 Last Admin: 08/23/21 11:33 Dose: 300 mg Documented By: AT Diphenhydramine HCl (Diphenhydramine 50 Mg/Ml Vial) 25 mg IV NOW ONE Stop: 08/23/21 09:22 Last Admin: 08/23/21 10:46 Dose: Not Given Documented By: RLS Methylprednisolone (Methylprednisolone 125 Mg/2 Ml Vial) 125 mg IV NOW ONE Stop: 08/23/21 09:22 Last Admin: 08/23/21 10:46 Dose: Not Given Documented By: ROSALIO Vital Signs Vital signs: Vital Signs - 8 hr 08/23/21 09:08 Temperature 97.7 F Pulse Rate 91 H Respiratory Rate 16 Blood Pressure 205/104 H Pulse Oximetry 97 Oxygen Delivery Method Room Air MDM - Neuro Symptoms/Deficit Lab Data Result diagrams: 08/23/21 09:29 08/23/21 09:29 Labs: Lab Results 08/23/21 08/23/21 08/23/21 Range/Units 09:29 09:29 09:46 WBC 8.2 (4.5-11.0) X10^3/uL RBC 4.43 (4.0-5.2) X10^6/uL Hgb 12.0 (12.0-16.0) g/dL Hct 36.2 (36-46) % MCV 81.7 (80-100) fL MCH 27.1 (26-34) PG MCHC 33.1 (30-36) % RDW 14.4 (11.6-14.8) % Plt Count 249 (150-400) X10^3/uL Neut % (Auto) 57.9 (50-75) % Lymph % (Auto) 25.1 (25-40) % [place] % (Auto) 7.3 (3-14) % Eos % (Auto) 8.7 H (2-4) % Baso % (Auto) 1.0 (0-2) % Neut # (Auto) 4700 (2285-6523) /uL Lymph # (Auto) 2000 (6700-3723) /uL [place] # (Auto) 600 (0-900) /uL Eos # (Auto) 700 H (0-450) /uL Baso # (Auto) 100 (0-100) /uL Sodium 140 (137-145) mmol/L Potassium 4.2 (3.4-5.1) mmol/L Chloride 108 H (98-107) mmol/L Carbon Dioxide 24 (22-32) mmol/L BUN 32 H (7-17) mg/dL Creatinine 1.29 H (0.52-1.04) mg/dL Estimated GFR 48 L (>60) mL/min BUN/Creatinine Ratio 24.8 H (6-22) Glucose 182 H (70-100) mg/dL Calcium 9.4 (8.4-10.2) mg/dL Total Bilirubin 0.4 (0.2-1.3) mg/dL AST 33 (14-36) IU/L ALT 24 (<35) IU/L Alkaline Phosphatase 101 (38-126) U/L Total Creatine Kinase 65 (30-135) U/L CK-MB (CK-2) TNP CK-MB (CK-2) Rel Index TNP Troponin I < 0.012 (0.01-0.034) ng/mL Total Protein 7.4 (6.3-8.2) g/dL Albumin 4.3 (3.5-5.0) g/dL Globulin 3.1 (1.7-4.1) g/dL Albumin/Globulin Ratio 1.4 (1.0-2.8) Lipase 652 H (23-300) U/L SARS-CoV-2 (PCR) Negative (Negative) Urine Dip Bedside Urine Glucose Negative Bedside Urine Bilirubin - Negative Bedside Urine Ketone - Negative Bedside Urine Protein ++ 100 Bedside Urine Urobilinogen - Negative Bedside Urine Nitrite - Negative Bedside Urine Leukocytes - Negative Esterase Imaging Data Chest x-ray: Radiologist's Impression: XRay Report Signed Patient: Carolina Paulson MR#: [id number] : 1965 Acct:[id number] Age/Sex: 56 / F Date of Service: 08/23/21 Loc: Accession Number: [id number] ?? Procedure: XR chest 1V Ordering Provider: Cora Rider D.O. PROCEDURE:? XR CHEST 1V ? INDICATIONS:? stroke ? TECHNIQUE:? One view of the chest was acquired.? ? COMPARISON:? [facility], , XR CHEST 1V, 03/29/2021, 18:43. ? FINDINGS:? ? Surgical changes and devices:? None.? ? Lungs and pleura:? There is mild interstitial prominence bilaterally.? No focal airspace opacities.? No pleural effusion or pneumothorax. ? Mediastinum:? Mediastinal contours appear normal.? Heart size is normal.? ? Bones and chest wall:? No suspicious bony lesions.? Overlying soft tissues appear unremarkable.? ? IMPRESSION:? Mild interstitial prominence suggesting mild fluid overload. ? ? Dictated by: Marci Ibrahim M.D. on 08/23/2021 at 10:21 ? ? CT scan - head: Radiologist's Impression: [place] [address] Magnetic Resonance Report Signed Patient: Carolina Paulson MR#: [id number] : 1965 Acct:[id number] Age/Sex: 56 / F Date of Service: 08/23/21 Loc: 90D-1 Accession Number: [id number] ?? Procedure: MR stroke Ordering Provider: Cora Rider D.O. PROCEDURE:? MR STROKE Pre- and post-contrast brain MRI, non-contrast brain MR angiogram, pre- and postcontrast neck MR angiogram ? INDICATIONS:? left sided weakness ? TECHNIQUE:? Brain:? Noncontrast axial T1 spin echo, axial T2 fast spin echo, sagittal and axial FLAIR, coronal T2 fast spin echo, axial gradient echo, axial diffusion and ADC through the brain.? After the administration of contrast, axial 3D VIBE of the cranial vasculature and brain.? Brain MRA:? Non-contrast 3-D time of flight MR angiogram, with multiple jaxqklb-fogsmbrnv-vvqgedeseb (MIP) reformats performed.? Neck MRA:? Axial and sagittal TruFISP through the neck.? Coronal dynamic MR angiogram during administration of contrast in the arterial and venous phases, with 3-dimenstional nrfxnqq-ffpwvfgjb-lreogpbnnx (MIP) reformats constructed from subtraction images.? ? COMPARISON:? [facility], CT, CT HEAD/BRAIN WO CON, 08/23/2021, 9:50. ? FINDINGS:? Image quality:? Excellent.? ? BRAIN:? CSF spaces:? Ventricles are normal in size and shape.? Basal cisterns are patent.? No extra-axial fluid collections.? Brain:? Scattered foci of diffusion weighted hyperintensity can be seen within the right frontal lobe, primarily affecting the deep white matter.? Associated dark signal can be seen on the ADC map.? Mild developing T2 weighted signal can be seen at these sites. No intracranial bleeds or mass effects.? Hunter-white matter interface is normal.? Brainstem appears normal.? Normal intravascular flow voids are present.? No abnormal intracranial enhancement.? Skull and face:? Calvarial marrow signal is normal.? Orbits appear normal.? Note is made of bilateral lens replacements. Sinuses:? Sinuses and mastoids are clear.? ? BRAIN MR ANGIOGRAM:? Anterior circulation:? Intracranial internal carotid arteries are normal in size and enhancement.? The flow within the paired anterior cerebral arteries is normal and symmetric.? The flow within the middle cerebral arteries is normal and symmetric.? The anterior communicating artery is not well seen.? No stenoses, occlusions, or aneurysms.? Posterior circulation:? The visualized portions of the vertebral arteries demonstrate normal caliber, and join to form a normal appearing basilar artery.? The flow within the posterior cerebral arteries is normal and symmetric.? No stenoses, occlusions, or aneurysms.? ? NECK MR ANGIOGRAM:? Carotids:? Incidental note is made of a common origin of the right brachiocephalic artery and the left common carotid artery (bovine type arch). ? The origins of the common carotid arteries appear patent.? The calibers and courses of both common carotid arteries are normal.? Focal irregularity is seen involving the right carotid bifurcation region, with 50-60% narrowing involving the right proximal internal carotid artery.? No significant left carotid bifurcation abnormality can be seen. The more distal internal carotid arteries demonstrate normal course and caliber.? Posterior circulation:? The origins of the vertebral arteries appear patent.? More superior portions of both vertebral arteries demonstrate normal course and caliber, and join to form a normal appearing basilar artery.? Miscellaneous:? Generalized narrowing can be seen of the right subclavian artery, with up to 70% narrowing.? Pre-contrast images through the neck show no soft tissue abnormalities.? ? ? IMPRESSION:? ? BRAIN MRI:? There are scattered areas of subacute infarction involving the deep white matter of the right frontal lobe.? The appearance is most consistent with an embolic source. ? ? BRAIN MR ANGIOGRAM:? No significant intracranial arterial abnormality is seen.? ? ? NECK MR ANGIOGRAM:? Focal irregularity seen involving the right carotid bifurcation region, with 50-60% narrowing involving right proximal internal carotid artery. ? Note is made of generalized irregularity the right subclavian artery, with 60-70% narrowing. ? Incidental note is made of a common origin of the right brachiocephalic artery and the left common carotid artery (bovine type arch). This is considered to be a developmental variant of no clinical consequence. ? ? Dictated by: Golden Rodriguez M.D. on 08/23/2021 at 10:25 ?? MRI: Radiologist's Impression: CT Scan Report Signed Patient: Carolina Paulson MR#: [id number] : 1965 Acct:[id number] Age/Sex: 56 / F Date of Service: 08/23/21 Loc: ED Accession Number: [id number] ?? Procedure: CT head/brain wo con Ordering Provider: Cora Rider D.O. PROCEDURE:? CT HEAD/BRAIN WO CON ? INDICATIONS:? left sided weakness last night ? TECHNIQUE:? Noncontrast 4.5 mm thick angled axial sections acquired from the foramen magnum to the vertex, with coronal and sagittal reformats.? For radiation dose reduction, the following was used:? automated exposure control, adjustment of mA and/or kV according to patient size.? ? COMPARISON:? None. ? FINDINGS:? Image quality:? Excellent.? ? CSF spaces:? Basal cisterns are patent.? No extra-axial fluid collections.? Ventricles are normal in size and shape.? ? Brain:? No midline shift.? No intracranial masses or hemorrhage.? Hunter-white matter interface is normal.? ? Skull and face:? Calvarium and visualized facial bones are intact, without suspicious lesions.? ? Sinuses:? Visualized sinuses and mastoids are clear.? ? IMPRESSION:? No acute intracranial abnormality ? ? Dictated by: Roman Amaro M.D. on 08/23/2021 at 10:17 ? ? ECG Data Interpretation: Normal sinus rhythm rate 84 TN interval 134 QRS [address] changes similar to prior [facility] Narrative Medical decision making narrative: Patient is not a tPA candidate. She had multiple episodes throughout the night last known well was last evening. She does have some continued deficits. MRI does actually confirm subacute stroke probably embolic. She is given Plavix. Dr. Jackson updated patient's symptoms test results and accepts. Discharge Plan Departure Patient Disposition: Admitted As Inpatient Clinical Impression: CVA (cerebral vascular accident) Admit Date/Time: 08/23/21 11:28 Admit Provider: Lu Jackson
--- NOTE | 2021-08-23 09:18 | DI.RAD.S_ITS ---
PROCEDURE: XR CHEST 1V INDICATIONS: stroke TECHNIQUE: One view of the chest was acquired. COMPARISON: [facility], CR, XR CHEST 1V, 03/29/2021, 18:43. FINDINGS: Surgical changes and devices: None. Lungs and pleura: There is mild interstitial prominence bilaterally. No focal airspace opacities. No pleural effusion or pneumothorax. Mediastinum: Mediastinal contours appear normal. Heart size is normal. Bones and chest wall: No suspicious bony lesions. Overlying soft tissues appear unremarkable. IMPRESSION: Mild interstitial prominence suggesting mild fluid overload. Dictated by: Marci Ibrahim M.D. on 08/23/2021 at 10:21 Approved by: Marci Ibrahim M.D. on 08/23/2021 at 10:21
--- NOTE | 2021-08-23 09:21 | DI.MRI.S_ITS ---
PROCEDURE: MR STROKE Pre- and post-contrast brain MRI, non-contrast brain MR angiogram, pre- and postcontrast neck MR angiogram INDICATIONS: left sided weakness TECHNIQUE: Brain: Noncontrast axial T1 spin echo, axial T2 fast spin echo, sagittal and axial FLAIR, coronal T2 fast spin echo, axial gradient echo, axial diffusion and ADC through the brain. After the administration of contrast, axial 3D VIBE of the cranial vasculature and brain. Brain MRA: Non-contrast 3-D time of flight MR angiogram, with multiple nyvmffk-npdakahme-wwjzhefpcq (MIP) reformats performed. Neck MRA: Axial and sagittal TruFISP through the neck. Coronal dynamic MR angiogram during administration of contrast in the arterial and venous phases, with 3-dimenstional hccvmmp-ljpgzhbdb-runqjvxaet (MIP) reformats constructed from subtraction images. COMPARISON: [facility], CT, CT HEAD/BRAIN WO CON, 08/23/2021, 9:50. FINDINGS: Image quality: Excellent. BRAIN: CSF spaces: Ventricles are normal in size and shape. Basal cisterns are patent. No extra-axial fluid collections. Brain: Scattered foci of diffusion weighted hyperintensity can be seen within the right frontal lobe, primarily affecting the deep white matter. Associated dark signal can be seen on the ADC map. Mild developing T2 weighted signal can be seen at these sites. No intracranial bleeds or mass effects. Hunter-white matter interface is normal. Brainstem appears normal. Normal intravascular flow voids are present. No abnormal intracranial enhancement. Skull and face: Calvarial marrow signal is normal. Orbits appear normal. Note is made of bilateral lens replacements. Sinuses: Sinuses and mastoids are clear. BRAIN MR ANGIOGRAM: Anterior circulation: Intracranial internal carotid arteries are normal in size and enhancement. The flow within the paired anterior cerebral arteries is normal and symmetric. The flow within the middle cerebral arteries is normal and symmetric. The anterior communicating artery is not well seen. No stenoses, occlusions, or aneurysms. Posterior circulation: The visualized portions of the vertebral arteries demonstrate normal caliber, and join to form a normal appearing basilar artery. The flow within the posterior cerebral arteries is normal and symmetric. No stenoses, occlusions, or aneurysms. NECK MR ANGIOGRAM: Carotids: Incidental note is made of a common origin of the right brachiocephalic artery and the left common carotid artery (bovine type arch). The origins of the common carotid arteries appear patent. The calibers and courses of both common carotid arteries are normal. Focal irregularity is seen involving the right carotid bifurcation region, with 50-60% narrowing involving the right proximal internal carotid artery. No significant left carotid bifurcation abnormality can be seen. The more distal internal carotid arteries demonstrate normal course and caliber. Posterior circulation: The origins of the vertebral arteries appear patent. More superior portions of both vertebral arteries demonstrate normal course and caliber, and join to form a normal appearing basilar artery. Miscellaneous: Generalized narrowing can be seen of the right subclavian artery, with up to 70% narrowing. Pre-contrast images through the neck show no soft tissue abnormalities. IMPRESSION: BRAIN MRI: There are scattered areas of subacute infarction involving the deep white matter of the right frontal lobe. The appearance is most consistent with an embolic source. BRAIN MR ANGIOGRAM: No significant intracranial arterial abnormality is seen. NECK MR ANGIOGRAM: Focal irregularity seen involving the right carotid bifurcation region, with 50-60% narrowing involving right proximal internal carotid artery. Note is made of generalized irregularity the right subclavian artery, with 60-70% narrowing. Incidental note is made of a common origin of the right brachiocephalic artery and the left common carotid artery (bovine type arch). This is considered to be a developmental variant of no clinical consequence. Dictated by: Golden Rodriguez M.D. on 08/23/2021 at 10:25 Approved by: Golden Rodriguez M.D. on 08/23/2021 at 10:30
[2021-08-23 09:38] LABS: Add Manual Diff / Slide Review NO; Basophils Absolute Auto 100 /uL (0-100); Eosinophils Absolute Auto 700 /uL (0-450); Eosinophils Percent Auto 8.7 % (2-4); Hematocrit 36.2 % (36-46); Lymphocytes Absolute Auto 2000 /uL (1100-4500); Lymphocytes Percent Auto 25.1 % (25-40); Mean Corpuscular HGB Conc 33.1 % (30-36); Mean Corpuscular Hemoglobin 27.1 PG (26-34); Mean Corpuscular Volume 81.7 fL (80-100); Monocytes Absolute Auto 600 /uL (0-900); Monocytes Percent Auto 7.3 % (3-14); Neutrophils Absolute Auto 4700 /uL (1500-7000); Neutrophils Percent Auto 57.9 % (50-75); Platelet Count 249 X10^3/uL (150-400); Red Blood Cell Count 4.43 X10^6/uL (4.0-5.2); Red Cell Distribution Width 14.4 % (11.6-14.8); White Blood Cell Count 8.2 X10^3/uL (4.5-11.0)
--- NOTE | 2021-08-23 09:53 | DI.CT.S_ITS ---
PROCEDURE: CT HEAD/BRAIN WO CON INDICATIONS: left sided weakness last night TECHNIQUE: Noncontrast 4.5 mm thick angled axial sections acquired from the foramen magnum to the vertex, with coronal and sagittal reformats. For radiation dose reduction, the following was used: automated exposure control, adjustment of mA and/or kV according to patient size. COMPARISON: None. FINDINGS: Image quality: Excellent. CSF spaces: Basal cisterns are patent. No extra-axial fluid collections. Ventricles are normal in size and shape. Brain: No midline shift. No intracranial masses or hemorrhage. Hunter-white matter interface is normal. Skull and face: Calvarium and visualized facial bones are intact, without suspicious lesions. Sinuses: Visualized sinuses and mastoids are clear. IMPRESSION: No acute intracranial abnormality Dictated by: Roman Amaro M.D. on 08/23/2021 at 10:17 Approved by: Roman Amaro M.D. on 08/23/2021 at 10:18
[2021-08-23 10:02] LABS: Alanine Aminotransferase 24 IU/L (<35); Albumin 4.3 g/dL (3.5-5.0); Albumin Globulin Ratio 1.4 (1.0-2.8); Alkaline Phosphatase 101 U/L (38-126); Aspartate Aminotransferase 33 IU/L (14-36); BUN Creatinine Ratio 24.8 (6-22); Bilirubin Total 0.4 mg/dL (0.2-1.3); Blood Urea Nitrogen 32 mg/dL (7-17); Calcium 9.4 mg/dL (8.4-10.2); Carbon Dioxide 24 mmol/L (22-32); Chloride 108 mmol/L (98-107); Creatine Kinase 65 U/L (30-135); Estimated Glomerular Filt Rate 48 mL/min (>60); Globulin 3.1 g/dL (1.7-4.1); Glucose 182 mg/dL (70-100); HEMOLYSIS < 15 (0-50); Lipase 652 U/L (23-300); Potassium 4.2 mmol/L (3.4-5.1); Sodium 140 mmol/L (137-145); Total Protein 7.4 g/dL (6.3-8.2)
[2021-08-23 10:06] LABS: COVID19 -Nasal RAPID Negative (Negative)
[2021-08-23 10:12] LABS: Troponin I < 0.012 ng/mL (0.01-0.034)
[2021-08-23] MEDS: CLOPIDOGREL 75 MG TABLET 300 MG PO (11:33)
--- NOTE | 2021-08-23 15:46 | DI.US.S_ITS ---
PROCEDURE: US CAROTID DOPPLER BI INDICATIONS: CVA TECHNIQUE: Color and pulse Doppler interrogation was performed of both carotid systems, with image documentation and velocity measurements. COMPARISON: None. FINDINGS: Stenosis calculations are based on SRU (Society of Radiologists in Ultrasound) criteria. Right side: Common carotid artery peak systolic velocity: 79 cm/sec. Internal carotid artery peak systolic velocity: 125 cm/sec. Internal carotid artery end diastolic velocity: 40 cm/sec. External carotid artery peak systolic velocity: 117 cm/sec. ICA/CCA peak systolic ratio: 1.5 . Hunter scale imaging description: Moderate atherosclerotic plaque Percent internal carotid artery stenosis: Less than 50% . Vertebral artery: Flow direction is antegrade. Left side: Common carotid artery peak systolic velocity: 85 cm/sec. Internal carotid artery peak systolic velocity: 88 cm/sec. Internal carotid artery end diastolic velocity: 28 cm/sec. External carotid artery peak systolic velocity: 95 cm/sec. ICA/CCA peak systolic ratio: 1.0 . Hunter scale imaging description: Mild atherosclerotic plaque Percent internal carotid artery stenosis: Less than 50 . Vertebral artery: Flow direction is antegrade. IMPRESSION: Less than 50% proximal ICA stenosis bilaterally. Moderate atherosclerotic plaque on the right probably approaching 50% stenosis Approved by: Michael Lenz M.D. on 08/23/2021 at 16:36
--- NOTE | 2021-08-23 15:51 | DI.ECHO.S_ITS ---
[facility] +---------+ : : [address] : [address] : : : : [id number] : : : : Phone: [phone]+ Echocardiogram Report + + :Name: CASSIDY MURRAY Study Date: 08/23/2021 Height: 60 in : :[facility] ReadingLocation: Weight: 110 lb : : Gender: Female BSA: 1.4 m2 : :: 1965 Age: 56 yrs BP: 158/72 mmHg: :Reason For Study: CVA : :Ordering Physician: LEONARDO, : :BEBA Performed By: Rodney Morrison : :Referring: BEBA PATTERSON : + + Interpretation Summary The left ventricle is normal in size and wall thickness. Left ventricular systolic function is normal. The ejection fraction is estimated to be 55-60%. There are no focal wall motion abnormalities. Diastolic parameters suggest a relaxation abnormality of the left ventricle, consistent with probable normal filling pressures. The right ventricle is normal in size and function. Pulmonary artery pressures cannot be estimated because of the lack of a measurable TR jet velocity. Both atria are normal in size. The interatrial septum grossly appears intact with no obvious evidence for an atrial septal defect. Injection of contrast documented no interatrial shunt. There is no significant valvular heart disease. The aortic root is normal size. Procedure: A two-dimensional transthoracic echocardiogram with color flow and Doppler was performed. The study quality was technically adequate. Comparison is made with the echocardiogram of 01/24/2019. A saline contrast injection was performed to assess for cardiac shunting. Left Ventricle: The left ventricle is normal in size and wall thickness. Left ventricular systolic function is normal. The ejection fraction is estimated to be 55-60%. There are no focal wall motion abnormalities. Diastolic parameters suggest a relaxation abnormality of the left ventricle, consistent with probable normal filling pressures. Right Ventricle: The right ventricle is normal in size and function. Atria: Both atria are normal in size. The interatrial septum grossly appears intact with no obvious evidence for an atrial septal defect. Injection of contrast documented no interatrial shunt. Mitral Valve: The mitral valve is normal in structure and function. There is no mitral regurgitation noted. Aortic Valve: The aortic valve is normal in structure and function. No aortic regurgitation is present. Tricuspid Valve: The tricuspid valve is normal in structure and function. No tricuspid regurgitation. Pulmonary artery pressures cannot be estimated because of the lack of a measurable TR jet velocity. Pulmonic Valve: The pulmonic valve is normal in structure and function. There is no pulmonic valvular regurgitation. There is no significant valvular heart disease. Great Vessels: The aortic root is normal size. The dimensions of the ascending aorta are normal. The IVC is of normal diameter and collapses greater than 50% with a sniff. This suggests a low right atrial pressure of 3 mm Hg. Pericardium/ Pleura There is no pericardial effusion. There is no pleural effusion. MMode/2D Measurements & Calculations LVIDd: 3.9 cm LVOT diam: 1.7 cm LVIDs: 2.7 cm Ao root diam: 2.9 cm FS: 30.8 % asc Aorta Diam: 3.0 cm IVSd: 0.90 cm LVPWd: 0.90 cm LV knowles. diameter/BSA (cm/m^2): 2.7 LV sys. diameter/BSA (cm/m^2): 1.9 LA dimension: 3.1 cm RA long axis: 3.7 cm LA A2 area: 12.4 cm2 LA A4 area: 12.0 cm2 LA length (vol): 4.3 cm LA vol: 29.2 ml LA vol index: 20.2 ml/m2 TAPSE_phl: 2.2 cm Doppler Measurements & Calculations Ao V2 max: 102.0 cm/sec LVOT Max Ash: 90.1 cm/sec Ao V2 mean: 71.3 cm/sec LV V1 max P.2 mmHg Ao max P.0 mmHg LV V1 VTI: 19.7 cm Ao mean P.0 mmHg DEVON(I,D): 2.2 cm2 Ao V2 VTI: 20.7 cm DEVON(V,D): 2.0 cm2 sev ratio: 0.95 DEVON indexed to BSA (cm^2/m^2): 1.5 MV E max ash: 72.8 cm/sec SV(LVOT): 44.7 ml MV A max ash: 102.0 cm/sec MV E/A: 0.71 Med Peak E' Ash: 4.9 cm/sec E/E' med: 14.8 Lat Peak E' Ash: 9.0 cm/sec E/E' lat: 8.1 E/e' average: 11.4 MV dec time: 0.22 sec AV VR_phl: 0.88 MV P1/2t-pr_phl: 64.0 msec DEVON(VTI)/BSA_phl: 1.5 Reading Physician:05:18 PM
--- NOTE | 2021-08-23 17:14 | PM.HP.1 ---
History of Present Illness History of Present Illness Date Patient Seen: 08/23/21 Chief complaint: Poss stroke last night- PCP referred Narrative: 56-year-old female with diabetes mellitus type 2, insulin dependent, complicated by neuropathy, hypertension, depression anxiety, asthma, insomnia, prior COVID infection 10/27 and hyperlipidemia who presented to the emergency department today complaining of left-sided weakness and numbness. She states she did have a headache yesterday that was right-sided in nature. She notes that she gets migraines and was concerned she was having the onset of a migraine. She took Tylenol and the headache went away. She reports after her fiance left for work around 830 or so she was watching TV. She was texting family on the phone and suddenly her cellphone dropped out of her hand. She had difficulty picking back up due to clumsiness with the hand, inability to feel the phone and weakness in her left arm. Subsequently to her neck and her left chest. She states the sensation was that her arm had fallen asleep. After about 15 minutes and that resolved. She then got up to go to the kitchen and note she was walking like someone was pulling her towards the left. She states she felt dizzy. She notes she tried to put plates at the sink but was unable to hold the plate and it dropped to the ground. She notes she got increasingly anxious and ultimately laid back down and again after 15 minutes the symptoms resolved. She then had a 3rd episode with similar symptoms which again lasted approximately 30 minutes. This morning, she woke around 630 and noted that she again felt quite weak. When her fimalvine came home they contacted the doctor's office but it did not open until 745. When she spoke to her primary care provider she was advised to go to the emergency department due to concerns for a stroke.In the emergency department she was noted to have a left facial droop, ataxia, and left hemiparesis. She was given an aspirin. Head CT was negative. MRI showed scattered areas of subacute infarct involving the deep white matter of the right frontal lobe, appearing consistent with embolic source. Since admission, she notes that the facial numbness feels better, her left arm still feels a bit numb/weak but improved from this morning. She denies any chest pain or shortness for breath. She had otherwise been feeling well recently. Patient History Medical History Depression Depression with anxiety Diabetes Hearing loss Hyperlipidemia associated with type 2 diabetes mellitus Insomnia Night terrors Non-insulin dependent type 2 diabetes mellitus Seasonal allergies Surgical History Hx of carpal tunnel repair Hx of hand surgery Hx of shoulder surgery Comment: Additional past medical history includes migraines Family & Social History Family History Father Depression Hypertension Sister Gout Cancer Mother Diabetes mellitus Social History: household members significant other Prior Living Arrangements House Safety & Behavioral: Feels Safe in Current Yes Environment Been Physically Hurt or No Threatened By a Person Tobacco & Substance use: Smoking Status Former smoker alcohol intake never alcohol intake frequency other Substance Use Type does not use Meds Home Medications and Allergies Home Medications Medication Instructions Recorded Confirmed Type glipizide 5 mg tablet 2.5 mg PO BEDTIME 12/25/18 08/23/21 History loratadine 10 mg tablet (Allergy 10 mg PO DAILY PRN Allergic 12/25/18 08/23/21 History Relief (loratadine)) Symptoms multivitamin 1 cap PO QAM 12/25/18 08/23/21 History fluoxetine 20 mg capsule 60 mg PO DAILY depression 03/29/21 08/23/21 History losartan 25 mg tablet 50 mg PO DAILY hypertension 03/29/21 08/23/21 History metformin 500 mg tablet 1,000 mg PO BID 03/29/21 08/23/21 History naproxen 500 mg tablet 500 mg PO PRN PRN Pain (Scale 03/29/21 08/23/21 History Score 1-3) atorvastatin 40 mg tablet 40 mg PO BEDTIME 03/30/21 08/23/21 History Allergies Allergy/AdvReac Type Severity Reaction Status Date / Time aspirin [ASPIRIN] Allergy Severe Gastrointestinal Verified 04/19/21 19:04 Upset iodine [IODINE] Allergy Unknown Verified 04/19/21 19:04 lactose [LACTOSE] Allergy Unknown Verified 04/19/21 19:04 latex [LATEX] Allergy Unknown Verified 04/19/21 19:04 Review of Systems Review of Systems Narrative: All other systems were reviewed negative Exam Vital Signs (past 8 hours): - 08/23/21 09:29 08/23/21 09:29 08/23/21 09:30 Pulse Rate 79 78 Respiratory Rate 17 23 Blood Pressure 173/81 H Pulse Oximetry 98 97 Oxygen Delivery Method 08/23/21 09:39 08/23/21 09:39 08/23/21 09:54 Pulse Rate 80 80 Respiratory Rate 23 15 Blood Pressure 183/86 H Pulse Oximetry 97 98 Oxygen Delivery Method 08/23/21 09:54 08/23/21 10:00 08/23/21 10:00 Pulse Rate 76 Respiratory Rate 22 Blood Pressure 180/81 H 169/85 H Pulse Oximetry 97 Oxygen Delivery Method 08/23/21 10:30 08/23/21 10:30 08/23/21 11:38 Pulse Rate 75 Respiratory Rate 21 Blood Pressure 158/72 H 159/81 H Pulse Oximetry 96 Oxygen Delivery Method 08/23/21 11:38 08/23/21 12:00 Pulse Rate 76 79 Respiratory Rate 18 Blood Pressure Pulse Oximetry 97 97 Oxygen Delivery Method Room Air Oxygen Delivery Method Room Air Narrative Exam Narrative: GEN: Very pleasant middle aged female, Alert and oriented x3, no acute distress HEENT: Normocephalic, face symmetric, pupils equal round reactive to light, extraocular movements intact, sclerae anicteric, conjunctiva clear, nares patent, oropharynx reveals an intact soft and hard palate with moist mucous membranes, dentition is fair NECK: Supple, no lymphadenopathy, thyroid without enlargement or nodularity, carotids no bruits CHEST: Respiratory excursions symmetric, clear to auscultation bilaterally CV: Regular rate and rhythm, no murmurs, rubs, gallops, PMI nondisplaced ABD: Soft, nontender, nondistended, bowel sounds present in all 4 quadrants, no organomegaly or masses appreciated EXTR: Warm, well perfused, no clubbing/cyanosis/edema SKIN: Warm and dry, without rash NEURO: Alert and oriented x3, cranial nerves 2 through 12 are intact and symmetric bilaterally, motor strength 5/5 throughout, sensation diminished in the left face and left arm compared to the right, NIH is 4 PSYCH: Mood and affect is within normal limits, judgment and insight are appropriate Objective Labs Result Diagrams: 08/23/21 09:29 08/23/21 09:29 Labs: Laboratory Results - last 24 hr 08/23/21 08/23/21 08/23/21 09:29 09:29 09:46 WBC 8.2 RBC 4.43 Hgb 12.0 Hct 36.2 MCV 81.7 MCH 27.1 MCHC 33.1 RDW 14.4 Plt Count 249 Neut % (Auto) 57.9 Lymph % (Auto) 25.1 Kershaw % (Auto) 7.3 Eos % (Auto) 8.7 H Baso % (Auto) 1.0 Neut # (Auto) 4700 Lymph # (Auto) 2000 Kershaw # (Auto) 600 Eos # (Auto) 700 H Baso # (Auto) 100 Sodium 140 Potassium 4.2 Chloride 108 H Carbon Dioxide 24 BUN 32 H Creatinine 1.29 H Estimated GFR 48 L BUN/Creatinine Ratio 24.8 H Glucose 182 H Calcium 9.4 Total Bilirubin 0.4 AST 33 ALT 24 Alkaline Phosphatase 101 Total Creatine Kinase 65 CK-MB (CK-2) TNP CK-MB (CK-2) Rel Index TNP Troponin I < 0.012 Total Protein 7.4 Albumin 4.3 Globulin 3.1 Albumin/Globulin Ratio 1.4 Lipase 652 H SARS-CoV-2 (PCR) Negative Assessment & Plan Assessment & Plan narrative: 1. 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 She is admitted for further stroke workup. Sinus rhythm on EKG. No known history of atrial fibrillation. Carotid ultrasound was done which revealed less than 50% proximal ICA stenosis bilaterally. Moderate atherosclerotic plaque on the right probably approaching 50% stenosis. Echocardiogram reveals normal LV size and function. EF is 55-60%. Diastolic parameters suggest relaxation abnormality of the left ventricle consistent with probable normal filling pressures. Right ventricle is normal in size and function. Atria are normal in size and function. No significant valvular disease. Patient received Plavix in the ER due to an aspirin allergy. This will be continued. Will attempt to confirm further what her aspirin allergy entails. Will continue telemetry. PT and OT consult in the morning. NIH score is presently 4. Will check neuro checks throughout the night. 2. Diabetes mellitus type 2 Patient is on glipizide and metformin at baseline. Will place on fingersticks and sliding scale. Controlled carb diet. Will check an A1c in the morning. 3. Hyperlipidemia Will place on high intensity statin therapy. Will check lipids in the morning. 4. Hypertension Will allow for permissive hypertension. Blood pressures were in the 200s in the emergency department. They are now down to the 140s. 5. Depression/anxiety Resume usual outpatient medications once meds have been reconciled. Code status Full Prophylaxis Low Chalo score Disposition Admit to inpatient for acute stroke under observation status. Time Spent With Patient Critical Care time: I spent a total of [] minutes of critical care time on this patient's care today; this time is exclusive of procedural time. Quality VTE Deep Vein Thrombosis/Pulmonary Embolism Present on Admission: No
[2021-08-23] MEDS: ATORVASTATIN 20 MG TABLET 80 MG PO (20:28)
--- NOTE | 2021-08-24 | DI.CT.S_ITS ---
PROCEDURE: CT HEAD/BRAIN WO CON INDICATIONS: Worsening neuro sxs TECHNIQUE: Noncontrast 4.5 mm thick angled axial sections acquired from the foramen magnum to the vertex, with coronal and sagittal reformats. For radiation dose reduction, the following was used: automated exposure control, adjustment of mA and/or kV according to patient size. COMPARISON: [facility], MR, MR STROKE, 08/23/2021, 10:45. FINDINGS: Patchy hypoattenuation in the cerebral hemispheric white matter consistent with moderate chronic microvascular ischemic changes. There is no loss of ortiz-white matter differentiation to suggest a recent large territory infarct. There is no CT correlate for the numerous small foci of restricted diffusion in the right frontal lobe subcortical and deep white matter. No acute intracranial hemorrhage or abnormal extra-axial fluid collection. No findings of mass effect or midline shift. Normal ventricular caliber and position. Patent basilar cisterns. Carotid and vertebral artery atherosclerosis. No significant orbital abnormality. Paranasal sinuses and mastoid air cells are predominantly clear. IMPRESSION: No acute intracranial finding. No CT correlate for numerous small acute infarcts in the right frontal subcortical and deep white matter seen on recent MRI. Dictated by: Jj Ramirez M.D. on 08/24/2021 at 8:13 Approved by: Jj Ramirez M.D. on 08/24/2021 at 8:15
[2021-08-24 04:05] VITALS: BP 151/83; PULSE 70; RESP 18; TEMP 36.5; O2SAT 97
[2021-08-24 07:10] LABS: Add Manual Diff / Slide Review NO; Basophils Absolute Auto 0 /uL (0-100); Basophils Percent Auto 0.6 % (0-2); Eosinophils Absolute Auto 700 /uL (0-450); Eosinophils Percent Auto 11.1 % (2-4); Hematocrit 36.3 % (36-46); Hemoglobin 12.1 g/dL (12.0-16.0); Lymphocytes Absolute Auto 1900 /uL (1100-4500); Lymphocytes Percent Auto 31.1 % (25-40); Mean Corpuscular HGB Conc 33.4 % (30-36); Mean Corpuscular Hemoglobin 27.4 PG (26-34); Monocytes Absolute Auto 600 /uL (0-900); Monocytes Percent Auto 9.8 % (3-14); Neutrophils Absolute Auto 2900 /uL (1500-7000); Neutrophils Percent Auto 47.4 % (50-75); Platelet Count 262 X10^3/uL (150-400); Red Blood Cell Count 4.43 X10^6/uL (4.0-5.2); Red Cell Distribution Width 14.6 % (11.6-14.8); White Blood Cell Count 6.2 X10^3/uL (4.5-11.0)
[2021-08-24 07:40] LABS: BUN Creatinine Ratio 23.8 (6-22); Blood Urea Nitrogen 31 mg/dL (7-17); Calcium 9.4 mg/dL (8.4-10.2); Carbon Dioxide 24 mmol/L (22-32); Chloride 109 mmol/L (98-107); Estimated Glomerular Filt Rate 48 mL/min (>60); Glucose 149 mg/dL (70-100); HEMOLYSIS < 15 (0-50); Potassium 3.9 mmol/L (3.4-5.1); Sodium 139 mmol/L (137-145)
[2021-08-24 07:42] LABS: Hemoglobin A1C% w Est Avg Glu 8.3 % (4.0-6.0)
[2021-08-24] MEDS: ACETAMINOPHEN 325 MG TABLET 650 MG PO ×2 (07:51→15:27)
[2021-08-24 08:00] VITALS: BP 174/99; PULSE 81; RESP 17; TEMP 36; O2SAT 97
[2021-08-24 08:10] LABS: Thyroid Stimulating Hormone 2.23 uIU/mL (0.47-4.68)
[2021-08-24] MEDS: CLOPIDOGREL 75 MG TABLET PO (08:32)
[2021-08-24] MEDS: ASPIRIN EC 81 MG TABLET PO (08:32)
[2021-08-24 12:00] VITALS: BP 142/77; PULSE 68; RESP 17; TEMP 36.3; O2SAT 94
--- NOTE | 2021-08-24 12:05 | CM.DANOTE ---
DCP: Case received, EMR reviewed and met with patient. Life partner, Leodan Oneill, was also in the room. Introduced self and role. Was able to obtain information regarding patient's baseline activity status prior to hospitalization. DCP assessment completed with information currently available. Patient is a 56 year old female who admitted yesterday morning to the care of the hospitalist team. PCP: Dr. Anderson at [facility]. Payer: confirmed: [facility] [employer]. Patient came to the hospital via private vehicle secondary to having severe headaches. After her fiance left for work, patient dropped her cell phone out of her hand, and developed weakness in her left arm, as well as to her neck and the left side of her chest. Patient had slept, and woken up with weakness, and dizziness. She had contacted her primary care provider who told her to go to the ER. Patient holds diagnosis of subacute infarct involving the right frontal lobe with left hemiparesis. Met with patient in her room. She was laying in bed, alert and oriented, quiet. Her partner, Leodan Oneill, was at bedside. Confirmed that patient and significant live in [place]. At her baseline, she uses no DME, drives as well. P.T. indicated that patient does have some left sided weakness, and is risk for falls. P.T. feels that patient may benefit with inpatient acute care. It is noted that [facility] is full, and having some staffing issues, according to Mark. Asked patient and significant about inpatient rehab. Let them know that this would depend upon their bed availability, and insurance. Mentioned skilled as well. Patient and spouse are ok with trying inpatient rehab. Theya are also ok with home health, as her partner lives with her, works nights, may be able to take some time off of work. Did speak to Hilary at [facility] and she does have [facility] in her network, but they usually don't pay well for therapies needed. She stated that if she can't get into inpatient rehab, then she is willing to review, and can call [facility]. Left a message with admissions, at [facility], and Rachael loan officer assistant, is waiting for disciplines, therapy notes, before submitting. [facility] does not take [facility]. P: DCP to continue to follow. Will follow up with Inpatient Rehab at [facility], have a message out to them to see if they may consider, since [facility] is full. Other option is [facility], or home with home health. Maite العلي RN/Meat Blender Discharge Planning/Care Management CM Discharge Assessment Start: 08/24/21 12:02 Freq: Status: Active Protocol: Document 08/24/21 12:03 (Rec: 08/24/21 12:05 [id number]) Discharge Planning Assessment Assigned Outdoor Studies Professor Maite العلي RN/Meat Blender Advance Directives? No Advance Directives on File No History Provided By Patient,Significant Other, Medical Record Prior Living Arrangements House Household Members significant other Type of transporation used prior to Drives own vehicle admit Independent with ADL's Yes Caregiver for Another No Comment Patient may need either inpatient rehab or skilled, insurance could be a barrier, and bed availability Discharge Plan Home Transportation Arrangement fiance POV Referrals Initiated Other Additional Comment Sent referral to [facility] since [facility] is full. Whiteboard Updated in Patient Room with Yes name and ext. # of Outdoor Studies Professor Review Status In Process Next Review Type Continued Stay Review
[2021-08-24] MEDS: INSULIN LISPRO 100 UNIT/ML 3ML VIAL SUBCUT ×3 (12:31→21:41)
--- NOTE | 2021-08-24 12:34 | PT.IIE ---
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 She did not provide a prior profession. States she does not work and enjoys doing her artwork. Original Note: Surgical History (Last Reviewed 04/20/21 @ 01:08 by Kathleen Frost DO) Hx of carpal tunnel repair Hx of hand surgery Hx of shoulder surgery Medical History (Last Reviewed 04/20/21 @ 01:08 by Kathleen Frost DO) Depression Depression with anxiety Diabetes Hearing loss Hyperlipidemia associated with type 2 diabetes mellitus Insomnia Night terrors Non-insulin dependent type 2 diabetes mellitus Seasonal allergies Physical Therapy Inpatient Evaluation/Re-Eval M1 PT/OT-IP Prior Functional Status Start: 08/24/21 12:18 Freq: Status: Active Protocol: Document 08/24/21 12:18 BC (Rec: 08/24/21 12:34 [id number]) Medical Review Prior Functional Status Medical History Reviewed Yes Mobility and Gait Independent Activities of Daily Living and IADL's Independent Prior Functional Level (Other details) 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 Social History Household Members significant other Living Arrangements House Number of Floors (Floors) One Floor Number of Stairs To Enter/Railing? 3 steps to enter Employment Status Retired M2 PT-IP Current Condition Start: 08/24/21 12:18 Freq: Status: Active Protocol: Document 08/24/21 12:18 BC (Rec: 08/24/21 12:34 [id number]) Physical Therapy Current Condition Current Condition Evaluation Date 08/24/21 Treatment Diagnosis Difficulty with ambulation Onset Date 08/22/21 M3 PT-IP Subjective Start: 08/24/21 12:18 Freq: Status: Active Protocol: Document 08/24/21 12:18 BC (Rec: 08/24/21 12:34 [id number]) Subjective Physical Therapy Visit Type Type Initial Evaluation Visit Start Time 10:35 Visit Stop Time 11:00 Total Visit Minutes 25 Physical Therapy Visit Comments Patient Comments Spouse in room throughout eval . Pt states she feels like she should be able to mobilize in room on her own. Patient Goals none stated Therapy Pain Assessment Pain When Pain Assessed At Rest Pain Present Pain Present Denied Pain M4 PT-IP Mobility and Gait Start: 08/24/21 12:18 Freq: Status: Active Protocol: Document 08/24/21 12:18 BC (Rec: 08/24/21 12:34 [id number]) PT-Bed Mobility Assessment Rolling Level of Assist Contact Guard Assistance Supine to Sit Supine to Sit Contact Guard Assistance Sit to Supine Sit to Supine Contact Guard Assistance Scooting Scooting to Edge of Bed Contact Guard Assistance PT-Transfer Assessment Sit to and From Stand Sit to and from Stand Contact Guard Assistance, Minimal Assistance Equipment Transfer Assistive Device Gait Belt Transfers Transfer Destination Bed,Chair Transfer Technique Stand Pivot Transfer Ability Level of Assist Contact Guard Assistance, Minimal Assistance Comments Mobility Comments Provided INSTRUCTOR KNITTING on R side throughout mobility assessment . Several episodes of near LOB with LLE knee buckling. Gait Assessment Gait Gait Assistance Required: Contact Guard Assist,Minimum Assistance Distance (Feet) 35 Assistive Devices Assistive Device Gait Belt Gait Deviations General Gait Pattern Antalgic,Ataxic,Decreased Stride Length,Narrow Based Gait,Step-to Gait Factors Limiting Gait Function Factors Limiting Gait Function Decreased Activity Tolerance, Poor Balance,Poor Safety Awareness Comments Gait Comments Gait in room only with INSTRUCTOR KNITTING with RUE. Multiple episodes of LLE knee buckling and near LOB. Use of gait belt several times to maintain Pt's balance . Poor balance during turns and dual task. LLE slightly ataxic with swing phase of gait and slight scissoring. PT-Balance Assessment Sitting Balance and Reactions Static Sitting Balance Ability Normal Dynamic Sitting Balance Ability Good Standing Balance and Reactions Static Standing Balance Ability Fair Dynamic Standing Balance Ability Fair Functional Assessments Functional Tests Tinetti Balance and Gait Assessment Tinetti Balance Score Balance 7/16 and gait 07/18 = 13/2 M5 PT-IP Objective Assessments Start: 08/24/21 12:18 Freq: Status: Active Protocol: Document 08/24/21 12:18 (Rec: 08/24/21 12:34 [id number]) Orientation Orientation/Cognition Level of Alertness Alert Orientation Name,Date,Situation Safety Awareness Decreased Safety Awareness Comments Pt spouse correcting some recent timeline/history for Pt at times. After PT eval, Pt still not clear as to why she cannot get up in room on her own. Spouse and therapist educating Pt on her high fall risk due to the stroke and need to notify nursing of needs; wait for staff before getting up out of bed. Gross Range of Motion Upper Extremity ROM Assessment Within Functional Limits Lower Extremity ROM Assessment Within Functional Limits Strength Upper Extremity Strength Assessment Left Impaired Shoulder grossly 3+/5 Elbow grossly 3+/5 Wrist grossly 3+/5 Hand grossly 3+/5 Lower Extremity Strength Assessment Left Impaired Hip flx/abd 3/5 Knee flx/ext 3+/5 Ankle DF and EV 2+/5; PF and INV 3+ /5 Coordination Assessment Gross Coordination Gross Coordination Impaired Assessment Finger to Nose Test Moderate Impairment Pronation/Supination Test Minimal Impairment Foot Tapping Test Minimal Impairment Heel on Smith Test Minimal Impairment Sensation Assessment Sensation Gross Sensation Left UE Impaired,Left LE Impaired Muscle Tone Muscle Tone WNL No Comments Muscle Tone Comments Generally reduced muscle tone/ hypotonicity seen in LUE and LLE M6 PT-IP Treatment Start: 08/24/21 12:18 Freq: Status: Active Protocol: Document 08/24/21 12:18 BC (Rec: 08/24/21 12:34 [id number]) Physical Therapy Treatment Education Education Provided Precautions,Safety Brace Education Patient,Caregiver M7 PT-IP Assessment and Plan Start: 08/24/21 12:18 Freq: Status: Active Protocol: Document 08/24/21 12:18 BC (Rec: 08/24/21 12:34 [id number]) PT Summary Assessment and Plan Potential Rehabilitation Potential Excellent Status of Condition at Evaluation Stable Summary Impairments Strength,Balance,Coordination, Sensation,Tone,Bed Mobility, Transfers,Gait,Activity Tolerance Progress Towards Goals Progressing Toward Goals Assessment Summary Pt admitted due to acute R frontal lobe CVA. She had symptoms for a day before informing her spouse the next morning when he returned home from work. Pt does not work. Her spouse works nights. Her PLOF was fully independent prior to this CVA. Currently Pt is exhibiting LUE/LLE movement out of synergy though weak and with impaired coordination. She is requiring min A for balance during ambulation and transfers. She is a high fall risk on Tinetti testing. She exhibited some decreased awareness of her deficits today stating that she should be allowed to get up on her own despite having just had several near falls with this PT. Pt is unsteady due to LLE weakness and ongoing reports of dizziness with transfers. We reviewed safety and use of call button with spouse supporting. Pt could be an inpatient rehab candidate given her higher PLOF and good rehab potential with returning motor function. If she does not discharge to a rehab facility (IPR vs SNF), I discussed with spouse the recommendation of 24/7 assist at home due to her fall risk and reduced safety awareness. IPPT to work on progressing her ambulation, balance and coordination training, and strength exercises. Goals Bed Mobility Goal Independent Transfer Goal Standby Assistance Gait Goal Standby Assistance Gait Distance 150 c/ SPC or FWW Other Goals 3 steps with SBA Days to Meet Goals 3 Frequency of Treatment Frequency Of Treatment Once a Day Treatment Plan Physical Therapy Treatment Plan Bed Mobility Training,Transfer Training,Gait Training, Therapeutic Exercise,Balance Retraining,Post Op Education, Discharge Planning, Neuromuscular Re-ed, Coordination Retraining Precautions Other Precautions Fall Risk Discharge Recommendations PT Discharge Recommendations SNF vs Acute Rehab Other Discharge Recommendations IPR Transportation Needs at Discharge Private Vehicle,Wheelchair/ Cabulance
--- NOTE | 2021-08-24 12:38 | ST.IPCSEOM ---
Visit Care Team Role Provider Type Kacy Anderson MD Family Provider Non-Staff Primary Care Provider Specialty: Family Practice Address: [facility] [place], [address] Email: Cora Rider DO Emergency Provider Physician Referring Provider Specialty: Emergency Medicine Address: [address] [place] [address], [address] Email: [email or web address] Lu Jackson MD Admit Provider Physician Attending Provider Specialty: Internal Medicine Address: [address] [place] [address], [address] Phone: Fax: Email: [email or web address] Medical History (Last Reviewed 04/20/21 @ 01:08 by Kathleen Frost DO) Depression (Medical) Depression with anxiety (Medical) Diabetes (Medical) Hearing loss (Medical) Hyperlipidemia associated with type 2 diabetes mellitus (Medical) Insomnia (Medical) Night terrors (Medical) Non-insulin dependent type 2 diabetes mellitus (Medical) Seasonal allergies (Medical) Speech-Language Pathology Swallow Evaluation BENCH LATHE OPERATOR Clinical Swallow Evaluation Start: 08/24/21 12:21 Freq: Status: Active Protocol: Document 08/24/21 12:21 EDI (Rec: 08/24/21 12:38 ZS [id number]) Clinical Swallow Evaluation Session Time Visit Start Time 10:00 Visit Stop Time 10:20 Total Visit Minutes 20 Visit Information Visit Number Initial Evaluation Setting Assessment Location Acute Care Visit Type Note Type Initial evaluation Next Note Type Next Note Type Treatment Note Patient Information Identification Type Name,Wristband History Per H&P: 56-year-old female with diabetes mellitus type 2, insulin dependent, complicated by neuropathy, hypertension, depression anxiety, asthma, insomnia, prior COVID infection 10/27 and hyperlipidemia who presented to the emergency department today complaining of left- sided weakness and numbness. She states she did have a headache yesterday that was right-sided in nature. She notes that she gets migraines and was concerned she was having the onset of a migraine . She took Tylenol and the headache went away. She reports after her fiance left for work around 830 or so she was watching TV. She was texting family on the phone and suddenly her cellphone dropped out of her hand. She had difficulty picking back up due to clumsiness with the hand, inability to feel the phone and weakness in her left arm. Subsequently to her neck and her left chest. She states the sensation was that her arm had fallen asleep. After about 15 minutes and that resolved. She then got up to go to the kitchen and note she was walking like someone was pulling her towards the left. She states she felt dizzy. She notes she tried to put plates at the sink but was unable to hold the plate and it dropped to the ground. She notes she got increasingly anxious and ultimately laid back down and again after 15 minutes the symptoms resolved. She then had a 3rd episode with similar symptoms which again lasted approximately 30 minutes. This morning, she woke around 630 and noted that she again felt quite weak. When her fiancee came home they contacted the doctor's office but it did not open until 745. When she spoke to her primary care provider she was advised to go to the emergency department due to concerns for a stroke.In the emergency department she was noted to have a left facial droop, ataxia, and left hemiparesis. She was given an aspirin. Head CT was negative. MRI showed scattered areas of subacute infarct involving the deep white matter of the right frontal lobe, appearing consistent with embolic source . Since admission, she notes that the facial numbness feels better, her left arm still feels a bit numb/weak but improved from this morning. She denies any chest pain or shortness for breath. She had otherwise been feeling well recently. Subjective Observations Zonia was reclined in bed with at bedside when BENCH LATHE OPERATOR arrived. She reported difficulty swallowing, indicating she has trouble getting food down but does not experience any coughing, choking, or difficulty chewing . She reported she had not eaten breakfast today and was agreeable to participate in swallow evaluation, but did not want to eat applesauce and does not like chocolate. Reported by Patient Other Symptoms Difficulty swallowing solids Current Diet Regular,Thin liquids Baseline Feeding Method Independent in self-feeding Objective Assessment Mental Status Alert,Responsive,Cooperative Oral Integrity WFL Dentition Within normal limits Lip Function Moderate impairment Observation of Lips at Rest Left sided weakness/Drooping Pucker Reduced range of motion, Reduced strength Lip Retraction Reduced range of motion Alternating Pucker/Lip Retraction Reduced range of motion Tongue Function Mild impairment Observations of Tongue at Rest Within normal limits Tongue Protrusion Reduced range of motion Tongue Retraction Within normal limits Tongue Lateralization Reduced range of motion Jaw Function Mild impairment Observations of Jaw at Rest Within normal limits Jaw Opening Reduced range of motion Jaw Closing Within normal limits Hard/Soft Palate Function Within normal limits Observations of Hard/Soft Palate Within normal limits Comment Completed oral motor exam with pt. She exhibited symmetrical features at rest with mild left weakness observed when structures were in motion. In addition to weakness, mild- moderately impaired ROM was observed across all lip, tongue, and jaw movements. Dentition present and WNL and pt reported no difficulty chewing. Hyolaryngeal elevation and excursion also was mild-moderately reduced. Reduced ROM and strength likely due to residual numbness. Food and Liquid Trials Position During Assessment Upright (90 degrees),In bed Liquids Trialed Thin Solids Trialed Puree,Dysphagia Mechanical Administration Type Tea spoon,Straw,Self-feeding Oral Impairment Within normal limits Oral Phase Comments No anterior loss of bolus. A/p propulsion appeared WNL. Mastication was timely and efficient. Pt exhibited minimal to no oral residue. Oral phase of swallow appears WNL. Pharyngeal Impairment Mildly impaired Pharyngeal Phase Comments Pt exhibited mildly increased effort to swallow with peaches . No difficulty observed or reported with pudding or thin liquids in straw cup. Attempted chin tuck and effortful swallow with peaches , and pt reported decreased difficulty when swallowing. No overt signs or symptoms observed across all trials, pt 's voice remained clear and she exhibited no coughing or choking. Unable to rule out silent aspiration with bedside swallow evaluation. Fatigue/Endurance Endurance WNL Comment Pt reported no difficulty with fatigue when eating and exhibited no fatigue during evaluation, though limited trials were completed. Strategies Attempted Chin tuck,Effortful swallow Response/Comments Pt benefitted from chin tuck and effortful swallow to increase comfort when swallowing. Findings Swallowing Function Pharyngeal phase dysphagia Severity of Swallow Impairment Mildly impaired Contributing Factors to Swallow Reduced oral strength/ Impairment coordination/sensation Prognosis Good Based on Cognitive status,Family support,Age,Duration of symptoms/severity Comment The pt presents with mild pharyngeal dysphagia characterized by difficulty with pharyngeal swallow, likely related to oral and pharyngeal muscle weakness following stroke. Aspiration is not suspected at this time, though unable to rule out silent aspiration with bedside swallow evaluation. Pt benefitted from chin tuck and effortful swallow to increase comfort with swallowing. Recommend pt education regarding stroke, swallow safety, and recovery in addition to oral and pharyngeal exercises to increase strength, coordination, and ROM of swallow musculature. Impact on Safety and Functioning No limitations Recommendations Instrumental Assessment No Swallowing Treatment Yes Frequency 1x per day Recommended Solids Dysphagia Mechanical Recommended Liquids Thin Safety Precautions/Swallowing Feed only when alert,Reduce Recommendations distractions,Remain upright ( 90 degrees) during all oral intake,Upright position at least 30 minutes after meals, Small bites and sips when eating Medication Recommendations As Tolerated Discharge Recommendations Home Education Patient/Caregiver Education Described results of evaluation,Patient expressed understanding of evaluation, Patient expressed agreement with goals & treatment plans, Family/caregivers expressed understanding of evaluation, Family/caregivers expressed agreement with goals & treatment plans,Patient expressed understanding of safety precautions,Patient expressed understanding of feeding recommendations,Family /caregivers expressed understanding of safety precautions,Family/caregivers expressed understanding of feeding recommendations, Patient requires further education/training,Family/ caregivers require further education/training Goals Short-term Goals 1. The pt will perform safe swallow strategies with oral intake independently to reduce risk of aspiration. 2. The pt will perform exercises to increase strength , coordination, and ROM of swallow musculature independently to reduce risk of aspiration and increase comfort with oral intake. Long-term Goals The pt will safely tolerate least restrictive diet to meet her nutrition and hydration needs.
--- NOTE | 2021-08-24 15:30 | OT.IP.EVAL ---
Past Medical History (Last Reviewed 04/20/21 @ 01:08 by Kathleen Frost DO) Depression Depression with anxiety Diabetes Hearing loss Hyperlipidemia associated with type 2 diabetes mellitus Insomnia Night terrors Non-insulin dependent type 2 diabetes mellitus Seasonal allergies Surgical History (Last Reviewed 04/20/21 @ 01:08 by Kathleen Frost DO) Hx of carpal tunnel repair Hx of hand surgery Hx of shoulder surgery Occupational Therapy Inpatient Evaluation/Re-Eval M1 PT/OT-IP Prior Functional Status Start: 08/24/21 12:18 Freq: Status: Active Protocol: Document 08/24/21 17:02 [facility] (Rec: 08/24/21 17: [facility] [id number]) Medical Review Prior Functional Status Medical History Reviewed Yes Communication Independent Mobility and Gait Independent Activities of Daily Living and IADL's Independent Social History Household Members significant other Living Arrangements House Number of Floors (Floors) Two Floors Number of Stairs To Enter/Railing? 2 steps to game room and then another 2 steps to the main house. 12 steps with right rail to the bed room upstairs. Employment Status Retired Additional Social History Comment Pt life partner works night shifts. M2 OT-IP Current Condition Start: 08/24/21 17:02 Freq: Status: Active Protocol: Document 08/24/21 17:02 [facility] (Rec: 08/24/21 17: [facility] [id number]) Occupational Therapy Current Condition Current Condition Evaluation Date 08/24/21 Treatment Diagnosis R CVA frontal lobe M3 OT- IP Subjective and Pain Start: 08/24/21 17:02 Freq: Status: Active Protocol: Document 08/24/21 17:02 [facility] (Rec: 08/24/21 17:22 [facility] [id number]) OT- Subjective Occupational Therapy Visit Type Type Initial Evaluation Visit Start Time 14:45 Visit Stop Time 15:30 Total Visit Minutes 45 Occupational Therapy Visit Comments Patient Comments Pt's significant other present for pert of the session in addition to hospitalist. Patient/Caregiver Goals To go home. OT Pain Assessment Pain When Pain Assessed At Rest Pain Present Pain Present Pain Reported Location head Intensity 3 Scale Used Numeric (0 - 10) M4 OT- IP ADL's Start: 08/24/21 17:02 Freq: Status: Active Protocol: Document 08/24/21 17:02 [facility] (Rec: 08/24/21 17:22 [facility] [id number]) OT [id number] Comments OT Self-Feeding Comments Not at meal time. OT ADL-Grooming General Evaluation Grooming Ability Standby Assistance Areas Needing Assistance Retrieving/Set-up of Grooming Items Comments OT Grooming Comments Set-up assist while standing at the sink. OT ADL-Oral Care General Eval Oral Care Ability Standby Assistance Areas of Assistance Retrieving/Set-Up of Items OT ADL-Dressing General Eval Lower Body Dressing Ability Standby Assistance Comments OT Dressing Comments Pt able to izzy/doff her socks while seated at the edge of the bed. OT ADL-Toileting Comments OT Toileting Comments Pt not having to go at this time. OT ADL-Bathing Comments OT Bathing Comments Pt refused. Pt will benefit from a shower chair at home to use for safety in addition to HHSP. M5 OT- IP IADL's Start: 08/24/21 17:02 Freq: Status: Active Protocol: Document 08/24/21 17:02 [facility] (Rec: 08/24/21 17:22 [facility] [id number]) OT-Instrumental Activities of Daily Living Home Safety Awareness Ability to Problem Solve Emergency Able to Problem Solve Situations Home Safety Comments At this time would be best for someone to provide her assist and supervision for her needs. Driving Driving Concerns Identified Regarding Safety M6 OT- IP Functional Cognition Start: 08/24/21 17:02 Freq: Status: Active Protocol: Document 08/24/21 17:02 [facility] (Rec: 08/24/21 17:22 [facility] [id number]) Cognitive Factors Limiting Selfcare Function Cognitive Ability Level of Alertness Alert Patient Orientation Name,Month,Place,Situation Attention Span Ability Capable of Focused Attention, Capable of Sustained Attention Ability to Follow Commands Able to Follow One Step Commands Safety Awareness Underestimates Need for Assistance Cognitive Comments Cognitive Assessment Comments Pt able to follow commands but at times needing increased time to process. Pt scored 134 seconds on [place] Making Part B which implies significant impairments for visual attention, speed of processing , mental flexibility, executive functioning, and task switching. Pt scored under 20 % for her age group. OT- Vision and Hearing OT- Hearing Assessment OT- Hearing Assessment WFL OT- Vision Assessment Visual Acuity WFL Visual Attentiveness WFL Occular Pursuits WFL Visual Convergence WFL Visual [place] Impaired Vision Assessment Comments Pt vision impaired for peripheral vision left side greater then right side. M7 OT- IP Mobility and Balance Start: 08/24/21 17:02 Freq: Status: Active Protocol: Document 08/24/21 17:02 [facility] (Rec: 08/24/21 17: [facility] [id number]) OT- Bed Mobility Assessment Supine to Sit Supine to Sit Assist Standby Assistance Sit to Supine Sit to Supine Assist Contact Guard Assistance Scooting Scooting to Edge of Bed Standby Assistance OT-Transfer Assessment Sit to and From Stand Sit to and from Stand Contact Guard Assistance Transfers Transfer Ability Contact Guard Assistance, Minimal Assistance Technique Transfer Destination Bed,Chair Transfer Technique Stand Step Pivot Devices Transfer Assistive Devices None,Gait Belt,Front Wheeled Walker Comments Mobility Comments Pt needing CLAUDIA to stand from lower surfaces and CGA to transfer as unsteady on her feet. Pt without FWW needign CLAUDIA for her balance as heavily leaning to the left and at times crosses her feet. Pt with use of FWW CGA and a little steadier but still a high fall risk. OT- Balance Assessment Sitting Balance and Reactions Static Sitting Balance Ability Good Dynamic Sitting Balance Ability Good Standing Balance and Reactions Static Standing Balance Ability Fair Dynamic Standing Balance Ability Poor M8 OT- IP Objective Assessments Start: 08/24/21 17:02 Freq: Status: Active Protocol: Document 08/24/21 17:02 [facility] (Rec: 08/24/21 17: [facility] [id number]) OT Gross Range of Motion Upper Extremity Range of Motion Assessment Left Impaired ROM Impairments LUE decreased at end ROM for shoulder flexion OT Strength Upper Extremity Strength Assessment Left Impaired Shoulder 3/5 Elbow 3+/5 Forearm 3+/5 Wrist 3+/5 Hand 3+/5 OT- Coordination Assessment Upper Extremity Finger to Nose Test Left UE Impaired Finger Tapping Test Left UE Impaired Comments Coordination Comments Right hand 24.5 seconds and left hand 46 seconds for 9 hole peg test. OT-Muscle Tone Assessment Muscle Tone WNL Yes OT Sensation Assessment Comments Summary Comments Pt states her left side feels numb/tingling and not as sensation as her right side. Decreased proprioception with increased time for LUE. M9 OT- IP Assessment and Plan Start: 08/24/21 17:02 Freq: Status: Active Protocol: Document 08/24/21 17:02 [facility] (Rec: 08/24/21 17:22 [facility] [id number]) OT Summary Assessment and Plan Potential Rehabilitation Potential Good Analytic Complexity at Evaluation Moderate Summary OT Impairments Range of Motion,Strength, Balance,Coordination,Sensation ,Functional Cognition, Functional Mobility,Grooming, Dressing,Toileting,Bathing, Toilet Transfers,Shower Transfers,Activity Tolerance Progress Towards Goals Progressing Toward Goals Assessment Summary Pt MOD complexity and main barriers are steps, decreased balance, decreased, strength smoothness and coordination for LUE, and pt needing to use a FWW and is a high fall risk at this time. Pt would greatly benefit from acute rehab. Goals Self-Feeding Goal Independent Grooming Goal Independent Dressing Goal Independent Toileting Goal Independent Bathing Goal Independent Toilet Transfer Goal Independent Shower Transfer Goal Independent Days to Meet Goals 15 Frequency of Treatment Frequency Of Treatment Once a Day Treatment Plan OT Treatment Plan ADL Training,Functional Cognition Training,Functional Mobility,Patient/Family Education,Discharge Planning Other Treatment Recommendations and Next shower Treatment Focus Discharge Recommendations OT Discharge Recommendations Acute Rehab Home Equipment Needs shower chair, FWW, HHSP Transportation Needs at Discharge Private Vehicle,Wheelchair/ Cabulance
[2021-08-24 16:00] VITALS: BP 135/79; PULSE 68; RESP 17; O2SAT 97
--- NOTE | 2021-08-24 16:53 | P.PN_ITS ---
Subjective Subjective Date Patient Seen: 08/24/21 Interval history: 56-year-old female with diabetes mellitus type 2, insulin dependent, complicated by neuropathy, hypertension, depression anxiety, asthma, insomnia, prior COVID infection 10/27 and hyperlipidemia who was admitted last night w/a subacute cardioembolic CVA to the right frontal lobe. Overnight, NIH scores were 0-4. This am around 7:40 she c/o worsening numbness, facial weakness, noted to have increased facial droop and NIH score went up to 10. She received her am ASA at 8:30 and plavix at 9am. Stat noncontrast head CT was done and was negative. NIH improved back down to 4. Telestroke consult done w/recommendations for: DAPT x 21 days, high intensity statin therapy and d/c w/a Zio patch to monitor for a fib (pt recently completed an event monitor/zio patch for cardiology but hasn't had results yet). She was scheduled for a nuc stress tomorrow d/t some recent chest pain. Currently she c/o mild facial numbness and hand weakness. Exam Vital Signs (past 8 hours): - 08/24/21 12:00 08/24/21 16:00 Temperature 97.4 F L Pulse Rate 68 68 Respiratory Rate 17 17 Blood Pressure 142/77 H 135/79 Pulse Oximetry 94 97 Oxygen Flow Rate 0 0 Oxygen Delivery Method Room Air Oxygen Flow Rate 0 Narrative Exam Narrative: GEN:? Very pleasant middle aged female, Alert and oriented x3, no acute distress HEENT:? Normocephalic, face symmetric CHEST:? Respiratory excursions symmetric, clear to auscultation bilaterally CV:? Regular rate and rhythm, no murmurs, rubs, gallops, PMI nondisplaced ABD:? Soft, nontender, nondistended, bowel sounds present in all 4 quadrants, no organomegaly or masses appreciated EXTR:? Warm, well perfused, no clubbing/cyanosis/edema SKIN:? Warm and dry, without rash NEURO:? Alert and oriented x3, mild decreased sensation to left face, arm and leg, NIH 4 PSYCH:? Mood and affect is within normal limits, judgment and insight are appropriate Objective Labs Result Diagrams: 08/24/21 06:20 08/24/21 06:20 Labs: Laboratory Results - last 24 hr 08/24/21 08/24/2122 06:20 06:20 06:20 WBC 6.2 RBC 4.43 Hgb 12.1 Hct 36.3 MCV 82.0 MCH 27.4 MCHC 33.4 RDW 14.6 Plt Count 262 Neut % (Auto) 47.4 L Lymph % (Auto) 31.1 [place] % (Auto) 9.8 Eos % (Auto) 11.1 H Baso % (Auto) 0.6 Neut # (Auto) 2900 Lymph # (Auto) 1900 [place] # (Auto) 600 Eos # (Auto) 700 H Baso # (Auto) 0 Sodium Potassium Chloride Carbon Dioxide BUN Creatinine Estimated GFR BUN/Creatinine Ratio Glucose Hemoglobin A1c 8.3 H Calcium TSH 2.23 08/24/21 06:20 WBC RBC Hgb Hct MCV MCH MCHC RDW Plt Count Neut % (Auto) Lymph % (Auto) [place] % (Auto) Eos % (Auto) Baso % (Auto) Neut # (Auto) Lymph # (Auto) [place] # (Auto) Eos # (Auto) Baso # (Auto) Sodium 139 Potassium 3.9 Chloride 109 H Carbon Dioxide 24 BUN 31 H Creatinine 1.30 H Estimated GFR 48 L BUN/Creatinine Ratio 23.8 H Glucose 149 H Hemoglobin A1c Calcium 9.4 TSH PFSH Medical History Depression Depression with anxiety Diabetes Hearing loss Hyperlipidemia associated with type 2 diabetes mellitus Insomnia Night terrors Non-insulin dependent type 2 diabetes mellitus Seasonal allergies Surgical History Hx of carpal tunnel repair Hx of hand surgery Hx of shoulder surgery Family History Father Depression Hypertension Sister Gout Cancer Mother Diabetes mellitus Social History household members: significant other Smoking Status: Former smoker alcohol intake: never substance use type: does not use Assessment & Plan Assessment & Plan narrative: 1. 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 She is admitted for further stroke workup.? Sinus rhythm on EKG.? No known history of atrial fibrillation.? Carotid ultrasound was done which revealed less than 50% proximal ICA stenosis bilaterally.? Moderate atherosclerotic plaque on the right probably approaching 50% stenosis.? Echocardiogram reveals normal LV size and function.? EF is 55- 60%.? Diastolic parameters suggest relaxation abnormality of the left ventricle consistent with probable normal filling pressures.? Right ventricle is normal in size and function.? Atria are normal in size and function.? No significant valvular disease.?No interatrial shunt. NIH waxing and waning this am. Telestroke consult done and recommendation for DAPTx21 days, zio patch, high intensity statin therapy. 2. Diabetes mellitus type 2 Patient is on glipizide and metformin at baseline.? Continue fingersticks and sliding scale.? Controlled carb diet.?A1C 8.3%. 3. Hyperlipidemia Continue high intensity statin therapy. LDL 152 (goal 70). 4. Hypertension Will allow for permissive hypertension.? Blood pressures were in the 200s in the emergency department.? They are now in normal range. 5. Depression/anxiety Resume usual outpatient medications once meds have been reconciled. Code status Full Prophylaxis Low Chalo score Disposition Await further rec's from PT/OT. Today, her gait was not safe and she is not stable for d/c. Time Spent With Patient Critical Care time: I spent a total of [] minutes of critical care time on this patient's care today; this time is exclusive of procedural time. Quality VTE Deep Vein Thrombosis/Pulmonary Embolism Present on Admission: No
[2021-08-24 19:55] VITALS: BP 135/72; PULSE 67; RESP 18; TEMP 36.6; O2SAT 97
[2021-08-24] MEDS: ATORVASTATIN 20 MG TABLET 80 MG PO (20:07)
[2021-08-25] VITALS (13 sets, daily range): BP systolic 116–187; BP diastolic 64–114; PULSE 71–77; RESP 16–18; TEMP 35.8–36.6; O2SAT 94–96
--- NOTE | 2021-08-25 04:49 | PM.PN.1 ---
Subjective Subjective Date Patient Seen: 08/25/21 Time Patient Seen: 10:00 Interval history: Patient having intermittent episodes of numbness and weakness in her left arm and left trunk. She is tearful and anxious that her symptoms have not gone away. Exam Vital Signs (past 8 hours): - 08/25/21 00:30 08/25/21 04:00 Temperature 97.7 F 97.6 F Pulse Rate 73 73 Respiratory Rate 18 18 Blood Pressure 136/89 138/72 Pulse Oximetry 96 94 Oxygen Flow Rate 0 0 Oxygen Delivery Method Room Air Oxygen Flow Rate 0 Narrative Exam Narrative: GEN:? Very pleasant middle aged female, Alert and oriented x3, tearful and anxious HEENT:? Normocephalic, face symmetric CHEST:? Respiratory excursions symmetric, clear to auscultation bilaterally CV:? Regular rate and rhythm, no murmurs, rubs, gallops, PMI nondisplaced ABD:? Soft, nontender, nondistended, bowel sounds present in all 4 quadrants, no organomegaly or masses appreciated EXTR:? Warm, well perfused, no clubbing/cyanosis/edema SKIN:? Warm and dry, without rash NEURO:? Alert and oriented x3, mild decreased sensation to left face, arm and leg, NIH 4. Left upper extremity strength 3/5 and right 5/5. Lower extremities strength 5/5 bilaterally. PSYCH:? Mood and affect is within normal limits, judgment and insight are appropriate Objective Labs Result Diagrams: 08/24/21 06:20 08/24/21 06:20 Labs: Laboratory Results - last 24 hr 08/24/21 08/24/21 08/24/21 06:20 06:20 06:20 WBC 6.2 RBC 4.43 Hgb 12.1 Hct 36.3 MCV 82.0 MCH 27.4 MCHC 33.4 RDW 14.6 Plt Count 262 Neut % (Auto) 47.4 L Lymph % (Auto) 31.1 [place] % (Auto) 9.8 Eos % (Auto) 11.1 H Baso % (Auto) 0.6 Neut # (Auto) 2900 Lymph # (Auto) 1900 [place] # (Auto) 600 Eos # (Auto) 700 H Baso # (Auto) 0 Sodium Potassium Chloride Carbon Dioxide BUN Creatinine Estimated GFR BUN/Creatinine Ratio Glucose Hemoglobin A1c 8.3 H Calcium TSH 2.23 08/24/21 06:20 WBC RBC Hgb Hct MCV MCH MCHC RDW Plt Count Neut % (Auto) Lymph % (Auto) [place] % (Auto) Eos % (Auto) Baso % (Auto) Neut # (Auto) Lymph # (Auto) [place] # (Auto) Eos # (Auto) Baso # (Auto) Sodium 139 Potassium 3.9 Chloride 109 H Carbon Dioxide 24 BUN 31 H Creatinine 1.30 H Estimated GFR 48 L BUN/Creatinine Ratio 23.8 H Glucose 149 H Hemoglobin A1c Calcium 9.4 TSH [facility] Medical History Depression Depression with anxiety Diabetes Hearing loss Hyperlipidemia associated with type 2 diabetes mellitus Insomnia Night terrors Non-insulin dependent type 2 diabetes mellitus Seasonal allergies Surgical History Hx of carpal tunnel repair Hx of hand surgery Hx of shoulder surgery Family History Father Depression Hypertension Sister Gout Cancer Mother Diabetes mellitus Social History household members: significant other Smoking Status: Former smoker alcohol intake: never substance use type: does not use Assessment & Plan Assessment & Plan narrative: 1. 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 She is admitted for further stroke workup.? Sinus rhythm on EKG.? No known history of atrial fibrillation.? Carotid ultrasound was done which revealed less than 50% proximal ICA stenosis bilaterally.? Moderate atherosclerotic plaque on the right probably approaching 50% stenosis.? Echocardiogram reveals normal LV size and function.? EF is 55-60%.? Diastolic parameters suggest relaxation abnormality of the left ventricle consistent with probable normal filling pressures.? Right ventricle is normal in size and function.? Atria are normal in size and function.? No significant valvular disease.?No interatrial shunt. NIH waxing and waning this am. Telestroke consult done and recommendation for DAPTx21 days, zio patch, high intensity statin therapy. -patient with waxing and waning of left upper extremity numbness and weakness, head CT negative x2 for hemorrhagic conversion -PT eval recommending SNF 2. Diabetes mellitus type 2 Patient is on glipizide and metformin at baseline.? Continue fingersticks and sliding scale.? Controlled carb diet.?A1C 8.3%. 3. Hyperlipidemia Continue high intensity statin therapy. LDL 152 (goal 70). 4. Hypertension Allowed for 48 hours of permissive hypertension in than her home losartan was restarted. 5. Depression/anxiety Resume home Prozac. Added Ativan as needed for anxiety. Code status Full Prophylaxis Low Chalo score Disposition Likely to SNF on 08/26. Time Spent With Patient Critical Care time: I spent a total of [] minutes of critical care time on this patient's care today; this time is exclusive of procedural time. Quality VTE Deep Vein Thrombosis/Pulmonary Embolism Present on Admission: No
[2021-08-25] MEDS: CLOPIDOGREL 75 MG TABLET PO (08:28)
[2021-08-25] MEDS: ASPIRIN EC 81 MG TABLET PO (08:28)
[2021-08-25] MEDS: INSULIN LISPRO 100 UNIT/ML 3ML VIAL SUBCUT ×3 (08:28→21:29)
--- NOTE | 2021-08-25 08:53 | CM.DPNOTE ---
Faxed clinicals to [facility] per [facility]. Rachael Pickard CM Assist.
--- NOTE | 2021-08-25 10:01 | PT.IPTN ---
Current Diagnoses Cerebral infarction, unspecified (08/23/21) Physical Therapy Treatment Note M2 PT-IP Current Condition Start: 08/24/21 12:18 Freq: Status: Active Protocol: Document 08/24/21 12:18 BC (Rec: 08/24/21 12:34 BC [id number]) Physical Therapy Current Condition Current Condition Evaluation Date 08/24/21 Treatment Diagnosis Difficulty with ambulation Onset Date 08/22/21 M3 PT-IP Subjective Start: 08/24/21 12:18 Freq: Status: Active Protocol: Document 08/25/21 09:38 KS (Rec: 08/25/21 12:04 KS [id number]) Subjective Physical Therapy Visit Type Type Treatment Note Visit Start Time 09:38 Visit Stop Time 10:01 Total Visit Minutes 23 Number of BIN PACKER Visits 1 Physical Therapy Visit Comments Patient Comments Pt agreeable to working w/ therapy. M4 PT-IP Mobility and Gait Start: 08/24/21 12:18 Freq: Status: Active Protocol: Document 08/25/21 09:38 KS (Rec: 08/25/21 12:04 KS [id number]) PT-Bed Mobility Assessment Rolling Level of Assist Contact Guard Assistance Supine to Sit Supine to Sit Contact Guard Assistance Sit to Supine Sit to Supine Contact Guard Assistance Scooting Scooting to Edge of Bed Contact Guard Assistance PT-Transfer Assessment Sit to and From Stand Sit to and from Stand Contact Guard Assistance Equipment Transfer Assistive Device Gait Belt Transfers Transfer Destination Bed Transfer Technique Pt ambulated Transfer Ability Level of Assist Contact Guard Assistance Comments Mobility Comments Pt in bed upon arrival and agreeable to working w/ therapy but does not agree to using FWW. Pt CGA for sup<>sit and sit<>Stand. She then ambulated ~50 ft in room w/o AD CGA. Pt w/ decreased stride and foot clearance on L slightly. Pt then ambulated ~ 50 ft to practice stairs and ascended/descended 3 steps w/ L rail step over step CGA and ambulated back to room. BP taken when pt back in bed and 146/87. Discussed inpatient rehab vs home health and then pt reported L sided numbness and heaviness of LUE. BP taken again and 186/114. RN notified and left pt in room w / RN attending. Gait Assessment Gait Gait Assistance Required: Contact Guard Assist Distance (Feet) 100 Assistive Devices Assistive Device Gait Belt Gait Deviations General Gait Pattern Antalgic,Ataxic,Decreased Stride Length,Narrow Based Gait Factors Limiting Gait Function Factors Limiting Gait Function Decreased Activity Tolerance, Poor Balance,Poor Safety Awareness Comments Gait Comments No LOB or knee buckling today, but L side remains slight ataxic. Stair Climbing Assessment Evaluation Level of Assist On Stairs Contact Guard Assistance,1 Person Assistance Devices Stair Climbing Assistive Devices Left Railing Technique/Endurance Stair Climbing Direction Ascend and Descend Stair Climbing Technique Step Over Step Number of Steps Climbed 3 Stair Climbing Set # Repetitions (reps) 1 Comments Stair Climbing Comments Ascended/descended 3 steps w/ L rail and step over step pattern CGA. PT-Balance Assessment Sitting Balance and Reactions Static Sitting Balance Ability Normal Dynamic Sitting Balance Ability Good Standing Balance and Reactions Static Standing Balance Ability Fair Dynamic Standing Balance Ability Fair Device Used none M5 PT-IP Objective Assessments Start: 08/24/21 12:18 Freq: Status: Active Protocol: Document 08/24/21 12:18 BC (Rec: 08/24/21 12:34 BC [id number]) Orientation Orientation/Cognition Level of Alertness Alert Orientation Name,Date,Situation Safety Awareness Decreased Safety Awareness Comments Pt spouse correcting some recent timeline/history for Pt at times. After PT eval, Pt still not clear as to why she cannot get up in room on her own. Spouse and therapist educating Pt on her high fall risk due to the stroke and need to notify nursing of needs; wait for staff before getting up out of bed. Gross Range of Motion Upper Extremity ROM Assessment Within Functional Limits Lower Extremity ROM Assessment Within Functional Limits Strength Upper Extremity Strength Assessment Left Impaired Shoulder grossly 3+/5 Elbow grossly 3+/5 Wrist grossly 3+/5 Hand grossly 3+/5 Lower Extremity Strength Assessment Left Impaired Hip flx/abd 3/5 Knee flx/ext 3+/5 Ankle DF and EV 2+/5; PF and INV 3+ /5 Coordination Assessment Gross Coordination Gross Coordination Impaired Assessment Finger to Nose Test Moderate Impairment Pronation/Supination Test Minimal Impairment Foot Tapping Test Minimal Impairment Heel on Smith Test Minimal Impairment Sensation Assessment Sensation Gross Sensation Left UE Impaired,Left LE Impaired Muscle Tone Muscle Tone WNL No Comments Muscle Tone Comments Generally reduced muscle tone/ hypotonicity seen in LUE and LLE M6 PT-IP Treatment Start: 08/24/21 12:18 Freq: Status: Active Protocol: Document 08/25/21 09:38 KS (Rec: 08/25/21 12:04 KS [id number]) Physical Therapy Treatment Education Education Provided Precautions,Safety M7 PT-IP Assessment and Plan Start: 08/24/21 12:18 Freq: Status: Active Protocol: Document 08/25/21 09:38 KS (Rec: 08/25/21 12:04 KS [id number]) PT Summary Assessment and Plan Potential Rehabilitation Potential Excellent Status of Condition at Evaluation Stable Summary Impairments Strength,Balance,Coordination, Sensation,Tone,Bed Mobility, Transfers,Gait,Activity Tolerance Progress Towards Goals Progressing Toward Goals Assessment Summary Pt CGA for mobility, ambulation, and stairs w/o AD. Able to ambulate 100 ft and ascend/descend 3 steps w/ step over step pattern. After returning to room and bed, pt reported increased heaviness and numbness of LUE and BP was 186/114 and RN notified. Pt would benefit from acute rehab to improve L sided deficits, but if she decides to go home she will need 24/7 assist and HH due to fall risk and descreased safety awareness. Goals Bed Mobility Goal Independent Transfer Goal Standby Assistance Gait Goal Standby Assistance Gait Distance 150 c/ SPC or FWW Other Goals 3 steps with SBA Days to Meet Goals 3 Frequency of Treatment Frequency Of Treatment Once a Day Treatment Plan Physical Therapy Treatment Plan Bed Mobility Training,Transfer Training,Gait Training, Therapeutic Exercise,Balance Retraining,Post Op Education, Discharge Planning, Neuromuscular Re-ed, Coordination Retraining Precautions Other Precautions Fall Risk Discharge Recommendations PT Discharge Recommendations Home with 24/7 Assist Available,Home Health,SNF vs Acute Rehab Other Discharge Recommendations IPR Transportation Needs at Discharge Private Vehicle,Wheelchair/ Cabulance
--- NOTE | 2021-08-25 10:06 | DI.CT.S_ITS ---
PROCEDURE: CT HEAD/BRAIN WO CON INDICATIONS: sudden weaknes on left side TECHNIQUE: Noncontrast 4.5 mm thick angled axial sections acquired from the foramen magnum to the vertex, with coronal and sagittal reformats. For radiation dose reduction, the following was used: automated exposure control, adjustment of mA and/or kV according to patient size. COMPARISON: [facility], EC, EC ECHO DOPPLER COMPLETE, 08/23/2021, 16:29. [facility], MR, MR STROKE, 08/23/2021, 10:45. FINDINGS: Image quality: Excellent. CSF spaces: Basal cisterns are patent. No extra-axial fluid collections. The ventricles are symmetric in size and shape. Brain: No intracranial bleeds or masses. There is cerebral volume loss for age, with resultant ventricular and sulcal prominence. There are periventricular and deep white matter chronic small vessel ischemic changes. There is intracranial internal carotid artery atherosclerosis. Skull and face: Calvarium and visualized facial bones appear intact, without suspicious lesions. Sinuses: Visualized sinuses and mastoids are clear. IMPRESSION: No acute intracranial abnormality. Dictated by: Jj Ramirez M.D. on 08/25/2021 at 10:33 Approved by: Jj Ramirez M.D. on 08/25/2021 at 10:35
--- NOTE | 2021-08-25 11:30 | OT.IP.TRT ---
Occupational Therapy Treatment Note M2 OT-IP Current Condition Start: 08/24/21 17:02 Freq: Status: Active Protocol: Document 08/24/21 17:02 [facility] (Rec: 08/24/21 17:22 [facility] [id number]) Occupational Therapy Current Condition Current Condition Evaluation Date 08/24/21 Treatment Diagnosis R CVA frontal lobe M3 OT- IP Subjective and Pain Start: 08/24/21 17:02 Freq: Status: Active Protocol: Document 08/25/21 11:21 [facility] (Rec: 08/25/21 11:45 [facility] [id number]) OT- Subjective Occupational Therapy Visit Type Type Treatment Note Visit Start Time 11:21 Visit Stop Time 11:30 Total Visit Minutes 9 Occupational Therapy Visit Comments Patient Comments Pt in bed as states feeling very tired. Patient/Caregiver Goals TO go home. M8 OT- IP Objective Assessments Start: 08/24/21 17:02 Freq: Status: Active Protocol: Document 08/25/21 11:21 [facility] (Rec: 08/25/21 11:45 [facility] [id number]) OT Gross Range of Motion Upper Extremity Range of Motion Assessment Left Impaired OT Strength Upper Extremity Strength Assessment Left Impaired Shoulder 3-/5 Elbow 3-/5 Forearm 3-/5 Wrist 3-/5 Hand 3+/5 Comments Strength Comments Noted pt increased weakness for LUE. Pt not able to hold the water bottle versus yesterday able to reach out the tray table to pick it up. OT Sensation Assessment Comments Summary Comments Pt needing increased pressure for light touch for LUE today. M9 OT- IP Assessment and Plan Start: 08/24/21 17:02 Freq: Status: Active Protocol: Document 08/25/21 11:21 [facility] (Rec: 08/25/21 11:45 [facility] [id number]) OT Summary Assessment and Plan Potential Rehabilitation Potential Good Analytic Complexity at Evaluation Moderate Summary OT Impairments Range of Motion,Strength, Balance,Coordination,Sensation ,Functional Cognition, Functional Mobility,Grooming, Dressing,Toileting,Bathing, Toilet Transfers,Shower Transfers,Activity Tolerance Progress Towards Goals Progressing Toward Goals Assessment Summary Pt states had episode of sudden numbness/weakness in LUE today. Nursing aware. Pending pt being medically stable, still recommend acute rehab. Goals Self-Feeding Goal Independent Grooming Goal Independent Dressing Goal Independent Toileting Goal Independent Bathing Goal Independent Toilet Transfer Goal Independent Shower Transfer Goal Independent Days to Meet Goals 20 Frequency of Treatment Frequency Of Treatment Once a Day Treatment Plan OT Treatment Plan ADL Training,Functional Cognition Training,Functional Mobility,Patient/Family Education,Discharge Planning Discharge Recommendations OT Discharge Recommendations Acute Rehab Home Equipment Needs shower chair, FWW, HHSP Transportation Needs at Discharge Private Vehicle
[2021-08-25] MEDS: LABETALOL 20 MG/4 ML SYRINGE 5 MG IV (12:34)
--- NOTE | 2021-08-25 14:33 | ST.IPDYTX ---
Visit Care Team Role Provider Type Kacy Anderson MD Family Provider Non-Staff Primary Care Provider Specialty: Family Practice Address: [facility] [place], [address] Email: Cora Rider DO Emergency Provider Physician Referring Provider Specialty: Emergency Medicine Address: [address] [place] [address], [id number] Email: [email or web address] Jackson MD Admit Provider Physician Attending Provider Specialty: Internal Medicine Address: [address] [place] [address], [address] Phone: Fax: Email: [email or web address] CAR CONDITIONER Dysphagia Treatment CAR CONDITIONER Dysphagia Treatment Start: 08/25/21 14:23 Freq: Status: Active Protocol: Document 08/25/21 14:24 ZS (Rec: 08/25/21 14:33 ZS [id number]) Dysphagia Treatment Session Time Visit Start Time 12:00 Visit Stop Time 12:30 Total Visit Minutes 30 Setting Assessment Location Acute Care Visit Type Note Type Treatment Note Next Note Type Next Note Type Treatment Note Patient Information Identification Type Name,ID Wristband Subjective Observations Pt was reclined in bed when CAR CONDITIONER arrived. She reported her left arm felt heavy and numb. NSG reported Zonia had an episode earlier today and her blood pressure appears to be spiking when she is experiencing numbness in her left arm. Zonia agreed to participate in swallow treatment and CAR CONDITIONER observed as she ate some lunch. Treatment Solids Trialed Dysphagia Mechanical Administration Type Self-Feeding Oral Strategies Upright at 90 degrees Pharyngeal Strategies Sitting Upright (90 deg),Small Bites and Sips Treatment Activities Observed pt eat some of her lunch. Pt only ate a few bites of a steamed carrot and was no longer interested in eating . She reported she was supposed to discharge home today and that she does not like hospitals. Pt started crying, touching her left arm, and talking about wanting to go home. Assessment Patient Response to Treatment Good Rehab Potential Excellent Assessment of Improvement Pt reported no difficulty when swallowing and stated she had scrambled eggs, marcus, and sausage for breakfast with no difficulty. She indicated slight increased effort required to swallow towards the end of a meal, but no difficulty with chewing. Pt exhibited no difficulty chewing or swallowing today despite heightened emotional state while eating. Recommend regular diet with thin liquids and follow-up to ensure tolerance of diet advancement. Diet Recommendations Recommendations Upgrade Diet Order Liquids Order Thin Diet Order Regular Medication Recommendations As Tolerated Aspiration Precautions Recommended Precautions Upright at 90 Degrees,Small Bites/Sips Treatment Plan Placement Recommendation after Discharge Home Appropriate for Continued Therapy Yes Therapy Recommendations Follow-up x1 to ensure tolerance of regular diet and continued improvement of swallow musculature. Dysphagia Goals 1. Pt will safely tolerate least restrictive diet to meet her nutrition and hydration needs.
[2021-08-25] MEDS: LOSARTAN 25 MG TABLET 50 MG PO (15:31)
[2021-08-25] MEDS: ATORVASTATIN 20 MG TABLET 80 MG PO (21:29)
[2021-08-26] VITALS (7 sets, daily range): BP systolic 112–162; BP diastolic 64–74; PULSE 67–78; RESP 16–18; TEMP 36.4–36.6; O2SAT 93–98
[2021-08-26 06:44] LABS: BUN Creatinine Ratio 21.9 (6-22); Blood Urea Nitrogen 30 mg/dL (7-17); Calcium 9.1 mg/dL (8.4-10.2); Carbon Dioxide 21 mmol/L (22-32); Chloride 107 mmol/L (98-107); Estimated Glomerular Filt Rate 45 mL/min (>60); Glucose 307 mg/dL (70-100); HEMOLYSIS < 15 (0-50); Potassium 3.9 mmol/L (3.4-5.1); Sodium 139 mmol/L (137-145)
[2021-08-26 06:47] LABS: Add Manual Diff / Slide Review NO; Basophils Absolute Auto 0 /uL (0-100); Basophils Percent Auto 0.5 % (0-2); Eosinophils Absolute Auto 600 /uL (0-450); Eosinophils Percent Auto 10.5 % (2-4); Hematocrit 36.1 % (36-46); Lymphocytes Absolute Auto 1800 /uL (1100-4500); Mean Corpuscular HGB Conc 33.4 % (30-36); Mean Corpuscular Hemoglobin 27.4 PG (26-34); Mean Corpuscular Volume 81.9 fL (80-100); Monocytes Absolute Auto 500 /uL (0-900); Monocytes Percent Auto 9.7 % (3-14); Neutrophils Absolute Auto 2600 /uL (1500-7000); Neutrophils Percent Auto 46.3 % (50-75); Platelet Count 246 X10^3/uL (150-400); Red Cell Distribution Width 14.5 % (11.6-14.8); White Blood Cell Count 5.5 X10^3/uL (4.5-11.0)
[2021-08-26] MEDS: INSULIN LISPRO 100 UNIT/ML 3ML VIAL SUBCUT ×4 (08:02→21:08)
[2021-08-26] MEDS: ASPIRIN EC 81 MG TABLET PO (08:10)
[2021-08-26] MEDS: CLOPIDOGREL 75 MG TABLET PO (08:10)
[2021-08-26] MEDS: LOSARTAN 25 MG TABLET 50 MG PO (08:10)
--- NOTE | 2021-08-26 09:23 | OT.IP.TRT ---
Current Diagnoses Cerebral infarction, unspecified (08/23/21) Occupational Therapy Treatment Note M2 OT-IP Current Condition Start: 08/24/21 17:02 Freq: Status: Active Protocol: Document 08/24/21 17:02 [facility] (Rec: 08/24/21 17:22 [facility] [id number]) Occupational Therapy Current Condition Current Condition Evaluation Date 08/24/21 Treatment Diagnosis R CVA frontal lobe M3 OT- IP Subjective and Pain Start: 08/24/21 17:02 Freq: Status: Active Protocol: Document 08/26/21 08:50 [facility] (Rec: 08/26/21 12:32 [facility] [id number]) OT- Subjective Occupational Therapy Visit Type Type Treatment Note Visit Start Time 08:50 Visit Stop Time 09:23 Total Visit Minutes 33 Occupational Therapy Visit Comments Patient Comments Pt agreed to get up. Patient/Caregiver Goals TO go home. OT Pain Assessment Pain When Pain Assessed At Rest Pain Present Pain Present Denied Pain M4 OT- IP ADL's Start: 08/24/21 17:02 Freq: Status: Active Protocol: Document 08/26/21 08:50 [facility] (Rec: 08/26/21 12:32 [facility] [id number]) OT [id number] Comments OT Self-Feeding Comments Not at meal time. OT ADL-Grooming Comments OT Grooming Comments Pt refused. OT ADL-Oral Care Comments Oral Care Comments Pt refused. OT ADL-Dressing Comments OT Dressing Comments Not performed. OT ADL-Toileting Comments OT Toileting Comments Pt not having to go at this time. OT ADL-Bathing Comments OT Bathing Comments Pt refused to shower as she states got cleaned off yesterday. M5 OT- IP IADL's Start: 08/24/21 17:02 Freq: Status: Active Protocol: Document 08/24/21 17:02 [facility] (Rec: 08/24/21 17:22 [facility] [id number]) OT-Instrumental Activities of Daily Living Home Safety Awareness Ability to Problem Solve Emergency Able to Problem Solve Situations Home Safety Comments At this time would be best for someone to provide her asisst and supervision for her needs. Driving Driving Concerns Identified Regarding Safety M6 OT- IP Functional Cognition Start: 08/24/21 17:02 Freq: Status: Active Protocol: Document 08/26/21 08:50 [facility] (Rec: 08/26/21 12:32 [facility] [id number]) Cognitive Factors Limiting Selfcare Function Cognitive Comments Cognitive Assessment Comments Pt insistent on going home as feels that she will be able to care fore herself at night when her at work. Pt still having word finding difficulties. OT- Vision and Hearing OT- Vision Assessment Vision Assessment Comments Pt still having trouble to look to the far left. M7 OT- IP Mobility and Balance Start: 08/24/21 17:02 Freq: Status: Active Protocol: Document 08/26/21 08:50 [facility] (Rec: 08/26/21 12:32 [facility] [id number]) OT- Bed Mobility Assessment Supine to Sit Supine to Sit Assist Standby Assistance Sit to Supine Sit to Supine Assist Standby Assistance Scooting Scooting to Edge of Bed Standby Assistance OT-Transfer Assessment Sit to and From Stand Sit to and from Stand Standby Assistance Transfers Transfer Ability Standby Assistance,Contact Guard Assistance Technique Transfer Destination Bed,Chair Transfer Technique Stand Step Pivot Devices Transfer Assistive Devices Gait Belt,Front Wheeled Walker Comments Mobility Comments CGA to stand and SBA/CGA with FWW today. Pt much steadier on her feet today. OT- Balance Assessment Sitting Balance and Reactions Static Sitting Balance Ability Good Dynamic Sitting Balance Ability Good Standing Balance and Reactions Static Standing Balance Ability Good Dynamic Standing Balance Ability Fair M8 OT- IP Objective Assessments Start: 08/24/21 17:02 Freq: Status: Active Protocol: Document 08/25/21 11:21 [facility] (Rec: 08/25/21 11:45 [facility] [id number]) OT Gross Range of Motion Upper Extremity Range of Motion Assessment Left Impaired OT Strength Upper Extremity Strength Assessment Left Impaired Shoulder 3-/5 Elbow 3-/5 Forearm 3-/5 Wrist 3-/5 Hand 3+/5 Comments Strength Comments Noted pt increased weakness for LUE. Pt not able to hold the water bottle versus yesterday able to reach out the tray table to pick it up. OT Sensation Assessment Comments Summary Comments Pt needing increased pressure for light touch for LUE today. M9 OT- IP Assessment and Plan Start: 08/24/21 17:02 Freq: Status: Active Protocol: Document 08/26/21 08:50 [facility] (Rec: 08/26/21 12:32 [facility] [id number]) OT Summary Assessment and Plan Potential Rehabilitation Potential Good Analytic Complexity at Evaluation Moderate Summary OT Impairments Range of Motion,Strength, Balance,Coordination,Sensation ,Functional Cognition, Functional Mobility,Grooming, Dressing,Toileting,Bathing, Toilet Transfers,Shower Transfers,Activity Tolerance Progress Towards Goals Progressing Toward Goals Assessment Summary Pt still having weakness today for LUE but better from yesterday. Pt's LUE 3-/5 shoulder/elbow and at her hand 3+/5. Pt increased sensitivity to light touch for left arm. Pt would greatly benefit from acute rehab but pt refusing and wanting to go home. Pt if going home will benefit from 29/08 available assist and outpt PT/OT. Pt complaining of being dizzy when looking down and admit at home has spells of, vertigo and that she just stays in bed to use the bed barragan on her own at times. Goals Self-Feeding Goal Independent Grooming Goal Independent Dressing Goal Independent Toileting Goal Independent Bathing Goal Independent Toilet Transfer Goal Independent Shower Transfer Goal Independent Days to Meet Goals 19 Frequency of Treatment Frequency Of Treatment Once a Day Discharge Recommendations OT Discharge Recommendations Acute Rehab Home Equipment Needs shower chair, FWW, HHSP Transportation Needs at Discharge Private Vehicle
[2021-08-26] MEDS: AMLODIPINE 5 MG TABLET PO (11:04)
--- NOTE | 2021-08-26 11:16 | PT.IPTN ---
Current Diagnoses Cerebral infarction, unspecified (08/23/21) Physical Therapy Treatment Note M2 PT-IP Current Condition Start: 08/24/21 12:18 Freq: Status: Active Protocol: Document 08/24/21 12:18 BC (Rec: 08/24/21 12:34 BC [id number]) Physical Therapy Current Condition Current Condition Evaluation Date 08/24/21 Treatment Diagnosis Difficulty with ambulation Onset Date 08/22/21 M3 PT-IP Subjective Start: 08/24/21 12:18 Freq: Status: Active Protocol: Document 08/26/21 11:16 AB (Rec: 08/26/21 12:48 AB [id number]) Subjective Physical Therapy Visit Type Type Treatment Note Visit Start Time 11:16 Visit Stop Time 11:40 Total Visit Minutes 24 Number of SENIOR SECURITY ENGINEER Visits 0 Physical Therapy Visit Comments Patient Comments agreeable to do PT but refuses to do stair climbing M4 PT-IP Mobility and Gait Start: 08/24/21 12:18 Freq: Status: Active Protocol: Document 08/26/21 11:16 AB (Rec: 08/26/21 12:48 AB [id number]) PT-Bed Mobility Assessment Supine to Sit Supine to Sit Standby Assistance Sit to Supine Sit to Supine Standby Assistance PT-Transfer Assessment Sit to and From Stand Sit to and from Stand Standby Assistance Equipment Transfer Assistive Device None,Gait Belt Orthotic/Prosthetic Devices or Brace: No Comments Mobility Comments pt stated that she gets dizzy and vision becomes fuzzy when she looks down. BP: 162/64. pt completed supine to sit SBA . no c/o dizziness with looking to the R and L but slight dizziness with moving head up and down but no nystagmus and dizziness went away upon repositioning head back to midline. pt refuses to do stair climbing and stated that she does not want to get dizzy when she goes down the steps since she has to look down. L eye lateral tracking to the L unable to keep eyes to the left and pt stated that it is hard for her to do and also c/o eye pain with looking to the L. completed sit to stand SBA and ambulated in room ~ 40 ft without AD SBA. Slow paced gait and very guarded. pt stated that her spouse will be able to assist her. pt refused caregiver training and stated that she will tell her spouse on how to assist her if needed. pt went back to bed. call light and table placed within reach. Gait Assessment Gait Gait Assistance Required: Standby Assistance Distance (Feet) 40 Able to Maintain Weight Bearing Status Yes During Gait Assistive Devices Assistive Device None,Gait Belt Orthotic/Prosthetic Devices or Brace: No Gait Deviations General Gait Pattern Decreased Stride Length, Decreased Feet Clearance Factors Limiting Gait Function Factors Limiting Gait Function Decreased Activity Tolerance, Decreased Strength,Poor Balance,Poor Safety Awareness M5 PT-IP Objective Assessments Start: 08/24/21 12:18 Freq: Status: Active Protocol: Document 08/24/21 12:18 BC (Rec: 08/24/21 12:34 BC [id number]) Orientation Orientation/Cognition Level of Alertness Alert Orientation Name,Date,Situation Safety Awareness Decreased Safety Awareness Comments Pt spouse correcting some recent timeline/history for Pt at times. After PT eval, Pt still not clear as to why she cannot get up in room on her own. Spouse and therapist educating Pt on her high fall risk due to the stroke and need to notify nursing of needs; wait for staff before getting up out of bed. Gross Range of Motion Upper Extremity ROM Assessment Within Functional Limits Lower Extremity ROM Assessment Within Functional Limits Strength Upper Extremity Strength Assessment Left Impaired Shoulder grossly 3+/5 Elbow grossly 3+/5 Wrist grossly 3+/5 Hand grossly 3+/5 Lower Extremity Strength Assessment Left Impaired Hip flx/abd 3/5 Knee flx/ext 3+/5 Ankle DF and EV 2+/5; PF and INV 3+ /5 Coordination Assessment Gross Coordination Gross Coordination Impaired Assessment Finger to Nose Test Moderate Impairment Pronation/Supination Test Minimal Impairment Foot Tapping Test Minimal Impairment Heel on Smith Test Minimal Impairment Sensation Assessment Sensation Gross Sensation Left UE Impaired,Left LE Impaired Muscle Tone Muscle Tone WNL No Comments Muscle Tone Comments Generally reduced muscle tone/ hypotonicity seen in LUE and LLE M6 PT-IP Treatment Start: 08/24/21 12:18 Freq: Status: Active Protocol: Document 08/26/21 11:16 AB (Rec: 08/26/21 12:48 AB [id number]) Physical Therapy Treatment Education Education Provided Safety M7 PT-IP Assessment and Plan Start: 08/24/21 12:18 Freq: Status: Active Protocol: Document 08/26/21 11:16 AB (Rec: 08/26/21 12:48 AB [id number]) PT Summary Assessment and Plan Potential Rehabilitation Potential Fair Summary Impairments Pain,ROM,Strength,Balance, Coordination,Sensation,Tone, Cognition,Bed Mobility, Transfers,Gait,Activity Tolerance Progress Towards Goals Slow Progress due to Medical Issues Assessment Summary pt requiring SBA with mobility without AD. pt's mobility is very guarded and will need assistance at home. pt stated that her will be able to assist her. pt will need outpt PT. Goals Bed Mobility Goal Independent Transfer Goal Standby Assistance Gait Goal Standby Assistance Gait Distance 150 Other Goals 3 steps R rail SBA Days to Meet Goals 3 Frequency of Treatment Frequency Of Treatment Once a Day Treatment Plan Physical Therapy Treatment Plan Bed Mobility Training,Transfer Training,Gait Training, Therapeutic Exercise,Balance Retraining,Post Op Education, Discharge Planning, Neuromuscular Re-ed, Coordination Retraining Precautions Other Precautions Fall Risk Discharge Recommendations PT Discharge Recommendations Home with 24/ Assist Available,Outpatient PT Transportation Needs at Discharge Private Vehicle
--- NOTE | 2021-08-26 11:44 | ST.IPDYTX ---
Visit Care Team Role Provider Type Kacy Anderson MD Family Provider Non-Staff Primary Care Provider Specialty: Family Practice Address: [facility] [place], [address] Email: Cora Rider DO Emergency Provider Physician Referring Provider Specialty: Emergency Medicine Address: [address] [place] [address], [address] Email: [email or web address] Lu Jackson MD Admit Provider Physician Attending Provider Specialty: Internal Medicine Address: [address] [place] [address], [address] Phone: Fax: Email: [email or web address] CRIMP SETTER Dysphagia Treatment CRIMP SETTER Dysphagia Treatment Start: 08/25/21 14:23 Freq: Status: Active Protocol: Document 08/26/21 11:38 ZS (Rec: 08/26/21 11:43 ZS [id number]) Dysphagia Treatment Session Time Visit Start Time 11:00 Visit Stop Time 11:15 Total Visit Minutes 15 Setting Assessment Location Acute Care Visit Type Note Type Treatment Note Patient Information Identification Type Name,ID Wristband Subjective Observations Pt was reclined in bed when CRIMP SETTER arrived. NSG reported no new episodes today and Zonia reported decrease in numbness and weakness in her left arm. Zonia agreed to participate in swallow treatment. Treatment Liquids Trialed Thin Solids Trialed Regular Oral Strategies Upright at 90 degrees Pharyngeal Strategies Sitting Upright (90 deg),Small Bites and Sips Treatment Activities Observed pt eat saltine cracker and take 1 medication with thin water through a straw cup. Discussed plan of care, answered pt questions. Assessment Patient Response to Treatment Excellent Rehab Potential Excellent Assessment of Improvement Pt reported no difficulty eating breakfast sandwich this morning and stated she is no longer experiencing difficulty swallowing toward the end of meals. She exhibited no difficulty chewing or swallowing water and no overt signs or symptoms of aspiration were observed with water or cracker. Pt demonstrated speech and swallow WNL and is appropriate for discharge from speech therapy at this time. Diet Recommendations Recommendations Continue Current Diet Liquids Order Thin Diet Order Regular Medication Recommendations As Tolerated Aspiration Precautions Recommended Precautions Upright at 90 Degrees,Small Bites/Sips Treatment Plan Placement Recommendation after Discharge Home Appropriate for Continued Therapy Yes Therapy Recommendations Discharge from speech therapy as pt demonstrates speech and swallowing WNL. Dysphagia Goals 1. Pt will safely tolerate least restrictive diet to meet her nutrition and hydration needs.
--- NOTE | 2021-08-26 12:57 | CM.DPC ---
Addendum entered by Nieves Encarnacion R.N. 08/26/21 13:51: Spoke with [facility]. They can see patient Monday 08/28. Spoke with Dr. Garcia and MD anticipates discharge tomorrow 08/27. Nieves Encarnacion RN/DCP Original Note: DCP Cont: DCP faxed referral to [facility]. Confirmed with [facility] that they accept [place]. Nieves Encarnacion RN/DCP
--- NOTE | 2021-08-26 15:59 | P.PN_ITS ---
Subjective Subjective Date Patient Seen: 08/26/21 Time Patient Seen: 10:00 Interval history: Feeling much better today and states she slept well overnight. Says the weakness in her left arm inside has improved. Still worried about her elevated blood pressure. Exam Vital Signs (past 8 hours): - 08/26/21 08:10 08/26/21 08:03 08/26/21 11:44 Temperature 97.5 F L Pulse Rate 73 67 77 Respiratory Rate 16 16 Blood Pressure 131/73 112/67 162/64 H Pulse Oximetry 93 97 Oxygen Flow Rate 0 0 08/26/21 14:57 Temperature 97.8 F Pulse Rate 73 Respiratory Rate 18 Blood Pressure 153/73 H Pulse Oximetry 97 Oxygen Flow Rate 0 Oxygen Delivery Method Room Air Oxygen Flow Rate 0 Narrative Exam Narrative: GEN:? Very pleasant middle aged female, Alert and oriented x3, upbeat and smiling today HEENT:? Normocephalic, face symmetric CHEST:? Respiratory excursions symmetric, clear to auscultation bilaterally CV:? Regular rate and rhythm, no murmurs, rubs, gallops, PMI nondisplaced ABD:? Soft, nontender, nondistended, bowel sounds present in all 4 quadrants, no organomegaly or masses appreciated EXTR:? Warm, well perfused, no clubbing/cyanosis/edema SKIN:? Warm and dry, without rash NEURO:? Alert and oriented x3, mild decreased sensation to left face, arm and leg, NIH 4. Left upper extremity strength improved at 4/5 and right 5/5. Lower extremities strength 5/5 bilaterally. PSYCH:? Mood and affect is within normal limits, judgment and insight are appropriate Objective Labs Result Diagrams: 08/26/21 06:25 08/26/21 06:25 Labs: Laboratory Results - last 24 hr 08/26/21 08/26/21 06:25 06:25 WBC 5.5 RBC 4.40 Hgb 12.0 Hct 36.1 MCV 81.9 MCH 27.4 MCHC 33.4 RDW 14.5 Plt Count 246 Neut % (Auto) 46.3 L Lymph % (Auto) 33.0 [place] % (Auto) 9.7 Eos % (Auto) 10.5 H Baso % (Auto) 0.5 Neut # (Auto) 2600 Lymph # (Auto) 1800 [place] # (Auto) 500 Eos # (Auto) 600 H Baso # (Auto) 0 Sodium 139 Potassium 3.9 Chloride 107 Carbon Dioxide 21 L BUN 30 H Creatinine 1.37 H Estimated GFR 45 L BUN/Creatinine Ratio 21.9 Glucose 307 H D Calcium 9.1 PFSH Medical History Depression Depression with anxiety Diabetes Hearing loss Hyperlipidemia associated with type 2 diabetes mellitus Insomnia Night terrors Non-insulin dependent type 2 diabetes mellitus Seasonal allergies Surgical History Hx of carpal tunnel repair Hx of hand surgery Hx of shoulder surgery Family History Father Depression Hypertension Sister Gout Cancer Mother Diabetes mellitus Social History household members: significant other Smoking Status: Former smoker alcohol intake: never substance use type: does not use Assessment & Plan Assessment & Plan narrative: 1. 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 She is admitted for further stroke workup.? Sinus rhythm on EKG.? No known history of atrial fibrillation.? Carotid ultrasound was done which revealed less than 50% proximal ICA stenosis bilaterally.? Moderate atherosclerotic plaque on the right probably approaching 50% stenosis.? Echocardiogram reveals normal LV size and function.? EF is 55- 60%.? Diastolic parameters suggest relaxation abnormality of the left ventricle consistent with probable normal filling pressures.? Right ventricle is normal in size and function.? Atria are normal in size and function.? No significant valvular disease.?No interatrial shunt. NIH waxing and waning this am. Telestroke consult done and recommendation for DAPTx21 days, zio patch, high intensity statin therapy. -patient with waxing and waning of left upper extremity numbness and weakness, head CT negative x2 for hemorrhagic conversion -PT eval now rec HH PT which can open 08/28 2. Diabetes mellitus type 2 Patient is on glipizide and metformin at baseline.? Continue fingersticks and sliding scale.? Controlled carb diet.?A1C 8.3%. 3. Hyperlipidemia Continue high intensity statin therapy. LDL 152 (goal 70). 4. Hypertension -Continue home losartan -Start amlodipine 5mg daily 5. Depression/anxiety Resume home Prozac. Added Ativan as needed for anxiety. -melatonin nightly for sleep Code status Full Prophylaxis Low Chalo score Disposition Home tomorrow 08/27 for HH to open on 08/28. Time Spent With Patient Critical Care time: I spent a total of [] minutes of critical care time on this patient's care today; this time is exclusive of procedural time. Quality VTE Deep Vein Thrombosis/Pulmonary Embolism Present on Admission: No
[2021-08-26] MEDS: ATORVASTATIN 20 MG TABLET 80 MG PO (21:06)
[2021-08-26] MEDS: MELATONIN 3 MG TABLET PO (21:07)
[2021-08-27 00:04] VITALS: BP 121/61; PULSE 68; RESP 18; TEMP 36.1; O2SAT 95
[2021-08-27 05:00] VITALS: BP 118/73; PULSE 77; RESP 14; TEMP 36.4; O2SAT 95
--- NOTE | 2021-08-27 07:04 | P.DS_ITS ---
History of Present Illness History of Present Illness Chief complaint: Poss stroke last night- PCP referred Narrative: 56-year-old female with diabetes mellitus type 2, insulin dependent, complicated by neuropathy, hypertension, depression anxiety, asthma, insomnia, prior COVID infection 10/27 and hyperlipidemia who presented to the emergency department today complaining of left-sided weakness and numbness.? She states she did have a headache yesterday that was right-sided in nature.? She notes that she gets migraines and was concerned she was having the onset of a migraine.? She took Tylenol and the headache went away.? She reports after her fimalvin left for work around 830 or so she was watching TV.? She was texting family on the phone and suddenly her cellphone dropped out of her hand.? She had difficulty picking back up due to clumsiness with the hand, inability to feel the phone and weakness in her left arm.? Subsequently to her neck and her left chest.? She states the sensation was that her arm had fallen asleep.? After about 15 minutes and that resolved.? She then got up to go to the kitchen and note she was walking like someone was pulling her towards the left.? She states she felt dizzy.? She notes she tried to put plates at the sink but was unable to hold the plate and it dropped to the ground.? She notes she got increasingly anxious and ultimately laid back down and again after 15 minutes the symptoms resolved.? She then had a 3rd episode with similar symptoms which again lasted approximately 30 minutes. ? This morning, she woke around 630 and noted that she again felt quite weak.? When her fimalvine came home they contacted the doctor's office but it did not open until 745.? When she spoke to her primary care provider she was advised to go to the emergency department due to concerns for a stroke.In the emergency department she was noted to have a left facial droop, ataxia, and left hemiparesis.? She was given an aspirin.? Head CT was negative.? MRI showed scattered areas of subacute infarct involving the deep white matter of the right frontal lobe, appearing consistent with embolic source.? Since admission, she notes that the facial numbness feels better, her left arm still feels a bit numb/weak but improved from this morning.? She denies any chest pain or shortnes s for breath.? She had otherwise been feeling well recently. Discharge Providers Provider Date of admission: 08/23/21 11:28 Discharge Date: 08/27/21 Primary care physician: Kacy Anderson MD Consults: 08/23/21 15:51 Consult to Discharge Planning Routine Comment: Consult to Occupational Therapy Evaluate & Treat Comment: Physician Instructions: Evaluate and treat Consult to Physical Therapy Evaluate & Treat Comment: Physician Instructions: Evaluate and Treat Consult to Speech Therapy Evaluate & Treat Comment: Physician Instructions: Evaluate and treat 08/26/21 11:21 Consult to Home Health Routine Comment: Reason For Exam: Evaluate and Treat-RN, PT, OT, Aide Discharge provider: Tevin Garcia DO Summary Hospital Course Discharge Diagnosis: 1. 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 She is admitted for further stroke workup.? Sinus rhythm on EKG.? No known history of atrial fibrillation.? Carotid ultrasound was done which revealed less than 50% proximal ICA stenosis bilaterally.? Moderate atherosclerotic plaque on the right probably approaching 50% stenosis.? Echocardiogram reveals normal LV size and function.? EF is 55- 60%.? Diastolic parameters suggest relaxation abnormality of the left ventricle consistent with probable normal filling pressures.? Right ventricle is normal in size and function.? Atria are normal in size and function.? No significant valvular disease.?No interatrial shunt.? NIH waxing and waning this am.? Telestroke consult done and recommendation for DAPTx21 days, zio patch, high intensity statin therapy. -patient with waxing and waning of left upper extremity numbness and weakness, head CT negative x2 for hemorrhagic conversion. Likely secondary to anxiety and hypertension. 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 Berrios who she will see in clinic on 09/01 about repeat holter monitor for longer duration than 1 week 2. Diabetes mellitus type 2 Patient is on glipizide and metformin at baseline.? Continue fingersticks and sliding scale.? Controlled carb diet.?A1C 8.3%. -Resumed on discharge 3. Hyperlipidemia Continue high intensity statin therapy.? LDL 152 (goal 70). -Increased home lipitor to 80mg nightly ? 4. Hypertension -Continue home losartan -Started amlodipine 5mg daily 5. Depression/anxiety Resume home Prozac.? Added Ativan as needed for anxiety. -melatonin nightly for sleep Hospital Course: 56-year-old female with diabetes mellitus type 2, insulin dependent, complicated by neuropathy, hypertension, depression anxiety, asthma, insomnia, prior COVID infection 10/27 and hyperlipidemia who was admitted last night w/a subacute cardioembolic CVA to the right frontal lobe.? Overnight, NIH scores were 0-4.? This am around 7:40 she c/o worsening numbness, facial weakness, noted to have increased facial droop and NIH score went up to 10.? She received her am ASA at 8:30 and plavix at 9am.? Stat noncontrast head CT was done and was negative.? NIH improved back down to 4.? Telestroke consult done w/recommendations for: DA PT x 21 days, high intensity statin therapy and d/c w/a Zio patch to monitor for a fib (pt recently completed an event monitor/zio patch for cardiology but hasn't had results yet).? Records were obtained which showed she had a recent ZIO patch for worn for 1 week which showed no arrhythmias. This was ordered by her meat and seafood manager Dr. Berrios who she is scheduled to see on 09/01 in clinic. I sent a text to Dr. 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 Patient was discharged home with [facility] to open on 08/28 for ongoing rehab. Her atorvastatin was increased to 80 mg daily, amlodipine was added for blood pressure control to her losartan, she was placed on aspirin daily and Plavix for 17 days to complete 21 day course. Exam Vital Signs (past 8 hours): - 08/27/21 00:04 08/27/21 05:00 Temperature 97.0 F L 97.5 F L Pulse Rate 68 77 Respiratory Rate 18 14 Blood Pressure 121/61 118/73 Pulse Oximetry 95 95 Oxygen Flow Rate 0 0 Oxygen Delivery Method Room Air Oxygen Flow Rate 0 Narrative Exam Narrative: GEN:? Very pleasant middle aged female, Alert and oriented x3, upbeat and smiling today. ready to go home HEENT:? Normocephalic, face symmetric CHEST:? Respiratory excursions symmetric, clear to auscultation bilaterally CV:? Regular rate and rhythm, no murmurs, rubs, gallops, PMI nondisplaced ABD:? Soft, nontender, nondistended, bowel sounds present in all 4 quadrants, no organomegaly or masses appreciated EXTR:? Warm, well perfused, no clubbing/cyanosis/edema SKIN:? Warm and dry, without rash NEURO:? Alert and oriented x3, mild decreased sensation to left face, arm and leg, NIH 4. Left upper extremity strength improved at 4/5 and right 5/5. Lower extremities strength 5/5 bilaterally. PSYCH:? Mood and affect is within normal limits, judgment and insight are appropriate Objective Labs Result Diagrams: 08/26/21 06:25 08/26/21 06:25 [facility] Medical History Depression Depression with anxiety Diabetes Hearing loss Hyperlipidemia associated with type 2 diabetes mellitus Insomnia Night terrors Non-insulin dependent type 2 diabetes mellitus Seasonal allergies Surgical History Hx of carpal tunnel repair Hx of hand surgery Hx of shoulder surgery Family History Father Depression Hypertension Sister Gout Cancer Mother Diabetes mellitus Social History household members: significant other Smoking Status: Former smoker alcohol intake: never substance use type: does not use Discharge Plan Discharge Plan Patient Disposition: Home Health Service Transfer to: [facility] Provider Discharge Comment: Unfortunately you had a stroke with symptoms of left hand and arm weakness which improved significantly so we felt you are safe to go home and receive home health with rehab there. He will now be on aspirin indefinitely and Plavix (a different blood thinner) for of 21 days. I have added a 2nd blood pressure medication called amlodipine for your high blood pressure. I have increased your atorvastatin to 80 mg nightly so you may take 2 pills of the 40 mg until you run out and then start 80 mg nightly. You may resume your home diabetes medications. Do not take your naproxen with the aspirin as they may interact with eachother. You should talk to your primary doctor about alternatives to naproxen if you still need something for pain. Discharge orders & Medications Prescriptions: New amlodipine [Norvasc] 5 mg Tablet 5 mg PO DAILY 90 Days Qty: 90 0RF aspirin 81 mg Tablet,Delayed Release (Dr/Ec) 81 mg PO DAILY 90 Days Qty: 90 3RF atorvastatin 80 mg tablet 80 mg PO BEDTIME 90 Days Qty: 90 0RF clopidogrel 75 mg Tablet 75 mg PO DAILY 17 Days Qty: 17 0RF Continued glipizide 5 mg tablet 2.5 mg PO BEDTIME loratadine [Allergy Relief (loratadine)] 10 mg tablet 10 mg PO DAILY PRN (Reason: Allergic Symptoms) multivitamin Capsule 1 cap PO QAM fluoxetine 20 mg capsule 60 mg PO DAILY Rx Instructions: new RX, was to start tomorrow losartan 25 mg tablet 50 mg PO DAILY Label Comments: take 1 tablet by mouth once daily metformin 500 mg tablet 1,000 mg PO BID Label Comments: take 2 tablets by mouth twice a day Discontinued naproxen 500 mg tablet 500 mg PO PRN PRN (Reason: Pain (Scale Score 1-3)) Label Comments: take 1 tablet by mouth twice a day with meals atorvastatin 40 mg Tablet 40 mg PO BEDTIME Follow up/Referrals: Kacy Anderson MD [Primary Care Provider] - Diet/Activity/Treatments Diet: Carb-consistent/Diabetic Visit Report/Discharge Packet Instructions: DI for Stroke-Ischemic, How to Prevent Falls, Right Brain Stroke Discharge Data Primary Care Provider: Kacy Anderson Quality VTE Deep Vein Thrombosis/Pulmonary Embolism Present on Admission: No
[2021-08-27 08:29] VITALS: BP 113/72; PULSE 75; RESP 14; TEMP 36.6; O2SAT 96
[2021-08-27] MEDS: INSULIN LISPRO 100 UNIT/ML 3ML VIAL SUBCUT ×2 (08:49→12:48)
[2021-08-27] MEDS: LOSARTAN 25 MG TABLET 50 MG PO (08:51)
[2021-08-27] MEDS: CLOPIDOGREL 75 MG TABLET PO (08:51)
[2021-08-27] MEDS: AMLODIPINE 5 MG TABLET PO (08:51)
[2021-08-27] MEDS: ASPIRIN EC 81 MG TABLET PO (08:51)
--- NOTE | 2021-08-27 09:26 | OT.IP.TRT ---
Current Diagnoses Cerebral infarction, unspecified (08/23/21) Occupational Therapy Treatment Note M2 OT-IP Current Condition Start: 08/24/21 17:02 Freq: Status: Active Protocol: Document 08/24/21 17:02 [facility] (Rec: 08/24/21 17:22 [facility] [id number]) Occupational Therapy Current Condition Current Condition Evaluation Date 08/24/21 Treatment Diagnosis R CVA frontal lobe M3 OT- IP Subjective and Pain Start: 08/24/21 17:02 Freq: Status: Active Protocol: Document 08/27/21 09:27 [facility] (Rec: 08/27/21 09:33 [facility] [id number]) OT- Subjective Occupational Therapy Visit Type Type Treatment Note Visit Start Time 09:18 Visit Stop Time 09:26 Total Visit Minutes 8 Occupational Therapy Visit Comments Patient Comments Pt not wanting to shower and just wanting to go home. Patient/Caregiver Goals To go home. OT Pain Assessment Pain When Pain Assessed At Rest Pain Present Pain Present Denied Pain M5 OT- IP IADL's Start: 08/24/21 17:02 Freq: Status: Active Protocol: Document 08/24/21 17:02 [facility] (Rec: 08/24/21 17:22 [facility] [id number]) OT-Instrumental Activities of Daily Living Home Safety Awareness Ability to Problem Solve Emergency Able to Problem Solve Situations Home Safety Comments At this time would be best for someone to provide her assist and supervision for her needs. Driving Driving Concerns Identified Regarding Safety M6 OT- IP Functional Cognition Start: 08/24/21 17:02 Freq: Status: Active Protocol: Document 08/26/21 08:50 [facility] (Rec: 08/26/21 12:32 [facility] [id number]) Cognitive Factors Limiting Selfcare Function Cognitive Comments Cognitive Assessment Comments Pt insistent on going home as feels that she will be able to care for herself at night when her at work. Pt still having word finding difficulties. M8 OT- IP Objective Assessments Start: 08/24/21 17:02 Freq: Status: Active Protocol: Document 08/27/21 09:27 [facility] (Rec: 08/27/21 09:33 [facility] [id number]) OT Gross Range of Motion Upper Extremity Range of Motion Assessment Right Impaired OT Strength Upper Extremity Strength Assessment Right Impaired Shoulder 3- Elbow 3+ Forearm 3+ Wrist 3+ Hand 4- Comments Strength Comments Increased strength in LUE today and able to tile picker water bottle from the table. Pt given theraputty to work on left hand strength. Pt able to demonstrate good understanding for hand exercises. OT- Coordination Assessment Comments Coordination Comments encouraged pt to work on FMS at home M9 OT- IP Assessment and Plan Start: 08/24/21 17:02 Freq: Status: Active Protocol: Document 08/27/21 09:27 [facility] (Rec: 08/27/21 09:33 [facility] [id number]) OT Summary Assessment and Plan Potential Rehabilitation Potential Good Analytic Complexity at Evaluation Moderate Summary Progress Towards Goals Progressing Toward Goals Assessment Summary Pt noted better witih LUE strength and now intact for sensation. Pt adamant on going home. Pt to go home with her to assist 24/. Pt encouraged to get a shower chair, but pt states to just have her there to help . Goals Days to Meet Goals 10 Frequency of Treatment Frequency Of Treatment Once a Day Discharge Recommendations OT Discharge Recommendations Home with 24/7 Assist Available,Outpatient PT [facility] Needs at [facility]charge Private Vehicle
--- NOTE | 2021-08-27 11:14 | PT-IP ANOTE ---
Attempted to see pt at 11:10, pt refused PT stating she just wants to rest before going home w/ spouse. Pt offers she has been moving around in room w/ no issues. Refused further stair training.
[2021-08-27 11:50] VITALS: BP 146/80; PULSE 76; RESP 18; TEMP 36.2; O2SAT 97
--- NOTE | 2021-08-27 13:48 | CM.DPC ---
DCP Cont: Pt is discharging home today. DCP faxed over F2F sheet and awaiting signed discharge summary. Tete RM will come to assess patient tomorrow 08/28. Nieves Encarnacion RN/DCP.
--- NOTE | 2021-08-27 14:30 | PC.NURSE ---
Day shift: Pt left unit via WC at approx 1425. Paperwork signed and all questions answered. Pt has all personal belongings. MD scripts sent electronic to Pt's pharmacy. Home Health is set up and starts tomorrow. Pt's Spouse in room for d/c teachings. Left sided weakness remains. Pt ambulating well today. No pain or nausea reported.
== END 2021-08-27 14:32 | disposition home health service (06) | DRG 65 ==
LOC: ED 09:07 → AC 12:04
PROVIDERS: Student in an Organized Health Care Education/Training Program; Admitting Provider Family Medicine; Emergency Provider Emergency Medicine; Family Provider Family Medicine; PCP Family Medicine; Referring Provider Emergency Medicine; Visit Provider Family Medicine
DX: I63.9 Cerebral infarction, unspecified (principal); I69.354 Hemiplegia and hemiparesis following cerebral infarction affecting left non-dominant side; E11.40 Type 2 diabetes mellitus with diabetic neuropathy, unspecified; E78.5 Hyperlipidemia, unspecified; I10 Essential (primary) hypertension; F32.9 Major depressive disorder, single episode, unspecified; F41.9 Anxiety disorder, unspecified; Z20.822 Contact with and (suspected) exposure to COVID-19; J45.909 Unspecified asthma, uncomplicated; Z79.84 Long term (current) use of oral hypoglycemic drugs; Z86.16 Personal history of COVID-19; R29.705 NIHSS score 5
CPT/HCPCS: 36415; 70450; 70548; 70553; 71045; 80048; 80053; 81003; 82550; 82962; 83036; 83690; 84443; 84484; 85025; 87635; 92526; 92610; 93005; 93010; 93306; 93880; 97116; 97162; 97166; 97530; 99285; C9803; A9579; J1815

== ENCOUNTER 2021-10-20 21:53 | Inpatient (IN) | payer MEDICAID, OTHER, SELFPAY ==
[2021-08-23 11:53] VITALS: BMI 21.4
[2021-10-20] VITALS (9 sets, daily range): BP systolic 108–177; BP diastolic 57–81; PULSE 92–117; RESP 18–29; TEMP 36.5; O2SAT 95–100
--- NOTE | 2021-10-20 22:15 | DI.CT.S_ITS ---
PROCEDURE: CT STROKE INDICATIONS: L arm weakness TECHNIQUE: Noncontrast 4.5 mm thick angled axial sections acquired from the foramen magnum to the vertex, with coronal reformats. For radiation dose reduction, the following was used: automated exposure control, adjustment of mA and/or kV according to patient size. COMPARISON: [facility], MR, MR STROKE, 08/23/2021, 10:45. [facility], CT, CT HEAD/BRAIN WO CON, 08/25/2021, 10:22. FINDINGS: Image quality: Excellent. CSF spaces: Basal cisterns are patent. No extra-axial fluid collections. Ventricles are normal in size and shape. Brain: No intracranial hemorrhage, mass, or mass effect. Hunter-white matter interface appears preserved. There is a small focal subcortical hypodensity in the right frontal lobe redemonstrated. Skull and face: Calvarium and visualized facial bones are intact, without suspicious lesions. Sinuses: Visualized sinuses and mastoids are clear. IMPRESSION: 1. No intracranial hemorrhage or other imaging contraindications to tPA. 2. Small focal subcortical hypodensity redemonstrated in the right frontal lobe consistent with a chronic infarct as seen on the prior MRI. Findings reported Dr. Frost on 10/20/2021 at 10:26 p.m.. This study fulfills neurological imaging criteria for inclusion or exclusion of acute stroke therapies based on available published neurological imaging guidelines. Dictated by: Manny Austin M.D. on 10/20/2021 at 22:25 Approved by: Manny Austin M.D. on 10/20/2021 at 22:31
--- NOTE | 2021-10-20 22:16 | DI.CT.S_ITS ---
PROCEDURE: CT ANGIO HEAD AND NECK INDICATIONS: left arm weakness TECHNIQUE: After the administration of intravenous contrast, 1 mm thick sections acquired from the aortic arch through the [place]. Post-contrast 4.5 mm thick sections then re-acquired from the foramen magnum to the vertex. 3-dimensional nmxewml-vuqeyzrvo-yaiubrswse (MIP) and/or volume rendering reformats were acquired of the central intracranial vasculature and neck separately. For radiation dose reduction, the following was used: automated exposure control, adjustment of mA and/or kV according to patient size. COMPARISON: [facility], CT, CT STROKE, 10/20/2021, 22:22. FINDINGS: Image quality: Excellent. Exam completed and available for interpretation on 10/20/2021 at 10:48 p.m.. BRAIN: CSF spaces: Basal cisterns are patent. No extra-axial fluid collections. Ventricles are normal in size and shape. Brain: No intracranial hematoma collections, mass, or mass effect. Hunter-white matter interface appears preserved. Small subcortical focal hypodensities are redemonstrated within the right frontal lobe consistent with sequelae of a prior chronic infarct. No abnormal intracranial enhancement. Skull and face: Calvarium and facial bones appear intact, without suspicious lesions. Orbits appear normal. Sinuses: Sinuses and mastoids are clear. HEAD CT ANGIOGRAPHY: Anterior circulation: Intracranial internal carotid arteries are normal in size and appear patent bilaterally. There is mild atherosclerotic calcification along the cavernous segments of the internal carotid arteries. The paired anterior cerebral arteries appear patent bilaterally. The anterior communicating artery also appears patent. The middle cerebral arteries appear patent bilaterally. No high-grade stenosis, occlusion, or filling defects. No cerebral aneurysms identified. Posterior circulation: Visualized portions of the vertebral arteries demonstrate normal caliber, and join to form a patent basilar artery. The posterior cerebral arteries appears patent bilaterally. No high-grade stenosis, occlusion, or filling defects. No cerebral aneurysms identified. NECK CT ANGIOGRAPHY: Carotid system: The great vessels demonstrate common origin of the right brachiocephalic and left common carotid arteries as well as separate origin of the left vertebral artery as they arise from the aortic arch. The origins of the common carotid arteries appear patent. The common carotid arteries demonstrate normal caliber and courses. There is partially calcified atherosclerotic plaque in the right carotid bulb with narrowing of up to approximately 50%. There is also partially calcified plaque within the left carotid bulb with narrowing of less than 50%. The internal carotid arteries demonstrate normal calibers and courses. Posterior circulation: There is mild to moderate narrowing at the origin of the right vertebral artery. The left vertebral artery appears patent at its origin. The more superior extracranial portions of both vertebral arteries also demonstrate normal courses and calibers. They join to form a patent basilar artery. Soft tissues: Visualized neck soft tissues demonstrate no suspicious abnormalities. Bones: No suspicious bony lesions. Visualized cervical spine appears normally aligned. IMPRESSION: 1. No high-grade stenosis or occlusion of the central intracranial arteries. 2. No high-grade stenosis or occlusion of the head and neck arteries. 3. Bilateral narrowing in the carotid bulbs of up to approximately 50% on the right and less than 50% on the left. Any quantitative measurements of stenosis were performed using NASCET criteria. Dictated by: Manny Austin M.D. on 10/20/2021 at 23:01 Approved by: Manny Austin M.D. on 10/20/2021 at 23:09
--- NOTE | 2021-10-20 22:24 | ED.NEUROSD ---
HPI - Neuro Symptoms/Deficit General Chief Complaint: Neuro Symptoms/Deficit Stated Complaint: Left arm weakness, Moving down to legs Time Seen by Provider: 10/20/21 22:15 Source: patient Mode of arrival: Wheelchair Limitations: no limitations History of Present Illness HPI Narrative: 56-year-old female comes emergency department with complaint of left-sided weakness, expressive aphasia that started about 9:10 this evening. Patient states she stroke and was discharged on August 27. Patient states symptoms tonight started about 9:10 p.m., patient notes speech changes, left-sided facial droop and left-sided weakness that is new. She is currently taking aspirin and Plavix daily. Patient states that she has numbness and tingling on the left side as well although starting to improve and she is having a little bit more motion of her upper extremities but still significantly there. She denies chest pain or shortness of breath, she did start to have a headache earlier she took some Tylenol for it it is improved but not gone. She denies nausea or vomiting, no GI or urinary symptoms. Patient is on medications for diabetes, hypertension dyslipidemia. Patient notes she has allergy to IV contrast, she states it was several hours after she received the contrast when she was at [facility]. She has been and received premedication in the past and not had issues afterwards. On Anticoagulants: No Related Data Home Medications Medication Instructions Recorded Confirmed glipizide 5 mg tablet 2.5 mg PO BEDTIME 12/25/18 08/23/21 loratadine 10 mg tablet (Allergy 10 mg PO DAILY PRN Allergic 12/25/18 08/23/21 Relief (loratadine)) Symptoms multivitamin 1 cap PO QAM 12/25/18 10/21/21 fluoxetine 20 mg capsule 60 mg PO DAILY depression 03/29/21 10/21/21 losartan 25 mg tablet 50 mg PO DAILY hypertension 03/29/21 10/21/21 metformin 500 mg tablet 1,000 mg PO BID 03/29/21 10/21/21 Triamcinolone Acetate 0.1 % topical PRN PRN itchiness 10/21/21 10/21/21 acetaminophen 650 mg 650 mg PO Q6-12H PRN pain 10/21/21 10/21/21 tablet,extended release (Tylenol 8 Hour) amlodipine 5 mg tablet 5 mg 10/21/21 colchicine 0.6 mg PO PRN PRN gout 10/21/21 10/21/21 meclizine 25 mg PRN PRN Vertigo 10/21/21 10/21/21 sitagliptin-metformin 25 mg DAILY 10/21/21 10/21/21 Previous Rx's Medication Instructions Recorded amlodipine 5 mg tablet (Norvasc) 5 mg PO DAILY 90 days #90 tabs 08/27/21 aspirin 81 mg tablet,delayed 81 mg PO DAILY 90 days #90 tabs 08/27/21 release atorvastatin 80 mg tablet 80 mg PO BEDTIME 90 days #90 tabs 08/27/21 Allergies Allergy/AdvReac Type Severity Reaction Status Date / Time aspirin [ASPIRIN] Allergy Severe Gastrointestinal Verified 04/19/21 19:04 Upset iodine [IODINE] Allergy Unknown Verified 04/19/21 19:04 lactose [LACTOSE] Allergy Unknown Verified 04/19/21 19:04 latex [LATEX] Allergy Unknown Verified 04/19/21 19:04 Review of Systems Review of Systems ROS Unobtainable: All systems reviewed & are unremarkable except as noted in HPI and below Hematologic/Lymphatic On Anticoagulants: No Patient History Medical History Depression Depression with anxiety Diabetes Hearing loss Hyperlipidemia associated with type 2 diabetes mellitus Insomnia Night terrors Non-insulin dependent type 2 diabetes mellitus Seasonal allergies Surgical History Hx of carpal tunnel repair Hx of hand surgery Hx of shoulder surgery Family History Father Depression Hypertension Sister Gout Cancer Mother Diabetes mellitus Social History household members: significant other Smoking Status: Former smoker alcohol intake: never substance use type: does not use Smoking Status: Former smoker alcohol intake frequency: other Substance Use Type: does not use Exam Narrative Exam Narrative: GEN: well nourished, well appearing yes female, alert and oriented x 3, patient appears to be in [id number] distress. HEENT: Atraumatic, pupils are equal round reactive to light, extraocular movements are intact, nares are clear, TMs are clear with no fluid, there is no conjunctival pallor. Throat is clear without any exudates, erythema, tonsillar enlargement or uvular deviation, left facial droop HEART: Regular rate and rhythm without murmur, clicks, rubs. Pulses are equal in upper and lower extremities LUNGS:Lungs clear to auscultation, no wheezes, rales, crackles, chest moves symmetrically ABD:bowel sounds normal, soft, non-tender, no guarding, rebound, rigidity, no masses noted, no hepatosplenomegaly :No CVA tenderness MSCL: Non-tender, no muscle atrophy, patient has drift down to the bed with left upper extremity, does not drift but does have difficulty with left leg. NEURO:CN 2-12 intact, sensation normal, finger nose finger test normal on right difficulty on the left but able to accomplish, heel robertson test normal on right difficulty with left leg, patient has decreased sensation in left compared to right. Mild dysarthria slow speech. Initial Vital Signs Initial Vital Signs: Vital Signs Temperature 97.7 F 10/20/21 22:07 Pulse Rate 117 H 10/20/21 22:07 Respiratory Rate 20 10/20/21 22:07 Blood Pressure 153/81 H 10/20/21 22:07 Pulse Oximetry 98 10/20/21 22:07 Oxygen Delivery Method 10/20/21 22:07 Scores NIH Stroke Scale Level of Conciousness: Alert, keenly responsive Ask month/age: Answers both questions correctly. Open/close eyes, close hand: Performs both tasks correctly Best gaze horizontal: Normal Visual glover: No visual loss Facial palsy: Partial paralysis, total or near total paralysis of lower face Left arm drift: Some effort against gravity, cannot maintain, drifts down to bed Right arm drift: No drift for full 10 sec Left leg drift: Drifts down, not to bed Right leg drift: No drift for full 5 sec Limb ataxia: Present in two limbs Sensory on face/arms/legs: Mild to moderate sensory loss, can tell touch Best language: No aphasia, normal Dysarthria: Mild to mod,some slurring Extinction or inattention: No abnormality Total NIH Stroke scale score: 9 Course Orders Ordered: ED Orders 10/20/21 22:15 CT Stroke Stat Urine Drug Screen, Rapid Stat 10/20/21 22:16 CT angio head and neck Stat 10/20/21 22:17 Complete Blood Count AUTO DIFF Stat Comprehensive Metabolic Panel Stat Partial Thromboplastin Time Stat Prothrombin Time INR Stat Troponin & CK Cardiac Panel Stat 10/20/21 22:45 EKG-12 Lead Stat 10/20/21 23:02 COVID19 -Nasal RAPID/Pre-Proc Stat 10/21/21 00:14 MR stroke Stat 10/21/21 01:43 Consult to Discharge Planning Routine Consult to Occupational Therapy Evaluate & Treat Consult to Physical Therapy Evaluate & Treat Consult to Speech Therapy Evaluate & Treat 10/21/21 05:00 Basic Metabolic Panel Routine Complete Blood Count AUTO DIFF Routine Hemoglobin A1C% w Est Avg Glu Routine Lipid Panel Routine Acetaminophen (Acetaminophen 325 Mg Tablet) 650 mg PO Q6HR PRN PRN Reason: Fever/Mild Pain (1-3) Aspirin (Aspirin Ec 81 Mg Tablet) 81 mg PO DAILY [facility] Atorvastatin Calcium (Atorvastatin 20 Mg Tablet) 80 mg PO BEDTIME [facility] Clopidogrel Bisulfate (Clopidogrel 75 Mg Tablet) 75 mg PO DAILY [facility] Fluoxetine HCl (Fluoxetine 20 Mg Capsule) 60 mg PO DAILY [facility] Heparin Sodium (Porcine) (Heparin 5,000 Unit/Ml Vial) 5,000 unit SUBCUT BID [facility] Sodium Chloride (Normal Saline 0.9%) 1,000 mls @ 100 mls/hr IV CONT [facility] Last Admin: 10/21/21 03:26 Dose: 100 mls/hr Documented By: HIPOLITO Sodium Chloride (Normal Saline 0.9%) 1,000 mls @ 100 mls/hr IV CONT [facility] Last Admin: 10/21/21 02:03 Dose: 100 mls/hr Documented By: HIPOLITO Ondansetron HCl (Ondansetron 4 Mg/2 Ml Inj) 4 mg IV Q8HR PRN PRN Reason: Nausea And Vomiting Sodium Chloride (Sodium Chloride 0.9% Flush) 10 ml IV BID [facility] Last Admin: 10/21/21 03:26 Dose: 10 ml Documented By: HIPOLITO Sodium Chloride (Sodium Chloride 0.9% Flush) 10 ml IV PRN PRN PRN Reason: Flush Discontinued Medications Aspirin (Aspirin 81 Mg Chew Tab) 324 mg PO NOW ONE Stop: 10/20/21 23:23 Last Admin: 10/20/21 23:53 Dose: 324 mg Documented By: SEBASTIAN Aspirin (Aspirin Ec 81 Mg Tablet) 81 mg PO DAILY [facility] Diphenhydramine HCl (Diphenhydramine 50 Mg/Ml Vial) 50 mg IV NOW ONE Stop: 10/20/21 22:21 Last Admin: 10/20/21 22:25 Dose: 50 mg Documented By: SEBASTIAN Sodium Chloride (Normal Saline 0.9%) 1,000 mls @ 150 mls/hr IV CONT [facility]IKA Last Infusion: 10/21/21 00:50 Dose: 0 mls/hr Documented By: Admin: 10/20/21 22:25 Dose: 150 mls/hr Documented By: SEBASTIAN Methylprednisolone (Methylprednisolone 125 Mg/2 Ml Vial) 125 mg IV NOW ONE Stop: 10/20/21 22:21 Last Admin: 10/20/21 22:25 Dose: 125 mg Documented By: SEBASTIAN Consultations Consultation #1: Telestroke, [facility]. Dr. Gunderson no tPA because of a ischemic stroke in the last 90 days. She will review images and recontact. Reviewed CTA Dr. Gunderson @ [id number]: Reviewed CTA vessels look good, because of ischemic stroke in the last 90 days no tPA. At this time cryptogenic. Recommends repeat MRI, telemetry, continue aspirin Plavix for now will need a pvc monitor at home and permissive hypertension. Time: 23:02 Consultation #2: Dr. Quiroz, hospitalist accepts for inpatient. Reviewed recommendations from Neurology. Vital Signs Vital signs: Vital Signs - 8 hr 10/20/21 22:07 10/20/21 22:39 10/20/21 22:40 Temperature 97.7 F Pulse Rate 117 H 109 H Respiratory Rate 20 Blood Pressure 153/81 H 177/80 H Pulse Oximetry 98 99 Oxygen Delivery Method Room Air 10/20/21 22:40 10/20/21 23:00 10/20/21 23:00 Temperature Pulse Rate 109 H 106 H Respiratory Rate 29 H 18 Blood Pressure 154/81 H Pulse Oximetry 100 98 Oxygen Delivery Method Room Air 10/20/21 23:10 10/20/21 23:10 10/20/21 23:20 Temperature Pulse Rate 100 H 94 H Respiratory Rate 24 26 H Blood Pressure 140/74 Pulse Oximetry 98 98 Oxygen Delivery Method 10/20/21 23:20 10/20/21 23:30 10/20/21 23:30 Temperature Pulse Rate 95 H Respiratory Rate 22 Blood Pressure 124/66 117/62 Pulse Oximetry 98 Oxygen Delivery Method 10/20/21 23:40 10/20/21 23:40 10/20/21 23:50 Temperature Pulse Rate 92 H Respiratory Rate 25 H Blood Pressure 115/61 108/57 L Pulse Oximetry 95 Oxygen Delivery Method 10/20/21 23:50 10/21/21 00:00 10/21/21 00:00 Temperature Pulse Rate 97 H 110 H Respiratory Rate 24 23 Blood Pressure 155/80 H Pulse Oximetry 96 98 Oxygen Delivery Method 10/21/21 00:10 10/21/21 00:10 Temperature Pulse Rate 98 H Respiratory Rate 23 Blood Pressure 135/69 Pulse Oximetry 98 Oxygen Delivery Method MDM - Neuro Symptoms/Deficit Lab Data Result diagrams: 10/20/21 22:17 10/20/21 22:17 Labs: Lab Results 10/20/21 10/20/21 10/20/21 Range/Units 22:17 22:17 22:17 WBC 6.3 (4.5-11.0) X10^3/uL RBC 4.07 (4.0-5.2) X10^6/uL Hgb 11.3 L (12.0-16.0) g/dL Hct 33.7 L (36-46) % MCV 82.8 (80-100) fL MCH 27.8 (26-34) PG MCHC 33.6 (30-36) % RDW 15.0 H (11.6-14.8) % Plt Count 320 (150-400) X10^3/uL Neut % (Auto) 49.0 L (50-75) % Lymph % (Auto) 33.0 (25-40) % Isabella % (Auto) 9.2 (3-14) % Eos % (Auto) 7.9 H (2-4) % Baso % (Auto) 0.9 (0-2) % Neut # (Auto) 3100 (8380-8350) /uL Lymph # (Auto) 2100 (5649-4957) /uL Isabella # (Auto) 600 (0-900) /uL Eos # (Auto) 500 H (0-450) /uL Baso # (Auto) 100 (0-100) /uL PT 10.4 (10.1-12.7) SECONDS INR 0.9 (0.9-1.3) APTT 38 H (26-36) SECONDS Sodium 144 (137-145) mmol/L Potassium 4.4 (3.4-5.1) mmol/L Chloride 105 (98-107) mmol/L Carbon Dioxide 24 (22-32) mmol/L BUN 20 H (7-17) mg/dL Creatinine 1.26 H (0.52-1.04) mg/dL Estimated GFR 49 L (>60) mL/min BUN/Creatinine Ratio 15.9 (6-22) Glucose 115 H (70-100) mg/dL Calcium 10.0 (8.4-10.2) mg/dL Total Bilirubin 0.6 (0.2-1.3) mg/dL AST 51 H (14-36) IU/L ALT 73 H (<35) IU/L Alkaline Phosphatase 107 (38-126) U/L Total Creatine Kinase 105 (30-135) U/L CK-MB (CK-2) 0.85 (<2.37) ng/mL CK-MB (CK-2) Rel Index 0.8 L (1.5-5.0) % Troponin I < 0.012 (0.01-0.034) ng/mL Total Protein 7.8 (6.3-8.2) g/dL Albumin 4.6 (3.5-5.0) g/dL Globulin 3.2 (1.7-4.1) g/dL Albumin/Globulin Ratio 1.4 (1.0-2.8) SARS-CoV-2 (PCR) (Negative) 10/20/21 Range/Units 23:02 WBC (4.5-11.0) X10^3/uL RBC (4.0-5.2) X10^6/uL Hgb (12.0-16.0) g/dL Hct (36-46) % MCV (80-100) fL MCH (26-34) PG MCHC (30-36) % RDW (11.6-14.8) % Plt Count (150-400) X10^3/uL Neut % (Auto) (50-75) % Lymph % (Auto) (25-40) % Isabella % (Auto) (3-14) % Eos % (Auto) (2-4) % Baso % (Auto) (0-2) % Neut # (Auto) (3521-6555) /uL Lymph # (Auto) (6123-5649) /uL Isabella # (Auto) (0-900) /uL Eos # (Auto) (0-450) /uL Baso # (Auto) (0-100) /uL PT (10.1-12.7) SECONDS INR (0.9-1.3) APTT (26-36) SECONDS Sodium (137-145) mmol/L Potassium (3.4-5.1) mmol/L Chloride (98-107) mmol/L Carbon Dioxide (22-32) mmol/L BUN (7-17) mg/dL Creatinine (0.52-1.04) mg/dL Estimated GFR (>60) mL/min BUN/Creatinine Ratio (6-22) Glucose (70-100) mg/dL Calcium (8.4-10.2) mg/dL Total Bilirubin (0.2-1.3) mg/dL AST (14-36) IU/L ALT (<35) IU/L Alkaline Phosphatase (38-126) U/L Total Creatine Kinase (30-135) U/L CK-MB (CK-2) (<2.37) ng/mL CK-MB (CK-2) Rel Index (1.5-5.0) % Troponin I (0.01-0.034) ng/mL Total Protein (6.3-8.2) g/dL Albumin (3.5-5.0) g/dL Globulin (1.7-4.1) g/dL Albumin/Globulin Ratio (1.0-2.8) SARS-CoV-2 (PCR) Negative (Negative) Point of Care Testing Glucose POC [address] scan - head: Radiologist's Impression: Carolina Paulson?(Zonia)??56??F??1965 ? Allergy/Adv: aspirin, iodine, lactose, latex (More??) Close Brain CT (Signed) Manny Austin - 10/20/[address] (Signed) Jj Ramirez - 08/25/[address] (Signed) Jj Ramirez - 08/24/21 Echocardiogram Ultrasound (Signed) Clint Valverde - 08/23/21 Carotid Doppler Study (Signed) Michael Lenz - 08/23/21 Telemetry Strips 08/23/[address] (Signed) Roman Amaro - 08/23/21 Brain MRI (Signed) Goledn Rodriguez - 08/23/21 Chest X-Ray (Signed) Marci Ibrahim - 08/23/21 Chest CTA (Signed) Che Burdick - 04/19/21 EKG Rpt. 04/19/21 Renal Ultrasound (Signed) Golden Rodriguez - 03/30/21 Chest X-Ray (Signed) Roman Amaro - 03/29/21 Mammogram Screening (Signed) Jj Ramirez - 12/28/20 Myocardial Perfusion Scan Nuc Med (Signed) Hallie,Juan - 01/23/19 Myocardial Perfusion Scan Nuc Med (Cancelled) 01/23/19 Telemetry Strips 01/22/19 Chest CTA (Signed) Enoch Vogt - 01/22/19 Chest X-Ray (Signed) Enoch Vogt - 01/22/19 Mammogram Screening (Signed) JobYvonesteban - 09/17/18 Renal Ultrasound (Signed) Jerardo Hernandez - 11/15/17 Shoulder X-Ray (Signed) Fab Clements - 08/17/17 Hand X-Ray (Signed) Fab Clements - 08/17/17 Launch?[place] [address] CT Scan Report Signed Patient: Carolina Paulson MR#: [id number] : 1965 Acct:[id number] Age/Sex: 56 / F Date of Service: 10/20/21 Loc: Accession Number: [id number] ?? Procedure: CT Stroke Ordering Provider: Kathleen Frost D.O. PROCEDURE:? CT STROKE ? INDICATIONS:? L arm weakness ? TECHNIQUE:? Noncontrast 4.5 mm thick angled axial sections acquired from the foramen magnum to the vertex, with coronal reformats.? For radiation dose reduction, the following was used:? automated exposure control, adjustment of mA and/or kV according to patient size.? ? COMPARISON:? [facility], MR, MR STROKE, 08/23/2021, 10:45.? [facility], CT, CT HEAD/BRAIN WO CON, 08/25/2021, 10:22. ? FINDINGS:? Image quality:? Excellent.? ? CSF spaces:? Basal cisterns are patent.? No extra-axial fluid collections.? Ventricles are normal in size and shape.? ? Brain:? No intracranial hemorrhage, mass, or mass effect.? Hunter-white matter interface appears preserved.? There is a small focal subcortical hypodensity in the right frontal lobe redemonstrated. ? Skull and face:? Calvarium and visualized facial bones are intact, without suspicious lesions.? ? Sinuses:? Visualized sinuses and mastoids are clear.? ? IMPRESSION:? ? 1. No intracranial hemorrhage or other imaging contraindications to tPA. ? 2. Small focal subcortical hypodensity redemonstrated in the right frontal lobe consistent with a chronic infarct as seen on the prior MRI.? ? Findings reported Dr. Frost on 10/20/2021 at 10:26 p.m..? ? This study fulfills neurological imaging criteria for inclusion or exclusion of acute stroke therapies based on available published neurological imaging guidelines.? ? ? Dictated by: Manny Austin M.D. on 10/20/2021 at 22:25 ? ? Approved by: Manny Austin M.D. on 10/20/2021 at 22:31?? ECG Data Attestation: I personally reviewed and interpreted this ECG as follows: Prior ECG tracings: available for review Interpretation: Sinus tachycardia rate of 108, AK 162, QRS is 68 [address]TC [address] No acute ST elevation. Prior from 08/23/21 appears similar. MDM Narrative Medical decision making narrative: This is a 56-year-old female with recent stroke in August with left-sided weakness and facial droop who had significant worsening today. Patient is on aspirin 81 mg daily and Plavix. Patient presents with in 3 hour window. Discussed with patient probably not a tPA candidate she just had an embolic stroke in August but will discuss with Telestroke. Initial non con head CT is negative, glucose is appropriate. Patient has chronic kidney disease which appears stable. Patient case discussed with Neurology, patient not tPA candidate as she is had ischemic stroke in the last 90 days, they recommend continuing aspirin, Plavix, cardiac monitoring outpatient after MRI and inpatient observation. Discussed with hospitalist who accepts. Stroke Core Measures Contraindications for TPA in CVA: Head Trauma or CVA in Last 3 Months Discharge Plan Departure Patient Disposition: Admitted As Inpatient Clinical Impression: CVA (cerebral vascular accident) Admit Date/Time: 10/21/21 00:14 Admit Provider: Saeed Quiroz
[2021-10-20] MEDS: diphenhydrAMINE 50 MG/ML VIAL IV (22:25)
[2021-10-20] MEDS: methylPREDNISolone 125 MG/2 ML VIAL IV (22:25)
[2021-10-20] MEDS: SODIUM CHLORIDE 0.9% 1,000 ML 150 ML IV (22:25)
[2021-10-20 22:44] LABS: Add Manual Diff / Slide Review NO; Basophils Absolute Auto 100 /uL (0-100); Basophils Percent Auto 0.9 % (0-2); Eosinophils Absolute Auto 500 /uL (0-450); Eosinophils Percent Auto 7.9 % (2-4); Hematocrit 33.7 % (36-46); Hemoglobin 11.3 g/dL (12.0-16.0); Lymphocytes Absolute Auto 2100 /uL (1100-4500); Mean Corpuscular HGB Conc 33.6 % (30-36); Mean Corpuscular Hemoglobin 27.8 PG (26-34); Mean Corpuscular Volume 82.8 fL (80-100); Monocytes Absolute Auto 600 /uL (0-900); Monocytes Percent Auto 9.2 % (3-14); Neutrophils Absolute Auto 3100 /uL (1500-7000); Platelet Count 320 X10^3/uL (150-400); Red Blood Cell Count 4.07 X10^6/uL (4.0-5.2); Troponin I < 0.012 ng/mL (0.01-0.034); White Blood Cell Count 6.3 X10^3/uL (4.5-11.0)
[2021-10-20 22:46] LABS: INR 0.9 (0.9-1.3); Prothrombin Time 10.4 SECONDS (10.1-12.7)
[2021-10-20 22:48] LABS: PTT Partial Thromboplastin Tim 38 SECONDS (26-36)
[2021-10-20 22:58] LABS: HEMOLYSIS < 15 (0-50)
[2021-10-20 23:06] LABS: Alanine Aminotransferase 73 IU/L (<35); Albumin 4.6 g/dL (3.5-5.0); Albumin Globulin Ratio 1.4 (1.0-2.8); Alkaline Phosphatase 107 U/L (38-126); Aspartate Aminotransferase 51 IU/L (14-36); BUN Creatinine Ratio 15.9 (6-22); Bilirubin Total 0.6 mg/dL (0.2-1.3); Blood Urea Nitrogen 20 mg/dL (7-17); Carbon Dioxide 24 mmol/L (22-32); Chloride 105 mmol/L (98-107); Creatine Kinase 105 U/L (30-135); Estimated Glomerular Filt Rate 49 mL/min (>60); Globulin 3.2 g/dL (1.7-4.1); Glucose 115 mg/dL (70-100); Potassium 4.4 mmol/L (3.4-5.1); Sodium 144 mmol/L (137-145); Total Protein 7.8 g/dL (6.3-8.2)
[2021-10-20 23:22] LABS: CKMB % Relative Index 0.8 % (1.5-5.0); Creatine Kinase MB 0.85 ng/mL (<2.37)
[2021-10-20] MEDS: ASPIRIN 81 MG CHEW TAB 324 MG PO (23:53)
[2021-10-20 23:59] LABS: COVID19 -Nasal RAPID Negative (Negative)
[2021-10-21] VITALS (10 sets, daily range): BP systolic 128–155; BP diastolic 69–87; PULSE 78–110; RESP 16–27; TEMP 36.1–36.6; O2SAT 96–100; BMI 23.2
--- NOTE | 2021-10-21 00:14 | DI.MRI.S_ITS ---
PROCEDURE: MR HEAD/BRAIN WO CON INDICATIONS: cva TECHNIQUE: Non-contrast axial T1 spin echo, axial T2 fast spin echo, sagittal and axial FLAIR, coronal T2 fast spin echo, axial gradient echo, axial diffusion and ADC through the brain. COMPARISON: , CT, CT STROKE, 10/20/2021, 22:22. , CT, CT ANGIO HEAD AND NECK, 10/20/2021, 22:22. , CT, CT HEAD/BRAIN WO CON, 08/25/2021, 10:22. , CT, CT HEAD/BRAIN WO CON, 08/24/2021, 8:05. , MR, MR STROKE, 08/23/2021, 10:45. , CT, CT HEAD/BRAIN WO CON, 08/23/2021, 9:50. FINDINGS: Image quality: Excellent. CSF spaces: Ventricles appear symmetric in size and shape. Basal cisterns are patent. No extra-axial fluid collections. Brain: No intracranial bleeds or mass effects. There are periventricular and deep white matter chronic small vessel ischemic changes. Previous areas of right frontal infarction are present in the right frontal lobe. Brainstem appears normal. Diffusion-weighted images show no acute ischemic insults. No chronic ischemic insults. Normal intravascular flow voids are present. Skull and face: Calvarial bone marrow is normal in signal. Orbits are normal. Sinuses: Sinuses demonstrate minimal maxillary sinus and ethmoid mucosal thickening. IMPRESSION: 1. No acute intracranial process. No acute ischemia. 2. Mild chronic microvascular ischemic changes. Dictated by: Natasha Vogt M.D. on 10/21/2021 at 9:09 Approved by: Natasha Vogt M.D. on 10/21/2021 at 9:19
--- NOTE | 2021-10-21 00:23 | P.HP_ITS ---
History of Present Illness History of Present Illness Date Patient Seen: 10/21/21 Time Patient Seen: 12:15 Chief complaint: Left arm weakness, Moving down to legs Narrative: Ms. Paulson is a 56W with PMH DM, HTN, recent stroke who presents with acute worsening with left sided weakness, aphasia, headache, jaw and left sided numbness. She was recently admitted in August of 2021 for similar symptoms and found to have scattered areas of infarction in the right frontal lobe. There was concern this was embolic in origin. She was monitored on telemetry and no arrhythmia was noted. CTA showed no high grade stenosis. Prior to admission she had worn a cardiac event monitor with no arrhythmia noted. 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 She has been at home and slowly improving. She has been fatigued since discharge, but has been gaining strength on her left side. She has not missed any doses of aspirin, she was discharged with 3 weeks of plavix which was been completed. She noted her symptoms starting at 9:10pm. In the ED workup was done, vitals notable for tachycardia in the 110s. Labs notable for WBC 6.3, hgb 11.3, plts 320. Creatinine 1.26. Trop negative. AST/ALT 51/73. CT head showed no acute process. CTA head/neck showed 50% bilateral carotid bulb stenosis. Telestroke was consulted and said she was not a candidate for TPA due to recent CVA. She was admitted for further treatment. Family history: brother with brain aneurysm Patient History Medical History Depression Depression with anxiety Diabetes Hearing loss Hyperlipidemia associated with type 2 diabetes mellitus Insomnia Night terrors Non-insulin dependent type 2 diabetes mellitus Seasonal allergies Surgical History Hx of carpal tunnel repair Hx of hand surgery Hx of shoulder surgery Family & Social History Family History Father Depression Hypertension Sister Gout Cancer Mother Diabetes mellitus Social History: household members significant other Tobacco & Substance use: Smoking Status Former smoker alcohol intake never alcohol intake frequency other Substance Use Type does not use Meds Home Medications and Allergies Home Medications Medication Instructions Recorded Confirmed Type glipizide 5 mg tablet 2.5 mg PO BEDTIME 12/25/18 08/23/21 History loratadine 10 mg tablet (Allergy 10 mg PO DAILY PRN Allergic 12/25/18 08/23/21 History Relief (loratadine)) Symptoms multivitamin 1 cap PO QAM 12/25/18 08/23/21 History fluoxetine 20 mg capsule 60 mg PO DAILY depression 03/29/21 08/23/21 History losartan 25 mg tablet 50 mg PO DAILY hypertension 03/29/21 08/23/21 History metformin 500 mg tablet 1,000 mg PO BID 03/29/21 08/23/21 History amlodipine 5 mg tablet (Norvasc) 5 mg PO DAILY 90 days #90 tabs 08/27/21 Rx aspirin 81 mg tablet,delayed 81 mg PO DAILY 90 days #90 tabs 08/27/21 Rx release atorvastatin 80 mg tablet 80 mg PO BEDTIME 90 days #90 tabs 08/27/21 Rx Allergies Allergy/AdvReac Type Severity Reaction Status Date / Time aspirin [ASPIRIN] Allergy Severe Gastrointestinal Verified 04/19/21 19:04 Upset iodine [IODINE] Allergy Unknown Verified 04/19/21 19:04 lactose [LACTOSE] Allergy Unknown Verified 04/19/21 19:04 latex [LATEX] Allergy Unknown Verified 04/19/21 19:04 Review of Systems Review of Systems Narrative: 14 systems reviewed and negative aside from what is noted in HPI Exam Vital Signs (past 8 hours): - 10/20/21 22:07 10/20/21 22:39 10/20/21 22:40 Temperature 97.7 F Pulse Rate 117 H 109 H Respiratory Rate 20 Blood Pressure 153/81 H 177/80 H Pulse Oximetry 98 99 Oxygen Delivery Method Room Air 10/20/21 22:40 10/20/21 23:00 10/20/21 23:00 Temperature Pulse Rate 109 H 106 H Respiratory Rate 29 H 18 Blood Pressure 154/81 H Pulse Oximetry 100 98 Oxygen Delivery Method Room Air 10/20/21 23:10 10/20/21 23:10 10/20/21 23:20 Temperature Pulse Rate 100 H 94 H Respiratory Rate 24 26 H Blood Pressure 140/74 Pulse Oximetry 98 98 Oxygen Delivery Method 10/20/21 23:20 10/20/21 23:30 10/20/21 23:30 Temperature Pulse Rate 95 H Respiratory Rate 22 Blood Pressure 124/66 117/62 Pulse Oximetry 98 Oxygen Delivery Method Oxygen Delivery Method Room Air Narrative Exam Narrative: GEN: no acute distress HEENT: moist mucous membranes, PERRL NECK: trachea midline, no JVD PULM: clear bilaterally CV: tachycardic, regular, no murmurs ABD: soft, nontender, nondistended, no organomegaly EXT: warm and well perfused with no edema NEURO: mild dysarthria, left mild facial droop, left lower and upper extremity numbness, left upper extremity 4/5 strength, left lower extremity 3/5 strength Objective Labs Result Diagrams: 10/20/21 22:17 10/20/21 22:17 Labs: Laboratory Results - last 24 hr 10/20/21 10/20/21 10/20/21 22:17 22:17 22:17 WBC 6.3 RBC 4.07 Hgb 11.3 L Hct 33.7 L MCV 82.8 MCH 27.8 MCHC 33.6 RDW 15.0 H Plt Count 320 Neut % (Auto) 49.0 L Lymph % (Auto) 33.0 [place] % (Auto) 9.2 Eos % (Auto) 7.9 H Baso % (Auto) 0.9 Neut # (Auto) 3100 Lymph # (Auto) 2100 [place] # (Auto) 600 Eos # (Auto) 500 H Baso # (Auto) 100 PT 10.4 INR 0.9 APTT 38 H Sodium 144 Potassium 4.4 Chloride 105 Carbon Dioxide 24 BUN 20 H Creatinine 1.26 H Estimated GFR 49 L BUN/Creatinine Ratio 15.9 Glucose 115 H Calcium 10.0 Total Bilirubin 0.6 AST 51 H ALT 73 H Alkaline Phosphatase 107 Total Creatine Kinase 105 CK-MB (CK-2) 0.85 CK-MB (CK-2) Rel Index 0.8 L Troponin I < 0.012 Total Protein 7.8 Albumin 4.6 Globulin 3.2 Albumin/Globulin Ratio 1.4 SARS-CoV-2 (PCR) 10/20/21 23:02 WBC RBC Hgb Hct MCV MCH MCHC RDW Plt Count Neut % (Auto) Lymph % (Auto) [place] % (Auto) Eos % (Auto) Baso % (Auto) Neut # (Auto) Lymph # (Auto) [place] # (Auto) Eos # (Auto) Baso # (Auto) PT INR APTT Sodium Potassium Chloride Carbon Dioxide BUN Creatinine Estimated GFR BUN/Creatinine Ratio Glucose Calcium Total Bilirubin AST ALT Alkaline Phosphatase Total Creatine Kinase CK-MB (CK-2) CK-MB (CK-2) Rel Index Troponin I Total Protein Albumin Globulin Albumin/Globulin Ratio SARS-CoV-2 (PCR) Negative Assessment & Plan Assessment & Plan narrative: Ms. Paulson is a 56W with PMH Type 2 DM, HTN, recent stroke who presents with left sided weakness consistent with acute CVA. 1. Acute CVA -patient with recent CVA in 08/2021 -today with worsening slurring speech, worsening left sided weakness, headache -CT head negative for acute process, CTA head/neck with no high grade stenosis but bilateral 50% carotid bulb stenosis -continue aspirin -restart plavix -continue atrovastation 80mg -is currently wearing a resident assistant for which she is supposed to wear for one month -continue tele -[facility] q4 -check lipids, a1c -PT/OT and speech evals -order MRI -recent ECHO with no acute process and no evidence of septal defect 2. Sinus tachycardia -continue to trend closely -keep on resident assistant to eval for arrhythmia 3. Transaminitis, acute -etiology not clear -repeat in AM -if rising further would likely need additional workup with possible imaging and serologies 4. CKD stage 2 -GFR in 40s -creatinine 1.26, baseline 1.2-1.4 -trend daily 5. Anemia -hemoglobin 11.3, slightly below baseline -trend daily -no need for transfusion 6. Type 2 Diabetes -insulin sliding scale 7. Hypertension -hold antihypertensives to allow for permissive hypertension CODE: Full Proxy: Leodan Oneill, life partner I have utilized all available resources to reconcile the patient's home m edications Time Spent With Patient Critical Care time: I spent a total of [] minutes of critical care time on this patient's care today; this time is exclusive of procedural time. Quality MIPS - Admit I confirm the patient?s Advance Care Plan is present, Code status is documented, Surrogate decision maker is in patient?s record [If Yes, STOP here]: Yes
[2021-10-21 01:57] LABS: Appearance Urine UA CLEAR; Bilirubin Urine UA NEGATIVE (NEGATIVE); Color Urine UA YELLOW; Glucose Urine UA NEGATIVE (Negative); Ketones Urine UA NEGATIVE (NEGATIVE); Leukocyte Esterase Urine UA NEGATIVE (NEGATIVE); Nitrite Urine UA NEGATIVE (Negative); Occult Blood Urine UA TRACE-INTACT (Negative); Protein Urine UA 2+ (Negative); Urobilinogen Urine UA 0.2 E.U./dL (0.2)
[2021-10-21] MEDS: SODIUM CHLORIDE 0.9% 1,000 ML 100 ML IV ×2 (02:03→03:26)
[2021-10-21 02:04] LABS: UR Morphine/Opiate cutoff 300 Negative (Negative); Ur Creatinine 20 (Normal); Ur Specific Gravity 1.025 (Normal); Urine Amphetamines Negative (Negative); Urine Barbiturates Negative (Negative); Urine Benzodiazepines Negative (Negative); Urine Cocaine Negative (Negative); Urine MDMA Negative (Negative); Urine Methadone Negative (Negative); Urine Methamphetamines Negative (Negative); Urine Oxycodone Negative (Negative); Urine Phencyclidine Negative (Negative); Urine Tetrahydrocannabinol Negative (Negative); Urine Tricyclic Antidepressant Negative (Negative); Urine pH 5 (Normal)
[2021-10-21 02:25] LABS: RBC Urine None Seen (0-5/HPF)
[2021-10-21 02:26] LABS: Bacteria Urine None Seen; Culture Indicated Urine Cult Not Indicated; WBC Urine 0-1/HPF (0-5/HPF)
[2021-10-21] MEDS: SODIUM CHLORIDE 0.9% FLUSH 10 ML IV ×2 (03:26→20:53)
--- NOTE | 2021-10-21 07:08 | PC.NURSE ---
patient admitted to floor around midnight after having stroke symptoms at home. had a recent CVA in august per patient report. CT was negative, MRI is scheduled today. patient is a/o, able to answer questions, voices needs. speech is slow and appropriate. NIH 8- mostly for L side weakness and numbness. on tele, NSR. NS at 100/hour via RAC PIV. denies pain/discomfort. is overnight in room. bed alarm on, call light w/in reach.
[2021-10-21 08:20] LABS: Add Manual Diff / Slide Review NO; Basophils Absolute Auto 0 /uL (0-100); Basophils Percent Auto 0.2 % (0-2); Eosinophils Absolute Auto 0 /uL (0-450); Hematocrit 32.9 % (36-46); Lymphocytes Absolute Auto 1100 /uL (1100-4500); Mean Corpuscular HGB Conc 33.4 % (30-36); Mean Corpuscular Hemoglobin 27.7 PG (26-34); Mean Corpuscular Volume 82.8 fL (80-100); Monocytes Absolute Auto 100 /uL (0-900); Monocytes Percent Auto 0.9 % (3-14); Neutrophils Absolute Auto 6000 /uL (1500-7000); Neutrophils Percent Auto 83.9 % (50-75); Platelet Count 278 X10^3/uL (150-400); Red Blood Cell Count 3.97 X10^6/uL (4.0-5.2); Red Cell Distribution Width 14.9 % (11.6-14.8); White Blood Cell Count 7.1 X10^3/uL (4.5-11.0)
[2021-10-21 08:42] LABS: Alanine Aminotransferase 61 IU/L (<35); Albumin 4.1 g/dL (3.5-5.0); Albumin Globulin Ratio 1.3 (1.0-2.8); Alkaline Phosphatase 87 U/L (38-126); Aspartate Aminotransferase 41 IU/L (14-36); BUN Creatinine Ratio 19.8 (6-22); Bilirubin Total 0.5 mg/dL (0.2-1.3); Bilirubin Unconjugated 0.4 mg/dL (0.0-1.1); Blood Urea Nitrogen 23 mg/dL (7-17); Calcium 8.9 mg/dL (8.4-10.2); Carbon Dioxide 18 mmol/L (22-32); Chloride 109 mmol/L (98-107); Cholesterol 107 mg/dL (140-199); Estimated Glomerular Filt Rate 55 mL/min (>60); Globulin 3.1 g/dL (1.7-4.1); Glucose 212 mg/dL (70-100); HDL Cholesterol 42 mg/dL (40-60); HEMOLYSIS < 15 (0-50); LDL Cholesterol Calculated 53 mg/dL (<100); Potassium 5.3 mmol/L (3.4-5.1); Sodium 142 mmol/L (137-145); Total Protein 7.2 g/dL (6.3-8.2); Triglycerides 58 mg/dL (35-150)
--- NOTE | 2021-10-21 08:48 | CM.DANOTE ---
Addendum entered by Maite العلي R.N. 10/21/21 12:40: Met with patient and spouse, let her know that it would be difficult to find a rehab that accepts her insurance. She is wanting to go home. She indicated that she has an appointment with [facility], here in [place], and wants to do outpatient P.T. Did offer home health, for she has had [facility] before, and she would rather do outpatient. She feels comfortable being at home, her significant, who is in the room, goes to work at 1500. Original Note: DCP: Case received, EMR reviewed and met with patient. Significant other, Leodan Oneill, was at bedside. Introduced self and role. Was able to obtain information regarding patient's baseline activity status at home prior to hospitalization. DCP assessment completed with information currently available. Patient is a 56 year old female who admitted early this morning to the care of the hospitalist team. PCP: Dr. Anderson. Payer: confirmed: [employer]/Medicaid. Patient came to the hospital via private vehicle secondary to having left sided weakness and expressive aphasia. Patient does have history of recent CVA, and was here in August and discharged home on the with [facility]. Patient does hold current diagnosis of Acute CVA, but is having an MRI to confirm. Met with patient in her room. She was laying in bed, getting ready to have her MRI. Significant other was at bedside. Patient stated, she gets around ok, was difficult for her to talk, had not been driving, had been under [facility] services prior after last discharge, but unclear if she is still under their services. Patient is supposed to work with therapy, including physical, occupational, and speech today. P: DCP to continue to follow. At last admission, it was difficult to get her into acute inpatient rehab, due to her insurance. Will follow closely. Will also follow up with [facility] as well. Maite العلي RN/Glassine Machine Tender Discharge Planning/Care Management Advanced directive, confirm from FAMILY Start: 10/21/21 01:03 Freq: Q24H Status: Active Protocol: Document 10/21/21 01:03 AM (Rec: 10/21/21 01:47 AM [id number]) Advance Directive, confirm on record Time 00:00 Person contacted 0 Copy received No CM Discharge Assessment Start: 10/21/21 08:44 Freq: Status: Active Protocol: Document 10/21/21 08:44 (Rec: 10/21/21 08:46 [id number]) Discharge Planning Assessment Assigned Shop Welder Maite العلي RN/Glassine Machine Tender Advance Directives? No Advance Directives on File No History Provided By Patient,Significant Other, Medical Record Prior Living Arrangements House Household Members significant other Type of transporation used prior to Relies on Others admit Independent with ADL's Yes Is patient alert and oriented? Yes Needs Assistance With Home Chores / Shopping Caregiver for Another No DME Already Rented / Owned FWW / Walker Comment Will see how patient does with P.T, and MRI results. Comment Patient may need either inpatient rehab or skilled, insurance could be a barrier, and bed availability Discharge Plan Home Transportation Arrangement fiance POV Referrals Initiated Other Whiteboard Updated in Patient Room with Yes name and ext. # of Shop Welder Review Status In Process Next Review Type Continued Stay Review
[2021-10-21 09:00] LABS: Hemoglobin A1C% w Est Avg Glu 7.6 % (4.0-6.0)
[2021-10-21] MEDS: ASPIRIN EC 81 MG TABLET PO (09:20)
[2021-10-21] MEDS: FLUoxetine 20 MG CAPSULE 60 MG PO (09:20)
[2021-10-21] MEDS: HEPARIN 5,000 UNIT/ML VIAL 5000 UNIT SUBCUT ×2 (09:20→20:52)
[2021-10-21] MEDS: CLOPIDOGREL 75 MG TABLET PO (09:20)
--- NOTE | 2021-10-21 10:00 | PT.IIE ---
Current Diagnoses Cerebral infarction, unspecified (10/21/21) Surgical History (Last Reviewed 10/21/21 @ 00:23 by Saeed Quiroz MD) Hx of carpal tunnel repair Hx of hand surgery Hx of shoulder surgery Medical History (Last Reviewed 10/21/21 @ 00:23 by Saeed Quiroz MD) Depression Depression with anxiety Diabetes Hearing loss Hyperlipidemia associated with type 2 diabetes mellitus Insomnia Night terrors Non-insulin dependent type 2 diabetes mellitus Seasonal allergies Physical Therapy Inpatient Evaluation/Re-Eval M1 PT/OT-IP Prior Functional Status Start: 10/21/21 11:40 Freq: NEEDED Status: Active Protocol: Document 10/21/21 10:00 AB (Rec: 10/21/21 11:58 AB [id number]) Medical Review Prior Functional Status Medical History Reviewed Yes Communication able to make needs known Mobility and Gait pt stated she was independent with all mobilities and ambulation without AD but has decrease endurance and stated that can only stand for ~ 10 min and will have LE shakiness and weakness so she has been using a w/c for outdoor mobility Social History Household Members significant other Living Arrangements House Number of Floors (Floors) Two Floors Number of Stairs To Enter/Railing? pt stays on the main level of the house 3 steps to enter with L rail ascending Home Equipment Straight Cane,Manual Wheelchair Additional Social History Comment spouse works and will not be able to stay with pt 24/7 M2 PT-IP Current Condition Start: 10/21/21 11:40 Freq: NEEDED Status: Active Protocol: Document 10/21/21 10:00 AB (Rec: 10/21/21 11:58 AB [email or web address]) Physical Therapy Current Condition Current Condition Evaluation Date 10/21/21 Treatment Diagnosis CVA; difficulty in walking Onset Date 10/21/21 M3 PT-IP Subjective Start: 10/21/21 11:40 Freq: NEEDED Status: Active Protocol: Document 10/21/21 10:00 AB (Rec: 10/21/21 11:58 AB [email or web address]) Subjective Physical Therapy Visit Type Type Initial Evaluation Visit Start Time 10:00 Visit Stop Time 10:25 Total Visit Minutes 25 Number of AVIATION [employer] SYSTEMS OPERATOR Visits 0 Physical Therapy Visit Comments Patient Comments agreeable to do PT M4 PT-IP Mobility and Gait Start: 10/21/21 11:40 Freq: NEEDED Status: Active Protocol: Document 10/21/21 10:00 AB (Rec: 10/21/21 11:58 [email or web address]) PT-Bed Mobility Assessment Supine to Sit Supine to Sit Moderate Assistance,Maximum Assistance PT-Transfer Assessment Sit to and From Stand Sit to and from Stand Moderate Assistance,1 Person Assistance,Use of Upper Extremities Equipment Transfer Assistive Device Gait Belt,Front Wheeled Walker Orthotic/Prosthetic Devices or Brace: No Comments Mobility Comments completed supine to sit mod to max A and max cues. pt requires increase time to complete all tasks. able to sit on EOB SBA. completed sit to stand mod A and cues and ambulated in room using FWW min to mod A ~ 8 ft. presents with slow suki and decrease LE elevation. pt requested to sit on EOB. pt c /o feeling weak and tired. pt wants to stay seated on EOB. call light within reach. Left pt with spouse in room . informed pt and spouse regarding SNF rehab and pt and spouse will think about it. pt stated that if she goes to SNF, she wants one around here and not too far. spouse told pt that she might need to go to SNF since he cannot assist her 29/08 due to work. Gait Assessment Gait Gait Assistance Required: Minimum Assistance,Moderate Assistance,1 Person Assist Distance (Feet) 8 Able to Maintain Weight Bearing Status Yes During Gait Assistive Devices Assistive Device Gait Belt,Front Wheeled Walker Orthotic/Prosthetic Devices or Brace: No Gait Deviations General Gait Pattern Decreased Stride Length, Decreased Feet Clearance Factors Limiting Gait Function Factors Limiting Gait Function Decreased Activity Tolerance, Decreased Strength,Limited Range of Motion,Poor Balance, Poor Safety Awareness PT-Balance Assessment Sitting Balance and Reactions Static Sitting Balance Ability Good Dynamic Sitting Balance Ability Fair Standing Balance and Reactions Static Standing Balance Ability Poor Dynamic Standing Balance Ability Poor Device Used FWW M5 PT-IP Objective Assessments Start: 10/21/21 11:40 Freq: NEEDED Status: Active Protocol: Document 10/21/21 10:00 AB (Rec: 10/21/21 11:58 [email or web address]) Orientation Orientation/Cognition Level of Alertness Alert Orientation Name,Place,Situation Safety Awareness Decreased Safety Awareness Memory Description Short Term Impaired Gross Range of Motion Lower Extremity ROM Assessment Within Functional Limits Strength Lower Extremity Strength Assessment Bilaterally Impaired Hip 3+/5 Knee 3+/5 Muscle Tone Muscle Tone WNL Yes M6 PT-IP Treatment Start: 10/21/21 11:40 Freq: NEEDED Status: Active Protocol: Document 10/21/21 10:00 AB (Rec: 10/21/21 11:58 AB [id number]) Physical Therapy Treatment Education Education Provided Safety M7 PT-IP Assessment and Plan Start: 10/21/21 11:40 Freq: NEEDED Status: Active Protocol: Document 10/21/21 10:00 AB (Rec: 10/21/21 11:58 AB [id number]) PT Summary Assessment and Plan Potential Rehabilitation Potential Fair Status of Condition at Evaluation Evolving Summary Impairments Pain,ROM,Strength,Balance, Coordination,Sensation,Tone, Cognition,Bed Mobility, Transfers,Gait,Activity Tolerance Assessment Summary pt requiring mod to max A with mobility and with decrease activity tolerance affecting function. pt will require 24/ 7 assist availability and will require SNF rehab at this time. will continue to assess progress. Goals Bed Mobility Goal Independent Transfer Goal Independent,Front Wheeled Walker Gait Goal Independent,Front Wheel Walker Gait Distance 200 Other Goals improve transfers and ambulation using SPC 250 ft SBA up/down 3 steps L rail ascending SBA Days to Meet Goals 10 Frequency of Treatment Frequency Of Treatment Once a Day Treatment Plan Physical Therapy Treatment Plan Bed Mobility Training,Transfer Training,Gait Training, Therapeutic Exercise,Balance Retraining,Discharge Planning, Hot or Cold Pack,Neuromuscular Re-ed,Coordination Retraining ,Manual Therapy Precautions Other Precautions falls Recommendations To Nursing Amount of Assist Needed 1 Person Assist Discharge Recommendations PT Discharge Recommendations Home with 24/7 Assist Available,Home Health,SNF Rehab,Home vs SNF Equipment Needed for Home Before FWW if pt goes home Discharge Transportation Needs at Discharge Private Vehicle,Wheelchair/ Cabulance
--- NOTE | 2021-10-21 11:38 | OT.IP.EVAL ---
Current Diagnoses Cerebral infarction, unspecified (10/21/21) Past Medical History (Last Reviewed 10/21/21 @ 00:23 by Saeed Quiroz MD) Depression Depression with anxiety Diabetes Hearing loss Hyperlipidemia associated with type 2 diabetes mellitus Insomnia Night terrors Non-insulin dependent type 2 diabetes mellitus Seasonal allergies Surgical History (Last Reviewed 10/21/21 @ 00:23 by Saeed Quiroz MD) Hx of carpal tunnel repair Hx of hand surgery Hx of shoulder surgery Occupational Therapy Inpatient Evaluation/Re-Eval M1 PT/OT-IP Prior Functional Status Start: 10/21/21 11:40 Freq: NEEDED Status: Active Protocol: Document 10/21/21 11:04 [facility] (Rec: 10/21/21 13:31 [facility] [id number]) Medical Review Prior Functional Status Medical History Reviewed Yes Communication able to make needs known Mobility and Gait pt stated she was independent with all mobilities and ambulation without AD but has decrease endurance and stated that can only stand for ~ 10 min and will have LE shakiness and weakness so she has been using a w/c for outdoor mobility Activities of Daily Living and IADL's Pt states able to do all ADL , IADL, and takes care of her dog. Social History Household Members significant other Living Arrangements House Number of Floors (Floors) Two Floors Number of Stairs To Enter/Railing? pt stays on the main level of the house 3 steps to enter with L rail ascending Home Environment High Toilet,Walk in Shower,Tub /Shower Home Equipment Straight Cane,Manual Wheelchair Additional Social History Comment spouse works and will not be able to stay with pt 24/7 initially M2 OT-IP Current Condition Start: 10/21/21 13:03 Freq: Status: Active Protocol: Document 10/21/21 11:04 [facility] (Rec: 10/21/21 13:31 [facility] [id number]) Occupational Therapy Current Condition Current Condition Evaluation Date 10/21/21 Treatment Diagnosis Left arm weakness Diagnosis Onset Date 10/21/21 M3 OT- IP Subjective and Pain Start: 10/21/21 13:03 Freq: Status: Active Protocol: Document 10/21/21 11:04 [facility] (Rec: 10/21/21 13:31 [facility] [id number]) OT- Subjective Occupational Therapy Visit Type Type Initial Evaluation Visit Start Time 11:04 Visit Stop Time 11:38 Total Visit Minutes 34 Occupational Therapy Visit Comments Patient Comments Pt sitting on the edge of the bed and agreed to do OT eval. Pt's significant other in the room. Patient/Caregiver Goals TO go home. OT Pain Assessment Pain When Pain Assessed At Rest Pain Present Pain Present Denied Pain M4 OT- IP ADL's Start: 10/21/21 13:03 Freq: Status: Active Protocol: Document 10/21/21 11:04 [facility] (Rec: 10/21/21 13:31 [facility] [id number]) OT [id number] Comments OT Self-Feeding Comments Not at meal time. OT ADL-Grooming Comments OT Grooming Comments not performed OT ADL-Oral Care Comments Oral Care Comments not performed OT ADL-Dressing General Eval Lower Body Dressing Ability Independent Comments OT Dressing Comments Pt able to izzy/doff her socks while seated on the edge of the bed. OT ADL-Toileting General Evaluation Toileting Ability Standby Assistance Comments OT Toileting Comments SBA for safety. OT ADL-Bathing Comments OT Bathing Comments Pt not wanting to shower and would benefit from a shower chair/stool at home to use and to assist. M5 OT- IP IADL's Start: 10/21/21 13:03 Freq: Status: Active Protocol: Document 10/21/21 11:04 [facility] (Rec: 10/21/21 13:31 [facility] [id number]) OT-Instrumental Activities of Daily Living Home Safety Awareness Awareness of Need for Assistance at Home Good Awareness Ability to Problem Solve Emergency Able to Problem Solve Situations Home Safety Comments Pt has a supportive significant other to be able to assist pt and looking to initially take time off of work to assist the pt. Medication Management Medication Management Comments Pt would benefit from supervision but insistent that she is independent. Money Management Money Management Comments Pt would benefit from supervision but insistent that she is independent. Meal Preparation Meal Preparation Comments Pt would benefit form supervision due to left UE numbness for IADL needs. Sandblaster Glass Sandblaster Glass Caregiver Provides Assist M6 OT- IP Functional Cognition Start: 10/21/21 13:03 Freq: Status: Active Protocol: Document 10/21/21 11:04 [facility] (Rec: 10/21/21 13:31 [facility] [id number]) Cognitive Factors Limiting Selfcare Function Cognitive Ability Level of Alertness Alert Patient Orientation Name,Place,Situation Attention Span Ability Capable of Focused Attention, Capable of Sustained Attention Ability to Follow Commands Able to Follow Multi-Step Commands Memory Description No Deficits Noted Safety Awareness Underestimates Need for Assistance Cognitive Comments Cognitive Assessment Comments Pt able to follow commands for ADl and mobility needs. However pt is a little impulsive and insistent on how things are done. Pt has decreased safety awareness. Pt scored 79 seconds on [place] Making Part B which implies normal but not perfect for visual attention, speed of processing, mental flexibility, executive functioning, and task switching. OT- Vision and Hearing OT- Hearing Assessment OT- Hearing Assessment WFL OT- Vision Assessment Visual Acuity WFL Visual Attentiveness WFL Occular Pursuits WFL Visual Convergence WFL Visual [place] WFL Diplopia Absent M7 OT- IP Mobility and Balance Start: 10/21/21 13:03 Freq: Status: Active Protocol: Document 10/21/21 11:04 [facility] (Rec: 10/21/21 13:31 [facility] [id number]) OT- Bed Mobility Assessment Rolling Level of Assistance Independent Supine to Sit Supine to Sit Assist Independent Sit to Supine Sit to Supine Assist Independent Scooting Scooting to Edge of Bed Independent OT-Transfer Assessment Sit to and From Stand Sit to and from Stand Contact Guard Assistance Transfers Transfer Ability Standby Assistance,Contact Guard Assistance,Minimal Assistance Technique Transfer Destination Bed,Toilet Transfer Technique Stand Step Pivot Devices Transfer Assistive Devices Gait Belt,Straight Cane,Front Wheeled Walker Comments Mobility Comments SBA with FWW, needing CGA with SPC and CLAUDIA without a walker as pt insistent on trying to take steps without any devices . OT- Balance Assessment Sitting Balance and Reactions Static Sitting Balance Ability Normal Dynamic Sitting Balance Ability Good Standing Balance and Reactions Static Standing Balance Ability Fair Dynamic Standing Balance Ability Poor M8 OT- IP Objective Assessments Start: 10/21/21 13:03 Freq: Status: Active Protocol: Document 10/21/21 11:04 [facility] (Rec: 10/21/21 13:31 [facility] [id number]) OT Gross Range of Motion Upper Extremity Range of Motion ROM Impairments grossly WFL OT Strength Upper Extremity Strength Assessment Left Impaired Shoulder 4-/5 Elbow 4-/5 Forearm 3+/5 Wrist 3+/5 Hand 3+/5 OT- Coordination Assessment Upper Extremity Finger to Nose Test Within Functional Limits Finger Tapping Test Left UE Impaired Comments Coordination Comments Increased time for left hand RUE 35 seconds and LUE 46 seconds, pt feels that she is moving in slow motion. OT-Muscle Tone Assessment Muscle Tone WNL Yes OT Sensation Assessment Comments Summary Comments LUE numbness but able to intact for identification of light touch. M9 OT- IP Assessment and Plan Start: 10/21/21 13:03 Freq: Status: Active Protocol: Document 10/21/21 11:04 [facility] (Rec: 10/21/21 13:31 [facility] [id number]) OT Summary Assessment and Plan Potential Rehabilitation Potential Good Analytic Complexity at Evaluation Moderate Summary OT Impairments Strength,Balance,Coordination, Functional Mobility,Dressing, Toileting,Bathing,Toilet Transfers,Shower Transfers, Activity Tolerance Progress Towards Goals Progressing Toward Goals Assessment Summary Pt MOD complexity and main barriers are wweakness LUE, decreased dynamic balance, decreased safety awareness and insistent on doing things her way. At this time pt will benefit from 24/7 available assist initially and home health. Pt insistent on going to outpt PT. Pt's significant other aware of need for assist for ADL and mobility needs. Equipment list given and suggested pt to get a shower chair and FWW. Goals Grooming Goal Independent Dressing Goal Independent Toileting Goal Independent Bathing Goal Independent Toilet Transfer Goal Independent Shower Transfer Goal Independent Patient/Caregiver Education Goal Demonstrate Post-Op Precautions Days to Meet Goals 7 Frequency of Treatment Frequency Of Treatment Once a Day Treatment Plan OT Treatment Plan ADL Training,Functional Mobility,Patient/Family Education,Discharge Planning Other Treatment Recommendations and Next shower if still here Treatment Focus Discharge Recommendations OT Discharge Recommendations Home with 24/7 Assist Available,Home Health, Outpatient PT Home Equipment Needs shower chair, fww
--- NOTE | 2021-10-21 11:53 | ST.IPSCREEN ---
Observed pt during OT evaluation. Pt and NSG reported no difficulty eating/drinking. Pt exhibited excellent understanding of OT directions and asked and answered questions appropriately. She presented with a slightly slower rate of speech, though WNL. Speech was clear and pt was 100% intelligible. No word finding difficulties observed or reported. Speech therapy is not indicated at this time.
[2021-10-21] MEDS: INSULIN LISPRO 100 UNIT/ML 3ML VIAL SUBCUT (17:05)
--- NOTE | 2021-10-21 17:16 | PC.NURSE ---
Pt had relatively uneventful day. Denies discomfort. NIH = left sided weakness noted. CBG = 179 & 279; 3u S/S given as per orders. Tele NSR per ICU staff Call light w/in reach, pt calls appropriately for needs. Continue w/plan of care.
[2021-10-21] MEDS: ATORVASTATIN 20 MG TABLET 80 MG PO (20:52)
[2021-10-21] MEDS: ACETAMINOPHEN 325 MG TABLET 650 MG PO (21:10)
--- NOTE | 2021-10-22 05:08 | PC.NURSE ---
Awaken patient to discontinue her telemetry. I requested if I can do her NIH assessment but she declined. States I'm okay I just want to go back to sleep. I'm fine & I would like to go home today. Will cont. POC & monitor.
[2021-10-22 05:41] VITALS: BP 116/64; PULSE 64; RESP 18; TEMP 36.3; O2SAT 100
[2021-10-22 07:00] VITALS: O2SAT 100
[2021-10-22] MEDS: INSULIN LISPRO 100 UNIT/ML 3ML VIAL SUBCUT (08:37)
[2021-10-22] MEDS: ASPIRIN EC 81 MG TABLET PO (08:40)
[2021-10-22] MEDS: CLOPIDOGREL 75 MG TABLET PO (08:40)
[2021-10-22] MEDS: HEPARIN 5,000 UNIT/ML VIAL 5000 UNIT SUBCUT (08:40)
[2021-10-22] MEDS: SODIUM CHLORIDE 0.9% FLUSH 10 ML IV (08:41)
--- NOTE | 2021-10-22 08:56 | OT.IP.TRT ---
Current Diagnoses Cerebral infarction, unspecified (10/21/21) Occupational Therapy Treatment Note M2 OT-IP Current Condition Start: 10/21/21 13:03 Freq: Status: Active Protocol: Document 10/21/21 11:04 [facility] (Rec: 10/21/21 13:31 [facility] [id number]) Occupational Therapy Current Condition Current Condition Evaluation Date 10/21/21 Treatment Diagnosis Left arm weakness Diagnosis Onset Date 10/21/21 M3 OT- IP Subjective and Pain Start: 10/21/21 13:03 Freq: Status: Active Protocol: Document 10/22/21 08:59 [facility] (Rec: 10/22/21 09:04 [facility] [id number]) OT- Subjective Occupational Therapy Visit Type Type Treatment Note Visit Start Time 08:48 Visit Stop Time 09:56 Total Visit Minutes 8 Occupational Therapy Visit Comments Patient Comments Pt states feels back to normal . Patient/Caregiver Goals To go home. OT Pain Assessment Pain When Pain Assessed At Rest Pain Present Pain Present Denied Pain M4 OT- IP ADL's Start: 10/21/21 13:03 Freq: Status: Active Protocol: Document 10/22/21 08:59 [facility] (Rec: 10/22/21 09:04 [facility] [id number]) OT [id number] General Evaluation Self-Feeding Ability Independent OT ADL-Dressing General Eval Lower Body Dressing Ability Independent Comments OT Dressing Comments Pt able to safely do LB dressing needs of socks and pants today with good safety. OT ADL-Toileting General Evaluation Toileting Ability Independent OT ADL-Bathing Comments OT Bathing Comments Pt states to shower at home. M5 OT- IP IADL's Start: 10/21/21 13:03 Freq: Status: Active Protocol: Document 10/21/21 11:04 [facility] (Rec: 10/21/21 13:31 [facility] [id number]) OT-Instrumental Activities of Daily Living Home Safety Awareness Awareness of Need for Assistance at Home Good Awareness Ability to Problem Solve Emergency Able to Problem Solve Situations Home Safety Comments Pt has a supportive to be able to assist pt and looking to initially take time off of work to assist the pt. Medication Management Medication Management Comments Pt would benefit from supervision but insistent that she is independent. Money Management Money Management Comments Pt would benefit from supervision but insistent that she is independent. Meal Preparation Meal Preparation Comments Pt would benefit form supervision due to left UE numbness for IADL needs. Signal Tower Director Signal Tower Director Caregiver Provides Assist M6 OT- IP Functional Cognition Start: 10/21/21 13:03 Freq: Status: Active Protocol: Document 10/22/21 08:59 [facility] (Rec: 10/22/21 09:04 [facility] [id number]) Cognitive Factors Limiting Selfcare Function Cognitive Comments Cognitive Assessment Comments Pt appears to baseline for cognitive needs now. M9 OT- IP Assessment and Plan Start: 10/21/21 13:03 Freq: Status: Active Protocol: Document 10/22/21 08:59 [facility] (Rec: 10/22/21 09:04 [facility] [id number]) OT Summary Assessment and Plan Potential Rehabilitation Potential Good Analytic Complexity at Evaluation Moderate Summary OT Impairments Bathing Progress Towards Goals Progressing Toward Goals Assessment Summary Pt much improved today and now complaints of numbness on her left arm and independent in the room now for her needs. Pt is aware to be careful and that her will assist her at home when needed. Goals Bathing Goal Independent Days to Meet Goals 1 Frequency of Treatment Frequency Of Treatment Once a Day Treatment Plan OT Treatment Plan ADL Training,Patient/Family Education,Discharge Planning Discharge Recommendations OT Discharge Recommendations Home with Assistance Home Equipment Needs shower chair Transportation Needs at Discharge Private Vehicle
--- NOTE | 2021-10-22 10:09 | PC.NURSE ---
Addendum entered by Yobany Sandhu R.N. 10/22/21 10:38: Readying Pt for discharge. see orders. to pick Pt up. Original Note: Pt A&O, follows commands, makes needs easily known. Up in room with out overt difficulty. Makes no c/o. Anticipating d/c today.
--- NOTE | 2021-10-22 12:05 | PT-IP ANOTE ---
Attempted to see pt but pt already d/c.
--- NOTE | 2021-10-22 16:39 | PM.DS.1 ---
History of Present Illness History of Present Illness Chief complaint: Left arm weakness, Moving down to legs Narrative: Ms. Paulson is a 56W with PMH DM, HTN, recent stroke who presents with acute worsening with left sided weakness, aphasia, headache, jaw and left sided numbness. She was recently admitted in August of 2021 for similar symptoms and found to have scattered areas of infarction in the right frontal lobe. There was concern this was embolic in origin. She was monitored on telemetry and no arrhythmia was noted. CTA showed no high grade stenosis. Prior to admission she had worn a cardiac event monitor with no arrhythmia noted. After discharge she saw her broadcast maintenance technician and is currently wearing a cardiac event monitor for planned length of one month. She has been at home and slowly improving. She has been fatigued since discharge, but has been gaining strength on her left side. She has not missed any doses of aspirin, she was discharged with 3 weeks of plavix which was been completed. She noted her symptoms starting at 9:10pm. In the ED workup was done, vitals notable for tachycardia in the 110s. Labs notable for WBC 6.3, hgb 11.3, plts 320. Creatinine 1.26. Trop negative. AST/ALT 51/73. CT head showed no acute process. CTA head/neck showed 50% bilateral carotid bulb stenosis. Telestroke was consulted and said she was not a candidate for TPA due to recent CVA. She was admitted for further treatment. Family history: brother with brain aneurysm Discharge Providers Provider Date of admission: 10/21/21 00:14 Discharge Date: 10/22/21 Primary care physician: Kacy Anderson MD Consults: 10/21/21 01:43 Consult to Discharge Planning Routine Comment: Consult to Occupational Therapy Evaluate & Treat Comment: Physician Instructions: Evaluate and treat Consult to Physical Therapy Evaluate & Treat Comment: Physician Instructions: Evaluate and Treat Consult to Speech Therapy Evaluate & Treat Comment: Physician Instructions: Evaluate and treat Discharge provider: Saeed Quiroz MD Summary Hospital Course Discharge Diagnosis: 1. TIA 2. CKD stage 2 3. Anemia 4. Type 2 Diabetes 5. Transaminitis Hospital Course: Ms. Paulson presented to the hospital with acute worsening of left facial droop, numbness, and left upper and lower extremity weakness. There was concern for stroke, but MRI showed no new stroke. Her symptoms resolved consistent with TIA. She had a previous stroke two months ago and was placed and aspirin and plavix, but plavix was at that time ordered for a short time course. Because of her new symptoms she will be discharged again on dual anti-platelet therapy with aspirin and plavix and should follow up with PCP to determine whether to remain on both. Exam Vital Signs (past 8 hours): Oxygen Delivery Method Room Air Oxygen Flow Rate 0 Narrative Exam Narrative: GEN: no acute distress HEENT: moist mucous membranes, PERRL NECK: trachea midline, no JVD PULM: clear bilaterally CV: tachycardic, regular, no murmurs ABD: soft, nontender, nondistended, no organomegaly EXT: warm and well perfused with no edema NEURO: left upper extremity 5/5 strength, left lower extremity 5/5 strength Objective Labs Result Diagrams: 10/21/21 08:09 10/21/21 08:09 [facility] Medical History Depression Depression with anxiety Diabetes Hearing loss Hyperlipidemia associated with type 2 diabetes mellitus Insomnia Night terrors Non-insulin dependent type 2 diabetes mellitus Seasonal allergies Surgical History Hx of carpal tunnel repair Hx of hand surgery Hx of shoulder surgery Family History Father Depression Hypertension Sister Gout Cancer Mother Diabetes mellitus Social History household members: significant other Smoking Status: Former smoker alcohol intake: never substance use type: does not use Discharge Plan Discharge Plan Patient Disposition: Home Provider Discharge Comment: Ms. Paulson came in with left sided weakness. She had an MRI that showed no new stroke. She likely had a TIA. She will be started back on plavix and follow up with her PCP within one wee,. Discharge orders & Medications Prescriptions: New clopidogrel 75 mg Tablet 75 mg PO DAILY Qty: 30 0RF Continued glipizide 5 mg tablet 2.5 mg PO BEDTIME loratadine [Allergy Relief (loratadine)] 10 mg tablet 10 mg PO DAILY PRN (Reason: Allergic Symptoms) multivitamin Capsule 1 cap PO QAM fluoxetine 20 mg capsule 60 mg PO DAILY Rx Instructions: new RX, was to start tomorrow losartan 25 mg tablet 50 mg PO DAILY Label Comments: take 1 tablet by mouth once daily metformin 500 mg tablet 1,000 mg PO BID Label Comments: take 2 tablets by mouth twice a day amlodipine [Norvasc] 5 mg Tablet 5 mg PO DAILY 90 Days Qty: 90 0RF aspirin 81 mg Tablet,Delayed Release (Dr/Ec) 81 mg PO DAILY 90 Days Qty: 90 3RF atorvastatin 80 mg tablet 80 mg PO BEDTIME 90 Days Qty: 90 0RF acetaminophen [Tylenol 8 Hour] 650 mg Tablet Extended Release 650 mg PO Q6-12H PRN (Reason: pain) Label Comments: 1-2 tab colchicine 0.6 mg PO PRN PRN (Reason: gout) Rx Instructions: pt takes daily, rx is PRN sitagliptin-metformin 25 mg DAILY meclizine 25 mg PRN PRN (Reason: Vertigo) Triamcinolone Acetate 0.1 % topical PRN PRN (Reason: itchiness) Follow up/Referrals: Kacy Anderson MD [Primary Care Provider] - Diet/Activity/Treatments Diet: Regular and Carb-consistent/Diabetic Visit Report/Discharge Packet Instructions: DI for Heart Failure, DI for Prescription Opioid Use Discharge Data Primary Care Provider: Kacy Anderson
== END 2021-10-22 11:30 | disposition home or self-care (01) | DRG 69 ==
LOC: ED 23:33 → AC 10-21 00:16
PROVIDERS: Admitting Provider Internal Medicine; Emergency Provider Emergency Medicine; Family Provider Family Medicine; PCP Family Medicine; Referring Provider Emergency Medicine; Visit Provider Internal Medicine
DX: G45.9 Transient cerebral ischemic attack, unspecified (principal); G81.94 Hemiplegia, unspecified affecting left nondominant side; R47.01 Aphasia; R74.01 Elevation of levels of liver transaminase levels; E11.9 Type 2 diabetes mellitus without complications; I10 Essential (primary) hypertension; E78.5 Hyperlipidemia, unspecified; M10.9 Gout, unspecified; Z87.891 Personal history of nicotine dependence; Z79.84 Long term (current) use of oral hypoglycemic drugs
CPT/HCPCS: 36415; 70450; 70496; 70498; 70551; 80048; 80053; 80061; 80076; 80305; 81001; 82550; 82553; 82962; 83036; 84484; 85025; 85610; 85730; 87635; 93005; 96374; 96375; 97162; 97166; 97535; 99285; C9803; J1200; J1644; J1815; J2930; Q9967

== ENCOUNTER → 2021-10-26 12:41 | Outpatient (CLI) | payer OTHER, MEDICAID, SELFPAY ==
[2021-10-21 00:54] VITALS: BMI 23.2
--- NOTE | 2021-11-03 09:21 | DIAB.INIT ---
Initial Diabetes Education Assessment Name: Carolina Paulson (Zonia) Date: 10/26/21 Time: 1-230p Dx:T2DM Provider: Justin Brar presents today for initial visit with her partner Jim. Brar reports she was dx with DM in 2011. Also endorses CVA hx. Recent hospitalization x 2, one for CVA and one for potential TIA. +FH of DM with sister and brother. +FH heart disease and HTN with mother and father respectively. States she has lost her appetite. Thinks it may be r/t Januvia that she started last spring, which her provider has rec'd she d/c to determine impact on appetite. Januvia is not usually associated with loss of appetite, however hoping her appetite can be reinstated with changes to DM meds. Also reports this appetite loss has been exacerbated since CVA hospitalization in August. States she feels very weak. Zonia's PO is very low. Diet recall indicates hot water, crackers, roll, fruit, maybe egg sandwich. Soda infrequently 5-6oz maybe 1x per week. Coconut juice 3-4oz per day. [place] culture. Not currently cooking usual foods due to weakness. Anthropometrics: Ht: 5' Wt: 119# reported Weight history: 118-121 is UBW per EMR Physical Activity: use to walk prior to hospitalizations. Feels too weak to walk for exercise now. Sometimes even needs help from Yoandy to walk for ADLs. PT starts today. Self-Monitoring Blood Glucose: None. Endorses rx for supplies. Diabetes Medications: Januvia 25mg Metformin 1000mg BID Pertinent Labs: hgA1c: 7.6% 10/2021 8.3% 08/202110/21/21 Cr: 1.16 H GFR: 55 ml/min L AST: 41 H ALT: 61 H 08/2021 Cr 1.3 mg/dL H GFR: 48 ml/min L 07/07/21 cholesterol: 134 HDL: 40 T LDL: 66 Past Medical History: (Last Reviewed 10/21/21 @ 00:23 by Saeed Quiroz MD) Depression Depression with anxiety Diabetes Hearing loss Hyperlipidemia associated with type 2 diabetes mellitus Insomnia Night terrors Non-insulin dependent type 2 diabetes mellitus Seasonal allergies Intervention: This participant was very receptive. Provided appropriate educational handouts. Discussed the following topics: Completed intake assessment. Discussed barriers to care. Medical hx and current impact on appetite ways to increase PO Importance of self-monitoring, how often, and when to check. Suggested checking at different times to evaluate meals Nutrition intake and recs Role of physical activity in BG mgmgnt and following safety guidelines Created SMART goals for patient self-care and success. Goals: Hold Januvia as discussed with provider cabin equipment supervisor SMBG supplies today Start checking BG, especially when holding Januvia Follow-up: JANICE CHONG follow-up in 4 weeks Jessica Rogers RDN, [facility] Certified Diabetes Care and Hvac Refrigeration Technician P: [phone] Thank you for this referral
== END ==
PROVIDERS: Family Provider Family Medicine; PCP Family Medicine; Referring Provider Family Medicine; Visit Provider Family Medicine
DX: E11.9 Type 2 diabetes mellitus without complications (principal); Z79.84 Long term (current) use of oral hypoglycemic drugs; Z71.3 Dietary counseling and surveillance
CPT/HCPCS: G0108

== ENCOUNTER → 2021-11-23 10:53 | Outpatient (CLI) | payer OTHER, MEDICAID, SELFPAY ==
[2021-10-21 00:54] VITALS: BMI 23.2
--- NOTE | 2021-11-23 11:34 | DIAB.FU ---
Follow-up Diabetes Education Assessment Name: Carolina Paulson (Zonia) Date: 11/23/21 Time: 11-130a Dx: Type II Diabetes Provider: Justin Brar presents today with partner Yoandy. States she is feeling stronger and has improved appetite since last visit. Started PT. Has been holding Januvia for 3 days intermittently as discussed with her provider per report. Holds when appetite is low. Increased intake with coffee/creamer, rice and veggies, and pears with nuts. Potentially high carb intake with two large pears at night. Limited protein acceptance/choices. Does not like eggs, meat, PB, or cheese. Lactose intolerant. Has h/o gout. Likes tofu. Not interested in tempeh. Anthropometrics: Ht: 5' Wt: 119# reported Weight history: 118-121 is UBW per EMR Physical Activity: PT Self-Monitoring Blood Glucose: Checking FBG and right after lunch meal. FBG in goal at 107-115mg/dL. Checking right after meal with readings of 145-156 mg/dL. Diabetes Medications: Januvia 25mg Metformin 1000mg BID Pertinent Labs: hgA1c: 7.6% 10/2021 8.3% 08/202110/21/21 Cr: 1.16 H GFR: 55 ml/min L AST: 41 H ALT: 61 H 08/2021 Cr 1.3 mg/dL H GFR: 48 ml/min L 07/07/21 cholesterol: 134 HDL: 40 T LDL: 66 Past Medical History: (Last Reviewed 10/21/21 @ 00:23 by Saeed Quiroz MD) Depression Depression with anxiety Diabetes Hearing loss Hyperlipidemia associated with type 2 diabetes mellitus Insomnia Night terrors Non-insulin dependent type 2 diabetes mellitus Seasonal allergies Intervention: This participant was very receptive. Provided appropriate educational handouts. Discussed the following topics: Recent blood sugar results and trends and when to check BG Medication management Review of general nutrition recommendations and current intake Protein options and gout Created SMART goals for patient self-care and success. Goals: Hold Januvia as discussed with provider- met therapist occupational SMBG supplies today- met Start checking BG, especially when holding Januvia- met Check pc readings 1-2 hours after a meal 1x per day- new therapist occupational tofu- new Try ensure- new Follow-up: JANICE CHONG follow-up in 4 deb Rogers RDN, [facility] Certified Diabetes Care and Clay Artist P: [phone] Thank you for this referral
== END ==
PROVIDERS: Family Provider Family Medicine; PCP Family Medicine; Referring Provider Family Medicine; Visit Provider Family Medicine
DX: E11.9 Type 2 diabetes mellitus without complications (principal); Z71.3 Dietary counseling and surveillance; Z79.84 Long term (current) use of oral hypoglycemic drugs
CPT/HCPCS: G0108

== ENCOUNTER → 2021-12-14 09:32 | Outpatient (CLI) | payer OTHER, MEDICAID, SELFPAY ==
[2021-10-21 00:54] VITALS: BMI 23.2
[2021-12-14 11:45] LABS: Add Manual Diff / Slide Review NO; Basophils Absolute Auto 0 /uL (0-100); Basophils Percent Auto 0.6 % (0-2); Eosinophils Absolute Auto 400 /uL (0-450); Eosinophils Percent Auto 5.4 % (2-4); Hematocrit 31.4 % (36-46); Hemoglobin 10.6 g/dL (12.0-16.0); Lymphocytes Absolute Auto 1500 /uL (1100-4500); Lymphocytes Percent Auto 22.5 % (25-40); Mean Corpuscular HGB Conc 33.7 % (30-36); Mean Corpuscular Hemoglobin 28.3 PG (26-34); Mean Corpuscular Volume 84.1 fL (80-100); Monocytes Absolute Auto 600 /uL (0-900); Monocytes Percent Auto 8.2 % (3-14); Neutrophils Absolute Auto 4300 /uL (1500-7000); Neutrophils Percent Auto 63.3 % (50-75); Platelet Count 335 X10^3/uL (150-400); Red Blood Cell Count 3.74 X10^6/uL (4.0-5.2); Red Cell Distribution Width 14.6 % (11.6-14.8); White Blood Cell Count 6.8 X10^3/uL (4.5-11.0)
[2021-12-14 12:01] LABS: Alanine Aminotransferase 29 IU/L (<35); Albumin 4.4 g/dL (3.5-5.0); Albumin Globulin Ratio 1.5 (1.0-2.8); Alkaline Phosphatase 78 U/L (38-126); Aspartate Aminotransferase 37 IU/L (14-36); BUN Creatinine Ratio 21.4 (6-22); Bilirubin Total 0.3 mg/dL (0.2-1.3); Blood Urea Nitrogen 34 mg/dL (7-17); Calcium 9.4 mg/dL (8.4-10.2); Carbon Dioxide 22 mmol/L (22-32); Chloride 108 mmol/L (98-107); Cholesterol 115 mg/dL (140-199); Estimated Glomerular Filt Rate 37 mL/min (>60); Globulin 2.9 g/dL (1.7-4.1); Glucose 131 mg/dL (70-100); HDL Cholesterol 36 mg/dL (40-60); HEMOLYSIS < 15 (0-50); LDL Cholesterol Calculated 48 mg/dL (<100); Potassium 4.7 mmol/L (3.4-5.1); Sodium 143 mmol/L (137-145); Total Protein 7.3 g/dL (6.3-8.2); Triglycerides 157 mg/dL (35-150)
[2021-12-14 12:02] LABS: Hemoglobin A1C% w Est Avg Glu 6.7 % (4.0-6.0)
[2021-12-14 13:40] LABS: TSH w/ Reflex to FT4 3.94 uIU/mL (0.47-4.68)
== END ==
PROVIDERS: Family Provider Family Medicine; PCP Family Medicine; Referring Provider Internal Medicine Cardiovascular Disease; Visit Provider Internal Medicine Cardiovascular Disease
DX: R00.2 Palpitations (principal); R07.9 Chest pain, unspecified; E78.5 Hyperlipidemia, unspecified; R06.02 Shortness of breath; E11.9 Type 2 diabetes mellitus without complications
CPT/HCPCS: 36415; 80053; 80061; 83036; 84443; 85025

== ENCOUNTER → 2021-12-29 08:44 | Outpatient (CLI) | payer OTHER, MEDICAID, SELFPAY ==
[2021-10-21 00:54] VITALS: BMI 23.2
--- NOTE | 2022-01-13 16:52 | DIAB.FU ---
Follow-up Diabetes Education Assessment Name: Carolina Paulson (Zonia) Date: 12/29/21 Time: 930-10a Dx: Type II Diabetes Zonia presents for follow-up with partner, Yoandy. Recent hospitalization for acute CVA. Recent labs indicate improved HgA1c of 6.7% but also low GFR of 37. States kidneys have been stable, but newest labs indicate reduction from 48 ml/min in 09/2021. Further, Zonia states she has been sick for the last week and has lost much of her hearing in both ears. Has not told provider this. Since being ill her PO has been reduced to 1x per day. States this is actually her usual eating schedule. Last visit she was eating 2-3x per day. Currently eating less than a can of soup with crackers or some fruit in the afternoon. Not eating rice anymore. States she is not drinking much water, 16 oz per day possibly plus 12 oz coffee, and 12 oz tea (40oz fluids total). Anthropometrics: Ht: 5' Wt: 119# today Weight history: 118-121 is UBW per EMR Physical Activity: PT going well weekly. States she has 3 more sessions left. Has been able to do house chores and sometimes walk the dog. Self-Monitoring Blood Glucose: Checking FBG and reports 110-112mg/dL in goal Diabetes Medications: Januvia 25mg Metformin 1000mg BID Pertinent Labs: HgA1c 6.7% 12/2021 GFR: 37 ml/min hgA1c: 7.6% 10/2021 8.3% 08/202110/21/21 Cr: 1.16 H GFR: 55 ml/min L AST: 41 H ALT: 61 H 08/2021 Cr 1.3 mg/dL H GFR: 48 ml/min L 07/07/21 cholesterol: 134 HDL: 40 T LDL: 66 Past Medical History: (Last Reviewed 10/21/21 @ 00:23 by Saeed Qurioz MD) Depression Depression with anxiety Diabetes Hearing loss Hyperlipidemia associated with type 2 diabetes mellitus Insomnia Night terrors Non-insulin dependent type 2 diabetes mellitus Seasonal allergies Intervention: This participant was very receptive. Provided appropriate educational handouts. Discussed the following topics: Checking after meal readings on occasion Nutrition status and eating more frequently CKD labs and hydration Physical activity plan Created SMART goals for patient self-care and success. 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
== END ==
PROVIDERS: Family Provider Family Medicine; PCP Family Medicine; Referring Provider Family Medicine; Visit Provider Family Medicine
DX: E11.9 Type 2 diabetes mellitus without complications (principal); Z79.84 Long term (current) use of oral hypoglycemic drugs; Z71.3 Dietary counseling and surveillance
CPT/HCPCS: G0108

== ENCOUNTER → 2022-05-10 07:38 | Outpatient (CLI) | payer OTHER, MEDICAID, SELFPAY ==
[2021-10-21 00:54] VITALS: BMI 23.2
--- NOTE | 2022-05-10 | DI.US.S_ITS ---
PROCEDURE: US CAROTID DOPPLER BI INDICATIONS: Cerebral infarction/RUQ pain/Abnormal liver funct TECHNIQUE: Color and pulse Doppler interrogation was performed of both carotid systems, with image documentation and velocity measurements. COMPARISON: [facility], MR, MR HEAD/BRAIN WO CON, 10/21/2021, 8:32. [facility], CT, CT ANGIO HEAD AND NECK, 10/20/2021, 22:22. [facility], US, US CAROTID DOPPLER BI, 08/23/2021, 17:14. FINDINGS: Stenosis calculations are based on SRU (Society of Radiologists in Ultrasound) criteria. Right side: Brachial blood pressure: 127/78 mm Hg. Common carotid artery peak systolic velocity: 66 cm/sec. Internal carotid artery peak systolic velocity: 108 cm/sec. Internal carotid artery end diastolic velocity: 41 cm/sec. External carotid artery peak systolic velocity: 75 cm/sec. ICA/CCA peak systolic ratio: 1.6. (Previously 1.58). Hunter scale imaging description: Moderate plaque. Percent internal carotid artery stenosis: Less than 50% stenosis. Vertebral artery: Flow direction is antegrade. Left side: Brachial blood pressure: 116/71 mm Hg. Common carotid artery peak systolic velocity: 68 cm/sec. Internal carotid artery peak systolic velocity: 86 cm/sec. Internal carotid artery end diastolic velocity: 35 cm/sec. External carotid artery peak systolic velocity: 86 cm/sec. ICA/CCA peak systolic ratio: 1.3. (Previously 1.04). Hunter scale imaging description: Moderate plaque. Percent internal carotid artery stenosis: Less than 50% stenosis. Vertebral artery: Flow direction is antegrade. IMPRESSION: 1. Right ICA: Less than 50 % stenosis. No significant change. 2. Left ICA: Less than 50 % stenosis. No significant change. 3. Antegrade flow in the bilateral vertebral arteries. Dictated by: Jony Tripp M.D. on 05/10/2022 at 10:15 Approved by: Jony Tripp M.D. on 05/10/2022 at 10:20
--- NOTE | 2022-05-10 | DI.US.S_ITS ---
PROCEDURE: US ABDOMEN LIMITED INDICATIONS: RUQ PAIN; ABNORMAL LFTS TECHNIQUE: Real-time scanning was performed of the abdominal, with image documentation. COMPARISON: None. FINDINGS: Liver: Measures 13.1 cm in length. Increased in echogenicity. Gallbladder: Nondilated. No stones or sludge. Normal gallbladder wall thickness. No pericholecystic fluid. Negative sonographic Olivera's sign. Biliary ducts: Intrahepatic bile ducts are non-dilated. Extrahepatic bile duct caliber measures 4 mm. Normal is 6-7 mm or less in diameter, or 10 mm or less post-cholecystectomy. Pancreas: Visualized portions of the pancreas are sonographically normal. IMPRESSION: 1. No acute cholecystitis. No gallstones. 2. Increased hepatic echogenicity most consistent with hepatic steatosis. Other forms of hepatocellular disease could have similar appearance. Dictated by: Jony Tripp M.D. on 05/10/2022 at 10:13 Approved by: Jony Tripp M.D. on 05/10/2022 at 10:15
== END ==
PROVIDERS: Family Provider Family Medicine; PCP Family Medicine; Referring Provider Family Medicine; Visit Provider Family Medicine
DX: I63.9 Cerebral infarction, unspecified (principal); I65.23 Occlusion and stenosis of bilateral carotid arteries; R94.5 Abnormal results of liver function studies
CPT/HCPCS: 76705; 93880

== ENCOUNTER → 2022-05-25 09:14 | Outpatient (CLI) | payer OTHER, MEDICAID, SELFPAY ==
[2021-10-21 00:54] VITALS: BMI 23.2
--- NOTE | 2022-05-25 | DI.CT.S_ITS ---
PROCEDURE: CT ABDOMEN PELVIS W CON INDICATIONS: Left lower quadrant pain/diarrhea TECHNIQUE: After the administration of oral and intravenous contrast, axial sections were acquired from the lung bases to the pubic symphysis. Coronal and sagittal reformats were performed. For radiation dose reduction, the following was used: automated exposure control, adjustment of mA and/or kV according to patient size. COMPARISON:[facility], ABDOMEN LIMITED, 05/10/2022, 8:00. FINDINGS: Lung bases: No pleural effusion ABDOMEN: Liver: Unremarkable. Gallbladder: Unremarkable. Biliary ducts: Unremarkable. Pancreas: Unremarkable. Spleen: Unremarkable. Adrenal Glands: Unremarkable. Kidneys and Ureters: No hydronephrosis Stomach and Bowel: No evidence of mechanical small bowel obstruction or acute appendicitis. Peritoneum: No abnormal intraperitoneal fluid. No free air. Abdominal Nodes: No retroperitoneal or mesenteric adenopathy by size criteria. Vessels: Aorta and inferior vena cava are normal in size. PELVIS: Pelvic Organs: Lobular contour of the uterus likely related to presence of multiple fibroids. The uterus and ovaries are not well evaluated by CT. Bladder: Unremarkable. Pelvic Nodes: No enlarged lymph nodes. Bones: Multilevel degenerative change of the visualized spine. IMPRESSION: No acute abnormality identified within the abdomen or pelvis. Dictated by: Navjot Chaidez M.D. on 05/25/2022 at 16:14 Approved by: Navjot Chaidez M.D. on 05/25/2022 at 16:28
== END ==
PROVIDERS: Family Provider Family Medicine; PCP Family Medicine; Referring Provider Family Medicine; Visit Provider Family Medicine
DX: R10.32 Left lower quadrant pain (principal); R19.7 Diarrhea, unspecified; E86.0 Dehydration; R94.5 Abnormal results of liver function studies
CPT/HCPCS: 74177; Q9967

== ENCOUNTER → 2022-06-07 11:56 | Outpatient (CLI) | payer OTHER, MEDICAID, SELFPAY ==
[2021-10-21 00:54] VITALS: BMI 23.2
--- NOTE | 2022-06-07 | DI.RAD.S_ITS ---
PROCEDURE: XR ANKLE RT MIN 3V INDICATIONS: right ankle joint pain post fall TECHNIQUE: 3 views of the ankle were acquired. COMPARISON: None. FINDINGS: Bones: No definite fracture. Normal alignment. Ankle mortise is normally aligned. No suspicious bony lesions. Soft tissues: No tibiotalar joint effusion. Achilles tendon appears normal. Moderate lateral malleolar soft tissue swelling. IMPRESSION: Moderate lateral malleolar soft tissue swelling without underlying fracture or dislocation. If there is persistent clinical concern for occult fracture given adequate mechanism of injury, consider repeat imaging in 10-14 days Dictated by: Enoch Vogt M.D. on 06/07/2022 at 16:51 Approved by: Enoch Vogt M.D. on 06/07/2022 at 16:52
== END ==
PROVIDERS: Family Provider Family Medicine; PCP Family Medicine; Referring Provider Physician Assistant; Visit Provider Physician Assistant
DX: M25.571 Pain in right ankle and joints of right foot (principal); M79.89 Other specified soft tissue disorders
CPT/HCPCS: 73610

== ENCOUNTER 2022-06-09 13:09 | Emergency (ER) | payer OTHER, MEDICAID, SELFPAY ==
[2021-10-21 00:54] VITALS: BMI 23.2
[2022-06-09 13:27] VITALS: BP 136/80; PULSE 108; RESP 18; TEMP 37.4; O2SAT 98; BMI 24.4
[2022-06-09] MEDS: ONDANSETRON 4 MG/2 ML INJ IV (13:44)
[2022-06-09 13:56] LABS: Add Manual Diff / Slide Review NO; Basophils Absolute Auto 0 /uL (0-100); Basophils Percent Auto 0.6 % (0-2); Eosinophils Absolute Auto 100 /uL (0-450); Eosinophils Percent Auto 2.2 % (2-4); Hematocrit 37.5 % (36-46); Hemoglobin 12.4 g/dL (12.0-16.0); Lymphocytes Absolute Auto 900 /uL (1100-4500); Lymphocytes Percent Auto 13.8 % (25-40); Mean Corpuscular HGB Conc 33.1 % (30-36); Mean Corpuscular Hemoglobin 27.3 PG (26-34); Mean Corpuscular Volume 82.4 fL (80-100); Monocytes Absolute Auto 400 /uL (0-900); Monocytes Percent Auto 6.4 % (3-14); Neutrophils Absolute Auto 5100 /uL (1500-7000); Platelet Count 218 X10^3/uL (150-400); Red Blood Cell Count 4.55 X10^6/uL (4.0-5.2); Red Cell Distribution Width 16.4 % (11.6-14.8); White Blood Cell Count 6.6 X10^3/uL (4.5-11.0)
[2022-06-09 14:10] LABS: Alanine Aminotransferase 48 IU/L (<35); Albumin 4.2 g/dL (3.5-5.0); Albumin Globulin Ratio 1.2 (1.0-2.8); Alkaline Phosphatase 188 U/L (38-126); Aspartate Aminotransferase 97 IU/L (14-36); BUN Creatinine Ratio 20.5 (6-22); Bilirubin Total 0.7 mg/dL (0.2-1.3); Blood Urea Nitrogen 35 mg/dL (7-17); Calcium 9.3 mg/dL (8.4-10.2); Carbon Dioxide 17 mmol/L (22-32); Chloride 107 mmol/L (98-107); Estimated Glomerular Filt Rate 34 mL/min (>60); Globulin 3.4 g/dL (1.7-4.1); Glucose 149 mg/dL (70-100); HEMOLYSIS < 15 (0-50); Lipase 402 U/L (23-300); Potassium 3.6 mmol/L (3.4-5.1); Sodium 139 mmol/L (137-145); Total Protein 7.6 g/dL (6.3-8.2)
--- NOTE | 2022-06-09 14:18 | ED_ITS ---
HPI - Abdominal Pain <Avel Ferrer PA-C - Last Filed: 06/09/22 20:07> General Chief Complaint: Abdominal Pain Stated Complaint: diarrhea x 3 days, abd pain Time Seen by Provider: 06/09/22 13:50 Source: patient Mode of arrival: Wheelchair History of Present Illness HPI narrative: This is a 56-year-old female presents emergency department due to a 3 day history of reported severe diarrhea going reportedly every 15 minutes to the bathroom. She states this all began after starting her Jardiance medication newly prescribed by her primary care provider. She also reports some epigastric abdominal pain with some mild nausea. Denies any blood in the stool, fevers, chest pain, shortness of breath, or any other concerning signs or symptoms. No history recent antibiotic use. Related Data Home Medications Medication Instructions Recorded Confirmed glipizide 5 mg tablet 2.5 mg PO BEDTIME 12/25/18 10/21/21 loratadine 10 mg tablet (Allergy 10 mg PO DAILY PRN Allergic 12/25/18 10/21/21 Relief (loratadine)) Symptoms multivitamin 1 cap PO QAM 12/25/18 10/21/21 fluoxetine 20 mg capsule 60 mg PO DAILY depression 03/29/21 10/21/21 losartan 25 mg tablet 50 mg PO DAILY hypertension 03/29/21 10/21/21 metformin 500 mg tablet 1,000 mg PO BID 03/29/21 10/21/21 Triamcinolone Acetate 0.1 % topical PRN PRN itchiness 10/21/21 10/21/21 acetaminophen 650 mg 650 mg PO Q6-12H PRN pain 10/21/21 10/21/21 tablet,extended release (Tylenol 8 Hour) colchicine 0.6 mg PO PRN PRN gout 10/21/21 10/21/21 meclizine 25 mg PRN PRN Vertigo 10/21/21 10/21/21 sitagliptin-metformin 25 mg DAILY 10/21/21 10/21/21 Previous Rx's Medication Instructions Recorded aspirin 81 mg tablet,delayed 81 mg PO DAILY 90 days #90 tabs 08/27/21 release clopidogrel 75 mg tablet 75 mg PO DAILY #30 tabs 10/22/21 diphenoxylate-atropine 2.5 1 tab PO DAILY PRN diarrhea #14 06/09/22 mg-0.025 mg tablet (Lomotil) tabs Allergies Allergy/AdvReac Type Severity Reaction Status Date / Time aspirin [ASPIRIN] Allergy Severe Gastrointestinal Verified 06/09/22 13:34 Upset iodine [IODINE] Allergy Unknown Verified 06/09/22 13:34 lactose [LACTOSE] Allergy Unknown Verified 06/09/22 13:34 latex [LATEX] Allergy Unknown Verified 06/09/22 13:34 Review of Systems <Avel Ferrer PA-C - Last Filed: 06/09/22 20:07> Review of Systems Narrative: GENERAL: Denies chills, fatigue, malaise, fever, sweats. HEENT: Denies sinus pain, ear pain, sore throat, difficulty swallowing, dizziness. RESPIRATORY: Denies dyspnea, cough, wheezing, hemoptysis, sputum. CARDIOVASCULAR: Denies chest pain, palpitations, orthopnea, edema, GASTROINTESTINAL: Reports diarrhea,, abdominal pain, Denies nausea, vomiting, , constipation, melena. : Denies dysuria, frequency, incontinence, hematuria, urinary retention. MUSCULOSKELETAL: denies weakness, joint pain, or bony pain SKIN: Denies rash, skin lesions, or other NEUROLOGIC: Denies weakness, headache, numbness, change in speech, confusion, seizures, incoordination. PSYCHIATRIC: No concerning psychosocial issues. 12 point review of systems is negative except for those stated above Patient History <Avel Ferrer PA-C - Last Filed: 06/09/22 20:07> Medical History Depression Depression with anxiety Diabetes Hearing loss Hyperlipidemia associated with type 2 diabetes mellitus Insomnia Night terrors Non-insulin dependent type 2 diabetes mellitus Seasonal allergies Surgical History Hx of carpal tunnel repair Hx of hand surgery Hx of shoulder surgery Family History Father Depression Hypertension Sister Gout Cancer Mother Diabetes mellitus Social History household members: significant other Smoking Status: Former smoker alcohol intake: never substance use type: does not use Smoking Status: Former smoker alcohol intake frequency: other Substance Use Type: does not use Exam <Avel Ferrer PA-C - Last Filed: 06/09/22 20:07> Narrative Exam Narrative: GENERAL: Well-developed patient, in mild distress. HEAD: Atraumatic. Normocephalic. EYES: Pupils equal round and reactive. Extraocular motions intact. No scleral icterus. No injection or drainage. ENT: Nose without bleeding, purulent drainage. Throat without erythema, tonsillar hypertrophy or exudate. Airway patent. NECK: Trachea midline. Non tender CARDIOVASCULAR: Regular rate and rhythm without murmurs, gallops, or rubs. RESPIRATORY: Clear to auscultation. Breath sounds equal bilaterally. No wheezes, rales, or rhonchi. GASTROINTESTINAL: Abdomen soft, moderate epigastric tenderness to palpation, nondistended. EXTREMITIES: No edema or joint tenderness. BACK: Nontender without deformity or crepitance. No flank tenderness. NEURO: AOx3. SKIN: No rash or erythema of visible areas Initial Vital Signs Initial Vital Signs: Vital Signs Temperature 99.4 F 06/09/22 13:27 Pulse Rate 108 H 06/09/22 13:27 Respiratory Rate 18 06/09/22 13:27 Blood Pressure 136/80 06/09/22 13:27 Pulse Oximetry 98 06/09/22 13:27 Oxygen Delivery Method Room Air 06/09/22 13:27 <Ab Kohler DO - Last Filed: 06/10/22 07:04> Initial Vital Signs Initial Vital Signs: Vital Signs Temperature 99.4 F 06/09/22 13:27 Pulse Rate 108 H 06/09/22 13:27 Respiratory Rate 18 06/09/22 13:27 Blood Pressure 136/80 06/09/22 13:27 Pulse Oximetry 98 06/09/22 13:27 Oxygen Delivery Method Room Air 06/09/22 13:27 Course <Avel Ferrer PA-C - Last Filed: 06/09/22 20:07> Orders Ordered: Discontinued Medications Sodium Chloride (Normal Saline 0.9%) 1,000 mls @ 1,000 mls/hr IV BOLUS ONE Stop: 06/09/22 15:24 Last Infusion: 06/09/22 15:43 Dose: 0 mls/hr Documented By: Admin: 06/09/22 14:33 Dose: 1,000 mls/hr Documented By: WESTON Ondansetron HCl (Ondansetron 4 Mg/2 Ml Inj) 4 mg IV NOW PRN PRN Reason: Nausea And Vomiting Last Admin: 06/09/22 13:44 Dose: 4 mg Documented By: LIAN Vital Signs Vital signs: Vital Signs - 8 hr 06/09/22 13:27 Temperature 99.4 F Pulse Rate 108 H Respiratory Rate 18 Blood Pressure 136/80 Pulse Oximetry 98 Oxygen Delivery Method Room Air <Ab Kohler DO - Last Filed: 06/10/22 07:04> Orders Ordered: Discontinued Medications Sodium Chloride (Normal Saline 0.9%) 1,000 mls @ 1,000 mls/hr IV BOLUS ONE Stop: 06/09/22 15:24 Last Infusion: 06/09/22 15:43 Dose: 0 mls/hr Documented By: Admin: 06/09/22 14:33 Dose: 1,000 mls/hr Documented By: WESTON Ondansetron HCl (Ondansetron 4 Mg/2 Ml Inj) 4 mg IV NOW PRN PRN Reason: Nausea And Vomiting Last Admin: 06/09/22 13:44 Dose: 4 mg Documented By: LIAN Vital Signs Vital signs: Vital Signs - 8 hr 06/09/22 13:27 Temperature 99.4 F Pulse Rate 108 H Respiratory Rate 18 Blood Pressure 136/80 Pulse Oximetry 98 Oxygen Delivery Method Room Air MDM - Abdominal Pain <Avel Ferrer PA-C - Last Filed: 06/09/22 20:07> Lab Data 06/09/22 13:40 06/09/22 13:40 Labs: Lab Results 06/09/22 06/09/22 06/09/22 Range/Units 13:40 13:40 15:46 WBC 6.6 (4.5-11.0) X10^3/uL RBC 4.55 (4.0-5.2) X10^6/uL Hgb 12.4 (12.0-16.0) g/dL Hct 37.5 (36-46) % MCV 82.4 (80-100) fL MCH 27.3 (26-34) PG MCHC 33.1 (30-36) % RDW 16.4 H (11.6-14.8) % Plt Count 218 (150-400) X10^3/uL Neut % (Auto) 77.0 H (50-75) % Lymph % (Auto) 13.8 L (25-40) % Ada % (Auto) 6.4 (3-14) % Eos % (Auto) 2.2 (2-4) % Baso % (Auto) 0.6 (0-2) % Neut # (Auto) 5100 (1174-7535) /uL Lymph # (Auto) 900 L (3806-7731) /uL Ada # (Auto) 400 (0-900) /uL Eos # (Auto) 100 (0-450) /uL Baso # (Auto) 0 (0-100) /uL Sodium 139 (137-145) mmol/L Potassium 3.6 (3.4-5.1) mmol/L Chloride 107 (98-107) mmol/L Carbon Dioxide 17 L (22-32) mmol/L BUN 35 H (7-17) mg/dL Creatinine 1.71 H (0.52-1.04) mg/dL Estimated GFR 34 L (>60) mL/min BUN/Creatinine Ratio 20.5 (6-22) Glucose 149 H (70-100) mg/dL Calcium 9.3 (8.4-10.2) mg/dL Total Bilirubin 0.7 (0.2-1.3) mg/dL AST 97 H (14-36) IU/L ALT 48 H (<35) IU/L Alkaline Phosphatase 188 H (38-126) U/L Total Protein 7.6 (6.3-8.2) g/dL Albumin 4.2 (3.5-5.0) g/dL Globulin 3.4 (1.7-4.1) g/dL Albumin/Globulin Ratio 1.2 (1.0-2.8) Lipase 402 H (23-300) U/L Stl C. cayetanensis PCR Not detected (Not Detect) Stool Rotavirus (PCR) Not detected (Not Detect) Stool Adenovirus (PCR) Not detected (Not Detect) Stool Astrovirus (PCR) Not detected (Not Detect) Stool Cryptosporidium PCR Not detected (Not Detect) Stl E.coli Shiga Tox PCR Not detected (Not Detect) St Sh/Enteroin Ecoli PCR Not detected (Not Detect) Stool E coli O157 PCR Not Reportable Stl Enterotoxigenic E PCR Not detected (Not Detect) Stool EPEC (PCR) Not detected (Not Detect) Stl E. histolytica PCR Not detected (Not Detect) Stool Giardia Lamblia PCR Not detected (Not Detect) Stool Sapovirus (PCR) Not detected (Not Detect) Stl P. shigelloides PCR Not detected (Not Detect) St Y.enterocolitica PCR Not detected (Not Detect) Stool Vibrio (PCR) Not detected (Not Detect) Stl Vibrio cholerae PCR Not detected (Not Detect) Stl Enteroaggr Ecoli PCR Not detected (Not Detect) Stl Norovirus GI/GII PCR Not detected (Not Detect) Campylobacter (PCR) Not detected (Not Detect) C. difficile Tox (PCR) Not detected (Not Detect) Salmonella (PCR) Not detected (Not Detect) Imaging Data CT scan - abdomen/pelvis: Radiologist's Impression: [address] [address] [address] Scan Report Signed Patient: Carolina Paulson MR#: [id number] : 1965 Acct:[id number] Age/Sex: 56 / F Date of Service: 06/09/22 Loc: ED Accession Number: [id number] ?? Procedure: CT abdomen pelvis wo con Ordering Provider: Avel Ferrer P.A-C PROCEDURE:? CT ABDOMEN PELVIS WO CON ? INDICATIONS:? Epigastric pain and diarrhea ? TECHNIQUE:? Axial sections were acquired from the lung bases to the pubic symphysis.? Coronal and sagittal reformats were performed.? For radiation dose reduction, the following was used: ?automated exposure control, adjustment of mA and/or kV according to patient size.? ? COMPARISON:? [facility], CT, CT ABDOMEN PELVIS W CON, 05/25/2022, 11:23. ? FINDINGS:? Image quality:? Excellent.? ? Lung bases:? Unremarkable.? ? Heart:? No significant findings. ? URINARY: Right Kidney: ? No hydronephrosis.? Punctate nonobstructing right kidney stones.? Right Ureter:? No hydroureter.? ? Left Kidney: ? No stones or hydronephrosis. Left Ureter:? No hydroureter.? ? Bladder:? Only partially distended.? No convincing stones.? Small calcification at the outer superior wall. ? ABDOMEN: Liver:? Unremarkable.? ? Gallbladder:? Not significantly distended. Biliary ducts:? Unremarkable.? ? Pancreas:? Unremarkable.? ? Spleen:? Unremarkable.? ? Adrenal Glands:? Unremarkable.? ? ? Stomach and Bowel:? Stomach, small bowel loops, and colon are unremarkable.? Normal appendix. Peritoneum:? No abnormal intraperitoneal fluid.? No free air.? ? Ventral Wall: ? No hernia.? Abdominal Nodes:? No enlarged retroperitoneal or mesenteric lymph nodes.? Vessels:? Aorta and inferior vena cava are normal in size.? ? PELVIS: Pelvic Organs:? Anteverted uterus.? Multiple uterine fibroids.? ? Pelvic Nodes: Unremarkable. Miscellaneous: No inguinal hernias are seen. ? ? ? Bones:? No suspicious lesion. ? IMPRESSION:? 1. No hydronephrosis.? No obstructing calculus is seen. ? 2. No small bowel obstruction.? No free fluid. ? ? Dictated by: Jony Tripp M.D. on 06/09/2022 at 15:18 ? ? Approved by: Jony Tripp M.D. on 06/09/2022 at 15:27 ? MDM Narrative Medical decision making narrative: MDM * differential diagnosis includes but not limited to gastroenteritis, medication reaction, bacterial gastroenteritis, appendicitis, pancreatitis * Prior records reviewed: Patient was seen here about 8 months ago due to a CVA. Also has a history of stroke from August 27, 2021. Allergy to IV contrast. She has been in received premedication in the past and had not had issues afterwards. History of diabetes, hyperlipidemia. Tele stroke of [place] was called and no tPA was recommended due to the and history of ischemic stroke in the last 90 days. * My lab interpretation: No evidence of leukocytosis. Creatinine elevated although similar to creatinine 6 months ago. GFR similar as well. Elevated lipase. UA negative. * My imgaing interpretation: CT abdomen and pelvis unremarkable * Clinical Decision Rules/Scores evaluated: None * Independent discussions with: None ED Course: This is a 56-year-old female presenting to the emergency department due to acute onset diarrhea. Lab work ordered which showed no significant electrolyte abnormalities. CT abdomen and pelvis was ordered to the epigastric tenderness on palpation although unremarkable. Suspect patient's diarrhea is due to the beginning of her Jardiance medication prescribed by her primary care provider as she states the diarrhea began directly after that. Recommended she stop taking the Jardiance and follow up with the primary care provider for alteration of her medication. Lomotil will be prescribed. GI panel ordered which showed no infectious process that would explain the diarrhea. Shared Decision Making: Discussed plan with patient who is comfortable with the plan. Social Considerations: None Disposition: Discharged to home <Ab KohlerDO - Last Filed: 06/10/22 07:04> Lab Data Labs: Lab Results 06/09/22 06/09/22 06/09/22 Range/Units 13:40 13:40 15:46 WBC 6.6 (4.5-11.0) X10^3/uL RBC 4.55 (4.0-5.2) X10^6/uL Hgb 12.4 (12.0-16.0) g/dL Hct 37.5 (36-46) % MCV 82.4 (80-100) fL MCH 27.3 (26-34) PG MCHC 33.1 (30-36) % RDW 16.4 H (11.6-14.8) % Plt Count 218 (150-400) X10^3/uL Neut % (Auto) 77.0 H (50-75) % Lymph % (Auto) 13.8 L (25-40) % Ada % (Auto) 6.4 (3-14) % Eos % (Auto) 2.2 (2-4) % Baso % (Auto) 0.6 (0-2) % Neut # (Auto) 5100 (1681-8630) /uL Lymph # (Auto) 900 L (3492-5751) /uL Ada # (Auto) 400 (0-900) /uL Eos # (Auto) 100 (0-450) /uL Baso # (Auto) 0 (0-100) /uL Sodium 139 (137-145) mmol/L Potassium 3.6 (3.4-5.1) mmol/L Chloride 107 (98-107) mmol/L Carbon Dioxide 17 L (22-32) mmol/L BUN 35 H (7-17) mg/dL Creatinine 1.71 H (0.52-1.04) mg/dL Estimated GFR 34 L (>60) mL/min BUN/Creatinine Ratio 20.5 (6-22) Glucose 149 H (70-100) mg/dL Calcium 9.3 (8.4-10.2) mg/dL Total Bilirubin 0.7 (0.2-1.3) mg/dL AST 97 H (14-36) IU/L ALT 48 H (<35) IU/L Alkaline Phosphatase 188 H (38-126) U/L Total Protein 7.6 (6.3-8.2) g/dL Albumin 4.2 (3.5-5.0) g/dL Globulin 3.4 (1.7-4.1) g/dL Albumin/Globulin Ratio 1.2 (1.0-2.8) Lipase 402 H (23-300) U/L Stl C. cayetanensis PCR Not detected (Not Detect) Stool Rotavirus (PCR) Not detected (Not Detect) Stool Adenovirus (PCR) Not detected (Not Detect) Stool Astrovirus (PCR) Not detected (Not Detect) Stool Cryptosporidium PCR Not detected (Not Detect) Stl E.coli Shiga Tox PCR Not detected (Not Detect) St Sh/Enteroin Ecoli PCR Not detected (Not Detect) Stool E coli O157 PCR Not Reportable Stl Enterotoxigenic E PCR Not detected (Not Detect) Stool EPEC (PCR) Not detected (Not Detect) Stl E. histolytica PCR Not detected (Not Detect) Stool Giardia Lamblia PCR Not detected (Not Detect) Stool Sapovirus (PCR) Not detected (Not Detect) Stl P. shigelloides PCR Not detected (Not Detect) St Y.enterocolitica PCR Not detected (Not Detect) Stool Vibrio (PCR) Not detected (Not Detect) Stl Vibrio cholerae PCR Not detected (Not Detect) Stl Enteroaggr Ecoli PCR Not detected (Not Detect) Stl Norovirus GI/GII PCR Not detected (Not Detect) Campylobacter (PCR) Not detected (Not Detect) C. difficile Tox (PCR) Not detected (Not Detect) Salmonella (PCR) Not detected (Not Detect) Discharge Plan Departure Patient Disposition: Home Clinical Impression: Diarrhea Instructions: Diarrhea Activity Restrictions/Additional Instructions: Thank you for coming to the [facility] Emergency Department today. As discussed there was no infectious findings for your diarrhea. The GI panel showed no evidence of any kind of bacteria that would cause this. The CT abdomen and pelvis showed no organ abnormalities that are life-threatening. I suspect the diarrhea experiencing is due to the diabetes medication you began. Please do not take this and follow up with your primary care provider for alteration of your medication. Please take the medication prescribed to help with the diarrhea. Please do your best to maintain hydrated with Gatorade and broth. I hope you feel better soon. Prescriptions: New diphenoxylate-atropine [Lomotil] 2.5-0.025 mg tablet 1 tab PO DAILY PRN (Reason: diarrhea) Qty: 14 0RF No Action glipizide 5 mg tablet 2.5 mg PO BEDTIME loratadine [Allergy Relief (loratadine)] 10 mg tablet 10 mg PO DAILY PRN (Reason: Allergic Symptoms) multivitamin Capsule 1 cap PO QAM fluoxetine 20 mg capsule 60 mg PO DAILY Rx Instructions: new RX, was to start tomorrow losartan 25 mg tablet 50 mg PO DAILY Patient Comments: take 1 tablet by mouth once daily metformin 500 mg tablet 1,000 mg PO BID Patient Comments: take 2 tablets by mouth twice a day aspirin 81 mg Tablet,Delayed Release (Dr/Ec) 81 mg PO DAILY 90 Days Qty: 90 3RF acetaminophen [Tylenol 8 Hour] 650 mg Tablet Extended Release 650 mg PO Q6-12H PRN (Reason: pain) Patient Comments: 1-2 tab colchicine 0.6 mg PO PRN PRN (Reason: gout) Rx Instructions: pt takes daily, rx is PRN sitagliptin-metformin 25 mg DAILY meclizine 25 mg PRN PRN (Reason: Vertigo) Triamcinolone Acetate 0.1 % topical PRN PRN (Reason: itchiness) clopidogrel 75 mg Tablet 75 mg PO DAILY Qty: 30 0RF Referrals: Kacy Anderson MD [Primary Care Provider] - Stand Alone Forms: Patient Portal/API <Ab Kohler, - Last Filed: 06/10/22 07:04> [facility]: Dr Kohler Co-Sign Statement: I was available for consultation during this patient's emergency department visit. This chart is signed by myself for administrative purposes only. I did not have direct contact with this patient during this visit. They were seen independently by the APC.
[2022-06-09] MEDS: SODIUM CHLORIDE 0.9% 1,000 ML 1000 ML IV (14:33)
--- NOTE | 2022-06-09 14:41 | DI.CT.S_ITS ---
PROCEDURE: CT ABDOMEN PELVIS WO CON INDICATIONS: Epigastric pain and diarrhea TECHNIQUE: Axial sections were acquired from the lung bases to the pubic symphysis. Coronal and sagittal reformats were performed. For radiation dose reduction, the following was used: automated exposure control, adjustment of mA and/or kV according to patient size. COMPARISON: [facility], CT, CT ABDOMEN PELVIS W CON, 05/25/2022, 11:23. FINDINGS: Image quality: Excellent. Lung bases: Unremarkable. Heart: No significant findings. URINARY: Right Kidney: No hydronephrosis. Punctate nonobstructing right kidney stones. Right Ureter: No hydroureter. Left Kidney: No stones or hydronephrosis. Left Ureter: No hydroureter. Bladder: Only partially distended. No convincing stones. Small calcification at the outer superior wall. ABDOMEN: Liver: Unremarkable. Gallbladder: Not significantly distended. Biliary ducts: Unremarkable. Pancreas: Unremarkable. Spleen: Unremarkable. Adrenal Glands: Unremarkable. Stomach and Bowel: Stomach, small bowel loops, and colon are unremarkable. Normal appendix. Peritoneum: No abnormal intraperitoneal fluid. No free air. Ventral Wall: No hernia. Abdominal Nodes: No enlarged retroperitoneal or mesenteric lymph nodes. Vessels: Aorta and inferior vena cava are normal in size. PELVIS: Pelvic Organs: Anteverted uterus. Multiple uterine fibroids. Pelvic Nodes: Unremarkable. Miscellaneous: No inguinal hernias are seen. Bones: No suspicious lesion. IMPRESSION: 1. No hydronephrosis. No obstructing calculus is seen. 2. No small bowel obstruction. No free fluid. Dictated by: Jony Tripp M.D. on 06/09/2022 at 15:18 Approved by: Jony Tripp M.D. on 06/09/2022 at 15:27
[2022-06-09 19:06] LABS: Adenovirus F 40/41 Not Detected (Not Detect); Astrovirus Not Detected (Not Detect); Campylobacter Not Detected (Not Detect); Clostridium difficile toxin AB Not Detected (Not Detect); Cryptosporidium Not Detected (Not Detect); Cyclospora cayetanensis Not Detected (Not Detect); Entamoeba histolytica Not Detected (Not Detect); Enteroaggregative E.coli Not Detected (Not Detect); Enteropathogenic E.coli Not Detected (Not Detect); Enterotoxigenic E.coli It/st Not Detected (Not Detect); Giardia lamblia Not Detected (Not Detect); Norovirus GI/GII Not Detected (Not Detect); Plesiomonsa shigelloides Not Detected (Not Detect); Rotavirus A Not Detected (Not Detect); Salmonella Not Detected (Not Detect); Sapovirus Not Detected (Not Detect); Shiga-like toxin-prod E.coli Not Detected (Not Detect); Shigella/Enteroinvasive E.coli Not Detected (Not Detect); Vibrio Not Detected (Not Detect); Vibrio cholerae Not Detected (Not Detect); Yersinia enterocolitica Not Detected (Not Detect)
== END 2022-06-09 20:25 | disposition home or self-care (01) ==
PROVIDERS: Emergency Medicine; Emergency Provider Physician Assistant Medical; Family Provider Family Medicine; PCP Family Medicine
DX: R19.7 Diarrhea, unspecified (principal); R10.13 Epigastric pain
CPT/HCPCS: 36415; 74176; 80053; 83690; 85025; 87507; 93005; 96361; 96374; 99284; J2405

== ENCOUNTER → 2022-10-20 11:09 | Outpatient (CLI) | payer OTHER, MEDICAID, SELFPAY ==
[2021-10-21 00:54] VITALS: BMI 23.2
--- NOTE | 2022-10-20 | DI.RAD.S_ITS ---
PROCEDURE: XR CHEST 2V INDICATIONS: VERIFY PLACEMENT OF LOOP RECORDER TECHNIQUE: 2 views of the chest were acquired. COMPARISON: None. FINDINGS: Surgical changes and devices: Cardiac lead recorder projects over the anterior left chest wall. Lungs and pleura: Lungs are clear. No pleural effusions or pneumothorax. Mediastinum: Mediastinal contours are normal. Heart size is normal. Bones and chest wall: No suspicious bony abnormalities. Soft tissues appear unremarkable. IMPRESSION: No acute cardiopulmonary abnormality is seen. Anterior left chest wall cardiac loop recorder. Dictated by: Che Burdick MD, PhD on 10/20/2022 at 13:03 Approved by: Che Burdick MD, PhD on 10/20/2022 at 13:09
== END ==
PROVIDERS: Family Provider Family Medicine; PCP Family Medicine; Referring Provider Physician Assistant; Visit Provider Physician Assistant
DX: Z45.09 Encounter for adjustment and management of other cardiac device
CPT/HCPCS: 71046

== ENCOUNTER → 2022-11-14 11:29 | Outpatient (CLI) | payer OTHER, MEDICAID, SELFPAY ==
[2021-10-21 00:54] VITALS: BMI 23.2
[2022-11-14 12:49] LABS: C-Reactive Protein Quant 0.6 mg/dL (<1.0)
[2022-11-14 13:05] LABS: Erythrocyte Sedimentation Rate 21 MM/HR (0-20)
== END ==
PROVIDERS: Family Provider Family Medicine; PCP Family Medicine; Referring Provider Psychiatry & Neurology Neurology; Visit Provider Psychiatry & Neurology Neurology
DX: R53.1 Weakness (principal)
CPT/HCPCS: 36415; 82085; 84443; 85651; 86140

== ENCOUNTER → 2023-04-19 11:29 | Outpatient (CLI) | payer OTHER, MEDICAID, SELFPAY ==
[2021-10-21 00:54] VITALS: BMI 23.2
[2023-04-19 12:21] LABS: Hematocrit 38.7 % (36-46); Hemoglobin 12.8 g/dL (12.0-16.0)
[2023-04-19 12:44] LABS: HEMOLYSIS < 15 (0-50); Iron 101 ug/dL (37-170)
[2023-04-19 12:47] LABS: Albumin 4.5 g/dL (3.5-5.0); BUN Creatinine Ratio 17.9 (6-22); Blood Urea Nitrogen 34 mg/dL (7-17); Carbon Dioxide 25 mmol/L (22-32); Chloride 108 mmol/L (98-107); Estimated Glomerular Filt Rate 30 mL/min (>60); Glucose 141 mg/dL (70-100); HEMOLYSIS < 15 (0-50); Phosphorous 4.8 mg/dL (2.5-4.5); Potassium 4.3 mmol/L (3.4-5.1); Sodium 141 mmol/L (137-145)
[2023-04-19 12:55] LABS: Percent Iron Saturation 24 % (15-50); Total Iron Binding Capacity 414 ug/dL (265-497); Transferrin 344 mg/dL (206-381)
[2023-04-19 13:21] LABS: Ferritin 26 ng/mL (11-264)
[2023-04-19 16:02] LABS: Creatinine Urine Random 86.1 mg/dL; Protein (Total) Urine Random 87 mg/dL (0-12); Protein Creatinine Ratio Urine 1.01 GRAM/24H
[2023-04-19 16:17] LABS: Vitamin D 25 Hydroxy (D3) 30.9 ng/mL (30.0-100.0)
[2023-04-19 16:55] LABS: Microalbumi Creatinin Ratio Ur 459.9 ug/mg CR (<30); Microalbumin Urine Random 39.6 mg/dL (0-1.6)
[2023-04-22 12:09] LABS: Parathyroid Hormone Int 49 pg/mL (15-65)
== END ==
LOC: LAB 11:30
PROVIDERS: Family Provider Family Medicine; PCP Family Medicine; Referring Provider Internal Medicine Nephrology; Visit Provider Internal Medicine Nephrology
DX: I10 Essential (primary) hypertension (principal); E11.22 Type 2 diabetes mellitus with diabetic chronic kidney disease; N18.32 Chronic kidney disease, stage 3b; Z79.4 Long term (current) use of insulin; I99.9 Unspecified disorder of circulatory system
CPT/HCPCS: 36415; 80069; 82043; 82306; 82570; 82728; 83540; 83550; 83970; 84156; 85014; 85018

== ENCOUNTER → 2023-08-31 09:08 | Outpatient (CLI) | payer OTHER, MEDICAID, SELFPAY ==
[2021-10-21 00:54] VITALS: BMI 23.2
--- NOTE | 2023-08-31 09:09 | DI.NM.S_ITS ---
PROCEDURE: NM DESTINI PERF SPECT R&S PHARM Rest and pharmacological stress myocardial perfusion SPECT with gated imaging and ejection fraction RADIOPHARMACEUTICAL: 12.5 mCi Tc-99m tetrafosmin IV at rest and 25.4 mCi Tc-99m tetrafosmin IV at peak effect of pharmacological stress. [id number] was performed. INDICATIONS: Chest pain, unspecified TECHNIQUE: Radiopharmaceutical was injected at peak stress test, and also at rest. SPECT images were obtained. SPECT myocardial perfusion images were displayed in short axis, horizontal long axis, and vertical long axis views. Gated images were reviewed using [employer] software. COMPARISON: None. CARDIAC STRESS: A pharmacologic stress test was performed under the supervision of an attending staff, using an infusion of lexiscan 0.4mg IV X1. Hemodynamic data: There is normal blood pressure and heart rate response to pharmacologic stress. Symptoms: The patient denied anginal chest pain. Aminophylline: none EKG: Mild horizontal ST depressions in the anterolateral leads during recovery; no ectopy. FINDINGS: Raw data: There is good myocardial uptake of radiotracer. No significant motion artifacts. Left ventricle function: Gated images demonstrate normal left ventricular wall thickening. No segmental wall motion abnormalities. No transient ischemic dilation; TID is 0.5 (normal less than 1.3). Left ventricle resting end diastolic volume is 47mL. Left ventricle stress ejection fraction is 92%; normal range is above 45%. Myocardial perfusion: There is normal distribution of activity in the right and left ventricular myocardium. No fixed or reversible perfusion defects. IMPRESSION: Low risk, normal walking pharm nuclear stress test. 1) No perfusion evidence of ischemia or infarction. 2) Normal left ventricular size, wall motion, and systolic function (EF post stress 92%). 3) Mild horizontal ST depressions in the anterolateral leads during recovery. These changes are non-diagnostic in the setting of reassuring perfusion images. 4) No angina during the study. 5) Severely reduced exercise tolerance (4.6METs, YG +44%). Target heart rate reached. Appropriate BP response to exercise. 6) Compared to the nuclear stress test done 01/23/2019, no significant change. Dictated by: Juan Sterling MD on 09/01/2023 at 10:56 Approved by: Juan Sterling MD on 09/01/2023 at 11:00
--- NOTE | 2023-08-31 09:09 | DI.ECHO.S_ITS ---
[place] [facility]+ [facility] : : [address] : : [place] : : [id number] : : Phone: [phone] Echocardiogram Report + + :Name: CASSIDY MURRAY Study Date: 08/31/2023 Height: 60 in : :[facility] ReadingLocation: Weight: 127 lb : : Gender: Female BSA: 1.5 m2 : :: 1965 Age: 58 yrs BP: 144/93 mmHg: :Reason For Study: CHEST PAIN : :Ordering Physician: : :IRAM BERRIOS Performed By: Jj Zhang : :Referring: IRAM BERRIOS : + + Interpretation Summary The ejection fraction is estimated to be 60-65%. Diastolic parameters suggest probable normal left ventricular diastolic function and normal filling pressures. The right ventricle is normal in size and function. No significant valvular abnormalities. Pulmonary artery pressures cannot be estimated because of the lack of a measurable TR jet velocity but the IVC suggests a CVP of around 3 mmHg. Compared to the prior study dated 08/23/2021, no significant change. Procedure: A two-dimensional transthoracic echocardiogram with color flow and Doppler was performed. The study quality was technically adequate. Comparison is made with the echocardiogram of 08/23/2021. The patient was in sinus rhythm with heart rates between 73-94 bpm during the exam. Left Ventricle: The left ventricle is normal in size and wall thickness. The ejection fraction is estimated to be 60-65%. Diastolic parameters suggest probable normal left ventricular diastolic function and normal filling pressures. Right Ventricle: The right ventricle is normal in size and function. Atria: The left atrial size is normal. Right atrial size is normal. The interatrial septum grossly appears intact with no obvious evidence for an atrial septal defect. Mitral Valve: The mitral valve is normal. There is no mitral valve stenosis. There is no mitral regurgitation noted. Aortic Valve: The aortic valve is trileaflet. There is no aortic valve stenosis. No aortic regurgitation is present. Tricuspid Valve: The tricuspid valve is normal. There is no tricuspid stenosis. No tricuspid regurgitation. Pulmonary artery pressures cannot be estimated because of the lack of a measurable TR jet velocity but the IVC suggests a CVP of around 3 mmHg. Pulmonic Valve: The pulmonic valve is not well visualized. There is no pulmonic valvular stenosis. There is no pulmonic valvular regurgitation. Great Vessels: The aortic root is normal size. The dimensions of the ascending aorta are normal. The IVC is of normal diameter and collapses greater than 50% with a sniff. This suggests a low right atrial pressure of 3 mm Hg. Pericardium/ Pleura There is no pericardial effusion. There is no pleural effusion. MMode/2D Measurements & Calculations LVIDd: 3.6 cm LVOT diam: 1.8 cm LVIDs: 2.7 cm Ao root diam: 2.9 cm FS: 24.8 % asc Aorta Diam: 2.8 cm IVSd: 0.86 cm LVPWd: 0.81 cm LV knowles. diameter/BSA (cm/m^2): 2.4 LV sys. diameter/BSA (cm/m^2): 1.8 LA A2 area: 17.2 cm2 RA long axis: 3.9 cm LA A4 area: 15.8 cm2 RA area: 10.7 cm2 LA length (vol): 4.9 cm RA vol: 24.9 ml LA vol: 47.2 ml RA : 16.2 ml/m2 LA vol index: 30.7 ml/m2 RVD1 (basal): 3.0 cm RVD2 (mid): 2.6 cm TAPSE: 1.8 cm Doppler Measurements & Calculations Ao V2 max: 125.9 cm/sec LVOT Max Ash: 92.4 cm/sec Ao V2 mean: 88.3 cm/sec LV V1 max P.4 mmHg Ao max P.3 mmHg LV V1 VTI: 24.5 cm Ao mean P.4 mmHg DEVON(I,D): 2.3 cm2 Ao V2 VTI: 26.6 cm DEVON(V,D): 1.8 cm2 sev ratio: 0.92 DEVON indexed to BSA (cm^2/m^2): 1.5 MV E max ash: 61.6 cm/sec PA V2 max: 100.0 cm/sec MV A max ash: 91.6 cm/sec PA V2 mean: 65.8 cm/sec MV E/A: 0.67 PA mean P.9 mmHg Med Peak E' Ash: 3.9 cm/sec PA pr(Accel): 34.5 mmHg E/E' med: 15.9 Lat Peak E' Ash: 8.0 cm/sec E/E' lat: 7.7 E/e' average: 11.8 MV dec time: 0.20 sec SV(LVOT): 60.8 ml Reading Physician:05:13 PM
== END ==
PROVIDERS: Family Provider Family Medicine; PCP Family Medicine; Referring Provider Internal Medicine Cardiovascular Disease; Visit Provider Internal Medicine Cardiovascular Disease
DX: R07.9 Chest pain, unspecified (principal)
CPT/HCPCS: 78452; 93017; 93306; A9502; J2785

== ENCOUNTER → 2023-09-26 10:00 | Outpatient (CLI) | payer OTHER, MEDICAID, SELFPAY ==
[2021-10-21 00:54] VITALS: BMI 23.2
[2023-09-26 10:51] LABS: Albumin 4.3 g/dL (3.5-5.0); BUN Creatinine Ratio 17.9 (6-22); Blood Urea Nitrogen 46 mg/dL (7-17); Calcium 9.5 mg/dL (8.4-10.2); Carbon Dioxide 20 mmol/L (22-32); Chloride 110 mmol/L (98-107); Cholesterol 102 mg/dL (140-199); Estimated Glomerular Filt Rate 21 mL/min (>60); Glucose 115 mg/dL (80-110); HDL Cholesterol 44 mg/dL (40-60); HEMOLYSIS < 15 (0-50); LDL Cholesterol Calculated 23 mg/dL (<100); Phosphorous 4.3 mg/dL (2.8-4.1); Potassium 4.7 mmol/L (3.4-5.1); Sodium 141 mmol/L (137-145); Triglycerides 173 mg/dL (35-150)
[2023-09-26 13:04] LABS: Creatinine Urine Random 127.15 mg/dL
[2023-09-26 13:32] LABS: Microalbumin Urine Random 24.2 mg/dL (0-1.6)
== END ==
LOC: LAB 10:02
PROVIDERS: Family Provider Family Medicine; PCP Family Medicine; Referring Provider Student in an Organized Health Care Education/Training Program; Visit Provider Student in an Organized Health Care Education/Training Program
DX: E11.69 Type 2 diabetes mellitus with other specified complication (principal)
CPT/HCPCS: 36415; 80061; 80069; 82043; 82570

== ENCOUNTER → 2023-10-19 11:02 | Outpatient (CLI) | payer OTHER, MEDICAID, SELFPAY ==
[2021-10-21 00:54] VITALS: BMI 23.2
[2023-10-19 12:30] LABS: Hematocrit 37.9 % (36-46); Hemoglobin 12.6 g/dL (12.0-16.0); Mean Corpuscular HGB Conc 33.2 % (30-36); Mean Corpuscular Volume 84.4 fL (80-100); Platelet Count 208 X10^3/uL (150-400); Red Blood Cell Count 4.49 X10^6/uL (4.0-5.2); Red Cell Distribution Width 14.7 % (11.6-14.8); White Blood Cell Count 3.9 X10^3/uL (4.5-11.0)
[2023-10-19 12:31] LABS: Creatinine Urine Random 87.99 mg/dL
[2023-10-19 12:51] LABS: Microalbumin Urine Random 32.2 mg/dL (0-1.6)
[2023-10-19 13:03] LABS: Albumin 4.3 g/dL (3.5-5.0); BUN Creatinine Ratio 18.2 (6-22); Blood Urea Nitrogen 33 mg/dL (7-17); Calcium 9.6 mg/dL (8.4-10.2); Carbon Dioxide 22 mmol/L (22-32); Chloride 108 mmol/L (98-107); Estimated Glomerular Filt Rate 32 mL/min (>60); Glucose 117 mg/dL (80-110); HEMOLYSIS < 15 (0-50); Magnesium 1.9 mg/dL (1.6-2.3); Phosphorous 3.3 mg/dL (2.8-4.1); Sodium 139 mmol/L (137-145)
[2023-10-19 13:18] LABS: Vitamin D 25 Hydroxy (D3) 18.5 ng/mL (30.0-100.0)
[2023-10-20 08:11] LABS: Parathyroid Hormone Int 83 pg/mL (15-65)
== END ==
LOC: LAB 11:04
PROVIDERS: Family Provider Family Medicine; PCP Family Medicine; Referring Provider Internal Medicine Nephrology; Visit Provider Internal Medicine Nephrology
DX: N18.4 Chronic kidney disease, stage 4 (severe) (principal)
CPT/HCPCS: 36415; 80048; 82040; 82043; 82306; 82570; 83735; 83970; 84100; 85027

== ENCOUNTER → 2024-01-15 10:18 | Outpatient (CLI) | payer OTHER, MEDICAID, SELFPAY ==
[2021-10-21 00:54] VITALS: BMI 23.2
--- NOTE | 2024-01-15 10:19 | DI.US.S_ITS ---
PROCEDURE: US CAROTID DOPPLER BI INDICATIONS: Occlusion and stenosis of bilateral carotid arteri TECHNIQUE: Color and pulse Doppler interrogation was performed of both carotid systems, with image documentation and velocity measurements. COMPARISON: [facility], CT, CT ANGIO HEAD AND NECK, 10/20/2021, 22:22. [facility], US, US CAROTID DOPPLER BI, 05/10/2022, 8:08. FINDINGS: Stenosis calculations are based on SRU (Society of Radiologists in Ultrasound) criteria. The flow velocities and the arterial waveforms are normal within both carotid arterial systems. Atherosclerotic plaque is seen on both sides, including shadowing plaque. The estimated degree of internal carotid artery stenosis is less than 50%. Antegrade flow is confirmed within both vertebral arteries. A right thyroid nodule is incidentally noted that measures up to 1.4 cm. IMPRESSION: No hemodynamically significant stenosis is seen. Atherosclerotic plaque is noted bilaterally. Similar to the prior. A 1.4 cm thyroid nodule is incidentally noted on the right. By published criteria, no specific imaging follow-up is recommended. However, if further workup is clinically desired, a dedicated thyroid ultrasound could be considered for further evaluation. Dictated by: Golden Rodriguez M.D. on 01/15/2024 at 13:08 Approved by: Golden Rodriguez M.D. on 01/15/2024 at 13:11
== END ==
LOC: US 10:18
PROVIDERS: Family Provider Family Medicine; PCP Family Medicine; Referring Provider Psychiatry & Neurology Neurology; Visit Provider Psychiatry & Neurology Neurology
DX: I65.23 Occlusion and stenosis of bilateral carotid arteries (principal); E04.1 Nontoxic single thyroid nodule
CPT/HCPCS: 93880

== ENCOUNTER 2024-02-02 09:45 | Outpatient (RCR) | payer OTHER, MEDICAID, SELFPAY ==
[2021-10-21 00:54] VITALS: BMI 23.2
--- NOTE | 2023-10-04 12:42 | PT.OIE ---
Current Diagnoses Type 2 diabetes mellitus with diabetic polyneuropathy (10/04/23) Muscle weakness (generalized) (10/04/23) Unsteadiness on feet (10/04/23) Other abnormalities of gait and mobility (10/04/23) Other symptoms and signs involving the musculoskeletal system (10/04/23) Past Medical History (Last Reviewed 10/21/21 @ 00:23 by Saeed Quiroz MD) Depression Depression with anxiety Diabetes Hearing loss Hyperlipidemia associated with type 2 diabetes mellitus Insomnia Night terrors Non-insulin dependent type 2 diabetes mellitus Seasonal allergies Past Surgical History (Last Reviewed 10/21/21 @ 00:23 by Saeed Quiroz MD) Hx of carpal tunnel repair Hx of hand surgery Hx of shoulder surgery Visit Care Team Role Provider Type Kacy Anderson MD Family Provider Non-Staff Primary Care Provider Specialty: Family Practice Address: [address] [place] [address], [id number] Email: Beth Santos MD Attending Provider Non-Staff Referring Provider Specialty: [facility] [address] [place], [address] Fax: Email: Physical Therapy Initial Evaluation PT-OP-A Visit Information Start: 10/04/23 11:38 Freq: Status: Active Protocol: Document 10/04/23 10:30 DCW (Rec: 10/04/23 12:03 DC [id number]) Out-Patient Physical Therapy Visit Information Visit Information Visit Type Initial Evaluation Visit Start Time 10:30 Visit Stop Time 11:15 Visit Number 1 Number of PROCED TECH Visits 0 Evaluation Information Evaluation Date 10/04/23 PT-OP-B Current Condition Start: 10/04/23 11:38 Freq: Status: Active Protocol: Document 10/04/23 10:30 DCW (Rec: 10/04/23 12:03 DCW [id number]) Current Condition History of Current Condition Onset Date Two year history Current Complaints Weakness, poor balance, fatigue, difficulty with stairs, two years s/p CVA History of Current Condition Pt is a 58 year old female presenting to skilled therapy with complaints of weakness, gait difficulty, poor balance, poor falls recovery, and severe stair difficulty two years s/p CVA. Pt reports her knees didn't get back the way they were supposed to following her stroke. Additionally, pt suffers from issues with orthostasis, reportedly due to the large number of meds she has been on since her CVA. Reports she ascends stairs with both hands on one rail pulling herself up, and to descend, she scoots down on my butt. Pt also notes pain, immobility, and weakness in her shoulder limit her ability to get herself up off the floor following a fall. Treatment Goals Patient/Caregiver Goals Improve balance, strengthen knees PT-OP-C Subjective Start: 10/04/23 11:38 Freq: Status: Active Protocol: Document 10/04/23 10:30 DCW (Rec: 10/04/23 12:03 DCW [id number]) OP-PT Subjective Patient Comments Patient Comments My knees don't let me do anything. Patient Questionnaires Lower Extremity Functional Scale LEFS Score 29/80 = 36.25% PT-OP-D Balance Start: 10/04/23 11:38 Freq: Status: Active Protocol: Document 10/04/23 10:30 DCW (Rec: 10/04/23 12:03 DCW [id number]) Balance Tests Juarez Balance Test Juarez Balance Test Score 36/56 Juarez Impairment Rating 20 to 39% Impaired (Score 34- 44) Juarez Balance Assessment Evaluation Sitting to Standing Ability Independent w/Hands Unsupported Stance Supervision- 2 minutes Sitting Unsupported, Feet on Floor Safely- 2 minutes Standing to Sitting Ability Assist, Control w/Hands Transfer Ability Safely, Hand Use Unsupported Stance- Eyes Closed 3 seconds Unsupported Stance- Eyes Open Independent, <30 seconds Reaching Forward Standing Safely, 5 inches Pick- Up Object From Floor Supervision Look Behind Shoulder - Standing Shifts Weight Well Turning 360 Degrees Supervision/Verbal Cues Unsupported Stance, Alternating Feet on 4 Steps w/Supervision Stair Unsupported Tandem Stance Small Step- 30 seconds Unilateral Leg Stance Lifts Leg/Unable to Hold Total Score Juarez Total Score (out of 56 points) 36 Juarez Impairment Rating 20 to 39% Impaired (Score 34- 44) PT-OP-E Functional Tests Start: 10/04/23 11:38 Freq: Status: Active Protocol: Document 10/04/23 10:30 DCW (Rec: 10/04/23 12:03 DCW [id number]) Functional Tests Dynamic Gait Index (DGI) Score 10/30 DGI Impairment Rating 60 to <80% Impaired (Score 5-9 ) PT-OP-K Range of Motion Start: 10/04/23 11:38 Freq: Status: Active Protocol: Document 10/04/23 10:30 DCW (Rec: 10/04/23 12:03 DCW [id number]) Shoulder Goniometric Range of Motion Shoulder Right Active Shoulder ROM WFL No Testing Position Sitting Flexion 110 Abduction 91 Left Active Shoulder ROM WFL No Testing Position Sitting Flexion 93 Abduction 87 PT-OP-M Strength Start: 10/04/23 11:38 Freq: Status: Active Protocol: Document 10/04/23 10:30 DCW (Rec: 10/04/23 12:03 DCW [id number]) Shoulder Strength Shoulder Manual Muscle Testing Right Flexion 3 Fair Abduction (C5) 3 Fair Left Flexion 3 Fair Abduction (C5) 3 Fair Elbow/Forearm Strength Elbow and Forearm Manual Muscle Testing Right Flexion (C6) 3+ Fair+ Extension (C7) 3- Fair- Left Flexion (C6) 3+ Fair+ Extension (C7) 3- Fair- Hip Strength Hip Manual Muscle Testing Right Flexion (L2) 3+ Fair+ Extension (S1) 3+ Fair+ Abduction 3+ Fair+ Adduction 3+ Fair+ External Rotation 3+ Fair+ Internal Rotation 4 Good Left Flexion (L2) 4- Good- Extension (S1) 4- Good- Abduction 3+ Fair+ Adduction 3+ Fair+ External Rotation 3 Fair Internal Rotation 3 Fair Knee Strength Knee Manual Muscle Testing Right Flexion (S2) 3 Fair Extension (L3) 3+ Fair+ Left Flexion (S2) 3 Fair Extension (L3) 4- Good- Ankle/Foot Strength Ankle and Foot Manual Muscle Testing Right Dorsiflexion (L4) 4 Good Left Dorsiflexion (L4) 4 Good PT-OP-Q Treatments Start: 10/04/23 11:38 Freq: Status: Active Protocol: Document 10/04/23 10:30 DCW (Rec: 10/04/23 12:03 DCW [id number]) Therapeutic Exercises Sidelying Exercises Hip Abduction Sidelying Exercise Name Hip Abduction Side bilateral Reverse Clamshell Sidelying Exercise Name Reverse Clamshell Side bilateral Clamshell Sidelying Exercise Name Clamshell Side bilateral PT-OP-T Assessment and Plan Start: 10/04/23 11:38 Freq: Status: Active Protocol: Document 10/04/23 10:30 DCW (Rec: 10/04/23 12:42 DCW [id number]) Physical Therapy Assessment Rehab Potential Rehabilitation Potential Fair Evaluation Complexity Number of Personal Factors/Comorbidities 3 or More Number of Body Systems Impaired 4 or More Clinical Presentation at Evaluation Unstable Impairments Impairments Activity Tolerance,Balance, Functional Activities, Functional Mobility,Gait,Pain, ROM,Soft Tissue Mobility, Strength,Transfers Other Concerns Fall Risk Yes, per scores on Juarez (36/56 ) and DGI (10/30) Goals Three Impairment Pt exhibits significant weakness in B LE MMT, testing between 3/5-4/5 Long-Term Goal (LTG) Pt to demonstrate improved MMT in bilateral hips, testing 4- /5 or greater in all planes, in order to improve ability to ascend/descend stairs safely LTG Duration 01/02/24 Two Impairment Pt presents with increased falls risk, per Juarez (36/56) and DGI (10/30) Long-Term Goal (LTG) Pt to improve DGI score by at least six points to in order to demonstrate decreasing falls risk. LTG Duration 01/02/24 One Impairment Pt does not have an appropriate home exercise program Short Term Goal (STG) Pt to be independent and compliant with an appropriate HEP STG Duration 11/04/23 Assessment Summary Assessment Pt presents to skilled therapy with significant weakness bilaterally in both legs and arms, as well as an increased falls risk and poor balance, two years s/p CVA. Pt unable to safely ascend and descend stairs. Due to upper extremity stiffness and weakness, pt has poor ability to perform falls recovery. Very poor balance and stability. Pt should benefit from skilled therapy focusing on balance/ gait, LE/UE strengthening and ROM, fall recovery, increased activity tolerance, and pain- control techniques. Physical Therapy Plan Frequency and Duration Frequency of Treatment 2x/Week Plan of Care Start Date 10/04/23 Plan of Care End Date 01/02/24 Therapeutic Interventions Therapeutic Interventions Balance Training,Coordination Training,Gait Training,Home Exercise Program,Joint Mobilizations,Manual Therapy, Neuromuscular Re-education, Patient/Caregiver Education, Self-Care/Home Management,Soft Tissue Mobilization, Therapeutic Activities, Therapeutic Exercises Modalities Cold Pack/Ice Massage,Electric Stimulation,Hot Packs, Ultrasound Next Visit Focus/Plan Next Note Type Treatment Note Next Visit Plan LE/UE strengthening, balance training, stair training
--- NOTE | 2023-10-04 12:43 | PT.OPPOC ---
Physical, Occupational & Speech Therapy At [facility] Current Diagnoses Type 2 diabetes mellitus with diabetic polyneuropathy (10/04/23) Muscle weakness (generalized) (10/04/23) Unsteadiness on feet (10/04/23) Other abnormalities of gait and mobility (10/04/23) Other symptoms and signs involving the musculoskeletal system (10/04/23) Visit Care Team Role Provider Type Kacy Anderson MD Family Provider Non-Staff Primary Care Provider Specialty: Family Practice Address: [address] [place] [address], [id number] Email: Beth Santos MD Attending Provider Non-Staff Referring Provider Specialty: Neurology [facility] [address] [place], [address] Fax: Email: Plan Of Care PT-OP-B Current Condition Start: 10/04/23 11:38 Freq: Status: Active Protocol: Document 10/04/23 10:30 DCW (Rec: 10/04/23 12:03 DCW [id number]) Current Condition History of Current Condition Onset Date Two year history Current Complaints Weakness, poor balance, fatigue, difficulty with stairs, two years s/p CVA History of Current Condition Pt is a 58 year old female presenting to skilled therapy with complaints of weakness, gait difficulty, poor balance, poor falls recovery, and severe stair difficulty two years s/p CVA. Pt reports her knees didn't get back the way they were supposed to following her stroke. Additionally, pt suffers from issues with orthostasis, reportedly due to the large number of meds she has been on since her CVA. Reports she ascends stairs with both hands on one rail pulling herself up, and to descend, she scoots down on my butt. Pt also notes pain, immobility, and weakness in her shoulder limit her ability to get herself up off the floor following a fall. Treatment Goals Patient/Caregiver Goals Improve balance, strengthen knees PT-OP-T Assessment and Plan Start: 10/04/23 11:38 Freq: Status: Active Protocol: Document 10/04/23 10:30 DCW (Rec: 10/04/23 12:42 [facility] [id number]) Physical Therapy Assessment Rehab Potential Rehabilitation Potential Fair Evaluation Complexity Number of Personal Factors/Comorbidities 3 or More Number of Body Systems Impaired 4 or More Clinical Presentation at Evaluation Unstable Impairments Impairments Activity Tolerance,Balance, Functional Activities, Functional Mobility,Gait,Pain, ROM,Soft Tissue Mobility, Strength,Transfers Other Concerns Fall Risk Yes, per scores on Juarez (36/56 ) and DGI (10/30) Goals Three Impairment Pt exhibits significant weakness in B LE MMT, testing between 3/5-4/5 Jail Goal (LTG) Pt to demonstrate improved MMT in bilateral hips, testing 4- /5 or greater in all planes, in order to improve ability to ascend/descend stairs safely LTG Duration 01/02/24 Two Impairment Pt presents with increased falls risk, per Juarez (36/56) and DGI (10/30) Jail Goal (LTG) Pt to improve DGI score by at least six points to 1524 in order to demonstrate decreasing falls risk. LTG Duration 01/02/24 One Impairment Pt does not have an appropriate home exercise program Short Term Goal (STG) Pt to be independent and compliant with an appropriate HEP STG Duration 11/04/23 Assessment Summary Assessment Pt presents to skilled therapy with significant weakness bilaterally in both legs and arms, as well as an increased falls risk and poor balance, two years s/p CVA. Pt unable to safely ascend and descend stairs. Due to upper extremity stiffness and weakness, pt has poor ability to perform falls recovery. Very poor balance and stability. Pt should benefit from skilled therapy focusing on balance/ gait, LE/UE strengthening and ROM, fall recovery, increased activity tolerance, and pain- control techniques. Physical Therapy Plan Frequency and Duration Frequency of Treatment 2x/Week Plan of Care Start Date 10/04/23 Plan of Care End Date 01/02/24 Therapeutic Interventions Therapeutic Interventions Balance Training,Coordination Training,Gait Training,Home Exercise Program,Joint Mobilizations,Manual Therapy, Neuromuscular Re-education, Patient/Caregiver Education, Self-Care/Home Management,Soft Tissue Mobilization, Therapeutic Activities, Therapeutic Exercises Modalities Cold Pack/Ice Massage,Electric Stimulation,Hot Packs, Ultrasound Next Visit Focus/Plan Next Note Type Treatment Note Next Visit Plan LE/UE strengthening, balance training, stair training Plan of Care Dates Plan of Care Start Date 10/04/23 Plan of Care End Date 01/02/24 Electronically Signed by: Stewart Cleary, PT 10/04/23 9813 If you are in agreement with this Plan of Care, please return a signed and dated copy. I have reviewed this Plan of Care and certify that the skilled therapy services above are required to meet the patient?s needs. Physician Signature Date Printed Name and Credentials Clinical Instructor Signature Printed Name and Credentials
--- NOTE | 2023-10-06 12:49 | PT.OTN ---
Current Diagnoses Type 2 diabetes mellitus with diabetic polyneuropathy (10/06/23) Muscle weakness (generalized) (10/06/23) Unsteadiness on feet (10/06/23) Other abnormalities of gait and mobility (10/06/23) Other symptoms and signs involving the musculoskeletal system (10/06/23) Physical Therapy Treatment Note PT-OP-A Visit Information Start: 10/04/23 11:38 Freq: Status: Active Protocol: Document 10/06/23 12:00 DCW (Rec: 10/06/23 12:43 DCW [id number]) Out-Patient Physical Therapy Visit Information Visit Information Visit Type Treatment Note Visit Start Time 12:00 Visit Stop Time 12:45 Visit Number 2 Number of AIRCRAFT SALES REPRESENTATIVE Visits 0 Evaluation Information Evaluation Date 10/04/23 PT-OP-B Current Condition Start: 10/04/23 11:38 Freq: Status: Active Protocol: Document 10/04/23 10:30 DCW (Rec: 10/04/23 12:03 DCW [id number]) Current Condition History of Current Condition Onset Date Two year history Current Complaints Weakness, poor balance, fatigue, difficulty with stairs, two years s/p CVA History of Current Condition Pt is a 58 year old female presenting to skilled therapy with complaints of weakness, gait difficulty, poor balance, poor falls recovery, and severe stair difficulty two years s/p CVA. Pt reports her knees didn't get back the way they were supposed to following her stroke. Additionally, pt suffers from issues with orthostasis, reportedly due to the large number of meds she has been on since her CVA. Reports she ascends stairs with both hands on one rail pulling herself up, and to descend, she scoots down on my butt. Pt also notes pain, immobility, and weakness in her shoulder limit her ability to get herself up off the floor following a fall. Treatment Goals Patient/Caregiver Goals Improve balance, strengthen knees PT-OP-C Subjective Start: 10/04/23 11:38 Freq: Status: Active Protocol: Document 10/06/23 12:00 DCW (Rec: 10/06/23 12:47 DCW [id number]) OP-PT Subjective Patient Comments Patient Comments Pt feeling somewhat fatigued overall, but ready to work. PT-OP-D Balance Start: 10/04/23 11:38 Freq: Status: Active Protocol: Document 10/04/23 10:30 DCW (Rec: 10/04/23 12:03 DCW [id number]) Balance Tests Juarez Balance Test Juarez Balance Test Score 36/56 Juarez Impairment Rating 20 to 39% Impaired (Score 34- 44) Juarez Balance Assessment Evaluation Sitting to Standing Ability Independent w/Hands Unsupported Stance Supervision- 2 minutes Sitting Unsupported, Feet on Floor Safely- 2 minutes Standing to Sitting Ability Assist, Control w/Hands Transfer Ability Safely, Hand Use Unsupported Stance- Eyes Closed 3 seconds Unsupported Stance- Eyes Open Independent, <30 seconds Reaching Forward Standing Safely, 5 inches Pick- Up Object From Floor Supervision Look Behind Shoulder - Standing Shifts Weight Well Turning 360 Degrees Supervision/Verbal Cues Unsupported Stance, Alternating Feet on 4 Steps w/Supervision Stair Unsupported Tandem Stance Small Step- 30 seconds Unilateral Leg Stance Lifts Leg/Unable to Hold Total Score Juarez Total Score (out of 56 points) 36 Juarez Impairment Rating 20 to 39% Impaired (Score 34- 44) PT-OP-E Functional Tests Start: 10/04/23 11:38 Freq: Status: Active Protocol: Document 10/04/23 10:30 DCW (Rec: 10/04/23 12:03 DCW [id number]) Functional Tests Dynamic Gait Index (DGI) Score 9 DGI Impairment Rating 60 to <80% Impaired (Score 5-9 ) PT-OP-K Range of Motion Start: 10/04/23 11:38 Freq: Status: Active Protocol: Document 10/04/23 10:30 DCW (Rec: 10/04/23 12:03 DCW [id number]) Shoulder Goniometric Range of Motion Shoulder Right Active Shoulder ROM WFL No Testing Position Sitting Flexion 110 Abduction 91 Left Active Shoulder ROM WFL No Testing Position Sitting Flexion 93 Abduction 87 PT-OP-M Strength Start: 10/04/23 11:38 Freq: Status: Active Protocol: Document 10/04/23 10:30 DCW (Rec: 10/04/23 12:03 DCW [id number]) Shoulder Strength Shoulder Manual Muscle Testing Right Flexion 3 Fair Abduction (C5) 3 Fair Left Flexion 3 Fair Abduction (C5) 3 Fair Elbow/Forearm Strength Elbow and Forearm Manual Muscle Testing Right Flexion (C6) 3+ Fair+ Extension (C7) 3- Fair- Left Flexion (C6) 3+ Fair+ Extension (C7) 3- Fair- Hip Strength Hip Manual Muscle Testing Right Flexion (L2) 3+ Fair+ Extension (S1) 3+ Fair+ Abduction 3+ Fair+ Adduction 3+ Fair+ External Rotation 3+ Fair+ Internal Rotation 4 Good Left Flexion (L2) 4- Good- Extension (S1) 4- Good- Abduction 3+ Fair+ Adduction 3+ Fair+ External Rotation 3 Fair Internal Rotation 3 Fair Knee Strength Knee Manual Muscle Testing Right Flexion (S2) 3 Fair Extension (L3) 3+ Fair+ Left Flexion (S2) 3 Fair Extension (L3) 4- Good- Ankle/Foot Strength Ankle and Foot Manual Muscle Testing Right Dorsiflexion (L4) 4 Good Left Dorsiflexion (L4) 4 Good PT-OP-Q Treatments Start: 10/04/23 11:38 Freq: Status: Active Protocol: Document 10/06/23 12:00 DCW (Rec: 10/06/23 12:43 DCW [id number]) Cardio Equipment Recumbent Elliptical (Biodex) Duration (Minutes) 5 Resistance 4 Seat Position 4 Gym Equipment Cable Column (Body Solid) Hip Adduction Resistance 30# Hip Abduction Resistance 20# Shuttle Recovery Bilateral Heel Raises Resistance 37# Unilateral Squats Resistance 25# Bilateral Squats Resistance 50# Therapeutic Exercises Other Exercises Resisted Ambulation Other Exercise Name Resisted Side-stepping Resistance Blue loop Neuro Re-Education Treatment Balance Activities Foam Details NBOS Surface AirEx Comments EO/EC SLS Details SLS Equipment // bars Tandem Details Tandem Ambulation Equipment // bars PT-OP-T Assessment and Plan Start: 10/04/23 11:38 Freq: Status: Active Protocol: Document 10/06/23 12:00 DCW (Rec: 10/06/23 12:43 DCW [id number]) Physical Therapy Assessment Impairments Impairments Activity Tolerance,Balance, Functional Activities, Functional Mobility,Gait,Pain, ROM,Soft Tissue Mobility, Strength,Transfers Goals Three Impairment Pt exhibits significant weakness in B LE MMT, testing between 3/5-4/5 Intermediate Designer Goal (LTG) Pt to demonstrate improved MMT in bilateral hips, testing 4- /5 or greater in all planes, in order to improve ability to ascend/descend stairs safely LTG Duration 01/02/24 Two Impairment Pt presents with increased falls risk, per Juarez (36/56) and DGI (9/24) Retirement Goal (LTG) Pt to improve DGI score by at least six points to 15 in order to demonstrate decreasing falls risk. LTG Duration 01/02/24 One Impairment Pt does not have an appropriate home exercise program Short Term Goal (STG) Pt to be independent and compliant with an appropriate HEP STG Duration 11/04/23 Assessment Summary Assessment Pt noted enjoying the level of difficulty presented by the leg press and hip abd/add on the BodySolid. Pt tolerated activity well, did require a short rest break due to leg fatigue mid-session. Physical Therapy Plan Frequency and Duration Frequency of Treatment 2x/Week Plan of Care Start Date 10/04/23 Plan of Care End Date 01/02/24 Therapeutic Interventions Therapeutic Interventions Balance Training,Coordination Training,Gait Training,Home Exercise Program,Joint Mobilizations,Manual Therapy, Neuromuscular Re-education, Patient/Caregiver Education, Self-Care/Home Management,Soft Tissue Mobilization, Therapeutic Activities, Therapeutic Exercises Modalities Cold Pack/Ice Massage,Electric Stimulation,Hot Packs, Ultrasound Next Visit Focus/Plan Next Note Type Treatment Note Next Visit Plan LE/UE strengthening, balance training, stair training
--- NOTE | 2023-10-11 12:58 | PT.OTN ---
Current Diagnoses Type 2 diabetes mellitus with diabetic polyneuropathy (10/11/23) Muscle weakness (generalized) (10/11/23) Unsteadiness on feet (10/11/23) Other abnormalities of gait and mobility (10/11/23) Other symptoms and signs involving the musculoskeletal system (10/11/23) Physical Therapy Treatment Note PT-OP-A Visit Information Start: 10/04/23 11:38 Freq: Status: Active Protocol: Document 10/11/23 09:43 AB (Rec: 10/11/23 12:58 AB [id number]) Out-Patient Physical Therapy Visit Information Visit Information Visit Type Treatment Note Visit Note Access Code [email or web address] Visit Start Time 10:34 Visit Stop Time 11:17 Visit Number 3 Number of HYDRO SPRAYER OPERATOR Visits 1 Evaluation Information Evaluation Date 10/04/23 PT-OP-B Current Condition Start: 10/04/23 11:38 Freq: Status: Active Protocol: Document 10/04/23 10:30 DCW (Rec: 10/04/23 12:03 DCW [id number]) Current Condition History of Current Condition Onset Date Two year history Current Complaints Weakness, poor balance, fatigue, difficulty with stairs, two years s/p CVA History of Current Condition Pt is a 58 year old female presenting to skilled therapy with complaints of weakness, gait difficulty, poor balance, poor falls recovery, and severe stair difficulty two years s/p CVA. Pt reports her knees didn't get back the way they were supposed to following her stroke. Additionally, pt suffers from issues with orthostasis, reportedly due to the large number of meds she has been on since her CVA. Reports she ascends stairs with both hands on one rail pulling herself up, and to descend, she scoots down on my butt. Pt also notes pain, immobility, and weakness in her shoulder limit her ability to get herself up off the floor following a fall. Treatment Goals Patient/Caregiver Goals Improve balance, strengthen knees PT-OP-C Subjective Start: 10/04/23 11:38 Freq: Status: Active Protocol: Document 10/11/23 09:43 AB (Rec: 10/11/23 12:58 AB [id number]) OP-PT Subjective Patient Comments Patient Comments Patient reports feeling tired start of session, comments her knees feel weak. PT-OP-D Balance Start: 10/04/23 11:38 Freq: Status: Active Protocol: Document 10/04/23 10:30 DCW (Rec: 10/04/23 12:03 DCW [id number]) Balance Tests Juarez Balance Test Juarez Balance Test Score 36/56 Juarez Impairment Rating 20 to 39% Impaired (Score 34- 44) Juarez Balance Assessment Evaluation Sitting to Standing Ability Independent w/Hands Unsupported Stance Supervision- 2 minutes Sitting Unsupported, Feet on Floor Safely- 2 minutes Standing to Sitting Ability Assist, Control w/Hands Transfer Ability Safely, Hand Use Unsupported Stance- Eyes Closed 3 seconds Unsupported Stance- Eyes Open Independent, <30 seconds Reaching Forward Standing Safely, 5 inches Pick- Up Object From Floor Supervision Look Behind Shoulder - Standing Shifts Weight Well Turning 360 Degrees Supervision/Verbal Cues Unsupported Stance, Alternating Feet on 4 Steps w/Supervision Stair Unsupported Tandem Stance Small Step- 30 seconds Unilateral Leg Stance Lifts Leg/Unable to Hold Total Score Juarez Total Score (out of 56 points) 36 Juarez Impairment Rating 20 to 39% Impaired (Score 34- 44) PT-OP-E Functional Tests Start: 10/04/23 11:38 Freq: Status: Active Protocol: Document 10/04/23 10:30 DCW (Rec: 10/04/23 12:03 DCW [id number]) Functional Tests Dynamic Gait Index (DGI) Score 9 DGI Impairment Rating 60 to <80% Impaired (Score 5-9 ) PT-OP-K Range of Motion Start: 10/04/23 11:38 Freq: Status: Active Protocol: Document 10/04/23 10:30 DCW (Rec: 10/04/23 12:03 DCW [id number]) Shoulder Goniometric Range of Motion Shoulder Right Active Shoulder ROM WFL No Testing Position Sitting Flexion 110 Abduction 91 Left Active Shoulder ROM WFL No Testing Position Sitting Flexion 93 Abduction 87 PT-OP-M Strength Start: 10/04/23 11:38 Freq: Status: Active Protocol: Document 10/04/23 10:30 DCW (Rec: 10/04/23 12:03 DCW [id number]) Shoulder Strength Shoulder Manual Muscle Testing Right Flexion 3 Fair Abduction (C5) 3 Fair Left Flexion 3 Fair Abduction (C5) 3 Fair Elbow/Forearm Strength Elbow and Forearm Manual Muscle Testing Right Flexion (C6) 3+ Fair+ Extension (C7) 3- Fair- Left Flexion (C6) 3+ Fair+ Extension (C7) 3- Fair- Hip Strength Hip Manual Muscle Testing Right Flexion (L2) 3+ Fair+ Extension (S1) 3+ Fair+ Abduction 3+ Fair+ Adduction 3+ Fair+ External Rotation 3+ Fair+ Internal Rotation 4 Good Left Flexion (L2) 4- Good- Extension (S1) 4- Good- Abduction 3+ Fair+ Adduction 3+ Fair+ External Rotation 3 Fair Internal Rotation 3 Fair Knee Strength Knee Manual Muscle Testing Right Flexion (S2) 3 Fair Extension (L3) 3+ Fair+ Left Flexion (S2) 3 Fair Extension (L3) 4- Good- Ankle/Foot Strength Ankle and Foot Manual Muscle Testing Right Dorsiflexion (L4) 4 Good Left Dorsiflexion (L4) 4 Good PT-OP-Q Treatments Start: 10/04/23 11:38 Freq: Status: Active Protocol: Document 10/11/23 09:43 AB (Rec: 10/11/23 12:58 AB [id number]) Gym Equipment Shuttle Recovery Unilateral Squats Resistance 25# Reps/Time X10 each LE Bilateral Squats Reps/Time X10X2 Shuttle Balance red Details normal KIRSTIN, stagger Comments visual scanning head turns CGA Therapeutic Exercises Sitting Exercises AROMDF Side bilateral Reps/Minutes X20 seated hip abduction with band Sitting Exercise Name HEP Side bilateral Resistance level one, level 2 latex free band Reps/Minutes 15X and X 4 level one X15 level 2 latex free also one min hold each band Comments verbal cues Standing Exercises calf stretches on SATURNINO Side bilateral Reps/Minutes 60 sec X 2 Comments erbal cues heel raise Standing Exercise Name bilateral with UE use HEP Reps/Minutes X10 Comments VC to lower heels slowly Therapeutic Activity Therapeutic Activity sit to stand Name without UE use Comments CGA to close supervision verbal cues nose over toes and knees flexed just past 90 deg Neuro Re-Education Treatment Balance Activities step up taps Equipment 6 inch step Reps/Duration X10 Comments CGA hands above bars marching Surface blue cushion Reps/Duration X10 Comments CGA hands above bars Foam Details Romberg Surface AirEx Comments EO/EC SLS Details SLS Equipment bar prn on and off foal Comments CGA left and right LE Tandem Details stepping Equipment bar Reps/Duration 10ft X 4 Comments first X with UE use CGA hands above bar for other trials PT-OP-T Assessment and Plan Start: 10/04/23 11:38 Freq: Status: Active Protocol: Document 10/11/23 09:43 AB (Rec: 10/11/23 12:58 AB [id number]) Physical Therapy Assessment Goals Three Impairment Pt exhibits significant weakness in B LE MMT, testing between 3/5-4/5 Alf Goal (LTG) Pt to demonstrate improved MMT in bilateral hips, testing 4- /5 or greater in all planes, in order to improve ability to ascend/descend stairs safely LTG Duration 01/02/24 Two Impairment Pt presents with increased falls risk, per Juarez (36/) and DGI (10/30) Alf Goal (LTG) Pt to improve DGI score by at least six points to in order to demonstrate decreasing falls risk. LTG Duration 01/02/24 One Impairment Pt does not have an appropriate home exercise program Short Term Goal (STG) Pt to be independent and compliant with an appropriate HEP STG Duration 11/04/23 Assessment Summary Assessment Patient reports feeling tired end of session. Significant increase in SLS post glute med activation. Physical Therapy Plan Frequency and Duration Frequency of Treatment 2x/Week Plan of Care Start Date 10/04/23 Plan of Care End Date 01/02/24 Next Visit Focus/Plan Next Note Type Treatment Note Next Visit Plan LE/UE strengthening, balance training, stair training
--- NOTE | 2023-10-13 16:22 | PT.OTN ---
Current Diagnoses Type 2 diabetes mellitus with diabetic polyneuropathy (10/13/23) Muscle weakness (generalized) (10/13/23) Unsteadiness on feet (10/13/23) Other abnormalities of gait and mobility (10/13/23) Other symptoms and signs involving the musculoskeletal system (10/13/23) Physical Therapy Treatment Note PT-OP-A Visit Information Start: 10/04/23 11:38 Freq: Status: Active Protocol: Document 10/13/23 13:01 AB (Rec: 10/13/23 16:22 AB [id number]) Out-Patient Physical Therapy Visit Information Visit Information Visit Type Treatment Note Visit Note Access Code [email or web address] Visit Start Time 13:48 Visit Stop Time 14:30 Visit Number 4 Number of ATMOSPHERIC PHYSICS PROFESSOR Visits 2 Evaluation Information Evaluation Date 10/04/23 PT-OP-B Current Condition Start: 10/04/23 11:38 Freq: Status: Active Protocol: Document 10/04/23 10:30 DCW (Rec: 10/04/23 12:03 DCW [id number]) Current Condition History of Current Condition Onset Date Two year history Current Complaints Weakness, poor balance, fatigue, difficulty with stairs, two years s/p CVA History of Current Condition Pt is a 58 year old female presenting to skilled therapy with complaints of weakness, gait difficulty, poor balance, poor falls recovery, and severe stair difficulty two years s/p CVA. Pt reports her knees didn't get back the way they were supposed to following her stroke. Additionally, pt suffers from issues with orthostasis, reportedly due to the large number of meds she has been on since her CVA. Reports she ascends stairs with both hands on one rail pulling herself up, and to descend, she scoots down on my butt. Pt also notes pain, immobility, and weakness in her shoulder limit her ability to get herself up off the floor following a fall. Treatment Goals Patient/Caregiver Goals Improve balance, strengthen knees PT-OP-C Subjective Start: 10/04/23 11:38 Freq: Status: Active Protocol: Document 10/13/23 13:01 AB (Rec: 10/13/23 16:22 AB [id number]) OP-PT Subjective Patient Comments Patient Comments Patient appears fatigued start of session. Patient rates foot pain 3/10 bilateral feet, attributes to her diabetes. SLS left LE 3 sec right LE 2 sec without ue use start of session. PT-OP-D Balance Start: 10/04/23 11:38 Freq: Status: Active Protocol: Document 10/04/23 10:30 DCW (Rec: 10/04/23 12:03 DCW [id number]) Balance Tests Juarez Balance Test Juarez Balance Test Score 36/56 Juarez Impairment Rating 20 to 39% Impaired (Score 34- 44) Juarez Balance Assessment Evaluation Sitting to Standing Ability Independent w/Hands Unsupported Stance Supervision- 2 minutes Sitting Unsupported, Feet on Floor Safely- 2 minutes Standing to Sitting Ability Assist, Control w/Hands Transfer Ability Safely, Hand Use Unsupported Stance- Eyes Closed 3 seconds Unsupported Stance- Eyes Open Independent, <30 seconds Reaching Forward Standing Safely, 5 inches Pick- Up Object From Floor Supervision Look Behind Shoulder - Standing Shifts Weight Well Turning 360 Degrees Supervision/Verbal Cues Unsupported Stance, Alternating Feet on 4 Steps w/Supervision Stair Unsupported Tandem Stance Small Step- 30 seconds Unilateral Leg Stance Lifts Leg/Unable to Hold Total Score Juarez Total Score (out of 56 points) 36 Juarez Impairment Rating 20 to 39% Impaired (Score 34- 44) PT-OP-E Functional Tests Start: 10/04/23 11:38 Freq: Status: Active Protocol: Document 10/04/23 10:30 DCW (Rec: 10/04/23 12:03 DCW [id number]) Functional Tests Dynamic Gait Index (DGI) Score 10/30 DGI Impairment Rating 60 to <80% Impaired (Score 5-9 ) PT-OP-K Range of Motion Start: 10/04/23 11:38 Freq: Status: Active Protocol: Document 10/04/23 10:30 DCW (Rec: 10/04/23 12:03 DCW [id number]) Shoulder Goniometric Range of Motion Shoulder Right Active Shoulder ROM WFL No Testing Position Sitting Flexion 110 Abduction 91 Left Active Shoulder ROM WFL No Testing Position Sitting Flexion 93 Abduction 87 PT-OP-M Strength Start: 10/04/23 11:38 Freq: Status: Active Protocol: Document 10/04/23 10:30 DCW (Rec: 10/04/23 12:03 DCW [id number]) Shoulder Strength Shoulder Manual Muscle Testing Right Flexion 3 Fair Abduction (C5) 3 Fair Left Flexion 3 Fair Abduction (C5) 3 Fair Elbow/Forearm Strength Elbow and Forearm Manual Muscle Testing Right Flexion (C6) 3+ Fair+ Extension (C7) 3- Fair- Left Flexion (C6) 3+ Fair+ Extension (C7) 3- Fair- Hip Strength Hip Manual Muscle Testing Right Flexion (L2) 3+ Fair+ Extension (S1) 3+ Fair+ Abduction 3+ Fair+ Adduction 3+ Fair+ External Rotation 3+ Fair+ Internal Rotation 4 Good Left Flexion (L2) 4- Good- Extension (S1) 4- Good- Abduction 3+ Fair+ Adduction 3+ Fair+ External Rotation 3 Fair Internal Rotation 3 Fair Knee Strength Knee Manual Muscle Testing Right Flexion (S2) 3 Fair Extension (L3) 3+ Fair+ Left Flexion (S2) 3 Fair Extension (L3) 4- Good- Ankle/Foot Strength Ankle and Foot Manual Muscle Testing Right Dorsiflexion (L4) 4 Good Left Dorsiflexion (L4) 4 Good PT-OP-Q Treatments Start: 10/04/23 11:38 Freq: Status: Active Protocol: Document 10/13/23 13:01 AB (Rec: 10/13/23 16:22 AB [id number]) Gym Equipment Shuttle Recovery Unilateral Squats Resistance 25# Reps/Time X15 each LE Bilateral Squats Resistance 50# 37 # Reps/Time X15 X2 second set to 37 due to right knee pain with 50 # Shuttle Balance red Details normal KIRSTIN, stagger Comments visual scanning head turns CGA Therapeutic Exercises Supine Exercises modified restorative pose breathing from diaphgragm Reps/Minutes 2 min Comments verbal cues for positioning and breathing from diaphgragm Sitting Exercises seated hip abduction with band Sitting Exercise Name HEP ( increased band level) Side bilateral Resistance level 3 latex free band Reps/Minutes one minute and X15 X2 Comments verbal cues Standing Exercises side stepping with band Side bilateral Resistance level 3 latex free band Reps/Minutes 10 feet left and right X 3 calf stretches on SATURNINO Side bilateral Reps/Minutes 60 sec X 2 heel raise Standing Exercise Name bilateral with UE use HEP Reps/Minutes X10 Comments VC to lower heels slowly Gait Training Gait Activity supine to sit Description to left Comments verbal cues for normal movement pattern and for timing to decreased difficulty of sidelying to sit transisition stairs Description 2 rails Level of Assistance supervision Distance/Duration 4 six inch steps to assess, 6 four inch steps for training. Comments Verbal cues for hands fwd on rail descending to step descending to, and to squeeze gluteal muscles when ascending . Neuro Re-Education Treatment Balance Activities step up taps Equipment on air ex to 6 inch step Reps/Duration X10 Comments CGA hands above bars marching Surface blue cushion Reps/Duration X10 Comments CGA hands above bars Tandem Details stepping Equipment bar Reps/Duration 10ft X 4 Comments CGA hands above bar for other trials PT-OP-T Assessment and Plan Start: 10/04/23 11:38 Freq: Status: Active Protocol: Document 10/13/23 13:01 AB (Rec: 10/13/23 16:22 AB [id number]) Physical Therapy Assessment Goals Three Impairment Pt exhibits significant weakness in B LE MMT, testing between 3/5-4/5 Alf Goal (LTG) Pt to demonstrate improved MMT in bilateral hips, testing 4- /5 or greater in all planes, in order to improve ability to ascend/descend stairs safely LTG Duration 01/02/24 Two Impairment Pt presents with increased falls risk, per Juarez (36/56) and DGI (10/30) Alf Goal (LTG) Pt to improve DGI score by at least six points to in order to demonstrate decreasing falls risk. LTG Duration 01/02/24 One Impairment Pt does not have an appropriate home exercise program Short Term Goal (STG) Pt to be independent and compliant with an appropriate HEP STG Duration 11/04/23 Assessment Summary Assessment Patient rates right knee pain 2-3/10 end of session. Zonia was able to progress to level 3 for seated hip abd with band. Physical Therapy Plan Frequency and Duration Frequency of Treatment 2x/Week Plan of Care Start Date 10/04/23 Plan of Care End Date 01/02/24 Next Visit Focus/Plan Next Note Type Treatment Note Next Visit Plan LE/UE strengthening, balance training, stair training
--- NOTE | 2023-10-20 16:08 | PT.OTN ---
Current Diagnoses Type 2 diabetes mellitus with diabetic polyneuropathy (10/20/23) Muscle weakness (generalized) (10/20/23) Unsteadiness on feet (10/20/23) Other abnormalities of gait and mobility (10/20/23) Other symptoms and signs involving the musculoskeletal system (10/20/23) Physical Therapy Treatment Note PT-OP-A Visit Information Start: 10/04/23 11:38 Freq: Status: Active Protocol: Document 10/20/23 14:33 AB (Rec: 10/20/23 16:08 AB [id number]) Out-Patient Physical Therapy Visit Information Visit Information Visit Type Treatment Note Visit Note Access Code [email or web address] Visit Start Time 13:23 Visit Stop Time 16:03 Visit Number 5 Number of RIVER CROSSING SUPERVISOR Visits 3 PT-OP-B Current Condition Start: 10/04/23 11:38 Freq: Status: Active Protocol: Document 10/04/23 10:30 DCW (Rec: 10/04/23 12:03 DCW [id number]) Current Condition History of Current Condition Onset Date Two year history Current Complaints Weakness, poor balance, fatigue, difficulty with stairs, two years s/p CVA History of Current Condition Pt is a 58 year old female presenting to skilled therapy with complaints of weakness, gait difficulty, poor balance, poor falls recovery, and severe stair difficulty two years s/p CVA. Pt reports her knees didn't get back the way they were supposed to following her stroke. Additionally, pt suffers from issues with orthostasis, reportedly due to the large number of meds she has been on since her CVA. Reports she ascends stairs with both hands on one rail pulling herself up, and to descend, she scoots down on my butt. Pt also notes pain, immobility, and weakness in her shoulder limit her ability to get herself up off the floor following a fall. Treatment Goals Patient/Caregiver Goals Improve balance, strengthen knees PT-OP-C Subjective Start: 10/04/23 11:38 Freq: Status: Active Protocol: Document 10/20/23 14:33 AB (Rec: 10/20/23 16:08 AB [id number]) OP-PT Subjective Patient Comments Patient Comments Patient rates right knee pain 3/10 start of session. Patient reports performing HEP 3-4X a week. SLS right LE 4 sec, 6 sec left LE without UE use PT-OP-D Balance Start: 10/04/23 11:38 Freq: Status: Active Protocol: Document 10/04/23 10:30 DCW (Rec: 10/04/23 12:03 DCW [id number]) Balance Tests Juarez Balance Test Juarez Balance Test Score 36/56 Juarez Impairment Rating 20 to 39% Impaired (Score 34- 44) Juarez Balance Assessment Evaluation Sitting to Standing Ability Independent w/Hands Unsupported Stance Supervision- 2 minutes Sitting Unsupported, Feet on Floor Safely- 2 minutes Standing to Sitting Ability Assist, Control w/Hands Transfer Ability Safely, Hand Use Unsupported Stance- Eyes Closed 3 seconds Unsupported Stance- Eyes Open Independent, <30 seconds Reaching Forward Standing Safely, 5 inches Pick- Up Object From Floor Supervision Look Behind Shoulder - Standing Shifts Weight Well Turning 360 Degrees Supervision/Verbal Cues Unsupported Stance, Alternating Feet on 4 Steps w/Supervision Stair Unsupported Tandem Stance Small Step- 30 seconds Unilateral Leg Stance Lifts Leg/Unable to Hold Total Score Juarez Total Score (out of 56 points) 36 Juarez Impairment Rating 20 to 39% Impaired (Score 34- 44) PT-OP-E Functional Tests Start: 10/04/23 11:38 Freq: Status: Active Protocol: Document 10/04/23 10:30 DCW (Rec: 10/04/23 12:03 DCW [id number]) Functional Tests Dynamic Gait Index (DGI) Score 10/30 DGI Impairment Rating 60 to <80% Impaired (Score 5-9 ) PT-OP-K Range of Motion Start: 10/04/23 11:38 Freq: Status: Active Protocol: Document 10/04/23 10:30 DCW (Rec: 10/04/23 12:03 DCW [id number]) Shoulder Goniometric Range of Motion Shoulder Right Active Shoulder ROM WFL No Testing Position Sitting Flexion 110 Abduction 91 Left Active Shoulder ROM WFL No Testing Position Sitting Flexion 93 Abduction 87 PT-OP-M Strength Start: 10/04/23 11:38 Freq: Status: Active Protocol: Document 10/04/23 10:30 DCW (Rec: 10/04/23 12:03 DCW [id number]) Shoulder Strength Shoulder Manual Muscle Testing Right Flexion 3 Fair Abduction (C5) 3 Fair Left Flexion 3 Fair Abduction (C5) 3 Fair Elbow/Forearm Strength Elbow and Forearm Manual Muscle Testing Right Flexion (C6) 3+ Fair+ Extension (C7) 3- Fair- Left Flexion (C6) 3+ Fair+ Extension (C7) 3- Fair- Hip Strength Hip Manual Muscle Testing Right Flexion (L2) 3+ Fair+ Extension (S1) 3+ Fair+ Abduction 3+ Fair+ Adduction 3+ Fair+ External Rotation 3+ Fair+ Internal Rotation 4 Good Left Flexion (L2) 4- Good- Extension (S1) 4- Good- Abduction 3+ Fair+ Adduction 3+ Fair+ External Rotation 3 Fair Internal Rotation 3 Fair Knee Strength Knee Manual Muscle Testing Right Flexion (S2) 3 Fair Extension (L3) 3+ Fair+ Left Flexion (S2) 3 Fair Extension (L3) 4- Good- Ankle/Foot Strength Ankle and Foot Manual Muscle Testing Right Dorsiflexion (L4) 4 Good Left Dorsiflexion (L4) 4 Good PT-OP-Q Treatments Start: 10/04/23 11:38 Freq: Status: Active Protocol: Document 10/20/23 14:33 AB (Rec: 10/20/23 16:08 AB [id number]) Therapeutic Exercises Sidelying Exercises Hip Abduction Sidelying Exercise Name Hip Abduction HEP Side bilateral Resistance level one latex free band Reps/Minutes 15 X 2 Reverse Clamshell Sidelying Exercise Name HEPReverse Clamshell Side bilateral Resistance level one latex free band Clamshell Sidelying Exercise Name HEP Side bilateral Resistance level one latex free band Reps/Minutes X15 Sitting Exercises seated hip abduction with band Sitting Exercise Name only one min hold on HEP as of this session Reps/Minutes one minute, manual resistance Standing Exercises sit to stand with band Standing Exercise Name without UE use HEP Side bilateral Resistance level one latex free band Reps/Minutes 2X10 Comments monitored for pain calf stretches on SATURNINO Side bilateral Reps/Minutes 60 sec X 2 heel raise Standing Exercise Name bilateral with UE use HEP Reps/Minutes X10 Comments VC to lower heels slowly Neuro Re-Education Treatment Balance Activities Hurdles Details CGA hands above bars Reps/Duration 10 feet (6 hurdles) X 6 mat with obsticals under Details CGA to minimal assist Reps/Duration 2 mats step up taps Equipment on air ex to 6 inch step Reps/Duration X10 Comments CGA hands above bars marching Surface blue cushion Reps/Duration X10 Comments CGA hands above bars Tandem Details stepping Equipment bar Reps/Duration 10ft X 6 Comments CGA hands above bar PT-OP-T Assessment and Plan Start: 10/04/23 11:38 Freq: Status: Active Protocol: Document 10/20/23 14:33 AB (Rec: 10/20/23 16:08 AB [id number]) Physical Therapy Assessment Goals Three Impairment Pt exhibits significant weakness in B LE MMT, testing between 3/5-4/5 Well Puller Head Goal (LTG) Pt to demonstrate improved MMT in bilateral hips, testing 4- /5 or greater in all planes, in order to improve ability to ascend/descend stairs safely LTG Duration 01/02/24 Two Impairment Pt presents with increased falls risk, per Juarez (36/) and DGI (10/30) Prison Goal (LTG) Pt to improve DGI score by at least six points to in order to demonstrate decreasing falls risk. LTG Duration 01/02/24 One Impairment Pt does not have an appropriate home exercise program Short Term Goal (STG) Pt to be independent and compliant with an appropriate HEP STG Duration 11/04/23 Assessment Summary Assessment Patient rates right knee pain 5/10 end of session. Of note patient into session with double the seconds of SLS right and left LE without UE use. Physical Therapy Plan Frequency and Duration Frequency of Treatment 2x/Week Plan of Care Start Date 10/04/23 Plan of Care End Date 01/02/24 Next Visit Focus/Plan Next Note Type Treatment Note Next Visit Plan LE/UE strengthening, balance training, stair training
--- NOTE | 2023-10-27 16:16 | PT.OTN ---
Current Diagnoses Type 2 diabetes mellitus with diabetic polyneuropathy (10/27/23) Muscle weakness (generalized) (10/27/23) Unsteadiness on feet (10/27/23) Other abnormalities of gait and mobility (10/27/23) Other symptoms and signs involving the musculoskeletal system (10/27/23) Physical Therapy Treatment Note PT-OP-A Visit Information Start: 10/04/23 11:38 Freq: Status: Active Protocol: Document 10/27/23 14:42 AB (Rec: 10/27/23 16:15 AB [id number]) Out-Patient Physical Therapy Visit Information Visit Information Visit Type Treatment Note Visit Note Access Code [email or web address] Visit Start Time 15:17 Visit Stop Time 16:04 Visit Number 6 Number of RESOLUTION EXPERT Visits 4 Evaluation Information Evaluation Date 10/04/23 PT-OP-B Current Condition Start: 10/04/23 11:38 Freq: Status: Active Protocol: Document 10/04/23 10:30 DCW (Rec: 10/04/23 12:03 DCW [id number]) Current Condition History of Current Condition Onset Date Two year history Current Complaints Weakness, poor balance, fatigue, difficulty with stairs, two years s/p CVA History of Current Condition Pt is a 58 year old female presenting to skilled therapy with complaints of weakness, gait difficulty, poor balance, poor falls recovery, and severe stair difficulty two years s/p CVA. Pt reports her knees didn't get back the way they were supposed to following her stroke. Additionally, pt suffers from issues with orthostasis, reportedly due to the large number of meds she has been on since her CVA. Reports she ascends stairs with both hands on one rail pulling herself up, and to descend, she scoots down on my butt. Pt also notes pain, immobility, and weakness in her shoulder limit her ability to get herself up off the floor following a fall. Treatment Goals Patient/Caregiver Goals Improve balance, strengthen knees PT-OP-C Subjective Start: 10/04/23 11:38 Freq: Status: Active Protocol: Document 10/27/23 14:42 AB (Rec: 10/27/23 16:15 AB [id number]) OP-PT Subjective Patient Comments Patient Comments Patient reports feeling tired and comments legs are sore gesturing to quads. Patient reports difficulty lifting LE into car and tying shoes PT-OP-D Balance Start: 10/04/23 11:38 Freq: Status: Active Protocol: Document 10/04/23 10:30 DCW (Rec: 10/04/23 12:03 DCW [id number]) Balance Tests Juarez Balance Test Juarez Balance Test Score 36/56 Juarez Impairment Rating 20 to 39% Impaired (Score 34- 44) Juarez Balance Assessment Evaluation Sitting to Standing Ability Independent w/Hands Unsupported Stance Supervision- 2 minutes Sitting Unsupported, Feet on Floor Safely- 2 minutes Standing to Sitting Ability Assist, Control w/Hands Transfer Ability Safely, Hand Use Unsupported Stance- Eyes Closed 3 seconds Unsupported Stance- Eyes Open Independent, <30 seconds Reaching Forward Standing Safely, 5 inches Pick- Up Object From Floor Supervision Look Behind Shoulder - Standing Shifts Weight Well Turning 360 Degrees Supervision/Verbal Cues Unsupported Stance, Alternating Feet on 4 Steps w/Supervision Stair Unsupported Tandem Stance Small Step- 30 seconds Unilateral Leg Stance Lifts Leg/Unable to Hold Total Score Juarez Total Score (out of 56 points) 36 Juarez Impairment Rating 20 to 39% Impaired (Score 34- 44) PT-OP-E Functional Tests Start: 10/04/23 11:38 Freq: Status: Active Protocol: Document 10/04/23 10:30 DCW (Rec: 10/04/23 12:03 DCW [id number]) Functional Tests Dynamic Gait Index (DGI) Score 10/30 DGI Impairment Rating 60 to <80% Impaired (Score 5-9 ) PT-OP-K Range of Motion Start: 10/04/23 11:38 Freq: Status: Active Protocol: Document 10/04/23 10:30 DCW (Rec: 10/04/23 12:03 DCW [id number]) Shoulder Goniometric Range of Motion Shoulder Right Active Shoulder ROM WFL No Testing Position Sitting Flexion 110 Abduction 91 Left Active Shoulder ROM WFL No Testing Position Sitting Flexion 93 Abduction 87 PT-OP-M Strength Start: 10/04/23 11:38 Freq: Status: Active Protocol: Document 10/04/23 10:30 DCW (Rec: 10/04/23 12:03 DCW [id number]) Shoulder Strength Shoulder Manual Muscle Testing Right Flexion 3 Fair Abduction (C5) 3 Fair Left Flexion 3 Fair Abduction (C5) 3 Fair Elbow/Forearm Strength Elbow and Forearm Manual Muscle Testing Right Flexion (C6) 3+ Fair+ Extension (C7) 3- Fair- Left Flexion (C6) 3+ Fair+ Extension (C7) 3- Fair- Hip Strength Hip Manual Muscle Testing Right Flexion (L2) 3+ Fair+ Extension (S1) 3+ Fair+ Abduction 3+ Fair+ Adduction 3+ Fair+ External Rotation 3+ Fair+ Internal Rotation 4 Good Left Flexion (L2) 4- Good- Extension (S1) 4- Good- Abduction 3+ Fair+ Adduction 3+ Fair+ External Rotation 3 Fair Internal Rotation 3 Fair Knee Strength Knee Manual Muscle Testing Right Flexion (S2) 3 Fair Extension (L3) 3+ Fair+ Left Flexion (S2) 3 Fair Extension (L3) 4- Good- Ankle/Foot Strength Ankle and Foot Manual Muscle Testing Right Dorsiflexion (L4) 4 Good Left Dorsiflexion (L4) 4 Good PT-OP-Q Treatments Start: 10/04/23 11:38 Freq: Status: Active Protocol: Document 10/27/23 14:42 AB (Rec: 10/27/23 16:15 AB [id number]) Gym Equipment Shuttle Balance red Details mini squat X 10, stagger stance Comments CGA visual scanning and head turns with stagger stance Therapeutic Exercises Supine Exercises knee to chest Side bilateral Reps/Minutes 60 seconds X 1 each LE Comments verbal cues Modified Nils stretch Supine Exercise Name with hot packs over hip flexors and quads Side bilateral Reps/Minutes 1-2 min X 2 each LE Comments one LE on bolster one LE on mat modified restorative pose breathing from diaphgragm Supine Exercise Name with Hot packs over quads and hip flexors Reps/Minutes 3min Comments verbal cues for breathing from diphragm Sidelying Exercises Hip Abduction Sidelying Exercise Name Hip Abduction HEP Side bilateral Resistance level 2 latex free band Reps/Minutes 15 X 2 Reverse Clamshell Sidelying Exercise Name HEPReverse Clamshell Side bilateral Resistance level3 latex free band Sitting Exercises seated hip abduction with band Side bilateral Resistance level 3 latex free band Reps/Minutes one minute, manual resistance Comments prior to balance exercises Neuro Re-Education Treatment Balance Activities Hurdles Details CGA hands above bars Reps/Duration 10 feet (6 hurdles) X 6 mat with obsticals under Details CGA Reps/Duration 1 mat X6 Comments therapods under mat PT-OP-T Assessment and Plan Start: 10/04/23 11:38 Freq: Status: Active Protocol: Document 10/27/23 14:42 AB (Rec: 10/27/23 16:15 AB [id number]) Physical Therapy Assessment Goals Three Impairment Pt exhibits significant weakness in B LE MMT, testing between 3/5-4/5 Custodial Goal (LTG) Pt to demonstrate improved MMT in bilateral hips, testing 4- /5 or greater in all planes, in order to improve ability to ascend/descend stairs safely LTG Duration 01/02/24 Two Impairment Pt presents with increased falls risk, per Juarez (36/) and DGI (10/30) Custodial Goal (LTG) Pt to improve DGI score by at least six points to in order to demonstrate decreasing falls risk. LTG Duration 01/02/24 One Impairment Pt does not have an appropriate home exercise program Short Term Goal (STG) Pt to be independent and compliant with an appropriate HEP STG Duration 11/04/23 Assessment Summary Assessment Patient seated reaches for feet reporting increased ability to reach feet, but then attempts to lift LE and reports it is the same. Obvious effort to perform task and decreased AROM with seated hip flexion left and right LE Physical Therapy Plan Frequency and Duration Frequency of Treatment 2x/Week Plan of Care Start Date 10/04/23 Plan of Care End Date 01/02/24 Therapeutic Interventions Therapeutic Interventions Balance Training,Coordination Training,Gait Training,Home Exercise Program,Joint Mobilizations,Manual Therapy, Neuromuscular Re-education, Patient/Caregiver Education, Self-Care/Home Management,Soft Tissue Mobilization, Therapeutic Activities, Therapeutic Exercises Modalities Cold Pack/Ice Massage,Electric Stimulation,Hot Packs, Ultrasound Next Visit Focus/Plan Next Note Type Treatment Note Next Visit Plan LE/UE strengthening, balance training, stair training possibly focus on hip flexion due to reports of difficulty lifting LE to tie shoes.
--- NOTE | 2023-11-02 11:17 | PT.OTN ---
Current Diagnoses Type 2 diabetes mellitus with diabetic polyneuropathy (11/02/23) Muscle weakness (generalized) (11/02/23) Unsteadiness on feet (11/02/23) Other abnormalities of gait and mobility (11/02/23) Other symptoms and signs involving the musculoskeletal system (11/02/23) Physical Therapy Treatment Note PT-OP-A Visit Information Start: 10/04/23 11:38 Freq: Status: Active Protocol: Document 11/02/23 10:30 DCW (Rec: 11/02/23 11:17 DCW [id number]) Out-Patient Physical Therapy Visit Information Visit Information Visit Type Progress Note Visit Start Time 10:30 Visit Stop Time 11:15 Visit Number 7 Number of TRIM DIE MAKER Visits 0 Evaluation Information Evaluation Date 10/04/23 PT-OP-B Current Condition Start: 10/04/23 11:38 Freq: Status: Active Protocol: Document 10/04/23 10:30 DCW (Rec: 10/04/23 12:03 DCW [id number]) Current Condition History of Current Condition Onset Date Two year history Current Complaints Weakness, poor balance, fatigue, difficulty with stairs, two years s/p CVA History of Current Condition Pt is a 58 year old female presenting to skilled therapy with complaints of weakness, gait difficulty, poor balance, poor falls recovery, and severe stair difficulty two years s/p CVA. Pt reports her knees didn't get back the way they were supposed to following her stroke. Additionally, pt suffers from issues with orthostasis, reportedly due to the large number of meds she has been on since her CVA. Reports she ascends stairs with both hands on one rail pulling herself up, and to descend, she scoots down on my butt. Pt also notes pain, immobility, and weakness in her shoulder limit her ability to get herself up off the floor following a fall. Treatment Goals Patient/Caregiver Goals Improve balance, strengthen knees PT-OP-C Subjective Start: 10/04/23 11:38 Freq: Status: Active Protocol: Document 11/02/23 10:30 DCW (Rec: 11/02/23 11:17 DCW [id number]) OP-PT Subjective Patient Comments Patient Comments I almost didn't make it today , because my taxi didn't show up. Feels like her knee is improving, but I need more improvement. Feels her leg and knee pain are the biggest limitations. PT-OP-D Balance Start: 10/04/23 11:38 Freq: Status: Active Protocol: Document 10/04/23 10:30 DCW (Rec: 10/04/23 12:03 DCW [id number]) Balance Tests Juarez Balance Test Juarez Balance Test Score 36/56 Juarez Impairment Rating 20 to 39% Impaired (Score 34- 44) Juarez Balance Assessment Evaluation Sitting to Standing Ability Independent w/Hands Unsupported Stance Supervision- 2 minutes Sitting Unsupported, Feet on Floor Safely- 2 minutes Standing to Sitting Ability Assist, Control w/Hands Transfer Ability Safely, Hand Use Unsupported Stance- Eyes Closed 3 seconds Unsupported Stance- Eyes Open Independent, <30 seconds Reaching Forward Standing Safely, 5 inches Pick- Up Object From Floor Supervision Look Behind Shoulder - Standing Shifts Weight Well Turning 360 Degrees Supervision/Verbal Cues Unsupported Stance, Alternating Feet on 4 Steps w/Supervision Stair Unsupported Tandem Stance Small Step- 30 seconds Unilateral Leg Stance Lifts Leg/Unable to Hold Total Score Juarez Total Score (out of 56 points) 36 Juarez Impairment Rating 20 to 39% Impaired (Score 34- 44) PT-OP-E Functional Tests Start: 10/04/23 11:38 Freq: Status: Active Protocol: Document 11/02/23 10:30 DCW (Rec: 11/02/23 11:17 DCW [id number]) Functional Tests Dynamic Gait Index (DGI) Score 1424 DGI Impairment Rating 40 to <60% Impaired (Score 10- 14) PT-OP-K Range of Motion Start: 10/04/23 11:38 Freq: Status: Active Protocol: Document 10/04/23 10:30 DCW (Rec: 10/04/23 12:03 DCW [id number]) Shoulder Goniometric Range of Motion Shoulder Right Active Shoulder ROM WFL No Testing Position Sitting Flexion 110 Abduction 91 Left Active Shoulder ROM WFL No Testing Position Sitting Flexion 93 Abduction 87 PT-OP-M Strength Start: 10/04/23 11:38 Freq: Status: Active Protocol: Document 10/04/23 10:30 DCW (Rec: 10/04/23 12:03 DCW [id number]) Shoulder Strength Shoulder Manual Muscle Testing Right Flexion 3 Fair Abduction (C5) 3 Fair Left Flexion 3 Fair Abduction (C5) 3 Fair Elbow/Forearm Strength Elbow and Forearm Manual Muscle Testing Right Flexion (C6) 3+ Fair+ Extension (C7) 3- Fair- Left Flexion (C6) 3+ Fair+ Extension (C7) 3- Fair- Hip Strength Hip Manual Muscle Testing Right Flexion (L2) 3+ Fair+ Extension (S1) 3+ Fair+ Abduction 3+ Fair+ Adduction 3+ Fair+ External Rotation 3+ Fair+ Internal Rotation 4 Good Left Flexion (L2) 4- Good- Extension (S1) 4- Good- Abduction 3+ Fair+ Adduction 3+ Fair+ External Rotation 3 Fair Internal Rotation 3 Fair Knee Strength Knee Manual Muscle Testing Right Flexion (S2) 3 Fair Extension (L3) 3+ Fair+ Left Flexion (S2) 3 Fair Extension (L3) 4- Good- Ankle/Foot Strength Ankle and Foot Manual Muscle Testing Right Dorsiflexion (L4) 4 Good Left Dorsiflexion (L4) 4 Good PT-OP-Q Treatments Start: 10/04/23 11:38 Freq: Status: Active Protocol: Document 11/02/23 10:30 DCW (Rec: 11/02/23 11:17 DCW [id number]) Therapeutic Exercises Supine Exercises SLR Supine Exercise Name SLR Side bilateral Resistance 2# SAQ Supine Exercise Name SAQ Side bilateral Resistance 2# ITB Stretch Supine Exercise Name ITB stretch Side bilateral Hamstring Stretch Supine Exercise Name Hamstring stretch Side bilateral knee to chest Supine Exercise Name Single KtC Side bilateral Reps/Minutes 60 seconds X 1 each LE Manual Therapy Treatment Consent Patient gave verbal consent for manual Yes treatment Joint Mobilizations Patella Joint B PF Direction Inf<->Sup Grade III Knee Joint B Knee Direction P<->A Grade III PT-OP-T Assessment and Plan Start: 10/04/23 11:38 Freq: Status: Active Protocol: Document 11/02/23 10:30 DCW (Rec: 11/02/23 11:17 DCW [id number]) Physical Therapy Assessment Impairments Impairments Activity Tolerance,Balance, Functional Activities, Functional Mobility,Gait,Pain, ROM,Soft Tissue Mobility, Strength,Transfers Goals Three Impairment Pt exhibits significant weakness in B LE MMT, testing between 3/5-4/5 Correction Goal (LTG) Pt to demonstrate improved MMT in bilateral hips, testing 4- /5 or greater in all planes, in order to improve ability to ascend/descend stairs safely LTG Duration 01/02/24 Two Impairment Pt presents with increased falls risk, per Juarez (36/56) and DGI (10/30) Director Cost Goal (LTG) Pt to improve DGI score by at least six points to in order to demonstrate decreasing falls risk. 11/02/23: Improving () LTG Duration 01/02/24 One Impairment Pt does not have an appropriate home exercise program Short Term Goal (STG) Pt to be independent and compliant with an appropriate HEP STG Duration 11/04/23 Assessment Summary Assessment Pt doing well overall, DGI improved from 10/30 to since initial evaluation. Good response to gentle joint mobs , pt better able to tolerate SAQ/SLR without increased knee pain. Physical Therapy Plan Frequency and Duration Frequency of Treatment 2x/Week Plan of Care Start Date 10/04/23 Plan of Care End Date 01/02/24 Therapeutic Interventions Therapeutic Interventions Balance Training,Coordination Training,Gait Training,Home Exercise Program,Joint Mobilizations,Manual Therapy, Neuromuscular Re-education, Patient/Caregiver Education, Self-Care/Home Management,Soft Tissue Mobilization, Therapeutic Activities, Therapeutic Exercises Modalities Cold Pack/Ice Massage,Electric Stimulation,Hot Packs, Ultrasound Next Visit Focus/Plan Next Note Type Treatment Note Next Visit Plan LE/UE strengthening, balance training, stair training possibly focus on hip flexion due to reports of difficulty lifting LE to tie shoes.
--- NOTE | 2023-11-07 10:40 | PT.OTN ---
Current Diagnoses Type 2 diabetes mellitus with diabetic polyneuropathy (11/07/23) Muscle weakness (generalized) (11/07/23) Unsteadiness on feet (11/07/23) Other abnormalities of gait and mobility (11/07/23) Other symptoms and signs involving the musculoskeletal system (11/07/23) Physical Therapy Treatment Note PT-OP-A Visit Information Start: 10/04/23 11:38 Freq: Status: Active Protocol: Document 11/07/23 08:04 AB (Rec: 11/07/23 10:39 AB [id number]) Out-Patient Physical Therapy Visit Information Visit Information Visit Type Treatment Note Visit Note Access Code [email or web address] Visit Start Time 09:48 Visit Stop Time 10:33 Visit Number 8 Number of HIGHBALLER Visits 1 Evaluation Information Evaluation Date 10/04/23 PT-OP-B Current Condition Start: 10/04/23 11:38 Freq: Status: Active Protocol: Document 10/04/23 10:30 DCW (Rec: 10/04/23 12:03 DCW [id number]) Current Condition History of Current Condition Onset Date Two year history Current Complaints Weakness, poor balance, fatigue, difficulty with stairs, two years s/p CVA History of Current Condition Pt is a 58 year old female presenting to skilled therapy with complaints of weakness, gait difficulty, poor balance, poor falls recovery, and severe stair difficulty two years s/p CVA. Pt reports her knees didn't get back the way they were supposed to following her stroke. Additionally, pt suffers from issues with orthostasis, reportedly due to the large number of meds she has been on since her CVA. Reports she ascends stairs with both hands on one rail pulling herself up, and to descend, she scoots down on my butt. Pt also notes pain, immobility, and weakness in her shoulder limit her ability to get herself up off the floor following a fall. Treatment Goals Patient/Caregiver Goals Improve balance, strengthen knees PT-OP-C Subjective Start: 10/04/23 11:38 Freq: Status: Active Protocol: Document 11/07/23 08:04 AB (Rec: 11/07/23 10:39 AB [id number]) OP-PT Subjective Patient Comments Patient Comments Patient reports the knee is moving better now, still has difficulty lifting LE up to tie shoes. Patient reports she took a break from her exercises and just walked. Patient reports last performing HEP Sat AM. PT-OP-D Balance Start: 10/04/23 11:38 Freq: Status: Active Protocol: Document 10/04/23 10:30 DCW (Rec: 10/04/23 12:03 DCW [id number]) Balance Tests Juarez Balance Test Juarez Balance Test Score 36/56 Juarez Impairment Rating 20 to 39% Impaired (Score 34- 44) Juarez Balance Assessment Evaluation Sitting to Standing Ability Independent w/Hands Unsupported Stance Supervision- 2 minutes Sitting Unsupported, Feet on Floor Safely- 2 minutes Standing to Sitting Ability Assist, Control w/Hands Transfer Ability Safely, Hand Use Unsupported Stance- Eyes Closed 3 seconds Unsupported Stance- Eyes Open Independent, <30 seconds Reaching Forward Standing Safely, 5 inches Pick- Up Object From Floor Supervision Look Behind Shoulder - Standing Shifts Weight Well Turning 360 Degrees Supervision/Verbal Cues Unsupported Stance, Alternating Feet on 4 Steps w/Supervision Stair Unsupported Tandem Stance Small Step- 30 seconds Unilateral Leg Stance Lifts Leg/Unable to Hold Total Score Juarez Total Score (out of 56 points) 36 Juarez Impairment Rating 20 to 39% Impaired (Score 34- 44) PT-OP-E Functional Tests Start: 10/04/23 11:38 Freq: Status: Active Protocol: Document 11/02/23 10:30 DCW (Rec: 11/02/23 11:17 DCW [id number]) Functional Tests Dynamic Gait Index (DGI) Score 1424 DGI Impairment Rating 40 to <60% Impaired (Score 10- 14) PT-OP-K Range of Motion Start: 10/04/23 11:38 Freq: Status: Active Protocol: Document 10/04/23 10:30 DCW (Rec: 10/04/23 12:03 DCW [id number]) Shoulder Goniometric Range of Motion Shoulder Right Active Shoulder ROM WFL No Testing Position Sitting Flexion 110 Abduction 91 Left Active Shoulder ROM WFL No Testing Position Sitting Flexion 93 Abduction 87 PT-OP-M Strength Start: 10/04/23 11:38 Freq: Status: Active Protocol: Document 10/04/23 10:30 DCW (Rec: 10/04/23 12:03 DCW [id number]) Shoulder Strength Shoulder Manual Muscle Testing Right Flexion 3 Fair Abduction (C5) 3 Fair Left Flexion 3 Fair Abduction (C5) 3 Fair Elbow/Forearm Strength Elbow and Forearm Manual Muscle Testing Right Flexion (C6) 3+ Fair+ Extension (C7) 3- Fair- Left Flexion (C6) 3+ Fair+ Extension (C7) 3- Fair- Hip Strength Hip Manual Muscle Testing Right Flexion (L2) 3+ Fair+ Extension (S1) 3+ Fair+ Abduction 3+ Fair+ Adduction 3+ Fair+ External Rotation 3+ Fair+ Internal Rotation 4 Good Left Flexion (L2) 4- Good- Extension (S1) 4- Good- Abduction 3+ Fair+ Adduction 3+ Fair+ External Rotation 3 Fair Internal Rotation 3 Fair Knee Strength Knee Manual Muscle Testing Right Flexion (S2) 3 Fair Extension (L3) 3+ Fair+ Left Flexion (S2) 3 Fair Extension (L3) 4- Good- Ankle/Foot Strength Ankle and Foot Manual Muscle Testing Right Dorsiflexion (L4) 4 Good Left Dorsiflexion (L4) 4 Good PT-OP-Q Treatments Start: 10/04/23 11:38 Freq: Status: Active Protocol: Document 11/07/23 08:04 AB (Rec: 11/07/23 10:39 AB [id number]) Therapeutic Exercises Supine Exercises knee flexion Supine Exercise Name 1. feet on ball 2. AROM HS Side bilateral Reps/Minutes 1. 2 min 2. x10 Comments verbal cues SLR Supine Exercise Name SLR Side bilateral Resistance 2# Reps/Minutes X10 each LE Comments Verbal cues Hamstring Stretch Supine Exercise Name Hamstring stretch Side bilateral Reps/Minutes 60 sec x2 Comments verbal cues Sidelying Exercises Reverse Clamshell Sidelying Exercise Name HEP Reverse Clamshell Side bilateral Resistance level 2 latex free Equipment Used x15 Clamshell Sidelying Exercise Name HEP Side bilateral Resistance level 2 latex free band Reps/Minutes X15 Comments VC to avoid rolling back Sitting Exercises seated hip abduction with band Side bilateral Resistance level 3 latex free band Reps/Minutes one minute, manual resistance Comments prior to balance exercises Standing Exercises sit to stand with band Standing Exercise Name without UE use HEP to level 2 band Side bilateral Resistance level 2 latex free band Reps/Minutes 2X10 Comments monitored for pain heel raise Standing Exercise Name bilateral with UE use HEP Reps/Minutes X16 Comments VC to lower heels slowly Manual Therapy Treatment Consent Patient gave verbal consent for manual Yes treatment Soft Tissue Mobilization bilateral knees Body Location quads and HS Mobilization Type Cross-Friction,Rolling Joint Mobilizations Patella Joint B PF Direction Inf<->Sup Grade III Knee Joint B Knee Direction P<->A Grade III PT-OP-T Assessment and Plan Start: 10/04/23 11:38 Freq: Status: Active Protocol: Document 11/07/23 08:04 AB (Rec: 11/07/23 10:39 AB [id number]) Physical Therapy Assessment Goals Three Impairment Pt exhibits significant weakness in B LE MMT, testing between 3/5-4/5 District Wildlife Manager Goal (LTG) Pt to demonstrate improved MMT in bilateral hips, testing 4- /5 or greater in all planes, in order to improve ability to ascend/descend stairs safely LTG Duration 01/02/24 Two Impairment Pt presents with increased falls risk, per Juarez (36/) and DGI (10/30) District Wildlife Manager Goal (LTG) Pt to improve DGI score by at least six points to in order to demonstrate decreasing falls risk. 11/02/23: Improving () LTG Duration 01/02/24 One Impairment Pt does not have an appropriate home exercise program Short Term Goal (STG) Pt to be independent and compliant with an appropriate HEP STG Duration 11/04/23 Assessment Summary Assessment When questioned regarding pain end of session patient gestures to left HS comments stretching pain. Patient reports reaching for feet is better end of session. Progressed to levle 2 band for sit to stand this session. Physical Therapy Plan Frequency and Duration Frequency of Treatment 2x/Week Plan of Care Start Date 10/04/23 Plan of Care End Date 01/02/24 Next Visit Focus/Plan Next Note Type Treatment Note Next Visit Plan LE/UE strengthening, balance training, stair training
--- NOTE | 2023-11-10 16:36 | PT.OTN ---
Current Diagnoses Type 2 diabetes mellitus with diabetic polyneuropathy (11/10/23) Muscle weakness (generalized) (11/10/23) Unsteadiness on feet (11/10/23) Other abnormalities of gait and mobility (11/10/23) Other symptoms and signs involving the musculoskeletal system (11/10/23) Physical Therapy Treatment Note PT-OP-A Visit Information Start: 10/04/23 11:38 Freq: Status: Active Protocol: Document 11/10/23 12:54 AB (Rec: 11/10/23 13:47 AB [id number]) Out-Patient Physical Therapy Visit Information Visit Information Visit Type Treatment Note Visit Note Access Code [email or web address] Visit Start Time 13:00 Visit Stop Time 13:45 Visit Number 9 Number of MOTH PROOFER Visits 2 Evaluation Information Evaluation Date 10/04/23 PT-OP-B Current Condition Start: 10/04/23 11:38 Freq: Status: Active Protocol: Document 10/04/23 10:30 DCW (Rec: 10/04/23 12:03 DCW [id number]) Current Condition History of Current Condition Onset Date Two year history Current Complaints Weakness, poor balance, fatigue, difficulty with stairs, two years s/p CVA History of Current Condition Pt is a 58 year old female presenting to skilled therapy with complaints of weakness, gait difficulty, poor balance, poor falls recovery, and severe stair difficulty two years s/p CVA. Pt reports her knees didn't get back the way they were supposed to following her stroke. Additionally, pt suffers from issues with orthostasis, reportedly due to the large number of meds she has been on since her CVA. Reports she ascends stairs with both hands on one rail pulling herself up, and to descend, she scoots down on my butt. Pt also notes pain, immobility, and weakness in her shoulder limit her ability to get herself up off the floor following a fall. Treatment Goals Patient/Caregiver Goals Improve balance, strengthen knees PT-OP-C Subjective Start: 10/04/23 11:38 Freq: Status: Active Protocol: Document 11/10/23 12:54 AB (Rec: 11/10/23 13:47 AB [id number]) OP-PT Subjective Patient Comments Patient Comments Patient reports tying shoes is 30% better. Patient reports muscles are sore, gesturing to quads. PT-OP-D Balance Start: 10/04/23 11:38 Freq: Status: Active Protocol: Document 10/04/23 10:30 DCW (Rec: 10/04/23 12:03 DCW [id number]) Balance Tests Juarez Balance Test Juarez Balance Test Score 36/56 Juarez Impairment Rating 20 to 39% Impaired (Score 34- 44) Juarez Balance Assessment Evaluation Sitting to Standing Ability Independent w/Hands Unsupported Stance Supervision- 2 minutes Sitting Unsupported, Feet on Floor Safely- 2 minutes Standing to Sitting Ability Assist, Control w/Hands Transfer Ability Safely, Hand Use Unsupported Stance- Eyes Closed 3 seconds Unsupported Stance- Eyes Open Independent, <30 seconds Reaching Forward Standing Safely, 5 inches Pick- Up Object From Floor Supervision Look Behind Shoulder - Standing Shifts Weight Well Turning 360 Degrees Supervision/Verbal Cues Unsupported Stance, Alternating Feet on 4 Steps w/Supervision Stair Unsupported Tandem Stance Small Step- 30 seconds Unilateral Leg Stance Lifts Leg/Unable to Hold Total Score Juarez Total Score (out of 56 points) 36 Juarez Impairment Rating 20 to 39% Impaired (Score 34- 44) PT-OP-E Functional Tests Start: 10/04/23 11:38 Freq: Status: Active Protocol: Document 11/02/23 10:30 DCW (Rec: 11/02/23 11:17 DCW [id number]) Functional Tests Dynamic Gait Index (DGI) Score 14/24 DGI Impairment Rating 40 to <60% Impaired (Score 10- 14) PT-OP-K Range of Motion Start: 10/04/23 11:38 Freq: Status: Active Protocol: Document 10/04/23 10:30 DCW (Rec: 10/04/23 12:03 DCW [id number]) Shoulder Goniometric Range of Motion Shoulder Right Active Shoulder ROM WFL No Testing Position Sitting Flexion 110 Abduction 91 Left Active Shoulder ROM WFL No Testing Position Sitting Flexion 93 Abduction 87 PT-OP-M Strength Start: 10/04/23 11:38 Freq: Status: Active Protocol: Document 10/04/23 10:30 DCW (Rec: 10/04/23 12:03 DCW [id number]) Shoulder Strength Shoulder Manual Muscle Testing Right Flexion 3 Fair Abduction (C5) 3 Fair Left Flexion 3 Fair Abduction (C5) 3 Fair Elbow/Forearm Strength Elbow and Forearm Manual Muscle Testing Right Flexion (C6) 3+ Fair+ Extension (C7) 3- Fair- Left Flexion (C6) 3+ Fair+ Extension (C7) 3- Fair- Hip Strength Hip Manual Muscle Testing Right Flexion (L2) 3+ Fair+ Extension (S1) 3+ Fair+ Abduction 3+ Fair+ Adduction 3+ Fair+ External Rotation 3+ Fair+ Internal Rotation 4 Good Left Flexion (L2) 4- Good- Extension (S1) 4- Good- Abduction 3+ Fair+ Adduction 3+ Fair+ External Rotation 3 Fair Internal Rotation 3 Fair Knee Strength Knee Manual Muscle Testing Right Flexion (S2) 3 Fair Extension (L3) 3+ Fair+ Left Flexion (S2) 3 Fair Extension (L3) 4- Good- Ankle/Foot Strength Ankle and Foot Manual Muscle Testing Right Dorsiflexion (L4) 4 Good Left Dorsiflexion (L4) 4 Good PT-OP-Q Treatments Start: 10/04/23 11:38 Freq: Status: Active Protocol: Document 11/10/23 12:54 AB (Rec: 11/10/23 13:47 AB [id number]) Therapeutic Exercises Supine Exercises knee flexion Supine Exercise Name 1. feet on ball Side bilateral Reps/Minutes 1. 2 min Comments verbal cues Hamstring Stretch Supine Exercise Name Hamstring stretch Side bilateral Reps/Minutes 60 sec x1 Comments verbal cues Sitting Exercises seated hip abduction with band Side bilateral Resistance level 4 latex free band Reps/Minutes one minute, then X 15 without hold Comments prior to balance exercises Standing Exercises side stepping with band Side bilateral Resistance level 4 latex free band Reps/Minutes 10 feet left and right X 3 calf stretches on SATURNINO Side bilateral Reps/Minutes 60 sec X 2 Manual Therapy Treatment Soft Tissue Mobilization bilateral knees Body Location quads and HS Mobilization Type Cross-Friction,Rolling Joint Mobilizations Patella Joint B PF Direction Inf<->Sup Grade III Knee Joint B Knee Direction P<->A Grade III Neuro Re-Education Treatment Balance Activities Hurdles Details over 2 large mats with large pieces of wood under mat Reps/Duration 2 mats X4 Comments CGA right knee with reports of lateral knee pain stepping up onto mat. step up taps Equipment on air ex to 6 inch step Reps/Duration X12 Comments CGA hands above bars Tandem Details stepping Equipment bar Reps/Duration 10ft X 6 Comments supervision hands above bar, with and without head turns and visual scannin PT-OP-T Assessment and Plan Start: 10/04/23 11:38 Freq: Status: Active Protocol: Document 11/10/23 12:54 AB (Rec: 11/10/23 13:47 AB [id number]) Physical Therapy Assessment Goals Three Impairment Pt exhibits significant weakness in B LE MMT, testing between 3/5-4/5 Usp Goal (LTG) Pt to demonstrate improved MMT in bilateral hips, testing 4- /5 or greater in all planes, in order to improve ability to ascend/descend stairs safely LTG Duration 01/02/24 Two Impairment Pt presents with increased falls risk, per Juarez (36) and DGI (10/30) Wellness Trainer Goal (LTG) Pt to improve DGI score by at least six points to in order to demonstrate decreasing falls risk. 11/02/23: Improving () LTG Duration 01/02/24 One Impairment Pt does not have an appropriate home exercise program Short Term Goal (STG) Pt to be independent and compliant with an appropriate HEP STG Duration 11/04/23 Assessment Summary Assessment Patient reports the knee feels fine end of sesssion referring to right knee comments it continues to hurt a little bit. Zonia reported increased right knee pain stepping up onto mat for hurdles gestures to lateral right knee during session. Physical Therapy Plan Frequency and Duration Frequency of Treatment 2x/Week Plan of Care Start Date 10/04/23 Plan of Care End Date 01/02/24 Next Visit Focus/Plan Next Note Type Progress Note Next Visit Plan LE/UE strengthening, balance training, stair training
--- NOTE | 2023-11-15 11:26 | PT.OTN ---
Current Diagnoses Type 2 diabetes mellitus with diabetic polyneuropathy (11/15/23) Muscle weakness (generalized) (11/15/23) Unsteadiness on feet (11/15/23) Other abnormalities of gait and mobility (11/15/23) Other symptoms and signs involving the musculoskeletal system (11/15/23) Physical Therapy Treatment Note PT-OP-A Visit Information Start: 10/04/23 11:38 Freq: Status: Active Protocol: Document 11/15/23 10:45 DCW (Rec: 11/15/23 11:26 DCW [id number]) Out-Patient Physical Therapy Visit Information Visit Information Visit Type Treatment Note Visit Start Time 10:45 Visit Stop Time 11:30 Visit Number 10 Number of EDDY CURRENT INSPECTOR Visits 0 Evaluation Information Evaluation Date 10/04/23 PT-OP-B Current Condition Start: 10/04/23 11:38 Freq: Status: Active Protocol: Document 10/04/23 10:30 DCW (Rec: 10/04/23 12:03 DCW [id number]) Current Condition History of Current Condition Onset Date Two year history Current Complaints Weakness, poor balance, fatigue, difficulty with stairs, two years s/p CVA History of Current Condition Pt is a 58 year old female presenting to skilled therapy with complaints of weakness, gait difficulty, poor balance, poor falls recovery, and severe stair difficulty two years s/p CVA. Pt reports her knees didn't get back the way they were supposed to following her stroke. Additionally, pt suffers from issues with orthostasis, reportedly due to the large number of meds she has been on since her CVA. Reports she ascends stairs with both hands on one rail pulling herself up, and to descend, she scoots down on my butt. Pt also notes pain, immobility, and weakness in her shoulder limit her ability to get herself up off the floor following a fall. Treatment Goals Patient/Caregiver Goals Improve balance, strengthen knees PT-OP-C Subjective Start: 10/04/23 11:38 Freq: Status: Active Protocol: Document 11/15/23 10:45 DCW (Rec: 11/15/23 11:26 DCW [id number]) OP-PT Subjective Patient Comments Patient Comments Pt feels like she is seeing improvement, but does continues to feel like she is really weak through the legs and has pain in her right knee . PT-OP-D Balance Start: 10/04/23 11:38 Freq: Status: Active Protocol: Document 10/04/23 10:30 DCW (Rec: 10/04/23 12:03 DCW [id number]) Balance Tests Juarez Balance Test Juarez Balance Test Score 36/56 Juarez Impairment Rating 20 to 39% Impaired (Score 34- 44) Juarez Balance Assessment Evaluation Sitting to Standing Ability Independent w/Hands Unsupported Stance Supervision- 2 minutes Sitting Unsupported, Feet on Floor Safely- 2 minutes Standing to Sitting Ability Assist, Control w/Hands Transfer Ability Safely, Hand Use Unsupported Stance- Eyes Closed 3 seconds Unsupported Stance- Eyes Open Independent, <30 seconds Reaching Forward Standing Safely, 5 inches Pick- Up Object From Floor Supervision Look Behind Shoulder - Standing Shifts Weight Well Turning 360 Degrees Supervision/Verbal Cues Unsupported Stance, Alternating Feet on 4 Steps w/Supervision Stair Unsupported Tandem Stance Small Step- 30 seconds Unilateral Leg Stance Lifts Leg/Unable to Hold Total Score Ujarez Total Score (out of 56 points) 36 Juarez Impairment Rating 20 to 39% Impaired (Score 34- 44) PT-OP-E Functional Tests Start: 10/04/23 11:38 Freq: Status: Active Protocol: Document 11/02/23 10:30 DCW (Rec: 11/02/23 11:17 DCW [id number]) Functional Tests Dynamic Gait Index (DGI) Score 14/24 DGI Impairment Rating 40 to <60% Impaired (Score 10- 14) PT-OP-K Range of Motion Start: 10/04/23 11:38 Freq: Status: Active Protocol: Document 10/04/23 10:30 DCW (Rec: 10/04/23 12:03 DCW [id number]) Shoulder Goniometric Range of Motion Shoulder Right Active Shoulder ROM WFL No Testing Position Sitting Flexion 110 Abduction 91 Left Active Shoulder ROM WFL No Testing Position Sitting Flexion 93 Abduction 87 PT-OP-M Strength Start: 10/04/23 11:38 Freq: Status: Active Protocol: Document 10/04/23 10:30 DCW (Rec: 10/04/23 12:03 DCW [id number]) Shoulder Strength Shoulder Manual Muscle Testing Right Flexion 3 Fair Abduction (C5) 3 Fair Left Flexion 3 Fair Abduction (C5) 3 Fair Elbow/Forearm Strength Elbow and Forearm Manual Muscle Testing Right Flexion (C6) 3+ Fair+ Extension (C7) 3- Fair- Left Flexion (C6) 3+ Fair+ Extension (C7) 3- Fair- Hip Strength Hip Manual Muscle Testing Right Flexion (L2) 3+ Fair+ Extension (S1) 3+ Fair+ Abduction 3+ Fair+ Adduction 3+ Fair+ External Rotation 3+ Fair+ Internal Rotation 4 Good Left Flexion (L2) 4- Good- Extension (S1) 4- Good- Abduction 3+ Fair+ Adduction 3+ Fair+ External Rotation 3 Fair Internal Rotation 3 Fair Knee Strength Knee Manual Muscle Testing Right Flexion (S2) 3 Fair Extension (L3) 3+ Fair+ Left Flexion (S2) 3 Fair Extension (L3) 4- Good- Ankle/Foot Strength Ankle and Foot Manual Muscle Testing Right Dorsiflexion (L4) 4 Good Left Dorsiflexion (L4) 4 Good PT-OP-Q Treatments Start: 10/04/23 11:38 Freq: Status: Active Protocol: Document 11/15/23 10:45 DCW (Rec: 11/15/23 11:26 [facility] [id number]) Gym Equipment Shuttle Recovery Unilateral Squats Resistance 25# Reps/Time x20 Bilateral Squats Resistance 50# Reps/Time x20 Therapeutic Exercises Supine Exercises knee flexion Supine Exercise Name 1. feet on ball Side bilateral Resistance Lv 2 T-band Equipment Used Blue 45 cm T-ball Comments verbal cues Standing Exercises Hip Extension Standing Exercise Name Hip Extension Side bilateral Resistance Lv 4 Latex-free loop side stepping with band Side bilateral Resistance level 4 latex free band Reps/Minutes 10 feet left and right X 3 Manual Therapy Treatment Consent Patient gave verbal consent for manual Yes treatment Soft Tissue Mobilization bilateral knees Body Location quads, distal adductors, and HS Mobilization Type Cross-Friction,Strumming, Sustained Pressure Intensity/Depth Moderate Body Position Hooklying Joint Mobilizations Patella Joint B PF Direction Inf<->Sup Grade III Knee Joint B Knee Direction P<->A Grade III PT-OP-T Assessment and Plan Start: 10/04/23 11:38 Freq: Status: Active Protocol: Document 11/15/23 10:45 DCW (Rec: 11/15/23 11:26 [facility] [id number]) Physical Therapy Assessment Impairments Impairments Activity Tolerance,Balance, Functional Activities, Functional Mobility,Gait,Pain, ROM,Soft Tissue Mobility, Strength,Transfers Goals Three Impairment Pt exhibits significant weakness in B LE MMT, testing between 3/5-4/5 Snf Goal (LTG) Pt to demonstrate improved MMT in bilateral hips, testing 4- /5 or greater in all planes, in order to improve ability to ascend/descend stairs safely LTG Duration 01/02/24 Two Impairment Pt presents with increased falls risk, per Juarez (36/) and DGI (10/30) Millinery Designer Goal (LTG) Pt to improve DGI score by at least six points to in order to demonstrate decreasing falls risk. 11/02/23: Improving () LTG Duration 01/02/24 One Impairment Pt does not have an appropriate home exercise program Short Term Goal (STG) Pt to be independent and compliant with an appropriate HEP STG Duration 11/04/23 Assessment Summary Assessment Pt continues to show slow but steady improvement with leg strength and stability with gait. Does continue to exhibit increased tone along adductors Physical Therapy Plan Frequency and Duration Frequency of Treatment 2x/Week Plan of Care Start Date 10/04/23 Plan of Care End Date 01/02/24 Therapeutic Interventions Therapeutic Interventions Balance Training,Coordination Training,Gait Training,Home Exercise Program,Joint Mobilizations,Manual Therapy, Neuromuscular Re-education, Patient/Caregiver Education, Self-Care/Home Management,Soft Tissue Mobilization, Therapeutic Activities, Therapeutic Exercises Modalities Cold Pack/Ice Massage,Electric Stimulation,Hot Packs, Ultrasound Next Visit Focus/Plan Next Note Type Treatment Note Next Visit Plan LE/UE strengthening, balance training, stair training
--- NOTE | 2023-11-17 15:18 | PT.OTN ---
Current Diagnoses Type 2 diabetes mellitus with diabetic polyneuropathy (11/17/23) Muscle weakness (generalized) (11/17/23) Unsteadiness on feet (11/17/23) Other abnormalities of gait and mobility (11/17/23) Other symptoms and signs involving the musculoskeletal system (11/17/23) Physical Therapy Treatment Note PT-OP-A Visit Information Start: 10/04/23 11:38 Freq: Status: Active Protocol: Document 11/17/23 14:30 DCW (Rec: 11/17/23 15:17 DCW [id number]) Out-Patient Physical Therapy Visit Information Visit Information Visit Type Treatment Note Visit Start Time 14:30 Visit Stop Time 15:15 Visit Number 11 Number of PEDIATRIC ACUTE CARE UNIT NURSE Visits 0 Evaluation Information Evaluation Date 10/04/23 PT-OP-B Current Condition Start: 10/04/23 11:38 Freq: Status: Active Protocol: Document 10/04/23 10:30 DCW (Rec: 10/04/23 12:03 DCW [id number]) Current Condition History of Current Condition Onset Date Two year history Current Complaints Weakness, poor balance, fatigue, difficulty with stairs, two years s/p CVA History of Current Condition Pt is a 58 year old female presenting to skilled therapy with complaints of weakness, gait difficulty, poor balance, poor falls recovery, and severe stair difficulty two years s/p CVA. Pt reports her knees didn't get back the way they were supposed to following her stroke. Additionally, pt suffers from issues with orthostasis, reportedly due to the large number of meds she has been on since her CVA. Reports she ascends stairs with both hands on one rail pulling herself up, and to descend, she scoots down on my butt. Pt also notes pain, immobility, and weakness in her shoulder limit her ability to get herself up off the floor following a fall. Treatment Goals Patient/Caregiver Goals Improve balance, strengthen knees PT-OP-C Subjective Start: 10/04/23 11:38 Freq: Status: Active Protocol: Document 11/17/23 14:30 DCW (Rec: 11/17/23 15:18 DCW [id number]) OP-PT Subjective Patient Comments Patient Comments Pt notes she feels like she's been improving PT-OP-D Balance Start: 10/04/23 11:38 Freq: Status: Active Protocol: Document 10/04/23 10:30 DCW (Rec: 10/04/23 12:03 DCW [id number]) Balance Tests Juarez Balance Test Juarez Balance Test Score 36/56 Juarez Impairment Rating 20 to 39% Impaired (Score 34- 44) Juarez Balance Assessment Evaluation Sitting to Standing Ability Independent w/Hands Unsupported Stance Supervision- 2 minutes Sitting Unsupported, Feet on Floor Safely- 2 minutes Standing to Sitting Ability Assist, Control w/Hands Transfer Ability Safely, Hand Use Unsupported Stance- Eyes Closed 3 seconds Unsupported Stance- Eyes Open Independent, <30 seconds Reaching Forward Standing Safely, 5 inches Pick- Up Object From Floor Supervision Look Behind Shoulder - Standing Shifts Weight Well Turning 360 Degrees Supervision/Verbal Cues Unsupported Stance, Alternating Feet on 4 Steps w/Supervision Stair Unsupported Tandem Stance Small Step- 30 seconds Unilateral Leg Stance Lifts Leg/Unable to Hold Total Score Juarez Total Score (out of 56 points) 36 Juarez Impairment Rating 20 to 39% Impaired (Score 34- 44) PT-OP-E Functional Tests Start: 10/04/23 11:38 Freq: Status: Active Protocol: Document 11/02/23 10:30 DCW (Rec: 11/02/23 11:17 DCW [id number]) Functional Tests Dynamic Gait Index (DGI) Score 1424 DGI Impairment Rating 40 to <60% Impaired (Score 10- 14) PT-OP-K Range of Motion Start: 10/04/23 11:38 Freq: Status: Active Protocol: Document 10/04/23 10:30 DCW (Rec: 10/04/23 12:03 DCW [id number]) Shoulder Goniometric Range of Motion Shoulder Right Active Shoulder ROM WFL No Testing Position Sitting Flexion 110 Abduction 91 Left Active Shoulder ROM WFL No Testing Position Sitting Flexion 93 Abduction 87 PT-OP-M Strength Start: 10/04/23 11:38 Freq: Status: Active Protocol: Document 10/04/23 10:30 DCW (Rec: 10/04/23 12:03 DCW [id number]) Shoulder Strength Shoulder Manual Muscle Testing Right Flexion 3 Fair Abduction (C5) 3 Fair Left Flexion 3 Fair Abduction (C5) 3 Fair Elbow/Forearm Strength Elbow and Forearm Manual Muscle Testing Right Flexion (C6) 3+ Fair+ Extension (C7) 3- Fair- Left Flexion (C6) 3+ Fair+ Extension (C7) 3- Fair- Hip Strength Hip Manual Muscle Testing Right Flexion (L2) 3+ Fair+ Extension (S1) 3+ Fair+ Abduction 3+ Fair+ Adduction 3+ Fair+ External Rotation 3+ Fair+ Internal Rotation 4 Good Left Flexion (L2) 4- Good- Extension (S1) 4- Good- Abduction 3+ Fair+ Adduction 3+ Fair+ External Rotation 3 Fair Internal Rotation 3 Fair Knee Strength Knee Manual Muscle Testing Right Flexion (S2) 3 Fair Extension (L3) 3+ Fair+ Left Flexion (S2) 3 Fair Extension (L3) 4- Good- Ankle/Foot Strength Ankle and Foot Manual Muscle Testing Right Dorsiflexion (L4) 4 Good Left Dorsiflexion (L4) 4 Good PT-OP-Q Treatments Start: 10/04/23 11:38 Freq: Status: Active Protocol: Document 11/17/23 14:30 DCW (Rec: 11/17/23 15:17 DCW [id number]) Gym Equipment Shuttle Recovery Unilateral Squats Resistance 37# Reps/Time x20 Bilateral Squats Resistance 62# Reps/Time x20 Therapeutic Exercises Sitting Exercises LAQ Sitting Exercise Name LAQ Side bilateral Resistance 5# Standing Exercises Marching Standing Exercise Name Marching Side bilateral Resistance 5# Hamstring Curl Standing Exercise Name Hamstring Curl Side bilateral Resistance 5# calf stretches on SATURNINO Standing Exercise Name Calf Stretch Side bilateral Equipment Used SATURNINO Reps/Minutes 60 sec X 2 heel raise Standing Exercise Name Heel Raise Side bilateral Reps/Minutes x15 Manual Therapy Treatment Consent Patient gave verbal consent for manual Yes treatment Soft Tissue Mobilization bilateral knees Body Location quads, distal adductors, and HS Mobilization Type Cross-Friction,Strumming, Sustained Pressure Intensity/Depth Moderate Body Position Hooklying Joint Mobilizations Patella Joint B PF Direction Inf<->Sup Grade III Knee Joint B Knee Direction P<->A Grade III PT-OP-T Assessment and Plan Start: 10/04/23 11:38 Freq: Status: Active Protocol: Document 11/17/23 14:30 DCW (Rec: 11/17/23 15:17 DCW [id number]) Physical Therapy Assessment Impairments Impairments Activity Tolerance,Balance, Functional Activities, Functional Mobility,Gait,Pain, ROM,Soft Tissue Mobility, Strength,Transfers Goals Three Impairment Pt exhibits significant weakness in B LE MMT, testing between 3/5-4/5 Community Affairs Manager Goal (LTG) Pt to demonstrate improved MMT in bilateral hips, testing 4- /5 or greater in all planes, in order to improve ability to ascend/descend stairs safely LTG Duration 01/02/24 Two Impairment Pt presents with increased falls risk, per Juarez (36/56) and DGI (10/30) Community Affairs Manager Goal (LTG) Pt to improve DGI score by at least six points to in order to demonstrate decreasing falls risk. 11/02/23: Improving () LTG Duration 01/02/24 One Impairment Pt does not have an appropriate home exercise program Short Term Goal (STG) Pt to be independent and compliant with an appropriate HEP STG Duration 11/04/23 Assessment Summary Assessment Pt fairly fatigued by end of session, good response to strengthening activities. Brief discussion about use of home thera-gun to help with tone in adductors and calf. Physical Therapy Plan Frequency and Duration Frequency of Treatment 2x/Week Plan of Care Start Date 10/04/23 Plan of Care End Date 01/02/24 Therapeutic Interventions Therapeutic Interventions Balance Training,Coordination Training,Gait Training,Home Exercise Program,Joint Mobilizations,Manual Therapy, Neuromuscular Re-education, Patient/Caregiver Education, Self-Care/Home Management,Soft Tissue Mobilization, Therapeutic Activities, Therapeutic Exercises Modalities Cold Pack/Ice Massage,Electric Stimulation,Hot Packs, Ultrasound Next Visit Focus/Plan Next Note Type Treatment Note Next Visit Plan LE/UE strengthening, balance training, stair training
--- NOTE | 2023-12-04 16:22 | PT.OTN ---
Current Diagnoses Type 2 diabetes mellitus with diabetic polyneuropathy (12/04/23) Muscle weakness (generalized) (12/04/23) Unsteadiness on feet (12/04/23) Other abnormalities of gait and mobility (12/04/23) Other symptoms and signs involving the musculoskeletal system (12/04/23) Physical Therapy Treatment Note PT-OP-A Visit Information Start: 10/04/23 11:38 Freq: Status: Active Protocol: Document 12/04/23 13:03 AB (Rec: 12/04/23 13:48 AB [id number]) Out-Patient Physical Therapy Visit Information Visit Information Visit Type Treatment Note Visit Note Access Code [email or web address] Visit Start Time 13:03 Visit Stop Time 12:47 Visit Number 12 Number of GASTROENTEROLOGY MANAGER Visits 1 Evaluation Information Evaluation Date 10/04/23 PT-OP-B Current Condition Start: 10/04/23 11:38 Freq: Status: Active Protocol: Document 10/04/23 10:30 DCW (Rec: 10/04/23 12:03 DCW [id number]) Current Condition History of Current Condition Onset Date Two year history Current Complaints Weakness, poor balance, fatigue, difficulty with stairs, two years s/p CVA History of Current Condition Pt is a 58 year old female presenting to skilled therapy with complaints of weakness, gait difficulty, poor balance, poor falls recovery, and severe stair difficulty two years s/p CVA. Pt reports her knees didn't get back the way they were supposed to following her stroke. Additionally, pt suffers from issues with orthostasis, reportedly due to the large number of meds she has been on since her CVA. Reports she ascends stairs with both hands on one rail pulling herself up, and to descend, she scoots down on my butt. Pt also notes pain, immobility, and weakness in her shoulder limit her ability to get herself up off the floor following a fall. Treatment Goals Patient/Caregiver Goals Improve balance, strengthen knees PT-OP-C Subjective Start: 10/04/23 11:38 Freq: Status: Active Protocol: Document 12/04/23 13:03 AB (Rec: 12/04/23 13:48 AB [id number]) OP-PT Subjective Patient Comments Patient Comments Patient reports the is getting stronger, but the pain is the same lateral right knee, rates pain 2-3/10 start of session. Patient reports she didn't do exercise Monday as she was at a . PT-OP-D Balance Start: 10/04/23 11:38 Freq: Status: Active Protocol: Document 10/04/23 10:30 DCW (Rec: 10/04/23 12:03 DCW [id number]) Balance Tests Juarez Balance Test Juarez Balance Test Score 36/56 Juarez Impairment Rating 20 to 39% Impaired (Score 34- 44) Juarez Balance Assessment Evaluation Sitting to Standing Ability Independent w/Hands Unsupported Stance Supervision- 2 minutes Sitting Unsupported, Feet on Floor Safely- 2 minutes Standing to Sitting Ability Assist, Control w/Hands Transfer Ability Safely, Hand Use Unsupported Stance- Eyes Closed 3 seconds Unsupported Stance- Eyes Open Independent, <30 seconds Reaching Forward Standing Safely, 5 inches Pick- Up Object From Floor Supervision Look Behind Shoulder - Standing Shifts Weight Well Turning 360 Degrees Supervision/Verbal Cues Unsupported Stance, Alternating Feet on 4 Steps w/Supervision Stair Unsupported Tandem Stance Small Step- 30 seconds Unilateral Leg Stance Lifts Leg/Unable to Hold Total Score Juarez Total Score (out of 56 points) 36 Juarez Impairment Rating 20 to 39% Impaired (Score 34- 44) PT-OP-E Functional Tests Start: 10/04/23 11:38 Freq: Status: Active Protocol: Document 11/02/23 10:30 DCW (Rec: 11/02/23 11:17 DCW [id number]) Functional Tests Dynamic Gait Index (DGI) Score DGI Impairment Rating 40 to <60% Impaired (Score 10- 14) PT-OP-K Range of Motion Start: 10/04/23 11:38 Freq: Status: Active Protocol: Document 10/04/23 10:30 DCW (Rec: 10/04/23 12:03 DCW [id number]) Shoulder Goniometric Range of Motion Shoulder Right Active Shoulder ROM WFL No Testing Position Sitting Flexion 110 Abduction 91 Left Active Shoulder ROM WFL No Testing Position Sitting Flexion 93 Abduction 87 PT-OP-M Strength Start: 10/04/23 11:38 Freq: Status: Active Protocol: Document 10/04/23 10:30 DCW (Rec: 10/04/23 12:03 DCW [id number]) Shoulder Strength Shoulder Manual Muscle Testing Right Flexion 3 Fair Abduction (C5) 3 Fair Left Flexion 3 Fair Abduction (C5) 3 Fair Elbow/Forearm Strength Elbow and Forearm Manual Muscle Testing Right Flexion (C6) 3+ Fair+ Extension (C7) 3- Fair- Left Flexion (C6) 3+ Fair+ Extension (C7) 3- Fair- Hip Strength Hip Manual Muscle Testing Right Flexion (L2) 3+ Fair+ Extension (S1) 3+ Fair+ Abduction 3+ Fair+ Adduction 3+ Fair+ External Rotation 3+ Fair+ Internal Rotation 4 Good Left Flexion (L2) 4- Good- Extension (S1) 4- Good- Abduction 3+ Fair+ Adduction 3+ Fair+ External Rotation 3 Fair Internal Rotation 3 Fair Knee Strength Knee Manual Muscle Testing Right Flexion (S2) 3 Fair Extension (L3) 3+ Fair+ Left Flexion (S2) 3 Fair Extension (L3) 4- Good- Ankle/Foot Strength Ankle and Foot Manual Muscle Testing Right Dorsiflexion (L4) 4 Good Left Dorsiflexion (L4) 4 Good PT-OP-Q Treatments Start: 10/04/23 11:38 Freq: Status: Active Protocol: Document 12/04/23 13:03 AB (Rec: 12/04/23 13:48 AB [id number]) Gym Equipment Shuttle Recovery Unilateral Squats Details int at 37 # unable at 90 deg flex Resistance 25# Reps/Time X20 Bilateral Squats Resistance 62# unable at 90 deg 50 # for X 20 Reps/Time x30 Shuttle Balance red Details stagger stance Comments CGA visual scanning and head turns with stagger stance Therapeutic Exercises Supine Exercises Hamstring Stretch Supine Exercise Name Hamstring stretch Side bilateral Reps/Minutes 60 sec x1 Comments verbal cues Modified Nils stretch Supine Exercise Name knee to chest opp LE off mat Side bilateral Reps/Minutes 1-2 min X 2 each LE Sitting Exercises seated hip abduction with band Side bilateral Resistance level 4 latex free band Reps/Minutes one minute, then X 15 without hold Comments prior to balance exercises Standing Exercises calf stretches on SATURNINO Standing Exercise Name Calf Stretch Side bilateral Equipment Used SATURNINO Reps/Minutes 60 sec X 2 Manual Therapy Treatment Consent Patient gave verbal consent for manual Yes treatment Soft Tissue Mobilization bilateral knees Body Location quads, distal adductors, and HS Mobilization Type Cross-Friction,Strumming, Sustained Pressure Intensity/Depth Moderate Body Position Hooklying Joint Mobilizations Patella Joint B PF Direction Inf<->Sup Grade III Knee Joint B Knee Direction P<->A Grade III PT-OP-T Assessment and Plan Start: 10/04/23 11:38 Freq: Status: Active Protocol: Document 12/04/23 13:03 AB (Rec: 12/04/23 13:48 AB [id number]) Physical Therapy Assessment Goals Three Impairment Pt exhibits significant weakness in B LE MMT, testing between 3/5-4/5 Braille Coder Goal (LTG) Pt to demonstrate improved MMT in bilateral hips, testing 4- /5 or greater in all planes, in order to improve ability to ascend/descend stairs safely LTG Duration 01/02/24 Assessment Summary Assessment Patient rates pain right knee 2/ end of session. Good bry to exercises this session. Weight decreased for leg press likely unable due to set up in increased knee flexion. Physical Therapy Plan Frequency and Duration Frequency of Treatment 2x/Week Plan of Care Start Date 10/04/23 Plan of Care End Date 01/02/24 Next Visit Focus/Plan Next Note Type Treatment Note Next Visit Plan LE/UE strengthening, balance training, stair training
--- NOTE | 2023-12-18 15:09 | PT.OTN ---
Current Diagnoses Type 2 diabetes mellitus with diabetic polyneuropathy (12/18/23) Muscle weakness (generalized) (12/18/23) Unsteadiness on feet (12/18/23) Other abnormalities of gait and mobility (12/18/23) Other symptoms and signs involving the musculoskeletal system (12/18/23) Physical Therapy Treatment Note PT-OP-A Visit Information Start: 10/04/23 11:38 Freq: Status: Active Protocol: Document 12/18/23 12:57 AB (Rec: 12/18/23 15:09 AB [id number]) Out-Patient Physical Therapy Visit Information Visit Information Visit Type Treatment Note Visit Note Access Code [email or web address] Visit Start Time 13:47 Visit Stop Time 14:30 Visit Number 13 Number of DIGITAL CARTOGRAPHER Visits 2 Evaluation Information Evaluation Date 10/04/23 PT-OP-B Current Condition Start: 10/04/23 11:38 Freq: Status: Active Protocol: Document 10/04/23 10:30 DCW (Rec: 10/04/23 12:03 DCW [id number]) Current Condition History of Current Condition Onset Date Two year history Current Complaints Weakness, poor balance, fatigue, difficulty with stairs, two years s/p CVA History of Current Condition Pt is a 58 year old female presenting to skilled therapy with complaints of weakness, gait difficulty, poor balance, poor falls recovery, and severe stair difficulty two years s/p CVA. Pt reports her knees didn't get back the way they were supposed to following her stroke. Additionally, pt suffers from issues with orthostasis, reportedly due to the large number of meds she has been on since her CVA. Reports she ascends stairs with both hands on one rail pulling herself up, and to descend, she scoots down on my butt. Pt also notes pain, immobility, and weakness in her shoulder limit her ability to get herself up off the floor following a fall. Treatment Goals Patient/Caregiver Goals Improve balance, strengthen knees PT-OP-C Subjective Start: 10/04/23 11:38 Freq: Status: Active Protocol: Document 12/18/23 12:57 AB (Rec: 12/18/23 15:09 AB [id number]) OP-PT Subjective Patient Comments Patient Comments Patient reports she is tired, moved/had to change addressess Monday, Monday and Monday. Patient rates LE pain 3-4/10, shoulder pain 5/10 start of session. Patient reports difficultly sleeping in the new place. PT-OP-D Balance Start: 10/04/23 11:38 Freq: Status: Active Protocol: Document 10/04/23 10:30 DCW (Rec: 10/04/23 12:03 DCW [id number]) Balance Tests Juarez Balance Test Juarez Balance Test Score 36/56 Juarez Impairment Rating 20 to 39% Impaired (Score 34- 44) Juarez Balance Assessment Evaluation Sitting to Standing Ability Independent w/Hands Unsupported Stance Supervision- 2 minutes Sitting Unsupported, Feet on Floor Safely- 2 minutes Standing to Sitting Ability Assist, Control w/Hands Transfer Ability Safely, Hand Use Unsupported Stance- Eyes Closed 3 seconds Unsupported Stance- Eyes Open Independent, <30 seconds Reaching Forward Standing Safely, 5 inches Pick- Up Object From Floor Supervision Look Behind Shoulder - Standing Shifts Weight Well Turning 360 Degrees Supervision/Verbal Cues Unsupported Stance, Alternating Feet on 4 Steps w/Supervision Stair Unsupported Tandem Stance Small Step- 30 seconds Unilateral Leg Stance Lifts Leg/Unable to Hold Total Score Juarez Total Score (out of 56 points) 36 Juarez Impairment Rating 20 to 39% Impaired (Score 34- 44) PT-OP-E Functional Tests Start: 10/04/23 11:38 Freq: Status: Active Protocol: Document 11/02/23 10:30 DCW (Rec: 11/02/23 11:17 DCW [id number]) Functional Tests Dynamic Gait Index (DGI) Score 14 DGI Impairment Rating 40 to <60% Impaired (Score 10- 14) PT-OP-K Range of Motion Start: 10/04/23 11:38 Freq: Status: Active Protocol: Document 10/04/23 10:30 DCW (Rec: 10/04/23 12:03 DCW [id number]) Shoulder Goniometric Range of Motion Shoulder Right Active Shoulder ROM WFL No Testing Position Sitting Flexion 110 Abduction 91 Left Active Shoulder ROM WFL No Testing Position Sitting Flexion 93 Abduction 87 PT-OP-M Strength Start: 10/04/23 11:38 Freq: Status: Active Protocol: Document 10/04/23 10:30 DCW (Rec: 10/04/23 12:03 DCW [id number]) Shoulder Strength Shoulder Manual Muscle Testing Right Flexion 3 Fair Abduction (C5) 3 Fair Left Flexion 3 Fair Abduction (C5) 3 Fair Elbow/Forearm Strength Elbow and Forearm Manual Muscle Testing Right Flexion (C6) 3+ Fair+ Extension (C7) 3- Fair- Left Flexion (C6) 3+ Fair+ Extension (C7) 3- Fair- Hip Strength Hip Manual Muscle Testing Right Flexion (L2) 3+ Fair+ Extension (S1) 3+ Fair+ Abduction 3+ Fair+ Adduction 3+ Fair+ External Rotation 3+ Fair+ Internal Rotation 4 Good Left Flexion (L2) 4- Good- Extension (S1) 4- Good- Abduction 3+ Fair+ Adduction 3+ Fair+ External Rotation 3 Fair Internal Rotation 3 Fair Knee Strength Knee Manual Muscle Testing Right Flexion (S2) 3 Fair Extension (L3) 3+ Fair+ Left Flexion (S2) 3 Fair Extension (L3) 4- Good- Ankle/Foot Strength Ankle and Foot Manual Muscle Testing Right Dorsiflexion (L4) 4 Good Left Dorsiflexion (L4) 4 Good PT-OP-Q Treatments Start: 10/04/23 11:38 Freq: Status: Active Protocol: Document 12/18/23 12:57 AB (Rec: 12/18/23 15:09 AB [id number]) Gym Equipment Shuttle Recovery Bilateral Squats Resistance 50# to ~95 flexion Reps/Time X15 X2 Therapeutic Exercises Sidelying Exercises Reverse Clamshell Sidelying Exercise Name HEP Reverse Clamshell Side bilateral Resistance level 2 latex free Equipment Used x15 Comments Verbal cues to keep knee down Clamshell Sidelying Exercise Name HEP Side bilateral Resistance level 2 latex free band Reps/Minutes X15 Comments VC to avoid rolling back Sitting Exercises seated hip abduction with band Side bilateral Resistance level 4 latex free band Reps/Minutes one minute, Comments prior to balance exercises Standing Exercises sit to stand with band Standing Exercise Name without UE use HEP to level 2 band Side bilateral Resistance level 4 latex free band Reps/Minutes X 2 sit to stand then X 15 1/2 to chair Comments reports increased right knee pain and noise( crepitus) with sit to stand fr heel raise Standing Exercise Name Heel Raise Side bilateral Reps/Minutes x15 Comments VC to lower heels to floor slowly Manual Therapy Treatment Soft Tissue Mobilization bilateral knees Body Location quads, distal adductors, and HS Mobilization Type Cross-Friction,Strumming, Sustained Pressure Intensity/Depth Moderate Body Position Hooklying PT-OP-T Assessment and Plan Start: 10/04/23 11:38 Freq: Status: Active Protocol: Document 12/18/23 12:57 AB (Rec: 12/18/23 15:09 AB [id number]) Physical Therapy Assessment Goals Three Impairment Pt exhibits significant weakness in B LE MMT, testing between 3/5-4/5 Shelter Goal (LTG) Pt to demonstrate improved MMT in bilateral hips, testing 4- /5 or greater in all planes, in order to improve ability to ascend/descend stairs safely LTG Duration 01/02/24 Two Impairment Pt presents with increased falls risk, per Juarez (36) and DGI (10/30) Shaker Flatwork Goal (LTG) Pt to improve DGI score by at least six points to in order to demonstrate decreasing falls risk. 11/02/23: Improving () LTG Duration 01/02/24 One Impairment Pt does not have an appropriate home exercise program Short Term Goal (STG) Pt to be independent and compliant with an appropriate HEP STG Duration 11/04/23 Assessment Summary Assessment Patient reports having no pain end of session, just tired. Patient issued copy of HEP with instructions to squat 1/2 to chair due to reports of pain with sit to and from stand, and bands due to patient reporting unable to find bands or written HEP due to move. Physical Therapy Plan Frequency and Duration Frequency of Treatment 2x/Week Plan of Care Start Date 10/04/23 Plan of Care End Date 01/02/24 Next Visit Focus/Plan Next Note Type Treatment Note Next Visit Plan LE/UE strengthening, balance training, stair training
--- NOTE | 2023-12-26 14:28 | PT.OTN ---
Current Diagnoses Type 2 diabetes mellitus with diabetic polyneuropathy (12/26/23) Muscle weakness (generalized) (12/26/23) Unsteadiness on feet (12/26/23) Other abnormalities of gait and mobility (12/26/23) Other symptoms and signs involving the musculoskeletal system (12/26/23) Physical Therapy Treatment Note PT-OP-A Visit Information Start: 10/04/23 11:38 Freq: Status: Active Protocol: Document 12/26/23 13:45 DCW (Rec: 12/26/23 14:28 DCW [id number]) Out-Patient Physical Therapy Visit Information Visit Information Visit Type Treatment Note Visit Start Time 13:45 Visit Stop Time 14:30 Visit Number 14 Number of YIELD LOSS INSPECTOR Visits 0 Evaluation Information Evaluation Date 10/04/23 PT-OP-B Current Condition Start: 10/04/23 11:38 Freq: Status: Active Protocol: Document 10/04/23 10:30 DCW (Rec: 10/04/23 12:03 DCW [id number]) Current Condition History of Current Condition Onset Date Two year history Current Complaints Weakness, poor balance, fatigue, difficulty with stairs, two years s/p CVA History of Current Condition Pt is a 58 year old female presenting to skilled therapy with complaints of weakness, gait difficulty, poor balance, poor falls recovery, and severe stair difficulty two years s/p CVA. Pt reports her knees didn't get back the way they were supposed to following her stroke. Additionally, pt suffers from issues with orthostasis, reportedly due to the large number of meds she has been on since her CVA. Reports she ascends stairs with both hands on one rail pulling herself up, and to descend, she scoots down on my butt. Pt also notes pain, immobility, and weakness in her shoulder limit her ability to get herself up off the floor following a fall. Treatment Goals Patient/Caregiver Goals Improve balance, strengthen knees PT-OP-C Subjective Start: 10/04/23 11:38 Freq: Status: Active Protocol: Document 12/26/23 13:45 DCW (Rec: 12/26/23 14:28 DCW [id number]) OP-PT Subjective Patient Comments Patient Comments Pt reports she spent a long time with her PCP yesterday due to various symptoms, including dry skin, losing her hair, chills. PCP worried about walking pneumonia, so PCP ordered labs and a chest x -rays, but pt has not received results yet. Admits she is very tired today. PT-OP-D Balance Start: 10/04/23 11:38 Freq: Status: Active Protocol: Document 10/04/23 10:30 DCW (Rec: 10/04/23 12:03 DCW [id number]) Balance Tests Juarez Balance Test Juarez Balance Test Score 36/56 Juarez Impairment Rating 20 to 39% Impaired (Score 34- 44) Juarez Balance Assessment Evaluation Sitting to Standing Ability Independent w/Hands Unsupported Stance Supervision- 2 minutes Sitting Unsupported, Feet on Floor Safely- 2 minutes Standing to Sitting Ability Assist, Control w/Hands Transfer Ability Safely, Hand Use Unsupported Stance- Eyes Closed 3 seconds Unsupported Stance- Eyes Open Independent, <30 seconds Reaching Forward Standing Safely, 5 inches Pick- Up Object From Floor Supervision Look Behind Shoulder - Standing Shifts Weight Well Turning 360 Degrees Supervision/Verbal Cues Unsupported Stance, Alternating Feet on 4 Steps w/Supervision Stair Unsupported Tandem Stance Small Step- 30 seconds Unilateral Leg Stance Lifts Leg/Unable to Hold Total Score Juarez Total Score (out of 56 points) 36 Juarez Impairment Rating 20 to 39% Impaired (Score 34- 44) PT-OP-E Functional Tests Start: 10/04/23 11:38 Freq: Status: Active Protocol: Document 11/02/23 10:30 DCW (Rec: 11/02/23 11:17 DCW [id number]) Functional Tests Dynamic Gait Index (DGI) Score 14 DGI Impairment Rating 40 to <60% Impaired (Score 10- 14) PT-OP-K Range of Motion Start: 10/04/23 11:38 Freq: Status: Active Protocol: Document 10/04/23 10:30 DCW (Rec: 10/04/23 12:03 DCW [id number]) Shoulder Goniometric Range of Motion Shoulder Right Active Shoulder ROM WFL No Testing Position Sitting Flexion 110 Abduction 91 Left Active Shoulder ROM WFL No Testing Position Sitting Flexion 93 Abduction 87 PT-OP-M Strength Start: 10/04/23 11:38 Freq: Status: Active Protocol: Document 10/04/23 10:30 DCW (Rec: 10/04/23 12:03 DCW [id number]) Shoulder Strength Shoulder Manual Muscle Testing Right Flexion 3 Fair Abduction (C5) 3 Fair Left Flexion 3 Fair Abduction (C5) 3 Fair Elbow/Forearm Strength Elbow and Forearm Manual Muscle Testing Right Flexion (C6) 3+ Fair+ Extension (C7) 3- Fair- Left Flexion (C6) 3+ Fair+ Extension (C7) 3- Fair- Hip Strength Hip Manual Muscle Testing Right Flexion (L2) 3+ Fair+ Extension (S1) 3+ Fair+ Abduction 3+ Fair+ Adduction 3+ Fair+ External Rotation 3+ Fair+ Internal Rotation 4 Good Left Flexion (L2) 4- Good- Extension (S1) 4- Good- Abduction 3+ Fair+ Adduction 3+ Fair+ External Rotation 3 Fair Internal Rotation 3 Fair Knee Strength Knee Manual Muscle Testing Right Flexion (S2) 3 Fair Extension (L3) 3+ Fair+ Left Flexion (S2) 3 Fair Extension (L3) 4- Good- Ankle/Foot Strength Ankle and Foot Manual Muscle Testing Right Dorsiflexion (L4) 4 Good Left Dorsiflexion (L4) 4 Good PT-OP-Q Treatments Start: 10/04/23 11:38 Freq: Status: Active Protocol: Document 12/26/23 13:45 DCW (Rec: 12/26/23 14:28 [facility] [id number]) Gym Equipment Shuttle Balance red Details NBOS, EO/EC Therapeutic Exercises Supine Exercises Bridging Supine Exercise Name Bridging Comments VCs to slow descent SLR Supine Exercise Name SLR Side bilateral Resistance 5# Reps/Minutes x10 each LE ITB Stretch Supine Exercise Name ITB stretch Side bilateral Hamstring Stretch Supine Exercise Name Hamstring stretch Side bilateral Reps/Minutes 60 sec x1 Comments verbal cues Sidelying Exercises Hip Abduction Sidelying Exercise Name Hip Abduction Side bilateral Resistance Therapist resisted Reps/Minutes x15 Reverse Clamshell Sidelying Exercise Name Reverse Clamshell Side bilateral Resistance Therapist resisted Equipment Used x15 Clamshell Sidelying Exercise Name Clamshell Side bilateral Resistance Therapist resisted Reps/Minutes X15 Manual Therapy Treatment Consent Patient gave verbal consent for manual Yes treatment Soft Tissue Mobilization bilateral knees Body Location quads, distal adductors, and HS Mobilization Type Cross-Friction,Strumming, Sustained Pressure Intensity/Depth Moderate Body Position Hooklying PT-OP-T Assessment and Plan Start: 10/04/23 11:38 Freq: Status: Active Protocol: Document 12/26/23 13:45 DCW (Rec: 12/26/23 14:28 DCW [id number]) Physical Therapy Assessment Impairments Impairments Activity Tolerance,Balance, Functional Activities, Functional Mobility,Gait,Pain, ROM,Soft Tissue Mobility, Strength,Transfers Goals Three Impairment Pt exhibits significant weakness in B LE MMT, testing between 3/5-4/5 Director Of People Goal (LTG) Pt to demonstrate improved MMT in bilateral hips, testing 4- /5 or greater in all planes, in order to improve ability to ascend/descend stairs safely LTG Duration 01/02/24 Two Impairment Pt presents with increased falls risk, per Juarez (36/) and DGI (10/30) Senior Care Goal (LTG) Pt to improve DGI score by at least six points to in order to demonstrate decreasing falls risk. 11/02/23: Improving () LTG Duration 01/02/24 One Impairment Pt does not have an appropriate home exercise program Short Term Goal (STG) Pt to be independent and compliant with an appropriate HEP STG Duration 11/04/23 Assessment Summary Assessment Pt admits that as far as her legs go, she is feeling better , notes she is stronger, and really does want to push it as hard as she can, despite recent increase in unrelated symptoms. Fatigued through session, but worked hard on given activities. Showing some good improvement with LE strength and balance. Physical Therapy Plan Frequency and Duration Frequency of Treatment 2x/Week Plan of Care Start Date 10/04/23 Plan of Care End Date 01/02/24 Therapeutic Interventions Therapeutic Interventions Balance Training,Coordination Training,Gait Training,Home Exercise Program,Joint Mobilizations,Manual Therapy, Neuromuscular Re-education, Patient/Caregiver Education, Self-Care/Home Management,Soft Tissue Mobilization, Therapeutic Activities, Therapeutic Exercises Modalities Cold Pack/Ice Massage,Electric Stimulation,Hot Packs, Ultrasound Next Visit Focus/Plan Next Note Type Treatment Note Next Visit Plan LE/UE strengthening, balance training, stair training
--- NOTE | 2023-12-29 12:59 | PT.OTN ---
Current Diagnoses Type 2 diabetes mellitus with diabetic polyneuropathy (12/29/23) Muscle weakness (generalized) (12/29/23) Unsteadiness on feet (12/29/23) Other abnormalities of gait and mobility (12/29/23) Other symptoms and signs involving the musculoskeletal system (12/29/23) Physical Therapy Treatment Note PT-OP-A Visit Information Start: 10/04/23 11:38 Freq: Status: Active Protocol: Document 12/29/23 12:15 DCW (Rec: 12/29/23 12:58 DCW [id number]) Out-Patient Physical Therapy Visit Information Visit Information Visit Type Treatment Note Visit Start Time 12:15 Visit Stop Time 13:00 Visit Number 15 Number of LOBSTERMAN Visits 0 Evaluation Information Evaluation Date 10/04/23 PT-OP-B Current Condition Start: 10/04/23 11:38 Freq: Status: Active Protocol: Document 10/04/23 10:30 DCW (Rec: 10/04/23 12:03 DCW [id number]) Current Condition History of Current Condition Onset Date Two year history Current Complaints Weakness, poor balance, fatigue, difficulty with stairs, two years s/p CVA History of Current Condition Pt is a 58 year old female presenting to skilled therapy with complaints of weakness, gait difficulty, poor balance, poor falls recovery, and severe stair difficulty two years s/p CVA. Pt reports her knees didn't get back the way they were supposed to following her stroke. Additionally, pt suffers from issues with orthostasis, reportedly due to the large number of meds she has been on since her CVA. Reports she ascends stairs with both hands on one rail pulling herself up, and to descend, she scoots down on my butt. Pt also notes pain, immobility, and weakness in her shoulder limit her ability to get herself up off the floor following a fall. Treatment Goals Patient/Caregiver Goals Improve balance, strengthen knees PT-OP-C Subjective Start: 10/04/23 11:38 Freq: Status: Active Protocol: Document 12/29/23 12:15 DCW (Rec: 12/29/23 12:58 DCW [id number]) OP-PT Subjective Patient Comments Patient Comments Pt still feeling very fatigued . Notes she has not heard anything regarding her testing from last week. PT-OP-D Balance Start: 10/04/23 11:38 Freq: Status: Active Protocol: Document 10/04/23 10:30 DCW (Rec: 10/04/23 12:03 DCW [id number]) Balance Tests Juarez Balance Test Juarez Balance Test Score 36/56 Juarez Impairment Rating 20 to 39% Impaired (Score 34- 44) Juarez Balance Assessment Evaluation Sitting to Standing Ability Independent w/Hands Unsupported Stance Supervision- 2 minutes Sitting Unsupported, Feet on Floor Safely- 2 minutes Standing to Sitting Ability Assist, Control w/Hands Transfer Ability Safely, Hand Use Unsupported Stance- Eyes Closed 3 seconds Unsupported Stance- Eyes Open Independent, <30 seconds Reaching Forward Standing Safely, 5 inches Pick- Up Object From Floor Supervision Look Behind Shoulder - Standing Shifts Weight Well Turning 360 Degrees Supervision/Verbal Cues Unsupported Stance, Alternating Feet on 4 Steps w/Supervision Stair Unsupported Tandem Stance Small Step- 30 seconds Unilateral Leg Stance Lifts Leg/Unable to Hold Total Score Juarez Total Score (out of 56 points) 36 Juarez Impairment Rating 20 to 39% Impaired (Score 34- 44) PT-OP-E Functional Tests Start: 10/04/23 11:38 Freq: Status: Active Protocol: Document 11/02/23 10:30 DCW (Rec: 11/02/23 11:17 DCW [id number]) Functional Tests Dynamic Gait Index (DGI) Score 1424 DGI Impairment Rating 40 to <60% Impaired (Score 10- 14) PT-OP-K Range of Motion Start: 10/04/23 11:38 Freq: Status: Active Protocol: Document 10/04/23 10:30 DCW (Rec: 10/04/23 12:03 DCW [id number]) Shoulder Goniometric Range of Motion Shoulder Right Active Shoulder ROM WFL No Testing Position Sitting Flexion 110 Abduction 91 Left Active Shoulder ROM WFL No Testing Position Sitting Flexion 93 Abduction 87 PT-OP-M Strength Start: 10/04/23 11:38 Freq: Status: Active Protocol: Document 10/04/23 10:30 DCW (Rec: 10/04/23 12:03 DCW [id number]) Shoulder Strength Shoulder Manual Muscle Testing Right Flexion 3 Fair Abduction (C5) 3 Fair Left Flexion 3 Fair Abduction (C5) 3 Fair Elbow/Forearm Strength Elbow and Forearm Manual Muscle Testing Right Flexion (C6) 3+ Fair+ Extension (C7) 3- Fair- Left Flexion (C6) 3+ Fair+ Extension (C7) 3- Fair- Hip Strength Hip Manual Muscle Testing Right Flexion (L2) 3+ Fair+ Extension (S1) 3+ Fair+ Abduction 3+ Fair+ Adduction 3+ Fair+ External Rotation 3+ Fair+ Internal Rotation 4 Good Left Flexion (L2) 4- Good- Extension (S1) 4- Good- Abduction 3+ Fair+ Adduction 3+ Fair+ External Rotation 3 Fair Internal Rotation 3 Fair Knee Strength Knee Manual Muscle Testing Right Flexion (S2) 3 Fair Extension (L3) 3+ Fair+ Left Flexion (S2) 3 Fair Extension (L3) 4- Good- Ankle/Foot Strength Ankle and Foot Manual Muscle Testing Right Dorsiflexion (L4) 4 Good Left Dorsiflexion (L4) 4 Good PT-OP-Q Treatments Start: 10/04/23 11:38 Freq: Status: Active Protocol: Document 12/29/23 12:15 DCW (Rec: 12/29/23 12:58 DCW [id number]) Gym Equipment Shuttle Recovery Unilateral Squats Resistance 25# Reps/Time X20 Bilateral Squats Resistance 50# Reps/Time X15 X2 Therapeutic Exercises Supine Exercises ITB Stretch Supine Exercise Name ITB stretch Side bilateral Hamstring Stretch Supine Exercise Name Hamstring stretch Side bilateral Reps/Minutes 60 sec x1 Comments verbal cues Standing Exercises Hip Extension Standing Exercise Name Hip Extension Side bilateral Resistance Blue loop Other Exercises BOSU Lunge Other Exercise Name BOSU Lunge Side bilateral Resisted Ambulation Other Exercise Name Resisted Side-stepping Resistance Blue loop Manual Therapy Treatment Consent Patient gave verbal consent for manual Yes treatment Soft Tissue Mobilization bilateral knees Body Location quads, distal adductors, and HS Mobilization Type Cross-Friction,Strumming, Sustained Pressure Intensity/Depth Moderate Body Position Hooklying Joint Mobilizations Patella Joint B PF Direction Inf<->Sup Grade III Knee Joint B Knee Direction P<->A Grade III PT-OP-T Assessment and Plan Start: 10/04/23 11:38 Freq: Status: Active Protocol: Document 12/29/23 12:15 DCW (Rec: 12/29/23 12:58 DCW [id number]) Physical Therapy Assessment Impairments Impairments Activity Tolerance,Balance, Functional Activities, Functional Mobility,Gait,Pain, ROM,Soft Tissue Mobility, Strength,Transfers Goals Three Impairment Pt exhibits significant weakness in B LE MMT, testing between 3/5-4/5 Copy Preparer Goal (LTG) Pt to demonstrate improved MMT in bilateral hips, testing 4- /5 or greater in all planes, in order to improve ability to ascend/descend stairs safely LTG Duration 01/02/24 Two Impairment Pt presents with increased falls risk, per Juarez (36/) and DGI (10/30) Copy Preparer Goal (LTG) Pt to improve DGI score by at least six points to in order to demonstrate decreasing falls risk. 11/02/23: Improving () LTG Duration 01/02/24 One Impairment Pt does not have an appropriate home exercise program Short Term Goal (STG) Pt to be independent and compliant with an appropriate HEP STG Duration 11/04/23 Assessment Summary Assessment Pt very fatigued with activity today, required rest breaks, but wanted to continue as able . Some increased tone in left proximal calf today, tolerated STM well. Physical Therapy Plan Frequency and Duration Frequency of Treatment 2x/Week Plan of Care Start Date 10/04/23 Plan of Care End Date 01/02/24 Therapeutic Interventions Therapeutic Interventions Balance Training,Coordination Training,Gait Training,Home Exercise Program,Joint Mobilizations,Manual Therapy, Neuromuscular Re-education, Patient/Caregiver Education, Self-Care/Home Management,Soft Tissue Mobilization, Therapeutic Activities, Therapeutic Exercises Modalities Cold Pack/Ice Massage,Electric Stimulation,Hot Packs, Ultrasound Next Visit Focus/Plan Next Note Type Treatment Note Next Visit Plan LE/UE strengthening, balance training, stair training
--- NOTE | 2024-01-01 12:16 | PT.OTN ---
Current Diagnoses Type 2 diabetes mellitus with diabetic polyneuropathy (01/01/24) Muscle weakness (generalized) (01/01/24) Unsteadiness on feet (01/01/24) Other abnormalities of gait and mobility (01/01/24) Other symptoms and signs involving the musculoskeletal system (01/01/24) Physical Therapy Treatment Note PT-OP-A Visit Information Start: 10/04/23 11:38 Freq: Status: Active Protocol: Document 01/01/24 11:30 DCW (Rec: 01/01/24 12:16 DCW [id number]) Out-Patient Physical Therapy Visit Information Visit Information Visit Type Treatment Note Visit Start Time 11:30 Visit Stop Time 12:15 Visit Number 16 Number of CHEMICAL PACKAGER Visits 0 Evaluation Information Evaluation Date 10/04/23 PT-OP-B Current Condition Start: 10/04/23 11:38 Freq: Status: Active Protocol: Document 10/04/23 10:30 DCW (Rec: 10/04/23 12:03 DCW [id number]) Current Condition History of Current Condition Onset Date Two year history Current Complaints Weakness, poor balance, fatigue, difficulty with stairs, two years s/p CVA History of Current Condition Pt is a 58 year old female presenting to skilled therapy with complaints of weakness, gait difficulty, poor balance, poor falls recovery, and severe stair difficulty two years s/p CVA. Pt reports her knees didn't get back the way they were supposed to following her stroke. Additionally, pt suffers from issues with orthostasis, reportedly due to the large number of meds she has been on since her CVA. Reports she ascends stairs with both hands on one rail pulling herself up, and to descend, she scoots down on my butt. Pt also notes pain, immobility, and weakness in her shoulder limit her ability to get herself up off the floor following a fall. Treatment Goals Patient/Caregiver Goals Improve balance, strengthen knees PT-OP-C Subjective Start: 10/04/23 11:38 Freq: Status: Active Protocol: Document 01/01/24 11:30 DCW (Rec: 01/01/24 12:16 DCW [id number]) OP-PT Subjective Patient Comments Patient Comments Pt had a cardio appointment already this morning, so is pretty tired. Notes her legs are sore, but her quads feel tight and tired. PT-OP-D Balance Start: 10/04/23 11:38 Freq: Status: Active Protocol: Document 10/04/23 10:30 DCW (Rec: 10/04/23 12:03 DCW [id number]) Balance Tests Juarez Balance Test Juarez Balance Test Score 36/56 Juarez Impairment Rating 20 to 39% Impaired (Score 34- 44) Juarez Balance Assessment Evaluation Sitting to Standing Ability Independent w/Hands Unsupported Stance Supervision- 2 minutes Sitting Unsupported, Feet on Floor Safely- 2 minutes Standing to Sitting Ability Assist, Control w/Hands Transfer Ability Safely, Hand Use Unsupported Stance- Eyes Closed 3 seconds Unsupported Stance- Eyes Open Independent, <30 seconds Reaching Forward Standing Safely, 5 inches Pick- Up Object From Floor Supervision Look Behind Shoulder - Standing Shifts Weight Well Turning 360 Degrees Supervision/Verbal Cues Unsupported Stance, Alternating Feet on 4 Steps w/Supervision Stair Unsupported Tandem Stance Small Step- 30 seconds Unilateral Leg Stance Lifts Leg/Unable to Hold Total Score Juarez Total Score (out of 56 points) 36 Juarez Impairment Rating 20 to 39% Impaired (Score 34- 44) PT-OP-E Functional Tests Start: 10/04/23 11:38 Freq: Status: Active Protocol: Document 11/02/23 10:30 DCW (Rec: 11/02/23 11:17 DCW [id number]) Functional Tests Dynamic Gait Index (DGI) Score 14 DGI Impairment Rating 40 to <60% Impaired (Score 10- 14) PT-OP-K Range of Motion Start: 10/04/23 11:38 Freq: Status: Active Protocol: Document 10/04/23 10:30 DCW (Rec: 10/04/23 12:03 DCW [id number]) Shoulder Goniometric Range of Motion Shoulder Right Active Shoulder ROM WFL No Testing Position Sitting Flexion 110 Abduction 91 Left Active Shoulder ROM WFL No Testing Position Sitting Flexion 93 Abduction 87 PT-OP-M Strength Start: 10/04/23 11:38 Freq: Status: Active Protocol: Document 10/04/23 10:30 DCW (Rec: 10/04/23 12:03 DCW [id number]) Shoulder Strength Shoulder Manual Muscle Testing Right Flexion 3 Fair Abduction (C5) 3 Fair Left Flexion 3 Fair Abduction (C5) 3 Fair Elbow/Forearm Strength Elbow and Forearm Manual Muscle Testing Right Flexion (C6) 3+ Fair+ Extension (C7) 3- Fair- Left Flexion (C6) 3+ Fair+ Extension (C7) 3- Fair- Hip Strength Hip Manual Muscle Testing Right Flexion (L2) 3+ Fair+ Extension (S1) 3+ Fair+ Abduction 3+ Fair+ Adduction 3+ Fair+ External Rotation 3+ Fair+ Internal Rotation 4 Good Left Flexion (L2) 4- Good- Extension (S1) 4- Good- Abduction 3+ Fair+ Adduction 3+ Fair+ External Rotation 3 Fair Internal Rotation 3 Fair Knee Strength Knee Manual Muscle Testing Right Flexion (S2) 3 Fair Extension (L3) 3+ Fair+ Left Flexion (S2) 3 Fair Extension (L3) 4- Good- Ankle/Foot Strength Ankle and Foot Manual Muscle Testing Right Dorsiflexion (L4) 4 Good Left Dorsiflexion (L4) 4 Good PT-OP-Q Treatments Start: 10/04/23 11:38 Freq: Status: Active Protocol: Document 01/01/24 11:30 DCW (Rec: 01/01/24 12:16 DCW [id number]) Gym Equipment Shuttle Recovery Unilateral Squats Resistance 25# Reps/Time X20 Bilateral Squats Resistance 62# Reps/Time X15 X2 Shuttle Balance red Details NBOS, EO/EC Therapeutic Ball LTR Exercise Details LTR Ball Size/Color Blue - 45 cm Body Position Supine Comments VCs - core bracing for stabilization Therapeutic Exercises Supine Exercises ITB Stretch Supine Exercise Name ITB stretch Side bilateral Hamstring Stretch Supine Exercise Name Hamstring stretch Side bilateral Reps/Minutes 60 sec x1 Comments verbal cues Other Exercises Resisted Ambulation Other Exercise Name Resisted Side-stepping Resistance Blue loop Manual Therapy Treatment Consent Patient gave verbal consent for manual Yes treatment Soft Tissue Mobilization bilateral knees Body Location quads, distal adductors, and HS Mobilization Type Cross-Friction,Strumming, Sustained Pressure Intensity/Depth Moderate Body Position Hooklying Joint Mobilizations Patella Joint B PF Direction Inf<->Sup Grade III Knee Joint B Knee Direction P<->A Grade III PT-OP-T Assessment and Plan Start: 10/04/23 11:38 Freq: Status: Active Protocol: Document 01/01/24 11:30 DCW (Rec: 01/01/24 12:16 DCW [id number]) Physical Therapy Assessment Impairments Impairments Activity Tolerance,Balance, Functional Activities, Functional Mobility,Gait,Pain, ROM,Soft Tissue Mobility, Strength,Transfers Goals Three Impairment Pt exhibits significant weakness in B LE MMT, testing between 3/5-4/5 Senior Living Goal (LTG) Pt to demonstrate improved MMT in bilateral hips, testing 4- /5 or greater in all planes, in order to improve ability to ascend/descend stairs safely LTG Duration 01/02/24 Two Impairment Pt presents with increased falls risk, per Juarez (36/) and DGI (10/30) Senior Living Goal (LTG) Pt to improve DGI score by at least six points to in order to demonstrate decreasing falls risk. 11/02/23: Improving () LTG Duration 01/02/24 One Impairment Pt does not have an appropriate home exercise program Short Term Goal (STG) Pt to be independent and compliant with an appropriate HEP STG Duration 11/04/23 Assessment Summary Assessment Pt continues to exhibit increased fatigue and LE soreness, but actually tolerating activity better today. Continue to work on balance, LE strength, muscle tone, and activity tolerance Physical Therapy Plan Frequency and Duration Frequency of Treatment 2x/Week Plan of Care Start Date 10/04/23 Plan of Care End Date 01/02/24 Therapeutic Interventions Therapeutic Interventions Balance Training,Coordination Training,Gait Training,Home Exercise Program,Joint Mobilizations,Manual Therapy, Neuromuscular Re-education, Patient/Caregiver Education, Self-Care/Home Management,Soft Tissue Mobilization, Therapeutic Activities, Therapeutic Exercises Modalities Cold Pack/Ice Massage,Electric Stimulation,Hot Packs, Ultrasound Next Visit Focus/Plan Next Note Type Treatment Note Next Visit Plan LE/UE strengthening, balance training, stair training
--- NOTE | 2024-01-08 16:47 | PT.OTN ---
Current Diagnoses Type 2 diabetes mellitus with diabetic polyneuropathy (01/08/24) Muscle weakness (generalized) (01/08/24) Unsteadiness on feet (01/08/24) Other abnormalities of gait and mobility (01/08/24) Other symptoms and signs involving the musculoskeletal system (01/08/24) Physical Therapy Treatment Note PT-OP-A Visit Information Start: 10/04/23 11:38 Freq: Status: Active Protocol: Document 01/08/24 16:00 DCW (Rec: 01/08/24 16:09 DCW [id number]) Out-Patient Physical Therapy Visit Information Visit Information Visit Type Progress Note Visit Start Time 16:00 Visit Stop Time 16:45 Visit Number 17 Number of DIRECTOR TELEVISION NEWS Visits 0 Evaluation Information Evaluation Date 10/04/23 PT-OP-B Current Condition Start: 10/04/23 11:38 Freq: Status: Active Protocol: Document 10/04/23 10:30 DCW (Rec: 10/04/23 12:03 DCW [id number]) Current Condition History of Current Condition Onset Date Two year history Current Complaints Weakness, poor balance, fatigue, difficulty with stairs, two years s/p CVA History of Current Condition Pt is a 58 year old female presenting to skilled therapy with complaints of weakness, gait difficulty, poor balance, poor falls recovery, and severe stair difficulty two years s/p CVA. Pt reports her knees didn't get back the way they were supposed to following her stroke. Additionally, pt suffers from issues with orthostasis, reportedly due to the large number of meds she has been on since her CVA. Reports she ascends stairs with both hands on one rail pulling herself up, and to descend, she scoots down on my butt. Pt also notes pain, immobility, and weakness in her shoulder limit her ability to get herself up off the floor following a fall. Treatment Goals Patient/Caregiver Goals Improve balance, strengthen knees PT-OP-C Subjective Start: 10/04/23 11:38 Freq: Status: Active Protocol: Document 01/08/24 16:00 DCW (Rec: 01/08/24 16:09 DCW [id number]) OP-PT Subjective Patient Comments Patient Comments Pt notes hand pain today for unknown reasons. PT-OP-D Balance Start: 10/04/23 11:38 Freq: Status: Active Protocol: Document 01/08/24 16:00 DCW (Rec: 01/08/24 16:29 DCW [id number]) Balance Tests Juarez Balance Test Juarez Balance Test Score 49/56 Juarez Impairment Rating 1 to 19% Impaired (Score 45-55 ) Juarez Balance Assessment Evaluation Sitting to Standing Ability Independent w/out Hands Unsupported Stance Safely- 2 minutes Sitting Unsupported, Feet on Floor Safely- 2 minutes Standing to Sitting Ability Safely, Minimal Hand Use Transfer Ability Safely, Minimal Hand Use Unsupported Stance- Eyes Closed Supervision, 10 seconds Unsupported Stance- Eyes Open Independent, 1 minute Reaching Forward Standing Safely, 5 inches Pick- Up Object From Floor Independent/Safe Look Behind Shoulder - Standing Shifts Weight Well Turning 360 Degrees Turns slowly, but safely Unsupported Stance, Alternating Feet on (I)- 8 Steps in 20 secs Stair Unsupported Tandem Stance Holds Tandem- 30 seconds Unilateral Leg Stance Lifts Leg/Holds > 3 secs Total Score Juarez Total Score (out of 56 points) 49 Juarez Impairment Rating 1 to 19% Impaired (Score 45-55 ) PT-OP-E Functional Tests Start: 10/04/23 11:38 Freq: Status: Active Protocol: Document 01/08/24 16:00 DCW (Rec: 01/08/24 16:29 [facility] [id number]) Functional Tests Dynamic Gait Index (DGI) Score 20/24 DGI Impairment Rating 1 to <20% Impaired (Score 20- 23) PT-OP-K Range of Motion Start: 10/04/23 11:38 Freq: Status: Active Protocol: Document 10/04/23 10:30 DCW (Rec: 10/04/23 12:03 DCW [id number]) Shoulder Goniometric Range of Motion Shoulder Right Active Shoulder ROM WFL No Testing Position Sitting Flexion 110 Abduction 91 Left Active Shoulder ROM WFL No Testing Position Sitting Flexion 93 Abduction 87 PT-OP-M Strength Start: 10/04/23 11:38 Freq: Status: Active Protocol: Document 01/08/24 16:00 DCW (Rec: 01/08/24 16:29 DCW [id number]) Hip Strength Hip Manual Muscle Testing Right Flexion (L2) 4- Good- Extension (S1) 4+ Good+ Abduction 4- Good- Adduction 4 Good External Rotation 4 Good Internal Rotation 4 Good Left Flexion (L2) 4 Good Extension (S1) 4+ Good+ Abduction 4- Good- Adduction 4 Good External Rotation 4 Good Internal Rotation 4 Good Knee Strength Knee Manual Muscle Testing Right Flexion (S2) 4 Good Extension (L3) 4 Good Left Flexion (S2) 4 Good Extension (L3) 4 Good PT-OP-Q Treatments Start: 10/04/23 11:38 Freq: Status: Active Protocol: Document 01/08/24 16:00 DCW (Rec: 01/08/24 16:09 DCW [id number]) Gym Equipment Shuttle Recovery Unilateral Squats Resistance 25# Reps/Time X20 Bilateral Squats Resistance 62# Reps/Time X15 X2 PT-OP-T Assessment and Plan Start: 10/04/23 11:38 Freq: Status: Active Protocol: Document 01/08/24 16:00 DCW (Rec: 01/08/24 16:37 DCW [id number]) Physical Therapy Assessment Impairments Impairments Activity Tolerance,Balance, Functional Activities, Functional Mobility,Gait,Pain, ROM,Soft Tissue Mobility, Strength,Transfers Goals Three Impairment Pt exhibits significant weakness in B LE MMT, testing between 3/5-4/5 Intermediate Goal (LTG) Pt to demonstrate improved MMT in bilateral hips, testing 4- /5 or greater in all planes, in order to improve ability to ascend/descend stairs safely LTG Duration Met Two Impairment Pt presents with increased falls risk, per Juarez (36/56) and DGI (10/30) Intermediate Goal (LTG) Pt to improve DGI score by at least six points to in order to demonstrate decreasing falls risk. 11/02/23: Improving () LTG Duration Met One Impairment Pt does not have an appropriate home exercise program Short Term Goal (STG) Pt to be independent and compliant with an appropriate HEP STG Duration 02/06/24 Assessment Summary Assessment Pt notes feeling much better overall. Other than recent hand pain, not complaining of much ongoing difficulty. Still struggles with [id number] when descending stairs. DGI score improved from 10/30 at eval to . Additionally, Juarez score improved from 36/56 to 49/56, pt no longer testing as an increased falls risk. Will likely benefit from additional 3-4 appointments in order to focus on stair and uneven surface management, as well as refining HEP. Physical Therapy Plan Frequency and Duration Frequency of Treatment 2x/Week Plan of Care Start Date 01/08/24 Plan of Care End Date 02/06/24 Therapeutic Interventions Therapeutic Interventions Balance Training,Coordination Training,Gait Training,Home Exercise Program,Joint Mobilizations,Manual Therapy, Neuromuscular Re-education, Patient/Caregiver Education, Self-Care/Home Management,Soft Tissue Mobilization, Therapeutic Activities, Therapeutic Exercises Modalities Cold Pack/Ice Massage,Electric Stimulation,Hot Packs, Ultrasound Next Visit Focus/Plan Next Note Type Treatment Note Next Visit Plan LE/UE strengthening, balance training, stair training
--- NOTE | 2024-01-08 16:47 | PT.OPPOC ---
Physical, Occupational & Speech Therapy At [facility] Current Diagnoses Type 2 diabetes mellitus with diabetic polyneuropathy (01/08/24) Muscle weakness (generalized) (01/08/24) Unsteadiness on feet (01/08/24) Other abnormalities of gait and mobility (01/08/24) Other symptoms and signs involving the musculoskeletal system (01/08/24) Visit Care Team Role Provider Type Kacy Anderson MD Family Provider Non-Staff Primary Care Provider Specialty: Family Practice Address: [address] [place] [address], [id number] Email: Beth Santos MD Attending Provider Non-Staff Referring Provider Specialty: Neurology [facility] [address] [place], [address] Fax: Email: Plan Of Care PT-OP-B Current Condition Start: 10/04/23 11:38 Freq: Status: Active Protocol: Document 10/04/23 10:30 DCW (Rec: 10/04/23 12:03 DCW [id number]) Current Condition History of Current Condition Onset Date Two year history Current Complaints Weakness, poor balance, fatigue, difficulty with stairs, two years s/p CVA History of Current Condition Pt is a 58 year old female presenting to skilled therapy with complaints of weakness, gait difficulty, poor balance, poor falls recovery, and severe stair difficulty two years s/p CVA. Pt reports her knees didn't get back the way they were supposed to following her stroke. Additionally, pt suffers from issues with orthostasis, reportedly due to the large number of meds she has been on since her CVA. Reports she ascends stairs with both hands on one rail pulling herself up, and to descend, she scoots down on my butt. Pt also notes pain, immobility, and weakness in her shoulder limit her ability to get herself up off the floor following a fall. Treatment Goals Patient/Caregiver Goals Improve balance, strengthen knees PT-OP-T Assessment and Plan Start: 10/04/23 11:38 Freq: Status: Active Protocol: Document 01/08/24 16:00 DCW (Rec: 01/08/24 16:37 DCW [id number]) Physical Therapy Assessment Impairments Impairments Activity Tolerance,Balance, Functional Activities, Functional Mobility,Gait,Pain, ROM,Soft Tissue Mobility, Strength,Transfers Goals Three Impairment Pt exhibits significant weakness in B LE MMT, testing between 3/5-4/5 [employer]ing [employer] Goal (LTG) Pt to demonstrate improved MMT in bilateral hips, testing 4- /5 or greater in all planes, in order to improve ability to ascend/descend stairs safely LTG Duration Met Two Impairment Pt presents with increased falls risk, per Juarez (36/56) and DGI (10/30) Residential Goal (LTG) Pt to improve DGI score by at least six points to 15 in order to demonstrate decreasing falls risk. 11/02/23: Improving () LTG Duration Met One Impairment Pt does not have an appropriate home exercise program Short Term Goal (STG) Pt to be independent and compliant with an appropriate HEP STG Duration 02/06/24 Assessment Summary Assessment Pt notes feeling much better overall. Other than recent hand pain, not complaining of much ongoing difficulty. Still struggles with [id number] when descending stairs. DGI score improved from 10/30 at eval to . Additionally, Juarez score improved from 36/56 to 49/56, pt no longer testing as an increased falls risk. Will likely benefit from additional 3-4 appointments in order to focus on stair and uneven surface management, as well as refining HEP. Physical Therapy Plan Frequency and Duration Frequency of Treatment 2x/Week Plan of Care Start Date 01/08/24 Plan of Care End Date 02/06/24 Therapeutic Interventions Therapeutic Interventions Balance Training,Coordination Training,Gait Training,Home Exercise Program,Joint Mobilizations,Manual Therapy, Neuromuscular Re-education, Patient/Caregiver Education, Self-Care/Home Management,Soft Tissue Mobilization, Therapeutic Activities, Therapeutic Exercises Modalities Cold Pack/Ice Massage,Electric Stimulation,Hot Packs, Ultrasound Next Visit Focus/Plan Next Note Type Treatment Note Next Visit Plan LE/UE strengthening, balance training, stair training Plan of Care Dates Plan of Care Start Date 01/08/24 Plan of Care End Date 02/06/24 Electronically Signed by: Stewart Cleary, PT 01/08/24 [id number] If you are in agreement with this Plan of Care, please return a signed and dated copy. I have reviewed this Plan of Care and certify that the skilled therapy services above are required to meet the patient?s needs. Physician Signature Date Printed Name and Credentials Clinical Instructor Signature Printed Name and Credentials
--- NOTE | 2024-01-16 12:15 | PT.OTN ---
Current Diagnoses Type 2 diabetes mellitus with diabetic polyneuropathy (01/16/24) Muscle weakness (generalized) (01/16/24) Unsteadiness on feet (01/16/24) Other abnormalities of gait and mobility (01/16/24) Other symptoms and signs involving the musculoskeletal system (01/16/24) Physical Therapy Treatment Note PT-OP-A Visit Information Start: 10/04/23 11:38 Freq: Status: Active Protocol: Document 01/16/24 11:34 SP (Rec: 01/16/24 12:47 SP [id number]) Out-Patient Physical Therapy Visit Information Visit Information Visit Type Treatment Note Visit Start Time 11:34 Visit Stop Time 12:15 Visit Number 18 (03/18 with PN) Number of [employer]CHITECT Visits 1 Evaluation Information Evaluation Date 10/04/23 PT-OP-B Current Condition Start: 10/04/23 11:38 Freq: Status: Active Protocol: Document 10/04/23 10:30 DCW (Rec: 10/04/23 12:03 DCW [id number]) Current Condition History of Current Condition Onset Date Two year history Current Complaints Weakness, poor balance, fatigue, difficulty with stairs, two years s/p CVA History of Current Condition Pt is a 58 year old female presenting to skilled therapy with complaints of weakness, gait difficulty, poor balance, poor falls recovery, and severe stair difficulty two years s/p CVA. Pt reports her knees didn't get back the way they were supposed to following her stroke. Additionally, pt suffers from issues with orthostasis, reportedly due to the large number of meds she has been on since her CVA. Reports she ascends stairs with both hands on one rail pulling herself up, and to descend, she scoots down on my butt. Pt also notes pain, immobility, and weakness in her shoulder limit her ability to get herself up off the floor following a fall. Treatment Goals Patient/Caregiver Goals Improve balance, strengthen knees PT-OP-C Subjective Start: 10/04/23 11:38 Freq: Status: Active Protocol: Document 01/16/24 11:34 SP (Rec: 01/16/24 12:47 SP [id number]) OP-PT Subjective Patient Comments Patient Comments Pt reports has been doing stairs for strengthening to help knee get stronger since Stroke. PT-OP-D Balance Start: 10/04/23 11:38 Freq: Status: Active Protocol: Document 01/08/24 16:00 DCW (Rec: 01/08/24 16:29 DCW [id number]) Balance Tests Juarez Balance Test Juarez Balance Test Score 49/56 Juarez Impairment Rating 1 to 19% Impaired (Score 45-55 ) Juarez Balance Assessment Evaluation Sitting to Standing Ability Independent w/out Hands Unsupported Stance Safely- 2 minutes Sitting Unsupported, Feet on Floor Safely- 2 minutes Standing to Sitting Ability Safely, Minimal Hand Use Transfer Ability Safely, Minimal Hand Use Unsupported Stance- Eyes Closed Supervision, 10 seconds Unsupported Stance- Eyes Open Independent, 1 minute Reaching Forward Standing Safely, 5 inches Pick- Up Object From Floor Independent/Safe Look Behind Shoulder - Standing Shifts Weight Well Turning 360 Degrees Turns slowly, but safely Unsupported Stance, Alternating Feet on (I)- 8 Steps in 20 secs Stair Unsupported Tandem Stance Holds Tandem- 30 seconds Unilateral Leg Stance Lifts Leg/Holds > 3 secs Total Score Juarez Total Score (out of 56 points) 49 Juarez Impairment Rating 1 to 19% Impaired (Score 45-55 ) PT-OP-E Functional Tests Start: 10/04/23 11:38 Freq: Status: Active Protocol: Document 01/08/24 16:00 DCW (Rec: 01/08/24 16:29 DCW [id number]) Functional Tests Dynamic Gait Index (DGI) Score 2024 DGI Impairment Rating 1 to <20% Impaired (Score 20- 23) PT-OP-K Range of Motion Start: 10/04/23 11:38 Freq: Status: Active Protocol: Document 10/04/23 10:30 DCW (Rec: 10/04/23 12:03 DCW [id number]) Shoulder Goniometric Range of Motion Shoulder Right Active Shoulder ROM WFL No Testing Position Sitting Flexion 110 Abduction 91 Left Active Shoulder ROM WFL No Testing Position Sitting Flexion 93 Abduction 87 PT-OP-M Strength Start: 10/04/23 11:38 Freq: Status: Active Protocol: Document 01/08/24 16:00 DCW (Rec: 01/08/24 16:29 DCW [id number]) Hip Strength Hip Manual Muscle Testing Right Flexion (L2) 4- Good- Extension (S1) 4+ Good+ Abduction 4- Good- Adduction 4 Good External Rotation 4 Good Internal Rotation 4 Good Left Flexion (L2) 4 Good Extension (S1) 4+ Good+ Abduction 4- Good- Adduction 4 Good External Rotation 4 Good Internal Rotation 4 Good Knee Strength Knee Manual Muscle Testing Right Flexion (S2) 4 Good Extension (L3) 4 Good Left Flexion (S2) 4 Good Extension (L3) 4 Good PT-OP-Q Treatments Start: 10/04/23 11:38 Freq: Status: Active Protocol: Document 01/16/24 11:34 SP (Rec: 01/16/24 12:47 SP [id number]) Gym Equipment Therapeutic Ball LTR Exercise Details LTR- added to HEP /c HO (feet on table) Ball Size/Color [place] 55 cm Body Position Hooklying Reps/Duration 2x10 Comments VCs - core bracing for stabilization, slow pacing, arms/hands at sides on table Therapeutic Exercises Supine Exercises knee flexion Supine Exercise Name TA alternating BLE: heel slides Side bilateral Resistance AROM Reps/Minutes 10 reps alternating BLEs Comments cued level pelvis, slower pacing Sidelying Exercises Reverse Clamshell Sidelying Exercise Name Reverse Clamshell Side bilateral Resistance TB > AROM Equipment Used pillow between knees Reps/Minutes x15 Comments reports very low lateral R knee irritation 2-3/10 Clamshell Sidelying Exercise Name Clamshell Side bilateral Resistance TB > AROM Reps/Minutes X15 Comments pnfree reported Sitting Exercises LAQ Sitting Exercise Name LAQ Side bilateral Resistance TB #1 light blue> AROM Reps/Minutes 10 reps TB R lat knee pain 6/ 10- DC, AROM holds less 3/10 Comments ed DC for now performing Standing Exercises sit to stand with band Standing Exercise Name Reviewed 01/15 Side bilateral Resistance level 1 latex free band Reps/Minutes x10 Comments reports increased right knee pain, pain reduction no band Gait Training Gait Activity stairs Description BUE on L HR (home only L HR) Level of Assistance supervision Distance/Duration 6 four inch steps for training . Comments Verbal cues for hands fwd on rail descending to step descending to, and to squeeze gluteal muscles when ascending . Manual Therapy Treatment Consent Patient gave verbal consent for manual Yes treatment Soft Tissue Mobilization bilateral knees Body Location R Vastus Lat, ITB Mobilization Type Rolling Intensity/Depth Superficial Body Position seated Comments Foot elevated on therapist knee Joint Mobilizations Patella Joint R PF Direction Inf<->Sup, med<> Lat Grade II Neuro Re-Education Treatment Balance Activities Tandem Details tandem stance Equipment near elevated table- hands hover Comments 27 sec R ft fwd- before LOB to L, table contact recovery. 30 sec L ft fwd *cued tall posture, TA PT-OP-T Assessment and Plan Start: 10/04/23 11:38 Freq: Status: Active Protocol: Document 01/16/24 11:34 SP (Rec: 01/16/24 12:47 SP [id number]) Physical Therapy Assessment Goals One Impairment Pt does not have an appropriate home exercise program Short Term Goal (STG) Pt to be independent and compliant with an appropriate HEP: 01/16/24: slow progression: reviewed clamshell, reverse clamshell , STS, seated hip abd- R lateral knee pain reduction to none without band . STG Duration 02/06/24 slow progression R knee pain 01/16/24 Assessment Summary Assessment Pt had increased Lateral R knee pain with today's ther ex , pain reduction reported with elimination of band during clamshell, reverse clamshell, STS today while providing benefits of LE strength. Trialed LAQ today for quad strengthening support for descending stairs, AROM hold caused Lateral R knee pain DC will revisit future appt. Trialed tandem stance for progression with no pain and able up to 27 sec, discussed continue home, declined HO. Physical Therapy Plan Frequency and Duration Frequency of Treatment 2x/Week Plan of Care Start Date 01/08/24 Plan of Care End Date 02/06/24 Therapeutic Interventions Therapeutic Interventions Balance Training,Coordination Training,Gait Training,Home Exercise Program,Joint Mobilizations,Manual Therapy, Neuromuscular Re-education, Patient/Caregiver Education, Self-Care/Home Management,Soft Tissue Mobilization, Therapeutic Activities, Therapeutic Exercises Modalities Cold Pack/Ice Massage,Electric Stimulation,Hot Packs, Ultrasound Next Visit Focus/Plan Next Note Type Treatment Note Next Visit Plan Update POC 2 visits, 02/02/24. POC: LE/UE strengthening, balance training, stair training
--- NOTE | 2024-01-30 10:44 | PT.OTN ---
Current Diagnoses Type 2 diabetes mellitus with diabetic polyneuropathy (01/30/24) Muscle weakness (generalized) (01/30/24) Unsteadiness on feet (01/30/24) Other abnormalities of gait and mobility (01/30/24) Other symptoms and signs involving the musculoskeletal system (01/30/24) Physical Therapy Treatment Note PT-OP-A Visit Information Start: 10/04/23 11:38 Freq: Status: Active Protocol: Document 01/30/24 08:50 AB (Rec: 01/30/24 10:43 AB [id number]) Out-Patient Physical Therapy Visit Information Visit Information Visit Type Treatment Note Visit Note Access Code [email or web address] Visit Start Time 09:48 Visit Stop Time 10:32 Visit Number 19(04/15 with PN) 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 Pt reports her knees didn't get back the way they were supposed to following her stroke. Additionally, pt suffers from issues with orthostasis, reportedly due to the large number of meds she has been on since her CVA. Reports she ascends stairs with both hands on one rail pulling herself up, and to descend, she scoots down on my butt. Pt also notes pain, immobility, and weakness in her shoulder limit her ability to get herself up off the floor following a fall. Treatment Goals Patient/Caregiver Goals Improve balance, strengthen knees PT-OP-C Subjective Start: 10/04/23 11:38 Freq: Status: Active Protocol: Document 01/30/24 08:50 AB (Rec: 01/30/24 10:43 AB [id number]) OP-PT Subjective Patient Comments Patient Comments Patient reports she is better. Zonia ambulates into session without device with antalgic gait pattern, ipsilateral trunk sidebed right> left. Noted slight hip strategy post sit to stand. Unable to fully extend right LE to rest on mat, verbalizes pain limiting movement. PT-OP-D Balance Start: 10/04/23 11:38 Freq: Status: Active Protocol: Document 01/08/24 16:00 DCW (Rec: 01/08/24 16:29 DCW [id number]) Balance Tests Juarez Balance Test Juarez Balance Test Score 49/56 Juarez Impairment Rating 1 to 19% Impaired (Score 45-55 ) Juarez Balance Assessment Evaluation Sitting to Standing Ability Independent w/out Hands Unsupported Stance Safely- 2 minutes Sitting Unsupported, Feet on Floor Safely- 2 minutes Standing to Sitting Ability Safely, Minimal Hand Use Transfer Ability Safely, Minimal Hand Use Unsupported Stance- Eyes Closed Supervision, 10 seconds Unsupported Stance- Eyes Open Independent, 1 minute Reaching Forward Standing Safely, 5 inches Pick- Up Object From Floor Independent/Safe Look Behind Shoulder - Standing Shifts Weight Well Turning 360 Degrees Turns slowly, but safely Unsupported Stance, Alternating Feet on (I)- 8 Steps in 20 secs Stair Unsupported Tandem Stance Holds Tandem- 30 seconds Unilateral Leg Stance Lifts Leg/Holds > 3 secs Total Score Juarez Total Score (out of 56 points) 49 Juarez Impairment Rating 1 to 19% Impaired (Score 45-55 ) PT-OP-E Functional Tests Start: 10/04/23 11:38 Freq: Status: Active Protocol: Document 01/08/24 16:00 DCW (Rec: 01/08/24 16:29 DCW [id number]) Functional Tests Dynamic Gait Index (DGI) Score 20/24 DGI Impairment Rating 1 to <20% Impaired (Score 20- 23) PT-OP-K Range of Motion Start: 10/04/23 11:38 Freq: Status: Active Protocol: Document 10/04/23 10:30 DCW (Rec: 10/04/23 12:03 DCW [id number]) Shoulder Goniometric Range of Motion Shoulder Right Active Shoulder ROM WFL No Testing Position Sitting Flexion 110 Abduction 91 Left Active Shoulder ROM WFL No Testing Position Sitting Flexion 93 Abduction 87 PT-OP-M Strength Start: 10/04/23 11:38 Freq: Status: Active Protocol: Document 01/08/24 16:00 DCW (Rec: 01/08/24 16:29 DCW [id number]) Hip Strength Hip Manual Muscle Testing Right Flexion (L2) 4- Good- Extension (S1) 4+ Good+ Abduction 4- Good- Adduction 4 Good External Rotation 4 Good Internal Rotation 4 Good Left Flexion (L2) 4 Good Extension (S1) 4+ Good+ Abduction 4- Good- Adduction 4 Good External Rotation 4 Good Internal Rotation 4 Good Knee Strength Knee Manual Muscle Testing Right Flexion (S2) 4 Good Extension (L3) 4 Good Left Flexion (S2) 4 Good Extension (L3) 4 Good PT-OP-Q Treatments Start: 10/04/23 11:38 Freq: Status: Active Protocol: Document 01/30/24 08:50 AB (Rec: 01/30/24 10:43 AB [id number]) Gym Equipment Shuttle Recovery Bilateral Squats Resistance 62# unable 50# (teal) Reps/Time X10 X 2 Therapeutic Exercises Standing Exercises glute med isometric Side bilateral Reps/Minutes one minute each LE Comments verbal and visual cues calf stretches on SATURNINO Standing Exercise Name Calf Stretch Side bilateral Equipment Used SATURNINO Reps/Minutes 60 sec X 1 heel raise Standing Exercise Name Heel Raise Side bilateral Reps/Minutes x16 Comments VC to lower heels to floor slowly Manual Therapy Treatment Consent Patient gave verbal consent for manual Yes treatment Soft Tissue Mobilization bilateral knees Body Location R Vastus Lat, ITB hamstring Mobilization Type Myofascial Release,Rolling, Strumming,Other Intensity/Depth Superficial Body Position Hooklying Comments and moderate Neuro Re-Education Treatment Balance Activities Wall fall Details Pillow behind back Reps/Duration X10 Comments verbal and visual cues PT-OP-T Assessment and Plan Start: 10/04/23 11:38 Freq: Status: Active Protocol: Document 01/30/24 08:50 AB (Rec: 01/30/24 10:43 AB [id number]) Physical Therapy Assessment Goals One Impairment Pt does not have an appropriate home exercise program Short Term Goal (STG) Pt to be independent and compliant with an appropriate HEP: 01/16/24: slow progression: reviewed clamshell, reverse clamshell , STS, seated hip abd- R lateral knee pain reduction to none without band . STG Duration 02/06/24 slow progression R knee pain 01/16/24 Assessment Summary Assessment Zonia reports she is OK end of session. Patient was able to lie on mat with right LE less flexed post manual therapy. Physical Therapy Plan Frequency and Duration Frequency of Treatment 2x/Week Plan of Care Start Date 01/08/24 Plan of Care End Date 02/06/24 Next Visit Focus/Plan Next Note Type Treatment Note Next Visit Plan Update POC 1 visits, 02/02/24. POC: LE/UE strengthening, balance training, stair training
--- NOTE | 2024-02-02 10:30 | PT.OTN ---
Current Diagnoses Type 2 diabetes mellitus with diabetic polyneuropathy (02/02/24) Muscle weakness (generalized) (02/02/24) Unsteadiness on feet (02/02/24) Other abnormalities of gait and mobility (02/02/24) Other symptoms and signs involving the musculoskeletal system (02/02/24) Physical Therapy Treatment Note PT-OP-A Visit Information Start: 10/04/23 11:38 Freq: Status: Active Protocol: Document 02/02/24 09:45 DCW (Rec: 02/02/24 10:29 DCW [id number]) Out-Patient Physical Therapy Visit Information Visit Information Visit Type Discharge Summary Visit Start Time 09:45 Visit Stop Time 10:30 Visit Number 20 Number of [employer] CAPTAIN Visits 0 Evaluation Information Evaluation Date 10/04/23 PT-OP-B Current Condition Start: 10/04/23 11:38 Freq: Status: Active Protocol: Document 10/04/23 10:30 DCW (Rec: 10/04/23 12:03 DCW [id number]) Current Condition History of Current Condition Onset Date Two year history Current Complaints Weakness, poor balance, fatigue, difficulty with stairs, two years s/p CVA History of Current Condition Pt is a 58 year old female presenting to skilled therapy with complaints of weakness, gait difficulty, poor balance, poor falls recovery, and severe stair difficulty two years s/p CVA. Pt reports her knees didn't get back the way they were supposed to following her stroke. Additionally, pt suffers from issues with orthostasis, reportedly due to the large number of meds she has been on since her CVA. Reports she ascends stairs with both hands on one rail pulling herself up, and to descend, she scoots down on my butt. Pt also notes pain, immobility, and weakness in her shoulder limit her ability to get herself up off the floor following a fall. Treatment Goals Patient/Caregiver Goals Improve balance, strengthen knees PT-OP-C Subjective Start: 10/04/23 11:38 Freq: Status: Active Protocol: Document 02/02/24 09:45 DCW (Rec: 02/02/24 10:29 DCW [id number]) OP-PT Subjective Patient Comments Patient Comments Pt notes she has recently had difficulty getting into her friend's Jeep. I can walk, I can balance, I can do a lot of things, but I still struggle with stairs or lifting my leg up. PT-OP-D Balance Start: 10/04/23 11:38 Freq: Status: Active Protocol: Document 01/08/24 16:00 DCW (Rec: 01/08/24 16:29 DCW [id number]) Balance Tests Juarez Balance Test Juarez Balance Test Score 49/56 Juarze Impairment Rating 1 to 19% Impaired (Score 45-55 ) Juarez Balance Assessment Evaluation Sitting to Standing Ability Independent w/out Hands Unsupported Stance Safely- 2 minutes Sitting Unsupported, Feet on Floor Safely- 2 minutes Standing to Sitting Ability Safely, Minimal Hand Use Transfer Ability Safely, Minimal Hand Use Unsupported Stance- Eyes Closed Supervision, 10 seconds Unsupported Stance- Eyes Open Independent, 1 minute Reaching Forward Standing Safely, 5 inches Pick- Up Object From Floor Independent/Safe Look Behind Shoulder - Standing Shifts Weight Well Turning 360 Degrees Turns slowly, but safely Unsupported Stance, Alternating Feet on (I)- 8 Steps in 20 secs Stair Unsupported Tandem Stance Holds Tandem- 30 seconds Unilateral Leg Stance Lifts Leg/Holds > 3 secs Total Score Juarez Total Score (out of 56 points) 49 Juarez Impairment Rating 1 to 19% Impaired (Score 45-55 ) PT-OP-E Functional Tests Start: 10/04/23 11:38 Freq: Status: Active Protocol: Document 01/08/24 16:00 DCW (Rec: 01/08/24 16:29 DCW [id number]) Functional Tests Dynamic Gait Index (DGI) Score 2024 DGI Impairment Rating 1 to <20% Impaired (Score 20- 23) PT-OP-K Range of Motion Start: 10/04/23 11:38 Freq: Status: Active Protocol: Document 10/04/23 10:30 DCW (Rec: 10/04/23 12:03 DCW [id number]) Shoulder Goniometric Range of Motion Shoulder Right Active Shoulder ROM WFL No Testing Position Sitting Flexion 110 Abduction 91 Left Active Shoulder ROM WFL No Testing Position Sitting Flexion 93 Abduction 87 PT-OP-M Strength Start: 10/04/23 11:38 Freq: Status: Active Protocol: Document 01/08/24 16:00 DCW (Rec: 01/08/24 16:29 DCW [id number]) Hip Strength Hip Manual Muscle Testing Right Flexion (L2) 4- Good- Extension (S1) 4+ Good+ Abduction 4- Good- Adduction 4 Good External Rotation 4 Good Internal Rotation 4 Good Left Flexion (L2) 4 Good Extension (S1) 4+ Good+ Abduction 4- Good- Adduction 4 Good External Rotation 4 Good Internal Rotation 4 Good Knee Strength Knee Manual Muscle Testing Right Flexion (S2) 4 Good Extension (L3) 4 Good Left Flexion (S2) 4 Good Extension (L3) 4 Good PT-OP-Q Treatments Start: 10/04/23 11:38 Freq: Status: Active Protocol: Document 02/02/24 09:45 DCW (Rec: 02/02/24 10:29 DCW [id number]) Therapeutic Exercises Standing Exercises calf stretches on SATURNINO Standing Exercise Name Calf Stretch Side bilateral Equipment Used SATURNINO Reps/Minutes 60 sec X 1 heel raise Standing Exercise Name Heel Raise Side bilateral Reps/Minutes x16 Comments VC to lower heels to floor slowly Other Exercises Toe Taps Other Exercise Name Toe taps Equipment Used 12 step Manual Therapy Treatment Joint Mobilizations Patella Joint R PF Direction Inf<->Sup, med<> Lat Grade II Knee Joint B Knee Direction P<->A Grade III PT-OP-T Assessment and Plan Start: 10/04/23 11:38 Freq: Status: Active Protocol: Document 02/02/24 09:45 DCW (Rec: 02/02/24 10:29 DCW [id number]) Physical Therapy Assessment Impairments Impairments Activity Tolerance,Balance, Functional Activities, Functional Mobility,Gait,Pain, ROM,Soft Tissue Mobility, Strength,Transfers Goals One Impairment Pt does not have an appropriate home exercise program Short Term Goal (STG) Pt to be independent and compliant with an appropriate HEP: 01/16/24: slow progression: reviewed clamshell, reverse clamshell , STS, seated hip abd- R lateral knee pain reduction to none without band . STG Duration 02/06/24 slow progression R knee pain 01/16/24 Assessment Summary Assessment Pt overall has progress well, but continued knee pain limits her ability to do some activities. Pt had increased pain with toe-taps today. Will likely benefit from return to PCP for follow-up and discuss next steps. Discharge from skilled PT at this time. Physical Therapy Plan Frequency and Duration Frequency of Treatment 2x/Week Plan of Care Start Date 01/08/24 Plan of Care End Date 02/06/24 Therapeutic Interventions Therapeutic Interventions Balance Training,Coordination Training,Gait Training,Home Exercise Program,Joint Mobilizations,Manual Therapy, Neuromuscular Re-education, Patient/Caregiver Education, Self-Care/Home Management,Soft Tissue Mobilization, Therapeutic Activities, Therapeutic Exercises Modalities Cold Pack/Ice Massage,Electric Stimulation,Hot Packs, Ultrasound Discharge Physical Therapy Discharge Reasons Plateau in Progress Next Visit Focus/Plan Next Note Type Discharge Summary
== END 2024-04-04 09:34 | disposition home or self-care (01) ==
LOC: PHYS 09:45
PROVIDERS: Family Provider Family Medicine; PCP Family Medicine; Referring Provider Psychiatry & Neurology Neurology; Visit Provider Psychiatry & Neurology Neurology
DX: R29.898 Other symptoms and signs involving the musculoskeletal system (principal); E11.42 Type 2 diabetes mellitus with diabetic polyneuropathy; M62.81 Muscle weakness (generalized); R26.81 Unsteadiness on feet; R26.89 Other abnormalities of gait and mobility
CPT/HCPCS: 97110; 97112; 97140; 97163

== ENCOUNTER → 2024-03-22 10:54 | Outpatient (CLI) | payer OTHER, SELFPAY ==
[2021-10-21 00:54] VITALS: BMI 23.2
[2024-03-22 12:38] LABS: Albumin 4.1 g/dL (3.5-5.0); BUN Creatinine Ratio 13.9 (6-22); Blood Urea Nitrogen 32 mg/dL (7-17); Calcium 9.3 mg/dL (8.4-10.2); Carbon Dioxide 21 mmol/L (22-32); Chloride 111 mmol/L (98-107); Cholesterol 96 mg/dL (140-199); Estimated Glomerular Filt Rate 24 mL/min (>60); Glucose 99 mg/dL (80-110); HDL Cholesterol 35 mg/dL (40-60); HEMOLYSIS < 15 (0-50); LDL Cholesterol Calculated 29 mg/dL (<100); Phosphorous 3.7 mg/dL (2.8-4.1); Potassium 4.2 mmol/L (3.4-5.1); Sodium 141 mmol/L (137-145); Triglycerides 161 mg/dL (35-150)
[2024-03-22 19:55] LABS: Microalbumin Urine Random > 19.0 mg/dL (0-1.6)
== END ==
PROVIDERS: Family Provider Family Medicine; PCP Family Medicine; Referring Provider Student in an Organized Health Care Education/Training Program; Visit Provider Student in an Organized Health Care Education/Training Program
DX: E11.69 Type 2 diabetes mellitus with other specified complication (principal)
CPT/HCPCS: 36415; 80061; 80069; 82043; 82570

== ENCOUNTER → 2024-04-10 10:39 | Outpatient (CLI) | payer OTHER, SELFPAY ==
[2021-10-21 00:54] VITALS: BMI 23.2
[2024-04-10 11:18] LABS: Hemoglobin 12.2 g/dL (12.0-16.0); Mean Corpuscular HGB Conc 33.1 % (30-36); Mean Corpuscular Hemoglobin 27.9 PG (26-34); Mean Corpuscular Volume 84.2 fL (80-100); Platelet Count 257 X10^3/uL (150-400); Red Blood Cell Count 4.39 X10^6/uL (4.0-5.2); Red Cell Distribution Width 17.3 % (11.6-14.8); White Blood Cell Count 4.4 X10^3/uL (4.5-11.0)
[2024-04-10 11:49] LABS: Albumin 4.4 g/dL (3.5-5.0); Blood Urea Nitrogen 37 mg/dL (7-17); Calcium 10.3 mg/dL (8.4-10.2); Carbon Dioxide 23 mmol/L (22-32); Chloride 106 mmol/L (98-107); Estimated Glomerular Filt Rate 36 mL/min (>60); Glucose 117 mg/dL (80-110); HEMOLYSIS < 15 (0-50); Magnesium 2.4 mg/dL (1.6-2.3); Phosphorous 5.5 mg/dL (2.8-4.1); Potassium 4.5 mmol/L (3.4-5.1); Sodium 139 mmol/L (137-145)
[2024-04-10 12:06] LABS: Vitamin D 25 Hydroxy (D3) 54.2 ng/mL (30.0-100.0)
[2024-04-10 12:17] LABS: Creatinine Urine Random 201.34 mg/dL
[2024-04-10 12:22] LABS: Microalbumin Urine Random 4.2 mg/dL (0-1.6)
[2024-04-11 08:36] LABS: Parathyroid Hormone Int 27 pg/mL (15-65)
== END ==
PROVIDERS: Family Provider Family Medicine; PCP Family Medicine; Referring Provider Internal Medicine Nephrology; Visit Provider Internal Medicine Nephrology
DX: N18.4 Chronic kidney disease, stage 4 (severe) (principal)
CPT/HCPCS: 36415; 80048; 82040; 82043; 82306; 82570; 83735; 83970; 84100; 85027

== ENCOUNTER → 2024-06-27 08:03 | Outpatient (CLI) | payer OTHER, SELFPAY ==
[2021-10-21 00:54] VITALS: BMI 23.2
--- NOTE | 2024-06-27 08:05 | DI.US.S_ITS ---
PROCEDURE: US ABDOMEN COMPLETE INDICATIONS: LEFT GROIN PAIN ?HERNIA AND ELEVATED LFTS TECHNIQUE: Real-time scanning was performed of the abdominal and retroperitoneal organs, with image documentation. COMPARISON: [facility], , US ABDOMEN LIMITED, 05/10/2022, 8:00. FINDINGS: Liver: The liver is normal size with a smooth margin. The parenchyma is diffusely echogenic and slightly coarse. No focal lesion. There is appropriate direction of flow in the portal vein. Gallbladder: The gallbladder is completely decompressed despite the patient being NPO. No visible stones or wall thickening. Biliary ducts: Intrahepatic bile ducts are non-dilated. Extrahepatic bile duct caliber measures 3.2 mm. Normal is 6-7 mm or less in diameter, or 10 mm or less post-cholecystectomy. Pancreas: Visualized portions of the pancreas are sonographically normal. Spleen: Spleen is normal in size and homogeneous in echotexture. Kidneys: Kidneys are diminutive in size and echotexture. Right kidney measures 8.6 cm long; left kidney measures 8.5 cm long. No hydronephrosis or nephrolithiasis. No solid masses. Aorta: Visualized aorta is normal in caliber at less than 3 cm. Iliacs: Proximal common iliac arteries are normal in caliber at less than 2.5 cm. IVC: Intrahepatic inferior vena cava is patent. Miscellaneous: In the left lower quadrant area of pain, the anterior abdominal wall fascia appears intact. No visible hernia, cyst, or solid mass. IMPRESSION: Mildly coarse and hyperechoic hepatic echotexture suggestive of steatosis or other intrinsic liver disease. No abnormalities to correspond to the left lower quadrant pain. Incidental note of diminutive kidneys. Correlate with renal function and body habitus. Dictated by: Georgina Gatica M.D. on 06/27/2024 at 15:19 Approved by: Georgina Gatica M.D. on 06/27/2024 at 15:22
== END ==
PROVIDERS: Family Provider Family Medicine; PCP Family Medicine; Referring Provider Family Medicine; Visit Provider Family Medicine
DX: N27.9 Small kidney, unspecified (principal); R79.89 Other specified abnormal findings of blood chemistry; R10.32 Left lower quadrant pain
CPT/HCPCS: 76700